=== PATIENT | female | born 1940 | race Caucasian/White ===

== ENCOUNTER → 2017-05-07 13:54 | Outpatient (CLI) | payer MEDICARE, SELFPAY ==
[2017-05-07 16:21] LABS: Absolute Lymphocyte Count 2.46 X10^3/ul (0.83-4.51); Basophil# 0.09 X10^3/uL; Basophil% 1.4 % (0-1); Eosinophil# 0.12 X10^3/uL; Eosinophils% 1.9 % (0-5); Hematocrit 40.6 % (37-47); Hemoglobin 13.2 g/dl (12.0-15.0); Lymphocyte # 2.46 X10^3/ul (4.0); Lymphocyte % 38.7 % (19-41); Mean Corp Hgb Conc 32.5 g/gl (32-36); Mean Corpuscular Hgb 33.8 pg (27.0-32.0); Mean Corpuscular Volume 103.8 fL (81-99); Mean Platelet Vol. 11.5 fl (6.2-12.0); Monocyte# 0.67 X10^3/uL; Monocyte% 10.5 % (0-10); Neutrophil # 3.01 X10^3/uL (2.7-7.7); Neutrophil % 47.3 % (47-70); Platelet Count 199 K/mm3 (150-450); RBC Distribution Width CV 12.2 % (11.6-14.6); RBC Distribution Width SD 45.8 fl (35.1-43.9); Red Blood Count 3.91 M/mm3 (4.2-5.4); White Blood Count 6.4 K/mm3 (4.4-11.0)
[2017-05-07 16:31] LABS: POSITIVE COUNT NO; POSITIVE DIFFERENTIAL NO; POSITIVE MORPHOLOGY NO
[2017-05-07 16:33] LABS: AST(SGOT) 26 U/L (15-37); Alanine Aminotransfer ALT/SGPT 19 U/L (13-56); Albumin, Serum 3.4 g/dL (3.2-5.0); Alkaline Phosphatase 72 U/L (45-117); Anion Gap 8 (5-15); BUN 11 mg/dL (7-18); Calcium,Total 8.7 mg/dL (8.5-10.1); Chloride 106 mmol/L (98-107); Creatinine, Serum 0.84 mg/dL (0.55-1.02); EST Glomerular Filtration Rate 69 mL/min (>60); Est Glom Filt Rate - Afr Amer 84 mL/min (>60); Globulin 3.3 g/dL (2.2-4.2); Glucose 96 mg/dL (74-106); Potassium 3.9 mmol/L (3.5-5.1); Protein, Total 6.7 g/dL (6.4-8.2); Sodium Level 138 mmol/L (136-145)
[2017-05-08 09:01] LABS: Vitamin D,25 Hydroxy 46.6 ng/mL (29.95-100.01)
== END ==
PROVIDERS: Family Provider Family Medicine Geriatric Medicine; PCP Family Medicine Geriatric Medicine; Visit Provider Family Medicine Geriatric Medicine
DX: E55.9 Vitamin D deficiency, unspecified (principal); R53.83 Other fatigue
CPT/HCPCS: 36415; 80053; 82306; 84443; 85025

== ENCOUNTER 2017-09-30 12:06 | Emergency (ER) | payer MEDICARE, SELFPAY ==
[2017-09-30 12:07] VITALS: BP 101/71; PULSE 76; RESP 16; TEMP 36.4; O2SAT 95; BMI 20.3
[2017-09-30] MEDS: HYDROcodone Bitartrate/Apap 5/325 Tablet PO (12:33)
--- NOTE | 2017-09-30 12:36 | ED.DCSUM_ITS ---
- ER Visit Summary Date of Service: 09/30/17 Chief Complaint: Fall History of Present Illness: The patient is a [address] Oneil. 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 States she was leaning forward when she went to lean back she been back to quickly and fell. She has pain in her right wrist that is 8 out of 10 severity. She reports she landed on her buttocks. She denies any pain there at this time. She is able to ambulate without difficulty. She denies any blow to the head or loss of consciousness. No neck or back pain. Patient is right-hand dominant and her tetanus is not up-to-date. Physical Examination: Vitals: Stable. Afebrile. Neck: No vertebral tenderness. Full ROM without difficulty. Cleared by NEXUS criteria. Back: No vertebral tenderness. General: A&O x 3. NAD. Cardiovascular exam: Regular rate and rhythm, no murmur, rub or gallop. Respiratory exam: Chest nontender. No crepitus. Clear to auscultation bilaterally. No wheezes or stridor. Abdominal exam: Soft, nontender, nondistended, normal bowel sounds. No pain in RUQ or LUQ specifically. No peritoneal signs. Extremity: 1.5 cm flap skin tear to the anterior radial side of her wrist. No active bleeding. She has moderate tenderness palpation over the distal radius. She is neurovascular intact distal is normal cessation light touch was in 2 second capillary refill. Test Results: Right wrist x-ray shows a nondisplaced cyst distal radius fracture. Emergency Department Course and Treatment: Patient was treated with [place] p.o. She had her wound cleansed and a dressing was placed. Xeroform gauze was placed over the skin tear prior to placing a volar splint. Treatment Plan: Patient be discharged with [place] and Colace. Instructed to follow-up Dr. Ramon in 1 week if for further treatment. Return to the emergency department for any worsening symptoms. Disposition: To home in improved and stable condition. Impression: 1. Fall. 2. Skin tear right wrist. 3. Nondisplaced distal radius fracture on right. 4. Volar splint, fabricated. This note was generated with Arvin[employer] software. It may contain incorrect words, spelling, and punctuation that were not noted in review of the chart prior to signing ED Disposition - Plan for ED Patient: Chief Complaint: Fall Instructions: ED Fx Colles Wrist No Redu Requ Prescriptions: Docusate Sodium [Colace] 100 mg PO DAILY #20 capsule Hydrocodone/Acetaminophen [[place] 5-325 Tablet] 1 - 2 each PO 4X/DAY PRN PRN 5 Days #20 tablet PRN Reason: Pain Referrals: Lloyd Ramon MD [STAFF PHYSICIAN] - 1 Week
[2017-09-30] MEDS: Diphth,Pertuss(Acell),Tet Vac 0.5 ML Vial IM (12:38)
[2017-09-30 13:42] VITALS: BP 115/72; PULSE 61; RESP 16; O2SAT 97
== END 2017-09-30 13:48 | disposition home or self-care (01) ==
LOC: ED 12:57
PROVIDERS: Emergency Provider Emergency Medicine; Family Provider Family Medicine Geriatric Medicine; PCP Family Medicine Geriatric Medicine
DX: S52.501A Unspecified fracture of the lower end of right radius, initial encounter for closed fracture (principal); S61.511A Laceration without foreign body of right wrist, initial encounter; F41.9 Anxiety disorder, unspecified; Z72.0 Tobacco use; Z79.01 Long term (current) use of anticoagulants; Z79.899 Other long term (current) drug therapy; W18.30XA Fall on same level, unspecified, initial encounter; Y93.H2 Activity, gardening and landscaping; Y92.007 Garden or yard of unspecified non-institutional (private) residence as the place of occurrence of the external cause; Y99.8 Other external cause status
CPT/HCPCS: 29125; 73110; 90471; 90715; 99283; A4216

== ENCOUNTER → 2017-11-05 13:43 | Outpatient (CLI) | payer MEDICARE, SELFPAY ==
[2017-11-05 16:28] LABS: Absolute Neutrophil Count 2.9 X10^3/uL (2.0-7.7); Basophil# 0.08 X10^3/uL; Basophil% 1.4 % (0-1); Eosinophil# 0.12 X10^3/uL; Hematocrit 39.8 % (37-47); Lymphocyte % 37.2 % (19-41); Mean Corp Hgb Conc 32.7 g/gl (32-36); Mean Corpuscular Hgb 32.9 pg (27.0-32.0); Mean Corpuscular Volume 100.8 fL (81-99); Mean Platelet Vol. 11.8 fl (6.2-12.0); Monocyte# 0.64 X10^3/uL; Monocyte% 10.8 % (0-10); Neutrophil # 2.87 X10^3/uL (2.7-7.7); Neutrophil % 48.4 % (47-70); Platelet Count 189 K/mm3 (150-450); RBC Distribution Width SD 47.3 fl (35.1-43.9); Red Blood Count 3.95 M/mm3 (4.2-5.4); White Blood Count 5.9 K/mm3 (4.4-11.0)
[2017-11-05 16:34] LABS: AST(SGOT) 23 U/L (15-37); Alanine Aminotransfer ALT/SGPT 23 U/L (13-56); Albumin, Serum 3.4 g/dL (3.2-5.0); Alkaline Phosphatase 82 U/L (45-117); Anion Gap 7 (5-15); BUN 10 mg/dL (7-18); BUN/Creat Ratio 11.5 RATIO (10-20); Calcium,Total 8.7 mg/dL (8.5-10.1); Chloride 104 mmol/L (98-107); Creatinine, Serum 0.87 mg/dL (0.55-1.02); EST Glomerular Filtration Rate 67 mL/min (>60); Est Glom Filt Rate - Afr Amer 81 mL/min (>60); Globulin 3.5 g/dL (2.2-4.2); Glucose 92 mg/dL (74-106); Potassium 4.1 mmol/L (3.5-5.1); Protein, Total 6.9 g/dL (6.4-8.2); Sodium Level 139 mmol/L (136-145); Thyroid Stim Hormone (TSH) 1.36 uIU/mL (0.358-3.74); Vitamin D,25 Hydroxy 33.7 ng/mL (29.95-100.01)
[2017-11-05 16:37] LABS: POSITIVE COUNT NO; POSITIVE DIFFERENTIAL NO; POSITIVE MORPHOLOGY NO
== END ==
PROVIDERS: Family Provider Family Medicine Geriatric Medicine; PCP Family Medicine Geriatric Medicine; Visit Provider Family Medicine Geriatric Medicine
DX: E55.9 Vitamin D deficiency, unspecified (principal); R53.83 Other fatigue
CPT/HCPCS: 36415; 80053; 82306; 84443; 85025

== ENCOUNTER 2017-11-24 19:57 | Inpatient (IN) | payer MEDICARE, SELFPAY ==
[2017-11-24 19:58] VITALS: BP 95/65; PULSE 84; RESP 16; TEMP 36.1; O2SAT 98; BMI 19.8
--- NOTE | 2017-11-24 21:24 | CT_ITS ---
STUDY: CT ABDOMEN AND PELVIS WITHOUT CONTRAST REASON FOR EXAM: Female, 77 years old. Diarrhea and weakness x2 weeks RADIATION DOSAGE (If Supplied By Facility): CTDIvol = ( 6.39 ) mGy, DLP = ( 274.51 ) mGycm TECHNIQUE: Transaxial images were obtained from the dome of the diaphragm to the symphysis pubis without oral contrast, and without intravenous contrast. Sagittal and coronal images were reconstructed. Individualized dose optimization techniques were used for this CT. COMPARISON: 2009 FINDINGS: There are chronic interstitial fibrotic changes of the lung bases. The visualized portions of the heart are within normal limits. Normal liver. There are surgical clips in the gallbladder fossa consistent with a prior cholecystectomy. Normal spleen. Normal pancreas. Normal bilateral adrenal glands. Normal right kidney. Normal left kidney. There is a large hiatal hernia composed mostly of the fundus of the stomach. Multiple nondistended fluid-filled small bowel loops are noted consistent with ileus. There are also multiple fluid-filled loops of colon consistent with a diarrheal illness. There is non-visualization of the appendix. Peripheral calcifications noted in the abdominal aorta without aneurysmal dilatation to 3.63 cm. Normal inferior vena cava. Normal retroperitoneum. Normal urinary bladder. Left of the pelvis is obscured with artifact from bilateral hip replacements the uterus is not identified. Normal abdominal wall. There are diffuse degenerative changes of the visualized lumbar spine, and pelvis. CT/Abdomen/Pelvis without Cont IMPRESSION: Small bowel ileus Fluid filled colon suggests underlying diarrheal illness No suspicious solid organ abnormality, previous cholecystectomy Prominent retrocardiac hiatal hernia Electronically Signed: Huan Blanco MD at 22:41 EDT , Service support ,
[2017-11-24] MEDS: 0.9% Normal Saline 1,000 ML 1000 ML IV (21:39)
[2017-11-24 21:56] LABS: Absolute Lymphocyte Count 1.78 X10^3/ul (0.83-4.51); Absolute Neutrophil Count 4.7 X10^3/uL (2.0-7.7); Basophil# 0.03 X10^3/uL; Basophil% 0.4 % (0-1); Eosinophil# 0.06 X10^3/uL; Eosinophils% 0.8 % (0-5); Hemoglobin 15.2 g/dl (12.0-15.0); Lymphocyte # 1.78 X10^3/ul (4.0); Lymphocyte % 23.8 % (19-41); Mean Corp Hgb Conc 34.5 g/gl (32-36); Mean Corpuscular Hgb 32.8 pg (27.0-32.0); Mean Corpuscular Volume 94.8 fL (81-99); Mean Platelet Vol. 11.6 fl (6.2-12.0); Monocyte# 0.85 X10^3/uL; Monocyte% 11.4 % (0-10); Neutrophil # 4.74 X10^3/uL (2.7-7.7); Neutrophil % 63.5 % (47-70); Platelet Count 326 K/mm3 (150-450); RBC Distribution Width CV 13.3 % (11.6-14.6); RBC Distribution Width SD 45.5 fl (35.1-43.9); Red Blood Count 4.64 M/mm3 (4.2-5.4); White Blood Count 7.5 K/mm3 (4.4-11.0)
[2017-11-24 21:58] LABS: POSITIVE COUNT NO; POSITIVE DIFFERENTIAL NO; POSITIVE MORPHOLOGY NO
[2017-11-24 22:04] LABS: AST(SGOT) 24 U/L (15-37); Alanine Aminotransfer ALT/SGPT 22 U/L (13-56); Albumin, Serum 3.8 g/dL (3.2-5.0); Alkaline Phosphatase 96 U/L (45-117); Anion Gap 13 (5-15); BUN 37 mg/dL (7-18); BUN/Creat Ratio 21.6 RATIO (10-20); Calcium,Total 9.2 mg/dL (8.5-10.1); Chloride 105 mmol/L (98-107); Creatinine, Serum 1.71 mg/dL (0.55-1.02); EST Glomerular Filtration Rate 31 mL/min (>60); Est Glom Filt Rate - Afr Amer 37 mL/min (>60); Estimated Creatinine Clearance 21.06 ml/min; Glucose 69 mg/dL (74-106); Lipase 479 U/L (73-393); Potassium 3.8 mmol/L (3.5-5.1); Protein, Total 7.8 g/dL (6.4-8.2); Sodium Level 137 mmol/L (136-145)
[2017-11-24 23:15] LABS: Bacteria 0 SEEN /hpf (None Seen); Mucous, Urine 0 SEEN /hpf (<or=2+)
[2017-11-24 23:19] LABS: Color, Urine Yellow (Yellow); Glucose, Dipstick Normal (Normal); Ketone-Dipstick 50 mg/dl (Negative); Leukocyte Esterase-Dipstick 25 /ul (Negative); Nitrite-Dipstick Negative (Negative); Occult Blood-Urine 25 /ul (Negative); Protein-Dipstick 30 mg/dl (Negative); Urine Clarity Clear (Clear); Urine Urobilinogen Normal (Normal)
[2017-11-24 23:22] LABS: Urine Bilirubin Dipstick 1 mg/dL (Negative)
[2017-11-24 23:25] LABS: Red Blood Cells-Urine 0-5 SEEN /hpf (0-5); White Blood Cells 0-5 SEEN /hpf (0-5)
[2017-11-24 23:26] LABS: Squamous Epithelial Cells - UA 0-5 SEEN /hpf (5-10)
--- NOTE | 2017-11-25 00:08 | ED.VISSUMM ---
- ER Visit Summary Date of Service: 11/25/17 Chief Complaint: Diarrhea History of Present Illness: The patient is a 77 F who presents with diarrhea for the past 2 weeks. Patient states the diarrhea is really watery. Patient denies any melena or hematochezia. Patient denies any sick contacts. Patient denies any recent antibiotic use. Patient states she did have an episode of abdominal pain yesterday over the epigastric and upper abdomen. Patient states this has resolved. Patient denies any fevers or chills. She denies any nausea or vomiting. Patient denies any dysuria or hematuria. Physical Examination: Vital signs are stable. Patient is afebrile. Patient is in no acute distress. Oral mucosa is pink and dry neck is supple. Trachea is midline. There is no JVD or lymphadenopathy noted. Heart was regular rate and rhythm. Lungs are clear and equal bilateral. There is good respiratory effort noted. Abdomen is soft. Bowel sounds are normal. There is no tenderness. There is no rebound or guarding noted. Cranial nerves II through XII are intact. There are no focal motor or sensory deficits noted. The remaining physical exam is within normal limits. Test Results: CBC is within normal limits. Basic metabolic profile showed an elevated creatinine of 1.71. Urinalysis does not show any evidence of urinary tract infection. CT scan of the abdomen and pelvis does not show any acute intra-abdominal abnormality. There is fluid stool in the colon. Emergency Department Course and Treatment: Patient was given IV fluids here. Patient was feeling better on reevaluation. Case was discussed with Dr. Gómez the hospitalist. She will admit the patient for observation for rehydration. Patient and family understood and were agreeable with the plan. All questions were answered. Disposition: Admit to hospital Impression: Dehydration This note was generated with en[employer]X dictation software. It may contain incorrect words, spelling, and punctuation that were not noted in review of the chart prior to signing ED Disposition - Plan for ED Patient: Disposition: Acute Care Hospital [facility] Chief Complaint: Diarrhea Diagnosis: Dehydration, Diarrhea Referrals: David Oneil Chi, MD [Primary Care Provider] -
--- NOTE | 2017-11-25 00:10 | PCM.HP.STD ---
Problem List (1) Diarrhea Status: Acute History of Present Illness Date of Admission: 11/25/17 Chief Complaint: diarrhea The patient is a 77 year old F with past medical history of DVT, on Coumadin was admitted by the ED on 11/25/2017 with a complaint of diarrhea for the past 6 days. She has at least 6-8 episodes of watery, nonmucoid nonbloody diarrhea daily. She has associated lethargy and weakness and loss of appetite with nausea but no vomiting. According to patient, she has lost about 7 pounds over the last 2 weeks when she was last at her doctor's office. She denied any fever or chills, any history of C. difficile remembers eating a chicken meal on the day the diarrhea started. She prepared this meal herself and nobody else ate some. In the ED, she was noted to have a creatinine of 1.71 with bicarb of 19, lipase of 479 and CBC was unremarkable. Glucose was slightly low at 69. CT abdomen and pelvis showed fluid-filled colon suggesting underlying diarrheal illness, prominent retrocardiac hiatal hernia and multiple nondistended fluid-filled small bowel loops noted and consistent with IBS. She has been admitted to be managed for intractable diarrhea and AK I due to dehydration. [] Past Medical History Past Medical History (Chronic Problems): Chronic Problems Anxiety (Chronic) History of DVT (deep vein thrombosis) (Chronic) Hyperlipidemia (Chronic) Allergies ibuprofen [From Motrin] Allergy (Verified 11/24/17 19:59) Angioedema Home Medications: Ambulatory Orders Medication Instructions Recorded Calcium Carbonate [Calcium] 500 mg PO DAILY 12/10/14 Citalopram [Celexa] 20 mg PO DAILY 12/10/14 Cyanocobalamin (Vitamin B-12) 500 mcg SL DAILY 12/10/14 [Vitamin B-12] Multivitamins,Therapeutic 1 tablet PO DAILY 12/10/14 [Multivitamin] Omeprazole [Prilosec] 10 mg PO DAILY 12/10/14 Simvastatin [Zocor] 20 mg PO QHS 12/10/14 Warfarin [Coumadin (PBKC)] 3 mg PO SUTUTHSA 02/22/16 Warfarin [Coumadin] 2 mg PO MOWEFR 02/22/16 Acetaminophen [Tylenol Extra 1,000 mg PO QHS PRN 09/30/17 Strength] Alendronate Sodium 70 mg PO QWEEK 11/25/17 Bupropion HCl [Bupropion HCl Sr] 150 mg PO BID 11/25/17 Celecoxib 200 mg PO DAILY 11/25/17 Surgical History: total hip arthroplasty - 2015 Psychiatric History: Depression [employer] History: No pertinent [employer] history Lives: Alone Smoking Status: Current some day smoker Tobacco Use: Cigarettes Alcohol: None Drugs: None - *Family History Maternal History Items: No pertinent history Paternal History Items: No pertinent history Review of Systems Constitutional: Reports: Anorexia, Malaise, Weakness, Weight Change - lost ~ 7 pounds in 2 weeks, Fatigue. Denies: Chills, Fever, Night Sweats Eyes: Reports: Cataracts. Denies: Blurred vision HEENT: Denies: Head Aches, Sinus Congestion, Sinus Drainage Cardiovascular: Denies: Chest Pain, Palpitations Respiratory: Denies: Cough, Shortness of Breath, Shortness of breath at rest, Sputum production Gastrointestinal: Reports: Diarrhea. Denies: Abdominal Pain, Constipation, Dyspepsia, Hematemesis, Hematochezia, Nausea, Melena, Vomiting Genitourinary: Denies: Dysuria Musculoskeletal: Denies: Joint Pain, Joint Tenderness Skin: Denies: Rash, Wounds Neurological: Denies: Numbness, Tingling, Focal weakness Psychiatric: Reports: Depression Hematologic/ Lymphatic: Denies: Easy Bruising, Easy Bleeding VTE Information - Inpt Only VTE Present on Admission: No VTE Pharm Prophylaxis ordered?: No Reason prophylaxis not ordered:: Treatment Not Indicated - already on coumadin Patient Problems: Active and Suspected Problems Dehydration (Acute) Diarrhea (Acute) Diarrhea (Acute) - Physical Exam General: Alert, Oriented x3, Cooperative, No apparent distress HEENT: Atraumatic, PERRLA, EOMI, Normocephalic Oral: Dry Mucosa Neck: Supple, No JVD, Negative Carotid Bruits Lungs: Clear to auscultation, Normal air movement, No rhonchi, No wheeze, No rales Cardiovascular: Regular rate, Regular Rhythm, Normal S1, Normal S2, No murmurs Abdomen: Bowel Sounds Present, Soft, Non Tender, Non-Distended, No Hepato-splenomegaly, Hyperactive Bowel Sounds Extremities: No clubbing, No cyanosis, No edema, Capillary Refill Less than 3 Seconds Skin: No rashes, No breakdown Musculoskeletal: No Tenderness to Palpation of Joints or Extremities Lymphatic: No Cervical, Supraclavicular, or Inguinal Adenopathy Neurological: Cranial nerves II-XII grossly intact, Neuro grossly intact, Motor Exam 5/5 strength throughout Psych/Mental Status: Normal Affect, Appropriate, Alert and oriented to time, place, person, mood and affect Vital Signs Temp Pulse Resp BP Pulse Ox 97 F L 84 16 95/65 98 11/24/17 19:58 11/24/17 19:58 11/24/17 19:58 11/24/17 19:58 11/24/17 19:58 Oxygen Delivery Method Room Air Weight: 108 lb 7.479 oz Body Mass Index (BMI) 19.8 Laboratory Tests Past 24 Hrs 11/24/17 11/24/17 11/24/17 21:40 21:40 23:11 WBC 7.5 RBC 4.64 Hgb 15.2 H Hct 44.0 MCV 94.8 MCH 32.8 H MCHC 34.5 RDW 13.3 RDW Differential 45.5 H Plt Count 326 MPV 11.6 Immature Gran % (Auto) 0.100 Neut % (Auto) 63.5 Lymph % (Auto) 23.8 [place] % (Auto) 11.4 H Eos % (Auto) 0.8 Baso % (Auto) 0.4 Absolute Neuts (auto) 4.7 Absolute Lymphs (auto) 1.78 Total Counted Not Reportable Sodium 137 Potassium 3.8 Chloride 105 Carbon Dioxide 19.0 L Anion Gap 13 BUN 37 H Creatinine 1.71 H Estim Creat Clear Calc 21.06 Est GFR (MDRD) Af Amer 37 L Est GFR (MDRD) Non-Af 31 L BUN/Creatinine Ratio 21.6 H Glucose 69 L Calcium 9.2 Total Bilirubin 0.30 AST 24 ALT 22 Alkaline Phosphatase 96 Total Protein 7.8 Albumin 3.8 Globulin 4.0 Albumin/Globulin Ratio 1.0 Lipase 479 H Urine Color Yellow Urine Clarity Clear Urine pH 6.0 Ur Specific [place] 1.020 Urine Protein 30 H Urine Glucose (UA) Normal Urine Ketones 50 H Urine Occult Blood 25 H Urine Nitrite Negative Urine Bilirubin 1 H Urine Urobilinogen Normal Ur Leukocyte Esterase 25 H Urine RBC 0-5 SEEN Urine WBC 0-5 SEEN Ur Squamous Epith Cells 0-5 SEEN Urine Bacteria 0 SEEN Urine Mucus 0 SEEN Assessment/Plan All Active Problems Dehydration (Acute) Diarrhea (Acute) Diarrhea (Acute) S/P revision of total hip (Acute) Postoperative anemia (Acute) 77-year-old female presenting with diarrhea and assisted weight loss and dehydration 6 weeks. 1. Intractable diarrhea ongoing for ~ 6 days; had 6-8 episodes daily. no history of C Diff; admit to [facility] Abdominal CT showed multiple colonic loops consistent with diarrhea illness, large hiatal hernia mainly of fundus of stomach, adn multiple small bowel loops consistent with ileus check for C Diff, stool enteric pathogen labs hold omeprazole as it has been associated with microscopic colitis hydrate with IVF. If diarrhea persists, may benefit from colonoscopy so biopsies may be taken 2. Raza due to dehydration and diarrhea Cr is 1.71; baseline is <1 hydrate with IVF and trend Cr for improvement 3. Non anion gap acidosis likely due to diarrhea bicarb is 19, and anion gap is only 13, which still falls within normal limits likely due to GI loss from diarrhea check urine anion gap; monitor bicarb for improvement with treatment of diarrhea 4. Nicotine dependence: nicotine patch 14gram daily. Counselled to quit 5. History of DVT: on coumadin 3mg saturday, Saturday, and Saturday, and 2mg on Saturday, Saturday and Saturday monitor INR; target INR is 2-3 6. Depression: on bupropion and celexa 7. Hyperlipidemia: on simvastatin 20mg qhs 8. Osteoporosis: on alndronate 70mg PO weekly Code status: Full Code Patient counseled extensively about differences between full code, DNR CCA and DNR CCA. Patient states she has a living will but is able with assist. Bruce any differences between DNR CCA, DNR CC and full code, and elects to be full code. Total face to face time 18 mins Code Visit OBSV E&M: 83777 Initial observation care L3 Procedures: 26842 Advncd Care Plan 30 Min
--- NOTE | 2017-11-25 00:12 | ED.DCSUM_ITS ---
- ER Visit Summary Date of Service: 11/25/17 Chief Complaint: Diarrhea History of Present Illness: The patient is a 77 F who presents with diarrhea for the past 2 weeks. Patient states the diarrhea is really watery. Patient denies any melena or hematochezia. Patient denies any sick contacts. Patient denies any recent antibiotic use. Patient states she did have an episode of abdominal pain yesterday over the epigastric and upper abdomen. Patient states this has resolved. Patient denies any fevers or chills. She denies any nausea or vomiting. Patient denies any dysuria or hematuria. Physical Examination: Vital signs are stable. Patient is afebrile. Patient is in no acute distress. Oral mucosa is pink and dry neck is supple. Trachea is midline. There is no JVD or lymphadenopathy noted. Heart was regular rate and rhythm. Lungs are clear and equal bilateral. There is good respiratory effort noted. Abdomen is soft. Bowel sounds are normal. There is no tenderness. There is no rebound or guarding noted. Cranial nerves II through XII are intact. There are no focal motor or sensory deficits noted. The remaining physical exam is within normal limits. Test Results: CBC is within normal limits. Basic metabolic profile showed an elevated creatinine of 1.71. Urinalysis does not show any evidence of urinary tract infection. CT scan of the abdomen and pelvis does not show any acute intra-abdominal abnormality. There is fluid stool in the colon. Emergency Department Course and Treatment: Patient was given IV fluids here. Patient was feeling better on reevaluation. Case was discussed with Dr. Gómez the hospitalist. She will admit the patient for observation for rehydration. Patient and family understood and were agreeable with the plan. All questions were answered. Disposition: Admit to hospital Impression: Dehydration This note was generated with [employer] dictation software. It may contain incorrect words, spelling, and punctuation that were not noted in review of the chart prior to signing ED Disposition - Plan for ED Patient: Disposition: Acute Care Hospital [facility] Chief Complaint: Diarrhea Diagnosis: Dehydration, Diarrhea Referrals: David Oneil Chi, MD [Primary Care Provider] -
[2017-11-25 01:01] VITALS: BP 104/65; PULSE 74; RESP 16; TEMP 36.6; O2SAT 95
[2017-11-25] MEDS: 0.9% Normal Saline 1,000 ML 125 ML IV ×2 (01:37→08:19)
[2017-11-25 03:45] LABS: Prothrombin Time (Protime)PT. 42.6 SECONDS (11.7-14.9)
[2017-11-25 03:46] LABS: International Normalized Ratio 4.4
[2017-11-25 06:18] VITALS: BP 95/60; PULSE 71; RESP 16; TEMP 37; O2SAT 97
[2017-11-25] MEDS: Calcium (Elemental) 500 MG Tablet PO (08:18)
[2017-11-25] MEDS: Celecoxib 200 MG Capsule PO (08:18)
[2017-11-25] MEDS: Cyanocobalamin 500 MCG Tablet PO (08:18)
[2017-11-25] MEDS: Citalopram 20 MG Tablet PO (08:18)
[2017-11-25] MEDS: buPROPion (SR) 150 MG Tablet.SA PO ×2 (08:18→21:02)
[2017-11-25] MEDS: Multivitamins,Therapeutic Tablet 1 TABLET PO (08:18)
[2017-11-25 08:25] VITALS: BP 96/60; PULSE 71; RESP 16; TEMP 36.5; O2SAT 97
--- NOTE | 2017-11-25 10:08 | PN_ITS ---
Patient Problems: Active and Suspected Problems Dehydration (Acute) Diarrhea (Acute) Diarrhea (Acute) Subjective: Patient was seen and examined. Denies any new complaints. Feels improved. Has had 3 bowel movements. Denies any abdominal cramps, fever or chills Stool for enteric panel has been negative. C. difficile negative Vitals/I&O's: Vital Signs Temp Pulse Resp BP Pulse Ox 97.7 F L 71 16 96/60 97 11/25/17 08:25 11/25/17 08:25 11/25/17 08:25 11/25/17 08:25 11/25/17 08:25 Oxygen Delivery Method Room Air Weight: 49.6 kg Body Mass Index (BMI) 20.0 Intake and Output for Last 24 Hours 11/23/17 11/24/17 11/25/17 23:59 23:59 23:59 Intake Total 761 / 761 Output Total 200 / 200 Balance 561 / 561 General: Alert, Oriented x3, Cooperative, No apparent distress HEENT: Atraumatic, PERRLA, EOMI, Normocephalic Oral: Moist Mucosa Neck: Supple Lungs: Clear to auscultation, Normal air movement Cardiovascular: Regular rate, Regular Rhythm, Normal S1, Normal S2, No murmurs Abdomen: Bowel Sounds Present, Soft, Non Tender, Non-Distended, No Hepato- splenomegaly Extremities: No edema Skin: No rashes, No breakdown Musculoskeletal: No Tenderness to Palpation of Joints or Extremities Lymphatic: No Cervical, Supraclavicular, or Inguinal Adenopathy Neurological: Cranial nerves II-XII grossly intact, Neuro grossly intact Psych/Mental Status: Normal Affect, Appropriate Microbiology Past 72 Hours 11/25/17 06:40 Stool C. difficile DNA Amplification - Final Laboratory Results 11/24/17 21:40: WBC 7.5, RBC 4.64, Hgb 15.2 H, Hct 44.0, MCV 94.8, MCH 32.8 H, MCHC 34.5, RDW 13.3, RDW Differential 45.5 H, Plt Count 326, MPV 11.6, Immature Gran % (Auto) 0.100, Neut % (Auto) 63.5, Lymph % (Auto) 23.8, [place] % (Auto) 11.4 H, Eos % (Auto) 0.8, Baso % (Auto) 0.4, Absolute Neuts (auto) 4.7, Absolute Lymphs (auto) 1.78, Total Counted Not Reportable 11/24/17 21:40: Sodium 137, Potassium 3.8, Chloride 105, Carbon Dioxide 19.0 L, Anion Gap 13, BUN 37 H, Creatinine 1.71 H, Estim Creat Clear Calc 21.06, Est GFR (MDRD) Af Amer 37 L, Est GFR (MDRD) Non-Af 31 L, BUN/Creatinine Ratio 21.6 H, Glucose 69 L, Calcium 9.2, Total Bilirubin 0.30, AST 24, ALT 22, Alkaline Phosphatase 96, Total Protein 7.8, Albumin 3.8, Globulin 4.0, Albumin/Globulin Ratio 1.0, Lipase 479 H 11/24/17 23:11: Urine Color Yellow, Urine Clarity Clear, Urine pH 6.0, Ur Specific [place] 1.020, Urine Protein 30 H, Urine Glucose (UA) Normal, Urine Ketones 50 H, Urine Occult Blood 25 H, Urine Nitrite Negative, Urine Bilirubin 1 H, Urine Urobilinogen Normal, Ur Leukocyte Esterase 25 H, Urine RBC 0-5 SEEN, Urine WBC 0-5 SEEN, Ur Squamous Epith Cells 0-5 SEEN, Urine Bacteria 0 SEEN, Urine Mucus 0 SEEN 11/25/17 03:20: PT 42.6 H, INR 4.4 H* Current Medications Acetaminophen (Tylenol) 1,000 mg PO QHS PRN PRN Reason: PAIN Alendronate Sodium (Fosamax) 70 mg PO QWEEK [facility] Atorvastatin Calcium (Lipitor) 10 mg PO QHS [facility] Bupropion HCl (Wellbutrin Sr (150mg Tablets)) 150 mg PO BID [facility] Last Admin: 11/25/17 08:18 Dose: 150 mg Calcium Carbonate (Os-[place] 500) 500 mg PO DAILY [facility] Last Admin: 11/25/17 08:18 Dose: 500 mg Celecoxib (Celebrex) 200 mg PO DAILY [facility] Last Admin: 11/25/17 08:18 Dose: 200 mg Citalopram Hydrobromide (Celexa) 20 mg PO DAILY [facility] Last Admin: 11/25/17 08:18 Dose: 20 mg Cyanocobalamin (Vitamin B12) 500 mcg PO DAILY [facility] Last Admin: 11/25/17 08:18 Dose: 500 mcg Sodium Chloride () 1,000 mls @ 125 mls/hr IV .Q8H [facility] Stop: 11/25/17 16:59 Last Admin: 11/25/17 08:19 Dose: 125 mls/hr Multivitamins (Multivitamin) 1 tablet PO DAILYCM [facility] Last Admin: 11/25/17 08:18 Dose: 1 tablet Nutritional Formula (Lactose Free) (Ensure Enlive) 120 ml PO 4X/DAY [facility] Last Admin: 11/25/17 08:18 Dose: 120 ml Sodium Chloride () 5 - 30 ml IV UD PRN PRN Reason: SALINE FLUSH Warfarin Sodium (Coumadin (Pbkc)) 2 mg PO [id number]@1700 [facility] Medical Necessity - Tobacco Use Smoking Status: Current some day smoker Tobacco Use: Cigarettes Assessment/Plan All Active Problems Dehydration (Acute) Diarrhea (Acute) Diarrhea (Acute) S/P revision of total hip (Acute) Postoperative anemia (Acute) 77-year-old with past medical history of DVT, on Coumadin, hyperlipidemia, comes in with complaints of diarrhea ongoing for 1 week. 1. Acute gastroenteritis, stool for C. difficile negative, CT of the abdomen negative for stent with acute diarrheal illness Continue on IV fluids, monitor symptomatically 2. BERONICA secondary to dehydration from diarrhea, on IV fluids, labs in a.m. 3. Supratherapeutic INR, INR is 4.4, on coumadin, would hold it in tonight 4. Non-gap metabolic acidosis secondary to diarrhea, continue with IV fluids, labs in a.m. 5. Hyperlipidemia, on statin 6. Nicotine dependence, on nicotine patch 7. Depression, on bupropion and Celexa 8. DVT PPx- INR is supratherapeutic Code Visit Inpatient E&M: 28107 Subs Hosp L2
--- NOTE | 2017-11-25 11:45 | CASEMGMT ---
RN CM Face to Face with patient for initial transition planning/care coordination assessment. RN CM introduced self and role at [facility]. Patient lying in bed, alert and oriented. Patient willing to participate in assessment and is able to answer all questions appropriately. Care providers, pharmacy, and demographics verified. Patient wishes to discharge home, denies need for home health at this time. Patient states she has no further needs or concerns at this time. CM to follow for discharge planning needs that may arise. PCP: Thad Specialists: None Preferred [facility]acy: [facility] Insurance: [facility] Prescription Benefit: [employer] Living Will/HPOA: Yes, granddaughter Teresita Musa LNOK: Granddaughter Living Arrangements: Patient lives in first floor apartment with no steps to enter the home. Transportation: Self or family/friends DME/HHC: Shower chair, BSC, cane, crutches, walker, medical alert. Has had [facility] HHC in the past. Disposition Plan: Patient to discharge home with family support and follow-up plans in place. Kassidy MIRELES, RN, CM
[2017-11-25 14:06] VITALS: BP 92/52; PULSE 75; RESP 18; TEMP 36.9; O2SAT 95
[2017-11-25] MEDS: Loperamide 2 MG Capsule PO (21:00)
[2017-11-25] MEDS: Atorvastatin Calcium 10 MG Tablet PO (21:02)
[2017-11-25 21:08] VITALS: BP 103/65; PULSE 71; RESP 18; TEMP 36.9; O2SAT 94
[2017-11-26 02:24] VITALS: BP 104/63; PULSE 65; RESP 18; TEMP 36.8; O2SAT 96
[2017-11-26 07:44] LABS: Absolute Lymphocyte Count 1.44 X10^3/ul (0.83-4.51); Basophil# 0.05 X10^3/uL; Basophil% 0.7 % (0-1); Eosinophil# 0.11 X10^3/uL; Eosinophils% 1.5 % (0-5); Hematocrit 34.7 % (37-47); Hemoglobin 12.2 g/dl (12.0-15.0); Lymphocyte # 1.44 X10^3/ul (4.0); Lymphocyte % 19.5 % (19-41); Mean Corp Hgb Conc 35.2 g/gl (32-36); Mean Corpuscular Volume 93.8 fL (81-99); Mean Platelet Vol. 11.1 fl (6.2-12.0); Monocyte% 10.9 % (0-10); Neutrophil # 4.96 X10^3/uL (2.7-7.7); Neutrophil % 67.3 % (47-70); Platelet Count 227 K/mm3 (150-450); RBC Distribution Width CV 12.9 % (11.6-14.6); RBC Distribution Width SD 42.6 fl (35.1-43.9); White Blood Count 7.4 K/mm3 (4.4-11.0)
[2017-11-26 07:46] LABS: POSITIVE COUNT NO; POSITIVE DIFFERENTIAL NO; POSITIVE MORPHOLOGY NO
[2017-11-26 07:52] LABS: Prothrombin Time (Protime)PT. 30.9 SECONDS (11.7-14.9)
[2017-11-26 07:57] LABS: Anion Gap 11 (5-15); BUN 23 mg/dL (7-18); BUN/Creat Ratio 29.7 RATIO (10-20); Calcium,Total 7.8 mg/dL (8.5-10.1); Chloride 115 mmol/L (98-107); Creatinine, Serum 0.78 mg/dL (0.55-1.02); EST Glomerular Filtration Rate 76 mL/min (>60); Est Glom Filt Rate - Afr Amer 92 mL/min (>60); Glucose 83 mg/dL (74-106); Potassium 2.7 mmol/L (3.5-5.1); Sodium Level 145 mmol/L (136-145)
--- NOTE | 2017-11-26 08:02 | PCM.PN.HOSP ---
Patient Problems: Active and Suspected Problems Dehydration (Acute) Diarrhea (Acute) Diarrhea (Acute) Subjective: Patient seen and examined. Reports having more than 12 bowel movements. Denies nausea or vomiting. No fever or chills. Objective: Physical exam: General: Alert, Oriented x3, Cooperative, No apparent distress HEENT: Atraumatic, PERRLA, EOMI, Normocephalic Oral: Moist Mucosa Neck: Supple Lungs: Clear to auscultation, Normal air movement Cardiovascular: Regular rate, Regular Rhythm, Normal S1, Normal S2, No murmurs Abdomen: Bowel Sounds Present, Soft, Non Tender, Non-Distended, No Hepato-splenomegaly Extremities: No edema Skin: No rashes, No breakdown Musculoskeletal: No Tenderness to Palpation of Joints or Extremities Lymphatic: No Cervical, Supraclavicular, or Inguinal Adenopathy Neurological: Cranial nerves II-XII grossly intact, Neuro grossly intact Psych/Mental Status: Normal Affect, Appropriate Vitals/I&O's: Vital Signs Temp Pulse Resp BP Pulse Ox 98.3 F 65 18 104/63 96 11/26/17 02:24 11/26/17 02:24 11/26/17 02:24 11/26/17 02:24 11/26/17 02:24 Oxygen Delivery Method Room Air Weight: 49.6 kg Body Mass Index (BMI) 20.0 Intake and Output for Last 24 Hours 11/24/17 11/25/17 11/26/17 23:59 23:59 23:59 Intake Total 2616 / 2616 350 / 350 Output Total 600 / 600 Balance 2015 350 / 350 Microbiology Past 72 Hours 11/25/17 06:40 Stool Enteric Bacteriology - Final 11/25/17 06:40 Stool C. difficile DNA Amplification - Final Laboratory Results 11/26/17 07:13: WBC 7.4, RBC 3.70 L, Hgb 12.2, Hct 34.7 L, MCV 93.8, MCH 33.0 H, MCHC 35.2, RDW 12.9, RDW Differential 42.6, Plt Count 227, MPV 11.1, Immature Gran % (Auto) 0.100, Neut % (Auto) 67.3, Lymph % (Auto) 19.5, [place] % (Auto) 10.9 H, Eos % (Auto) 1.5, Baso % (Auto) 0.7, Absolute Neuts (auto) 5.0, Absolute Lymphs (auto) 1.44, Total Counted Not Reportable 11/26/17 07:13: PT 30.9 H, INR 3.0 11/26/17 07:13: Sodium 145, Potassium 2.7 L*, Chloride 115 H, Carbon Dioxide 19.0 L, Anion Gap 11, BUN 23 H, Creatinine 0.78, Estim Creat Clear Calc 36.30, Est GFR (MDRD) Af Amer 92, Est GFR (MDRD) Non-Af 76, BUN/Creatinine Ratio 29.7 H, Glucose 83, Calcium 7.8 L Current Medications Acetaminophen (Tylenol) 1,000 mg PO QHS PRN PRN Reason: PAIN Alendronate Sodium (Fosamax) 70 mg PO QWEEK [facility] Atorvastatin Calcium (Lipitor) 10 mg PO QHS [facility] Last Admin: 11/25/17 21:02 Dose: 10 mg Bupropion HCl (Wellbutrin Sr (150mg Tablets)) 150 mg PO BID [facility] Last Admin: 11/25/17 21:02 Dose: 150 mg Calcium Carbonate (Os-[place] 500) 500 mg PO DAILY [facility] Last Admin: 11/25/17 08:18 Dose: 500 mg Citalopram Hydrobromide (Celexa) 20 mg PO DAILY [facility] Last Admin: 11/25/17 08:18 Dose: 20 mg Cyanocobalamin (Vitamin B12) 500 mcg PO DAILY [facility] Last Admin: 11/25/17 08:18 Dose: 500 mcg Potassium Chloride (Kcl 10meq/100ml) 10 meq in 100 mls @ 100 mls/hr IV BOLUS Q1H [facility] Stop: 11/26/17 11:59 Loperamide HCl (Imodium) 2 mg PO PRN PRN PRN Reason: Diarrhea Last Admin: 11/25/17 21:00 Dose: 2 mg Multivitamins (Multivitamin) [facility] Last Admin: 11/25/17 08:18 Dose: 1 tablet Nutritional Formula (Lactose Free) (Ensure Enlive) 120 ml PO 4X/DAY [facility] Last Admin: 11/25/17 21:02 Dose: Not Given Potassium Chloride (K-Dur) 40 meq PO X1 ONE Stop: 11/26/17 08:01 Sodium Chloride () 5 - 30 ml IV UD PRN PRN Reason: SALINE FLUSH Warfarin Sodium (Coumadin (Pbkc)) 2 mg PO [id number] [facility] Medical Necessity - Tobacco Use Smoking Status: Current some day smoker Tobacco Use: Cigarettes Assessment/Plan All Active Problems Dehydration (Acute) Diarrhea (Acute) Diarrhea (Acute) S/P revision of total hip (Acute) Postoperative anemia (Acute) 77-year-old with past medical history of DVT, on Coumadin, hyperlipidemia, comes in with complaints of diarrhea ongoing for 1 week. 1. Hypokalemia, K 2.7, will replace IV and po, repeat BMP at 1pm, and in the morning. 2. Acute gastroenteritis, infectious etiologies was ruled out, CT of the abdomen showed multiple non-distended fluid-filled small bowel loops suggestive of acute diarrheal illness. Will continue to treat symptomatically, continue on IV fluids. 3. BERONICA secondary to dehydration from diarrhea, resolved, continue on IV fluids, labs in a.m. 4. Supratherapeutic INR, resolved, INR is 3.0, will continue coumadin, INR in am 5. Non-gap metabolic acidosis secondary to diarrhea, continue with IV fluids, labs in a.m. 6. Hyperlipidemia, on statin 7. Nicotine dependence, on nicotine patch 8. Depression, on bupropion and Celexa 9. DVT PPx- INR is therapeutic Code Visit Inpatient E&M: 38398 Subs Hosp L2
[2017-11-26 08:35] LABS: Magnesium 1.8 mg/dL (1.6-2.6)
[2017-11-26 08:53] VITALS: BP 99/64; PULSE 71; RESP 16; TEMP 36.6; O2SAT 95
[2017-11-26] MEDS: Multivitamins,Therapeutic Tablet 1 TABLET PO (09:10)
[2017-11-26] MEDS: 0.9% NaCl Peripheral Flush Adult/Peds IV ×2 (09:10→16:30)
[2017-11-26] MEDS: Citalopram 20 MG Tablet PO (09:11)
[2017-11-26] MEDS: Cyanocobalamin 500 MCG Tablet PO (09:11)
[2017-11-26] MEDS: Calcium (Elemental) 500 MG Tablet PO (09:11)
[2017-11-26] MEDS: buPROPion (SR) 150 MG Tablet.SA PO ×2 (09:11→20:36)
[2017-11-26] MEDS: Loperamide 2 MG Capsule PO ×3 (11:51→20:37)
[2017-11-26 14:22] LABS: Anion Gap 9 (5-15); BUN 20 mg/dL (7-18); BUN/Creat Ratio 28.4 RATIO (10-20); Calcium,Total 7.7 mg/dL (8.5-10.1); Chloride 116 mmol/L (98-107); EST Glomerular Filtration Rate 85 mL/min (>60); Est Glom Filt Rate - Afr Amer 103 mL/min (>60); Glucose 78 mg/dL (74-106); Potassium 3.7 mmol/L (3.5-5.1); Sodium Level 143 mmol/L (136-145)
[2017-11-26 14:53] VITALS: BP 112/63; PULSE 61; RESP 18; TEMP 36.8; O2SAT 94
[2017-11-26 20:28] VITALS: BP 102/57; PULSE 64; RESP 18; TEMP 37; O2SAT 97
[2017-11-26] MEDS: Atorvastatin Calcium 10 MG Tablet PO (20:36)
[2017-11-26 20:53] VITALS: PULSE 78; RESP 18; O2SAT 96
[2017-11-27 03:00] VITALS: BP 91/58; PULSE 60; RESP 18; TEMP 37; O2SAT 100
[2017-11-27 07:44] LABS: Absolute Lymphocyte Count 1.54 X10^3/ul (0.83-4.51); Absolute Neutrophil Count 3.5 X10^3/uL (2.0-7.7); Basophil# 0.06 X10^3/uL; Eosinophil# 0.18 X10^3/uL; Hematocrit 35.4 % (37-47); Hemoglobin 12.1 g/dl (12.0-15.0); Lymphocyte # 1.54 X10^3/ul (4.0); Lymphocyte % 25.5 % (19-41); Mean Corp Hgb Conc 34.2 g/gl (32-36); Mean Corpuscular Hgb 32.4 pg (27.0-32.0); Mean Corpuscular Volume 94.9 fL (81-99); Mean Platelet Vol. 10.5 fl (6.2-12.0); Monocyte# 0.75 X10^3/uL; Monocyte% 12.4 % (0-10); Neutrophil # 3.49 X10^3/uL (2.7-7.7); Neutrophil % 57.9 % (47-70); Platelet Count 227 K/mm3 (150-450); RBC Distribution Width CV 13.3 % (11.6-14.6); RBC Distribution Width SD 46.2 fl (35.1-43.9); Red Blood Count 3.73 M/mm3 (4.2-5.4)
[2017-11-27 07:45] LABS: Prothrombin Time (Protime)PT. 22.6 SECONDS (11.7-14.9)
[2017-11-27 07:47] LABS: POSITIVE COUNT NO; POSITIVE DIFFERENTIAL NO; POSITIVE MORPHOLOGY NO
[2017-11-27 08:01] LABS: Anion Gap 8 (5-15); BUN 14 mg/dL (7-18); BUN/Creat Ratio 21.8 RATIO (10-20); Calcium,Total 7.9 mg/dL (8.5-10.1); Chloride 116 mmol/L (98-107); Creatinine, Serum 0.64 mg/dL (0.55-1.02); EST Glomerular Filtration Rate 95 mL/min (>60); Est Glom Filt Rate - Afr Amer 115 mL/min (>60); Glucose 72 mg/dL (74-106); Potassium 3.5 mmol/L (3.5-5.1); Sodium Level 143 mmol/L (136-145)
--- NOTE | 2017-11-27 08:07 | NURSING ---
Pt reports that she had last colonoscopy about 6 yrs ago and will never have another one. When asked about reasoning- pt states that she had 25 feet of her bowel removed and a polyp after they discovered colon cancer. She states that she experiences diarrhea frequently at home and does have incontinence- and wears a brief daily at home.
[2017-11-27 09:00] VITALS: BP 95/61; PULSE 62; RESP 16; TEMP 36.5; O2SAT 95
[2017-11-27] MEDS: Citalopram 20 MG Tablet PO (09:55)
[2017-11-27] MEDS: Multivitamins,Therapeutic Tablet 1 TABLET PO (09:55)
[2017-11-27] MEDS: Calcium (Elemental) 500 MG Tablet PO (09:55)
[2017-11-27] MEDS: buPROPion (SR) 150 MG Tablet.SA PO (09:55)
[2017-11-27] MEDS: Cyanocobalamin 500 MCG Tablet PO (09:55)
--- NOTE | 2017-11-27 12:03 | DCINST_ITS ---
- Discharge Diagnoses Current Active Problems: Current Active and Chronic Problems Dehydration (Acute) Diarrhea (Acute) Diarrhea (Acute) Reason(s) for Visit for Discharge Instructions: Diarrhea You will use the following diet at home:: Regular Your food should be the consistency of: Regular Your liquids should be the consistency of: Regular/Thin Discharge Activity: Return to Normal Activity Additional Instructions: Please keep a stool diary and log of your bowel movements and stool consistency. Follow-up in [address] Oneil. You will need to repeat blood work in 1 week. You should continue to drink lots of fluids to keep yourself hydrated. Allergies/Adverse Reactions: Allergies ibuprofen [From Motrin] Allergy (Verified 11/24/17 19:59) Angioedema Medications to take at Discharge Calcium Carbonate [Calcium] 500 mg PO DAILY 12/10/14 Citalopram [Celexa] 20 mg PO DAILY 12/10/14 Cyanocobalamin (Vitamin B-12) [Vitamin B-12] 500 mcg SL DAILY 12/10/14 Multivitamins,Therapeutic [Multivitamin] 1 tablet PO DAILY 12/10/14 Omeprazole [Prilosec] 10 mg PO DAILY 12/10/14 Simvastatin [Zocor] 20 mg PO QHS 12/10/14 Warfarin [Coumadin] 2 mg PO MOWEFR 02/22/16 Warfarin [Coumadin] 3 mg PO SUTUTHSA 02/22/16 Acetaminophen [Tylenol] 1,000 mg PO QHS PRN 09/30/17 Alendronate Sodium 70 mg PO QWEEK 11/25/17 Bupropion HCl [Bupropion HCl Sr] 150 mg PO BID 11/25/17 Loperamide [Imodium] 2 mg PO Q6H PRN PRN #10 capsule 11/27/17 The following prescriptions were given: Loperamide [Imodium] 2 mg PO Q6H PRN PRN #10 capsule PRN Reason: Diarrhea Orders to be completed after discharge: Basic Metabolic Profile (BMP) Location: Laboratory Primary Care Physician: David Oneil Chi, MD [Primary Care Provider] - Please follow up with your Primary Care Physician in: in 1 week Test Results: Test results from this visit will be discussed in further detail at your follow- up appointment, if applicable. Proposed Discharge Date: 11/27/17
--- NOTE | 2017-11-27 12:03 | PCM.DC.SUM ---
Discharge Date and Diagnosis Date of Admission: 11/25/17 Date of Discharge: 11/27/17 - Primary Discharge Diagnosis Active and Suspected Problems Dehydration (Acute) Intractable diarrhea Hypokalemia Hypomagnesemia Acute kidney injury Non-gap metabolic acidosis secondary to diarrhea Nicotine dependence - Secondary Discharge Diagnosis Chronic Problems Anxiety (Chronic) History of DVT (deep vein thrombosis) (Chronic) Hyperlipidemia (Chronic) Depression Osteoporosis History of DVT Hospital Course and Treatment Imaging Results: Clinical Impression(s) from Imaging Studies Abdomen/Pelvis CT 11/24/17 21:24 IMPRESSION: Small bowel ileus Fluid filled colon suggests underlying diarrheal illness No suspicious solid organ abnormality, previous cholecystectomy Prominent retrocardiac hiatal hernia Electronically Signed: Huan Blanco MD at 22:41 EDT , Service support , None Operations: None Procedures: None Summary of Care Provided: The patient is a 77 year old F with past medical history of DVT, on Coumadin, hyperlipidemia, nicotine dependence, colon cancer status post colectomy, who comes in with complaints of diarrhea, ongoing for 1 week. Patient denied any use of antibiotics, remembers eating a chicken meal on a day that the diarrhea started and that was prepared by herself. She was admitted with acute kidney injury secondary to dehydration from the diarrhea. Stool studies were negative for infectious etiology for this diarrhea. Patient had a CT scan of the abdomen and pelvis on admission which showed fluid-filled small bowels suggestive of diarrhea process. With an infectious etiology ruled out, patient was started on Imodium with slowing down of her diarrhea. She has severe hypokalemia and hypomagnesemia that was replaced. Her admitting INR was supratherapeutic. Coumadin was held, improved to 3.0 the next day, resumed on her home Coumadin. The day of discharge, she had had 2 loose stools, she was discharged on Imodium. She will follow-up with a primary doctor for repeat BMP. She will follow-up with her primary doctor for INR check. Subjective: Patient was seen and examined. Has had 2 loose stools. Feels that her diarrhea is getting better overall. Denies any fever or chills or hematochezia or melena Objective: Physical exam: General: Alert, Oriented x3, Cooperative, No apparent distress HEENT: Atraumatic, PERRLA, EOMI, Normocephalic Oral: Moist Mucosa Neck: Supple Lungs: Clear to auscultation, Normal air movement Cardiovascular: Regular rate, Regular Rhythm, Normal S1, Normal S2, No murmurs Abdomen: Bowel Sounds Present, Soft, Non Tender, Non-Distended, No Hepato-splenomegaly Extremities: No edema Skin: No rashes, No breakdown Musculoskeletal: No Tenderness to Palpation of Joints or Extremities Lymphatic: No Cervical, Supraclavicular, or Inguinal Adenopathy Neurological: Cranial nerves II-XII grossly intact, Neuro grossly intact Psych/Mental Status: Normal Affect, Appropriate - Physical Exam Vital Signs Temp Pulse Resp BP Pulse Ox 97.7 F L 62 16 95/61 95 11/27/17 09:00 11/27/17 09:00 11/27/17 09:00 11/27/17 09:00 11/27/17 09:00 Oxygen Delivery Method Room Air Weight: 49.6 kg Body Mass Index (BMI) 20.0 Intake and Output for Last 24 Hours 11/25/17 11/26/17 11/27/17 23:59 23:59 23:59 Intake Total 2616 / 2616 1747 / 1747 300 / 300 Output Total 600 / 600 200 / 200 200 / 200 Balance 2015 1547 / 1547 100 / 100 Microbiology Past 72 Hours 11/25/17 06:40 Enteric Bacteriology - Final Stool C. difficile DNA Amplification - Final Laboratory Tests Past 24 Hrs 11/26/17 11/27/17 11/27/17 13:00 07:20 07:20 WBC 6.0 RBC 3.73 L Hgb 12.1 Hct 35.4 L MCV 94.9 MCH 32.4 H MCHC 34.2 RDW 13.3 RDW Differential 46.2 H Plt Count 227 MPV 10.5 Immature Gran % (Auto) 0.200 Neut % (Auto) 57.9 Lymph % (Auto) 25.5 [place] % (Auto) 12.4 H Eos % (Auto) 3.0 Baso % (Auto) 1.0 Absolute Neuts (auto) 3.5 Absolute Lymphs (auto) 1.54 Total Counted Not Reportable PT 22.6 H INR 2.0 Sodium 143 Potassium 3.7 Chloride 116 H Carbon Dioxide 18.0 L Anion Gap 9 BUN 20 H Creatinine 0.70 Estim Creat Clear Calc 36.30 Est GFR (MDRD) Af Amer 103 Est GFR (MDRD) Non-Af 85 BUN/Creatinine Ratio 28.4 H Glucose 78 Calcium 7.7 L 11/27/17 07:20 WBC RBC Hgb Hct MCV MCH MCHC RDW RDW Differential Plt Count MPV Immature Gran % (Auto) Neut % (Auto) Lymph % (Auto) [place] % (Auto) Eos % (Auto) Baso % (Auto) Absolute Neuts (auto) Absolute Lymphs (auto) Total Counted PT INR Sodium 143 Potassium 3.5 Chloride 116 H Carbon Dioxide 19.0 L Anion Gap 8 BUN 14 Creatinine 0.64 Estim Creat Clear Calc 36.30 Est GFR (MDRD) Af Amer 115 Est GFR (MDRD) Non-Af 95 BUN/Creatinine Ratio 21.8 H Glucose 72 L Calcium 7.9 L Discharge Diet: - - Coumadin diet Discharge Activity: Return to Normal Activity Home Medications: Medications to take at Discharge Calcium Carbonate [Calcium] 500 mg PO DAILY 12/10/14 Citalopram [Celexa] 20 mg PO DAILY 12/10/14 Cyanocobalamin (Vitamin B-12) [Vitamin B-12] 500 mcg SL DAILY 12/10/14 Multivitamins,Therapeutic [Multivitamin] 1 tablet PO DAILY 12/10/14 Omeprazole [Prilosec] 10 mg PO DAILY 12/10/14 Simvastatin [Zocor] 20 mg PO QHS 12/10/14 Warfarin [Coumadin] 2 mg PO MOWEFR 02/22/16 Warfarin [Coumadin] 3 mg PO SUTUTHSA 02/22/16 Acetaminophen [Tylenol] 1,000 mg PO QHS PRN 09/30/17 Alendronate Sodium 70 mg PO QWEEK 11/25/17 Bupropion HCl [Bupropion HCl Sr] 150 mg PO BID 11/25/17 Loperamide [Imodium] 2 mg PO Q6H PRN PRN #10 capsule 11/27/17 Following Prescrptions Were Given to Patient: Loperamide [Imodium] 2 mg PO Q6H PRN PRN #10 capsule PRN Reason: Diarrhea Other Amb Orders: Basic Metabolic Profile (BMP) Location: Laboratory Primary Care Physician: David Oneil Chi, MD [Primary Care Provider] - Please follow up with your Primary Care Physician in: in 1 week Disposition: Home Minutes spent on discharge:: 40 Patient Condition:: Stable Medical Necessity - Tobacco Use Smoking Status: Current some day smoker Tobacco Use: Cigarettes Meaningful Use Info Meaningful Use Diagnoses (Choose all that apply): None applicable Code Visit Inpatient E&M: 99085 Disch Hosp
[2017-11-27 13:52] VITALS: BP 118/81; PULSE 67; RESP 16; TEMP 36.4; O2SAT 98
--- NOTE | 2017-11-28 16:07 | CASEMGMT ---
ELEN REILLY Discharge Follow-up Phone Call: THONY: Trino Strata: 3 Call Date: 11/28/17 Discharge Date: 11/27/17 Time of Call: 1605 Duration: 3 min Admitting Diagnosis: Dehydration ELEN REILLY completed follow-up phone call after recent hospitalization. Patient states that she is doing better. 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 Patient has follow up appt scheduled with PCP on 12/05 at 1120.
== END 2017-11-27 14:00 | disposition home or self-care (01) | DRG 682 ==
LOC: ED 11-25 00:12 → MS3 11-25 00:24
PROVIDERS: Admitting Provider Student in an Organized Health Care Education/Training Program; Emergency Provider Emergency Medicine; Family Provider Family Medicine Geriatric Medicine; PCP Family Medicine Geriatric Medicine; Visit Provider Internal Medicine
DX: N17.9 Acute kidney failure, unspecified (principal); E43 Unspecified severe protein-calorie malnutrition; E87.2 Acidosis; E86.0 Dehydration; F17.210 Nicotine dependence, cigarettes, uncomplicated; K52.9 Noninfective gastroenteritis and colitis, unspecified; M81.0 Age-related osteoporosis without current pathological fracture; E78.5 Hyperlipidemia, unspecified; F32.9 Major depressive disorder, single episode, unspecified; E87.6 Hypokalemia; E83.42 Hypomagnesemia; F41.9 Anxiety disorder, unspecified; Z68.20 Body mass index [BMI] 20.0-20.9, adult; Z90.49 Acquired absence of other specified parts of digestive tract; Z85.038 Personal history of other malignant neoplasm of large intestine; Z86.718 Personal history of other venous thrombosis and embolism; Z79.83 Long term (current) use of bisphosphonates; Z79.01 Long term (current) use of anticoagulants
CPT/HCPCS: 36415; 74176; 80048; 80053; 81001; 83690; 83735; 85025; 85610; 87493; 87506; 97161; 97165; 97530; 97535; 99282; 99406; J7030; J7040; A4216

== ENCOUNTER 2017-12-04 10:33 | Inpatient (IN) | payer MEDICARE, SELFPAY ==
[2017-12-04] VITALS (8 sets, daily range): BP systolic 91–99; BP diastolic 65–76; PULSE 69–89; RESP 17–22; TEMP 36.3–36.9; O2SAT 97–99; BMI 19.9; BMI 19.4
--- NOTE | 2017-12-04 11:13 | ED.VISSUMM ---
- ER Visit Summary Date of Service: 12/04/17 Chief Complaint: Diarrhea and fatigue History of Present Illness: The patient is a 77 F who presents with over 2 weeks of diarrhea and now fatigue. Patient has had multiple episodes of watery diarrhea daily without any associated abdominal pain, cramping, nausea, vomiting, diarrhea or other symptoms. Patient was hospitalized 1 week ago for dehydration and electrolyte derangements secondary to her diarrhea. At that time stool studies were negative. Patient has a history of partial colectomy secondary to colon cancer. Patient has been on bupropion for 3 weeks, which she started prior to onset of diarrhea. Physical Examination: Vital signs: afebrile, hemodynamically stable, no hypoxia on room air General: well nourished, well developed, in no distress Skin: warm, dry, no rash, no pallor HEENT: normocephalic and atraumatic; PERRL, EOMI, tacky mucous membranes Cardiovascular: regular rate and rhythm without murmurs, no peripheral edema, 2+ pulses all distal extremities Respiratory: No increased work of breathing, lungs are clear to auscultation bilaterally, no rales, rhonchi or wheezing Abdominal: Abdomen is soft, nontender with hyperactive bowel sounds, no guarding or rebound, no masses MSK: Moves all extremities, no deformities, normal strength Neuro: Awake and alert, oriented ?4. No facial droop, sensation and motor function intact and symmetric Test Results: Abnormal Lab Results 12/04/17 12/04/17 12/04/17 10:55 11:20 11:20 WBC 10.1 RBC 4.37 Hgb 14.3 Hct 39.6 MCV 90.6 MCH 32.7 H MCHC 36.1 H RDW 13.1 RDW Differential 42.8 Plt Count 347 MPV 10.8 Immature Gran % (Auto) 0.300 Neut % (Auto) 73.0 H Lymph % (Auto) 14.2 L [place] % (Auto) 12.2 H Eos % (Auto) 0.1 Baso % (Auto) 0.2 Absolute Neuts (auto) 7.3 Absolute Lymphs (auto) 1.43 Total Counted Not Reportable PT INR Sodium 136 Potassium 2.8 L Chloride 101 Carbon Dioxide 23.0 Anion Gap 12 BUN 39 H Creatinine 1.48 H Estim Creat Clear Calc 24.45 Est GFR (MDRD) Af Amer 44 L Est GFR (MDRD) Non-Af 36 L BUN/Creatinine Ratio 26.4 H Glucose 125 H Lactic Acid Calcium 8.4 L Magnesium 1.9 Total Bilirubin 0.50 AST 21 ALT 25 Alkaline Phosphatase 111 Total Protein 7.2 Albumin 3.2 Globulin 4.0 Albumin/Globulin Ratio 0.8 L Lipase 159 TSH 0.99 Urine Color Yellow Urine Clarity Sl. Cloudy Urine pH 6.0 Ur Specific [place] 1.020 Urine Protein 30 H Urine Glucose (UA) Normal Urine Ketones 15 H Urine Occult Blood 150 H Urine Nitrite Positive H Urine Bilirubin Negative Urine Urobilinogen Normal Ur Leukocyte Esterase 100 H Urine RBC 0-5 SEEN Urine WBC 0-5 SEEN Ur Squamous Epith Cells 0 SEEN Urine Bacteria 3+ Urine Mucus 0 SEEN 12/04/17 12/04/17 11:20 11:20 WBC RBC Hgb Hct MCV MCH MCHC RDW RDW Differential Plt Count MPV Immature Gran % (Auto) Neut % (Auto) Lymph % (Auto) [place] % (Auto) Eos % (Auto) Baso % (Auto) Absolute Neuts (auto) Absolute Lymphs (auto) Total Counted PT 38.8 H INR 3.9 H* Sodium Potassium Chloride Carbon Dioxide Anion Gap BUN Creatinine Estim Creat Clear Calc Est GFR (MDRD) Af Amer Est GFR (MDRD) Non-Af BUN/Creatinine Ratio Glucose Lactic Acid 1.4 Calcium Magnesium Total Bilirubin AST ALT Alkaline Phosphatase Total Protein Albumin Globulin Albumin/Globulin Ratio Lipase TSH Urine Color Urine Clarity Urine pH Ur Specific [place] Urine Protein Urine Glucose (UA) Urine Ketones Urine Occult Blood Urine Nitrite Urine Bilirubin Urine Urobilinogen Ur Leukocyte Esterase Urine RBC Urine WBC Ur Squamous Epith Cells Urine Bacteria Urine Mucus Clinical Impression(s) from Imaging Studies Abdomen/Pelvis CT 12/04/17 11:25 IMPRESSION: Findings are suspicious for developing small bowel obstruction or partial small bowel obstruction with worsening distention of the duodenum. This is complicated by a distended duodenal diverticulum. The zone of transition is in the right midline abdomen where there is an apparent twist in the mesentery and/or internal hernia. Large hiatal hernia and most of the stomach is in the chest. There is persistent fluid-filled patulous appearance of the remaining large bowel which may be reactive to developing obstruction and/or a gastroenteritis type pattern. Infrarenal abdominal aortic aneurysm measuring 3.5 x 3.0 cm greater than 50% stenosis. Status post hysterectomy. Status post cholecystectomy Status post hemicolectomy Distended common duct. Intra and extrahepatic ductal dilatation. Status post bilateral hip arthroplasties old left side pelvis fractures. N.B. : The above information has been verbally conveyed by Diane Hill MD to Florinda Fisher on 12/04/2017 14:08:11 (ET). Electronically Signed: Diane Hill MD at 13:54 EDT Tel , Service support , Emergency Department Course and Treatment: Patient presents with continued watery diarrhea since being discharged 1 week ago for the same. Patient was given IV fluids for hydration. Labs were remarkable for hypokalemia of 2.8, acute renal insufficiency with creatinine significantly increased to 1.48 today. Urine was negative for infection. Lactate normal. Thyroid function normal. No leukocytosis or significant anemia. Patient was started on IV potassium for repletion. CT of the abdomen and pelvis was performed with p.o. and oral contrast this time, and was concerning for a possible developing small bowel obstruction. Patient was discussed with the hospitalist for admission for further management of her continued diarrhea with acute dehydration, hypokalemia and concerning developing bowel obstruction. Treatment Plan: [] Disposition: [] Impression: Acute dehydration, hypokalemia, intractable diarrhea, early SBO This note was generated with [employer] dictation software. It may contain incorrect words, spelling, and punctuation that were not noted in review of the chart prior to signing ED Disposition - Plan for ED Patient: Chief Complaint: Diarrhea
[2017-12-04 11:22] LABS: Mucous, Urine 0 SEEN /hpf (<or=2+); Squamous Epithelial Cells - UA 0 SEEN /hpf (5-10)
[2017-12-04 11:25] LABS: Color, Urine Yellow (Yellow); Glucose, Dipstick Normal (Normal); Ketone-Dipstick 15 mg/dl (Negative); Leukocyte Esterase-Dipstick 100 /ul (Negative); Nitrite-Dipstick Positive (Negative); Occult Blood-Urine 150 /ul (Negative); Protein-Dipstick 30 mg/dl (Negative); Urine Bilirubin Dipstick Negative (Negative); Urine Clarity Sl. Cloudy (Clear); Urine Urobilinogen Normal (Normal)
--- NOTE | 2017-12-04 11:25 | CT_ITS ---
STUDY: CT ABDOMEN AND PELVIS WITH CONTRAST REASON FOR EXAM: Female, 77 years old. Abdominal pain diarrhea RADIATION DOSAGE (If Supplied By Facility): CTDIvol = ( 12.64 ) mGy, DLP = ( 549.03 ) mGycm TECHNIQUE: Transaxial images were obtained from the dome of the diaphragm to the symphysis pubis without oral contrast. 100 ml of Isovue 300 contrast was administered. Sagittal and coronal images were reconstructed. Individualized dose optimization techniques were used for this CT. COMPARISON: 03/[address] scan abdomen and pelvis FINDINGS: The visualized lung bases are unremarkable. The visualized portions of the heart are within normal limits. There is intra and extrahepatic ductal dilatation. The common duct at the level of the pancreas measures up to 1.3 x 1.3 cm. There are surgical clips in the gallbladder fossa consistent with a prior cholecystectomy. Normal spleen. Normal pancreas. Normal bilateral adrenal glands. Normal right kidney. There is an exophytic cyst left kidney measuring 7.4 mm. There is a sizable hiatal hernia with at least three fourths of the stomach within the chest. There is a gassy distended appearance of the distal stomach. There is a visualized bulbous appearance of the duodenum and/or diverticulum which also causes a distended appearance of the right upper quadrant the level of the sphincter of Emre. The suspected diverticulum measures 1.8 x 1.7 cm. There is a distended appearance of the third and fourth part of the duodenum, worse than prior study. There is a distended appearance of the small bowel to the level of the pelvis where there is a relative decompressed appearance of the bowel. The bowel is tortuous and the mesentery extends over to the right side of the abdomen. There is a distended patulous lower distended appearance of the large bowel. The before meals ascending colon or cecum is somewhat difficult to identify. There is postoperative change in the mid upper abdomen within the bowel suggesting an anastomotic site status post hemicolectomy. From images 34 through 40 there is a visualized twist in the right midline mesentery which is suspicious for a internal hernia and/or potentially a volvulus. Aorta is tortuous. At the level of the renal arteries, aortic distention with peripheral thrombus measuring 2.3 x 2.5 cm. The infrarenal aorta expands to 3.5 x 3.0 cm and is greater than 50% stenosed with thrombus on the right side of the vessel. This narrows again to the bifurcation. There is dense calcification of the bilateral internal and external iliac arteries. Normal inferior vena cava. Normal retroperitoneum. The bladder is distended. There is absence of the uterus consistent with a prior hysterectomy. Normal abdominal wall. There is an old fracture of the left side inferior superior pubic ramus. There are bilateral hip arthroplasties. 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 At the level of L4-5 there is a broad disc bulge minimal neural foramina narrowing there is multilevel facet arthropathy. CT/Abdomen/Pelvis WITH Contrast IMPRESSION: Findings are suspicious for developing small bowel obstruction or partial small bowel obstruction with worsening distention of the duodenum. This is complicated by a distended duodenal diverticulum. The zone of transition is in the right midline abdomen where there is an apparent twist in the mesentery and/or internal hernia. Large hiatal hernia and most of the stomach is in the chest. There is persistent fluid-filled patulous appearance of the remaining large bowel which may be reactive to developing obstruction and/or a gastroenteritis type pattern. Infrarenal abdominal aortic aneurysm measuring 3.5 x 3.0 cm greater than 50% stenosis. Status post hysterectomy. Status post cholecystectomy Status post hemicolectomy Distended common duct. Intra and extrahepatic ductal dilatation. Status post bilateral hip arthroplasties old left side pelvis fractures. N.B. : The above information has been verbally conveyed by Diane Hill MD to Florinda Fisher on 12/04/2017 14:08:11 (ET). Electronically Signed: Diane Hill MD at 13:54 EDT Tel , Service support ,
[2017-12-04 11:28] LABS: Absolute Lymphocyte Count 1.43 X10^3/ul (0.83-4.51); Absolute Neutrophil Count 7.3 X10^3/uL (2.0-7.7); Basophil# 0.02 X10^3/uL; Basophil% 0.2 % (0-1); Eosinophil# 0.01 X10^3/uL; Eosinophils% 0.1 % (0-5); Hematocrit 39.6 % (37-47); Hemoglobin 14.3 g/dl (12.0-15.0); Lymphocyte # 1.43 X10^3/ul (4.0); Lymphocyte % 14.2 % (19-41); Mean Corp Hgb Conc 36.1 g/gl (32-36); Mean Corpuscular Hgb 32.7 pg (27.0-32.0); Mean Corpuscular Volume 90.6 fL (81-99); Mean Platelet Vol. 10.8 fl (6.2-12.0); Monocyte# 1.23 X10^3/uL; Monocyte% 12.2 % (0-10); Neutrophil # 7.33 X10^3/uL (2.7-7.7); POSITIVE COUNT NO; POSITIVE DIFFERENTIAL NO; POSITIVE MORPHOLOGY NO; Platelet Count 347 K/mm3 (150-450); RBC Distribution Width CV 13.1 % (11.6-14.6); RBC Distribution Width SD 42.8 fl (35.1-43.9); Red Blood Count 4.37 M/mm3 (4.2-5.4); White Blood Count 10.1 K/mm3 (4.4-11.0)
[2017-12-04 11:30] LABS: Bacteria 3+ /hpf (None Seen); Red Blood Cells-Urine 0-5 SEEN /hpf (0-5); White Blood Cells 0-5 SEEN /hpf (0-5)
[2017-12-04] MEDS: 0.9% Normal Saline 1,000 ML 1000 ML IV (11:38)
[2017-12-04 11:52] LABS: ALB/GLOB Ratio 0.8 RATIO (0.9-2.4); AST(SGOT) 21 U/L (15-37); Alanine Aminotransfer ALT/SGPT 25 U/L (13-56); Albumin, Serum 3.2 g/dL (3.2-5.0); Alkaline Phosphatase 111 U/L (45-117); Anion Gap 12 (5-15); BUN 39 mg/dL (7-18); BUN/Creat Ratio 26.4 RATIO (10-20); Calcium,Total 8.4 mg/dL (8.5-10.1); Chloride 101 mmol/L (98-107); Creatinine, Serum 1.48 mg/dL (0.55-1.02); EST Glomerular Filtration Rate 36 mL/min (>60); Est Glom Filt Rate - Afr Amer 44 mL/min (>60); Estimated Creatinine Clearance 24.45 ml/min; Glucose 125 mg/dL (74-106); Lactic Acid 1.4 mmol/L (0.4-2.0); Lipase 159 U/L (73-393); Magnesium 1.9 mg/dL (1.6-2.6); Potassium 2.8 mmol/L (3.5-5.1); Protein, Total 7.2 g/dL (6.4-8.2); Sodium Level 136 mmol/L (136-145); Thyroid Stim Hormone (TSH) 0.99 uIU/mL (0.358-3.74)
--- NOTE | 2017-12-04 14:16 | HP.PCM_ITS ---
Problem List (1) Diarrhea Status: Acute History of Present Illness Date of Admission: 12/04/17 Chief Complaint: Diarrhea The patient is a 77 year old F past medical history of DVT, anxiety and hyperlipidemia. She was admitted through the ED with a complaint of diarrhea. Diarrhea has been going on for about 2 weeks and she was admitted last year for the same reason. There is subsequently improved and states that it lasted fully before she was discharged. Additionally she got home diarrhea started again and so she decided to come back to the ED. She she has about a 5 or 6 watery stools daily with no assisted blood or mucus. She is unable to take in anything orally because as soon as she takes in anything she does have a she denies any fever but admits to chills, she denies any chest pain, shortness of breath, abdominal pain or vomiting. 12 point review of systems otherwise negative. She was found to be hypokalemic on admission with potassium of 2.8 and creatinine was 1.48. TSH was normal and CBC was essentially unremarkable. She has been admitted to be managed for intractable diarrhea. [] Past Medical History Past Medical History (Chronic Problems): Chronic Problems Anxiety (Chronic) History of DVT (deep vein thrombosis) (Chronic) Hyperlipidemia (Chronic) Allergies ibuprofen [From Motrin] Allergy (Verified 12/04/17 10:34) Angioedema Home Medications: Ambulatory Orders Medication Instructions Recorded Citalopram [Celexa] 20 mg PO DAILY 12/10/14 Cyanocobalamin (Vitamin B-12) 500 mcg SL DAILY 12/10/14 [Vitamin B-12] Multivitamins,Therapeutic 1 tablet PO DAILY 12/10/14 [Multivitamin] Simvastatin [Zocor] 20 mg PO QHS 12/10/14 Warfarin [Coumadin] 2 mg PO MOWEFR 02/22/16 Warfarin [Coumadin] 3 mg PO SUTUTHSA 02/22/16 Acetaminophen [Tylenol] 1,000 mg PO QHS PRN 09/30/17 Alendronate Sodium 70 mg PO SA 11/25/17 Bupropion HCl [Bupropion HCl Sr] 150 mg PO BID 11/25/17 Loperamide [Imodium] 2 mg PO Q6H PRN PRN #10 capsule 11/27/17 Calcium Carbonate [Calcium] 600 mg PO DAILY 12/04/17 Celecoxib [Celebrex] 200 mg PO QHS 12/04/17 Omeprazole [Prilosec] 10 mg PO DAILY 12/04/17 Surgical History: total hip arthroplasty - 1990, 2015 Psychiatric History: Depression KAIAKO KOHAN[place] REO History: No pertinent KAIAKO [place] REO history Lives: Alone Smoking Status: Current every day smoker Tobacco Use: Cigarettes - one cigarette daily Alcohol: None Drugs: None - *Family History Maternal History Items: No pertinent history Paternal History Items: No pertinent history Review of Systems Constitutional: Reports: Anorexia, Chills, Malaise, Weakness, Fatigue. Denies: Fever, Night Sweats Eyes: Denies: Blurred vision HEENT: Denies: Head Aches, Sinus Congestion, Sinus Drainage Cardiovascular: Denies: Chest Pain, Palpitations Respiratory: Denies: Cough, Shortness of breath at rest, Sputum production Gastrointestinal: Reports: Diarrhea. Denies: Abdominal Pain, Dyspepsia, Hematemesis, Hematochezia, Nausea, Melena, Vomiting Genitourinary: Denies: Dysuria Musculoskeletal: Denies: Joint Pain, Joint Tenderness Skin: Denies: Rash, Wounds Neurological: Denies: Numbness, Tingling, Focal weakness Psychiatric: Denies: Anxiety, Depression, Homicidal Ideations, Suicidal Ideations Hematologic/ Lymphatic: Denies: Easy Bruising, Easy Bleeding VTE Information - Inpt Only VTE Present on Admission: No VTE Mechan Device Prophylaxis: SCD's Patient Problems: Active and Suspected Problems Diarrhea (Acute) - Physical Exam General: Alert, Oriented x3, Cooperative, No apparent distress HEENT: Atraumatic, PERRLA, EOMI, Normocephalic Oral: Dry Mucosa Neck: Supple, No JVD, Negative Carotid Bruits Lungs: Clear to auscultation, Normal air movement, No rhonchi, No wheeze, No rales Cardiovascular: Regular rate, Regular Rhythm, Normal S1, Normal S2, No murmurs Abdomen: Bowel Sounds Present, Soft, Non Tender, Non-Distended, No Hepato-sple nomegaly Extremities: No clubbing, No cyanosis, No edema, Capillary Refill Less than 3 Seconds Skin: No rashes, No breakdown Musculoskeletal: No Tenderness to Palpation of Joints or Extremities Lymphatic: No Cervical, Supraclavicular, or Inguinal Adenopathy Neurological: Cranial nerves II-XII grossly intact, Neuro grossly intact, Motor Exam 5/5 strength throughout Psych/Mental Status: Normal Affect, Appropriate, Alert and oriented to time, place, person, mood and affect Vital Signs Temp Pulse Resp BP Pulse Ox 97.3 F L 71 18 96/69 98 12/04/17 10:34 12/04/17 12:34 12/04/17 12:34 12/04/17 12:34 12/04/17 12:34 Oxygen Delivery Method Room Air Weight: 109 lb Body Mass Index (BMI) 19.9 Laboratory Tests Past 24 Hrs 12/04/17 12/04/17 12/04/17 10:55 11:20 11:20 WBC 10.1 RBC 4.37 Hgb 14.3 Hct 39.6 MCV 90.6 MCH 32.7 H MCHC 36.1 H RDW 13.1 RDW Differential 42.8 Plt Count 347 MPV 10.8 Immature Gran % (Auto) 0.300 Neut % (Auto) 73.0 H Lymph % (Auto) 14.2 L [place] % (Auto) 12.2 H Eos % (Auto) 0.1 Baso % (Auto) 0.2 Absolute Neuts (auto) 7.3 Absolute Lymphs (auto) 1.43 Total Counted Not Reportable Sodium 136 Potassium 2.8 L Chloride 101 Carbon Dioxide 23.0 Anion Gap 12 BUN 39 H Creatinine 1.48 H Estim Creat Clear Calc 24.45 Est GFR (MDRD) Af Amer 44 L Est GFR (MDRD) Non-Af 36 L BUN/Creatinine Ratio 26.4 H Glucose 125 H Lactic Acid Calcium 8.4 L Magnesium 1.9 Total Bilirubin 0.50 AST 21 ALT 25 Alkaline Phosphatase 111 Total Protein 7.2 Albumin 3.2 Globulin 4.0 Albumin/Globulin Ratio 0.8 L Lipase 159 TSH 0.99 Urine Color Yellow Urine Clarity Sl. Cloudy Urine pH 6.0 Ur Specific [place] 1.020 Urine Protein 30 H Urine Glucose (UA) Normal Urine Ketones 15 H Urine Occult Blood 150 H Urine Nitrite Positive H Urine Bilirubin Negative Urine Urobilinogen Normal Ur Leukocyte Esterase 100 H Urine RBC 0-5 SEEN Urine WBC 0-5 SEEN Ur Squamous Epith Cells 0 SEEN Urine Bacteria 3+ Urine Mucus 0 SEEN 12/04/17 11:20 WBC RBC Hgb Hct MCV MCH MCHC RDW RDW Differential Plt Count MPV Immature Gran % (Auto) Neut % (Auto) Lymph % (Auto) [place] % (Auto) Eos % (Auto) Baso % (Auto) Absolute Neuts (auto) Absolute Lymphs (auto) Total Counted Sodium Potassium Chloride Carbon Dioxide Anion Gap BUN Creatinine Estim Creat Clear Calc Est GFR (MDRD) Af Amer Est GFR (MDRD) Non-Af BUN/Creatinine Ratio Glucose Lactic Acid 1.4 Calcium Magnesium Total Bilirubin AST ALT Alkaline Phosphatase Total Protein Albumin Globulin Albumin/Globulin Ratio Lipase TSH Urine Color Urine Clarity Urine pH Ur Specific [place] Urine Protein Urine Glucose (UA) Urine Ketones Urine Occult Blood Urine Nitrite Urine Bilirubin Urine Urobilinogen Ur Leukocyte Esterase Urine RBC Urine WBC Ur Squamous Epith Cells Urine Bacteria Urine Mucus Diagnostic Data Abdomen/Pelvis CT 12/04/17 11:25 IMPRESSION: Findings are suspicious for developing small bowel obstruction or partial small bowel obstruction with worsening distention of the duodenum. This is complicated by a distended duodenal diverticulum. The zone of transition is in the right midline abdomen where there is an apparent twist in the mesentery and/or internal hernia. Large hiatal hernia and most of the stomach is in the chest. There is persistent fluid-filled patulous appearance of the remaining large bowel which may be reactive to developing obstruction and/or a gastroenteritis type pattern. Infrarenal abdominal aortic aneurysm measuring 3.5 x 3.0 cm greater than 50% stenosis. Status post hysterectomy. Status post cholecystectomy Status post hemicolectomy Distended common duct. Intra and extrahepatic ductal dilatation. Status post bilateral hip arthroplasties old left side pelvis fractures. N.B. : The above information has been verbally conveyed by Diane Hill MD to Florinda Fisher on 12/04/2017 14:08:11 (ET). Electronically Signed: Diane Hill MD at 13:54 EDT Tel , Service support , Assessment/Plan All Active Problems Dehydration (Acute) Diarrhea (Acute) Diarrhea (Acute) Diarrhea (Acute) S/P revision of total hip (Acute) Postoperative anemia (Acute) 77-year-old female presenting with a complaint of intractable diarrhea for 2 weeks. 1. Intractable diarrhea * admitted and discharged last week for same symptoms * stil having 5-6 watery stools daily * C Diff was negative during last admission * CT abdomen shows intra-and extrahepatic ductal dilatation and sizable hiatal hernia with at least three fourths of the stomach within the chest. Findings suspicious for developing small bowel obstruction or partial small bowel obstruction with worsening distention of the duodenum complicated by distended duodenal diverticulum. * admit to PCU * keep NPO; IVF hydration with 100cc/hr of NS * general surgery consult * patient and daughter counseled about possibility of microscopic colitis in light of her advanced age and intractable diarrhea. May need biopsies to confirm this. General surgery consult. * on loperamide * 2. Small bowel obstruction * is s/p hysterectomy, cholecystectomy hemicolectomy on account of colon cancer. * CT scan as documented above * consult general surgery * keep NPO * Keep hydrated with IV fluid. * NG tube insertion * 3. Hypokalemia: K is 2.8. Replaced with IV KCl. Will check magnesium and monitor. 4. Hyperlipidemia: on simvastatin 5. DEpression: * on celexa and wellbutrin. Says wellbutrin is not working for her; started it 2 weeks ago. Told to follow up with her PCP who started it for it to be adjusted. * 6.History of DVT: on coumadin. Check INR daily. DVT prophylaxis: on coumadin Code status: full code. * patient and granddaughter counseled about different types of CODE STATUS including full code, DNR CC and DNR CCA. Patient elects to be full code. Code Visit Inpatient E&M: 78615 Init Hosp L3 Procedures: 17449 Advncd Care Plan 30 Min
--- NOTE | 2017-12-04 16:40 | RAD_ITS ---
STUDY: X-RAY - ABDOMEN/PELVIS REASON FOR EXAM: Female, 77 years old. Small bowel obstruction. TECHNIQUE: Single AP view of the abdomen / pelvis. COMPARISON: Prior abdomen and pelvic CT exam of October 04, 2017 at 1:21 PM. FINDINGS: The stomach does not appear to be distended. A hiatal hernia is present. There continue to be dilated air-filled loops of small bowel as well as air-filled loops of distal colon. It looks like most of the oral contrast from the earlier exam has passed through the bowel or has been vomited up. Grossly negative for organomegaly. Nonobstructed kidneys. Contrast from earlier exam remains in the bladder. Normal soft tissue structures. Status post bilateral hip arthroplasty. Atherosclerotic calcifications. RAD/Abdomen Single View IMPRESSION: Continued dilatation of small bowel and at least the distal colon noting that the patient appears to have had a right hemicolectomy. Also, it appears that the oral contrast given only hours ago has passed through the bowel or has been vomited. Coarse, if this has passed through the colon, small bowel obstruction would be unlikely. If the patient has vomited the contrast, small bowel obstruction is still a possibility. Electronically Signed: Chinyere Zamora MD at 17:24 EDT , Service support ,
[2017-12-04] MEDS: 0.9% Normal Saline 1,000 ML 100 ML IV (17:06)
[2017-12-04 17:58] LABS: Prothrombin Time (Protime)PT. 38.8 SECONDS (11.7-14.9)
[2017-12-04 18:00] LABS: International Normalized Ratio 3.9
--- NOTE | 2017-12-04 18:00 | PCM.CONS.GEN ---
Problem List (1) Diarrhea Status: Acute Qualifiers: Diarrhea type: unspecified type Qualified Code(s): R19.7 - Diarrhea, unspecified Reason for Consult Date of Consultation: 12/04/17 History of Present Illness: The patient is a 77 year old F who was readmitted to the hospital with persistent diarrhea. I been asked to provide surgical consultation regarding her diarrhea by and a written copy of my consult will be present in the chart. The patient was just recently admitted to the [facility] November 25 - November 27, 2017 with dehydration intractable diarrhea hypokalemia hypo-magnesemia, acute kidney injury. It appears that she is now readmitted today with the exact same complaint.. She had a abdominal pelvic CT scan done on November 24, 2017 suggesting small bowel ileus fluid-filled colon prominent retrocardiac hiatal hernia. Stool studies were negative for infectious etiology. The patient was supratherapeutic on INR. She is on chronic Coumadin because of history of DVT and pulmonary embolus. It appears that the etiology to her diarrhea was not determined. The patient was discharged on Imodium. She states that she was slightly better for a day or 2 but now has had intractable persistent diarrhea. She denies nausea or vomiting or abdominal pain or bright red blood per rectum or melena. Repeat CT scan was obtained today. Sizable hiatal hernia noted with three fourths of the stomach in the chest. The distal stomach appears distended and the duodenum appears bulbous. Suspected diverticulum of the duodenum. Distended appearance of small bowel to the level of the pelvis. Small bowel was tortuous. distended large bowel. Postoperative changes consistent with right colectomy. At the level of the renal arteries aorta extension with peripheral thrombus 2.3 x 2.5 cm. The infrarenal abdominal aorta maximum 3.5 cm. Findings were suggestive of a possible evolving small bowel obstruction. It is of note however that simply 3 or 4 hours later the patient had abdominal x-ray showing with absolutely no contrast at all remaining in any of the bowel. This obviously therefore precludes a diagnosis of suspected small bowel obstruction. It is of note that the patient's symptoms do not correlate with small bowel obstruction. She has had absolutely no abdominal pain no nausea no vomiting. On her presentation her white blood cell count is normal at 10.1 with hemoglobin 14.3 hematocrit 39.6 and a platelet count of 347,073% neutrophils. Her INR is notably elevated at 3.9. Potassium is low at 2.8. BUN elevated 39. Creatinine 1.48.Lactic acid level is normal at 1.4. Liver function tests are normal. The patient has had a previous history of right colon cancer and history of DVT and pulmonary embolus. She has had a vena cava filter was placed and removed. October 06, 2009 I performed a laparoscopic extended right hemicolectomy. Small bowel was anastomosed to the distal transverse colon. Her most recent colonoscopy that I have documented is August 27, 2014. I performed that procedure. The procedure was performed without difficulty. Internal hemorrhoids noted. A functional end to end ileocolonic anastomosis was identified at the hepatic flexure. It was patent. Diverticulosis was noted. Consideration for follow-up colonoscopy at 3 years. Because of a hip replacement December 16, 2014 I placed a vena cava filter for her. That was subsequently removed. 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 Angiolymphatic invasion was not identified. Margins were free. There were 3 additional tubular adenomas and 3 additional hyperplastic polyps. 46 out of 46 lymph nodes were negative. That tumor was located at the hepatic flexure. Past Medical History Past Medical History (Chronic Problems): Chronic Problems Anxiety (Chronic) History of DVT (deep vein thrombosis) (Chronic) Hyperlipidemia (Chronic) Allergies ibuprofen [From Motrin] Allergy (Verified 12/04/17 10:34) Angioedema Home Medications: Ambulatory Orders Medication Instructions Recorded Citalopram [Celexa] 20 mg PO DAILY 12/10/14 Cyanocobalamin (Vitamin B-12) 500 mcg SL DAILY 12/10/14 [Vitamin B-12] Multivitamins,Therapeutic 1 tablet PO DAILY 12/10/14 [Multivitamin] Simvastatin [Zocor] 20 mg PO QHS 12/10/14 Warfarin [Coumadin] 2 mg PO MOWEFR 02/22/16 Warfarin [Coumadin] 3 mg PO SUTUTHSA 02/22/16 Acetaminophen [Tylenol] 1,000 mg PO QHS PRN 09/30/17 Alendronate Sodium 70 mg PO SA 11/25/17 Bupropion HCl [Bupropion HCl Sr] 150 mg PO BID 11/25/17 Loperamide [Imodium] 2 mg PO Q6H PRN PRN #10 capsule 11/27/17 Calcium Carbonate [Calcium] 600 mg PO DAILY 12/04/17 Celecoxib [Celebrex] 200 mg PO QHS 12/04/17 Omeprazole [Prilosec] 10 mg PO DAILY 12/04/17 Surgical History: total hip arthroplasty - 2015 Psychiatric History: Depression 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 Denies: Abdominal Pain, Hematochezia, Nausea, Melena, Vomiting Skin: Denies: Jaundice Patient Problems: Active and Suspected Problems Diarrhea (Acute) - Physical Exam General: Alert, Oriented x3, Cooperative, No apparent distress HEENT: Atraumatic Oral: Moist Mucosa Neck: Supple, Negative Carotid Bruits Lungs: Clear to auscultation Cardiovascular: Regular rate, Regular Rhythm Abdomen: Bowel Sounds Present, Soft, Non Tender, Non-Distended Extremities: No Calf Tenderness Vital Signs Temp Pulse Resp BP Pulse Ox 98.4 F 69 22 H 91/66 99 12/04/17 15:08 12/04/17 15:13 12/04/17 15:08 12/04/17 15:08 12/04/17 15:08 Oxygen Delivery Method Room Air Weight: 106 lb 4.205 oz Body Mass Index (BMI) 19.4 Intake and Output for Last 24 Hours 12/02/17 12/03/17 12/04/17 23:59 23:59 23:59 Intake Total 255 / 255 Output Total 100 / 100 Balance 155 / 155 Laboratory Tests Past 24 Hrs 12/04/17 12/04/17 12/04/17 10:55 11:20 11:20 WBC 10.1 RBC 4.37 Hgb 14.3 Hct 39.6 MCV 90.6 MCH 32.7 H MCHC 36.1 H RDW 13.1 RDW Differential 42.8 Plt Count 347 MPV 10.8 Immature Gran % (Auto) 0.300 Neut % (Auto) 73.0 H Lymph % (Auto) 14.2 L [place] % (Auto) 12.2 H Eos % (Auto) 0.1 Baso % (Auto) 0.2 Absolute Neuts (auto) 7.3 Absolute Lymphs (auto) 1.43 Total Counted Not Reportable PT INR Sodium 136 Potassium 2.8 L Chloride 101 Carbon Dioxide 23.0 Anion Gap 12 BUN 39 H Creatinine 1.48 H Estim Creat Clear Calc 24.45 Est GFR (MDRD) Af Amer 44 L Est GFR (MDRD) Non-Af 36 L BUN/Creatinine Ratio 26.4 H Glucose 125 H Lactic Acid Calcium 8.4 L Magnesium 1.9 Total Bilirubin 0.50 AST 21 ALT 25 Alkaline Phosphatase 111 Total Protein 7.2 Albumin 3.2 Globulin 4.0 Albumin/Globulin Ratio 0.8 L Lipase 159 TSH 0.99 Urine Color Yellow Urine Clarity Sl. Cloudy Urine pH 6.0 Ur Specific [place] 1.020 Urine Protein 30 H Urine Glucose (UA) Normal Urine Ketones 15 H Urine Occult Blood 150 H Urine Nitrite Positive H Urine Bilirubin Negative Urine Urobilinogen Normal Ur Leukocyte Esterase 100 H Urine RBC 0-5 SEEN Urine WBC 0-5 SEEN Ur Squamous Epith Cells 0 SEEN Urine Bacteria 3+ Urine Mucus 0 SEEN 12/04/17 12/04/17 11:20 11:20 WBC RBC Hgb Hct MCV MCH MCHC RDW RDW Differential Plt Count MPV Immature Gran % (Auto) Neut % (Auto) Lymph % (Auto) [place] % (Auto) Eos % (Auto) Baso % (Auto) Absolute Neuts (auto) Absolute Lymphs (auto) Total Counted PT Pending INR Pending Sodium Potassium Chloride Carbon Dioxide Anion Gap BUN Creatinine Estim Creat Clear Calc Est GFR (MDRD) Af Amer Est GFR (MDRD) Non-Af BUN/Creatinine Ratio Glucose Lactic Acid 1.4 Calcium Magnesium Total Bilirubin AST ALT Alkaline Phosphatase Total Protein Albumin Globulin Albumin/Globulin Ratio Lipase TSH Urine Color Urine Clarity Urine pH Ur Specific [place] Urine Protein Urine Glucose (UA) Urine Ketones Urine Occult Blood Urine Nitrite Urine Bilirubin Urine Urobilinogen Ur Leukocyte Esterase Urine RBC Urine WBC Ur Squamous Epith Cells Urine Bacteria Urine Mucus Assessment/Plan All Active Problems Dehydration (Acute) Diarrhea (Acute) Diarrhea (Acute) Diarrhea (Acute) S/P revision of total hip (Acute) Postoperative anemia (Acute) 77-year-old female whose primary complaint is recurrent diarrhea. Her symptoms do not include nausea vomiting or abdominal pain. The contrast given for her CT scan has gone all through her bowel within 3-4 hours. There are no signs of bowel obstruction. She does have a previous history of colon cancer The etiology to her diarrhea apparently is undetermined. She has a large hiatal hernia with significant stomach within her chest and some? Regarding her duodenum. I believe that I can assist primary care and evaluation by performing upper endoscopy possibly with biopsy and a colonoscopy with random biopsies looking for microcytic colitis. I discussed with the patient the technique, benefits, risks and alternatives. She does not require an NG tube at this time. She is at high risk for DVT and PE although she is super therapeutic on her INR currently. She is still hypokalemic and is receiving replacement. I anticipate pursuing the upper and lower scopes tomorrow midday. She has had an opportunity to ask and have questions answered. She concurs. The patient currently does not have an acute surgical abdomen and I am not anticipating at this time that she will require surgical intervention. The scopes are being recommended and performed in an attempt to further assist with a diagnosis of diarrhea. Zenon Short M.D., F.A.C.S.
[2017-12-04] MEDS: Electrolyte Solution/Peg's 4000 ML 2000 ML PO (20:12)
[2017-12-04] MEDS: buPROPion (SR) 150 MG Tablet.SA PO (22:13)
[2017-12-04] MEDS: Atorvastatin Calcium 10 MG Tablet PO (22:13)
[2017-12-04 22:21] LABS: Potassium 2.9 mmol/L (3.5-5.1)
[2017-12-05] VITALS (16 sets, daily range): BP systolic 78–104; BP diastolic 38–70; PULSE 63–78; RESP 16–18; TEMP 36.2–36.9; O2SAT 94–100
--- NOTE | 2017-12-05 | COLBX_PTH ---
PATIENT: NALINI NEVAREZ LOC: [facility] U#:[id number] AGE/SX: 77/F ROOM: [facility] RE12/04/[address]: Dr. Chester Good MD : 1940 BED: 1 DIS: 12/07/2017 SPEC #: [id number] RECD: 12/05/17 14:37 STATUS: MIGEL KARIMIKajal #: [id number] CESILIA: 12/05/17 00:[address]: Zenon Short DEPT: SURGICAL PATHOLOGY RECD BY: Frank Noland ENTERED: 12/05/17 14:38 SP TYPE: COLON BX OTHR DR: MD Dr. Chester Celaya MD Dr. Robert D Cebul, MD Dr. Tai Chi Kwok, MD Tissues: A - Duodenum, NOS B - Gastric mucous membrane C - Esophageal mucous membrane D - COLON BIOPSY E - Descending colon Procedures: Trichrome (control) Special Stain Group II Surgery Specimen Level IV Comments: @ Ordering doctor for SUIV edited from to @ by STEWART at 12/06/17 0859 @ Submitting doctor edited from to @ tu RGOOD at 12/06/17 0859 HEADER OPERATION: [place] [place] DIAGNOSIS: Diarrhea TISSUE SUBMITTED: A - Fourth part of duodenum biopsy, B - Antral biopsy for H. pylori & pathology, C - Distal esophageal biopsy, D - Random colon biopsies, E - Descending colon polyp biopsies MICROSCOPIC DIAGNOSIS A. Fourth part of duodenum, biopsy: A fragment of duodenal mucosa with inflammation and mild increased number of intraepithelial lymphocytes. See comment. B. Antral biopsy: Mild gastritis. C. Distal esophageal biopsy: A fragment of squamous epithelium with minimal chronic inflammation. D. Colon, random biopsy: Fragments of colonic mucosa with increased number of intraepithelial lymphocytes, consistent with lymphocytic (microscopic) colitis. See comment. E. Descending colon polyp biopsy: Fragments of colonic mucosa with increased number of intraepithelial lymphocytes, consistent with lymphocytic (microscopic) colitis. See comment. SJ:rg 12/06/17 COMMENT A. Correlation with clinical, endoscopic findings, laboratory studies and appropriate follow up are necessary. B. The results of immunohistochemistry for Helicobacter pylori will be reported separately ([id number]). D & E. Trichrome stain with matched control was used in the evaluation of the specimens.. MICROSCOPIC DESCRIPTION Slides are reviewed. B. The specimen shows fragments of gastric mucosa with chronic inflammatory cell infiltrates in the lamina propria consisting of lymphocytes and plasma cells, consistent with mild chronic gastritis. GROSS DESCRIPTION A - Received in fixative is one container labeled with the patient's name and designated fourth part duodenum. The specimen consists of one irregular fragment of light tidwell soft tissue that measures 0.3 x 0.3 x 0.1 cm. The specimen is totally submitted in one cassette. B - Received in fixative is one container labeled with the patient's name and designated antral biopsy. The specimen consists of one irregular fragment of light tidwell soft tissue that measures 0.3 x 0.3 x 0.1 cm. The specimen is totally submitted in one cassette. C - Received in fixative is one container labeled with the patient's name and designated distal esophageal biopsy. The specimen consists of one irregular fragment of light tidwell soft tissue that measures 0.2 x 0.2 x 0.1 cm. The specimen is totally submitted in one cassette. D - Received in fixative is one container labeled with the patient's name and designated random colon biopsy. The specimen consists of multiple irregular fragments of light tidwell soft tissue that in aggregate measure 1.5 x 0.6 x 0.1 cm. The specimen is totally submitted in one cassette. E - Received in fixative is one container labeled with the patient's name and designated descending colon polyp biopsy. The specimen consists of multiple irregular fragments of light tidwell soft tissue that in aggregate measure 1.3 x 0.3 x 0.1 cm. The specimen is totally submitted in one cassette. / SJ:rg 12/05/17 TC:3 CPT: 31811 x5, 02039 x2
--- NOTE | 2017-12-05 | IMM_PTH ---
PATIENT: NALINI NEVAREZ LOC: [facility] U#:[id number] AGE/SX: 77/F ROOM: [facility] RE12/04/[address]: Dr. Chester Good MD : 1940 BED: 1 DIS: 12/07/2017 SPEC #: [id number] RECD: 12/06/17 10:41 STATUS: MIGEL REQ #: [id number] CESILIA: 12/05/17 00:[address]: Zenon Short DEPT: IMMUNOHISTOCHEMISTRY RECD BY: Kelly Quinteros ENTERED: 12/06/17 10:42 SP TYPE: IMMUNO OTHR DR: MD Dr. Chester Celaya MD Dr. Robert D Cebul, MD Dr. Tai Chi Kwok, MD Tissues: B - Stomach, NOS Procedures: H Pylori (initial) Comments: @ Ordering doctor for H.PYLORI edited from to @ tu WILLIAM at 12/06/17 1059 @ Submitting doctor edited from to @ by STEWART at 12/06/17 1059 PHYSICIAN & INSTITUTION [place] [address] SPECIMEN INFORMATION: Tissue Source: B - Antral biopsy Clinical Info: Diarrhea Specimen Number: [id number] CPT code: 74463 METHODOLOGY: Deparaffinized sections of prefer/formalin-fixed tissue or PAP/DQ stained slides are incubated with monoclonal/polyclonal antibodies/oligonucleotide probes. Localization is made via biotin free immunoperoxidase method. Appropriate controls are performed and reacted as expected. Results on target cell population are indicated in the following table: RESULTS: ANTIBODY / CLONE RESULT H Pylori (polyclonal) negative These tests were developed and their performance characteristics determined by [facility]. They may not have been cleared or approved by the U.S. Food and Drug Administration. The FDA has determined that such clearance or approval is not necessary. INTERPRETATION: B. Antral biopsy: Negative for Helicobacter pylori organisms. CASANDRA:venu 12/09/17
[2017-12-05] MEDS: Ceftriaxone 1 GM/50 ML BAG IV ×2 (00:44→21:17)
--- NOTE | 2017-12-05 05:55 | EKG12_ITS ---
Test Reason : AM Blood Pressure : / mmHG Vent. Rate : 067 BPM Atrial Rate : 067 BPM P-R Int : 188 ms QRS Dur : 070 ms QT Int : 462 ms P-R-T Axes : 077 -36 032 degrees QTc Int : 488 ms Normal sinus rhythm Left axis deviation Low voltage QRS Abnormal ECG When compared with ECG of 28-FEB-2015 15:41, No significant change was found Confirmed by CHANDRIKA ALVAREZ ([id number]), greeting card editor BASILIA PRINCE ([id number]) on 12/10/2017 11:23:00 AM Referred By: AKIN Confirmed By:CHANDRIKA ALVAREZ
[2017-12-05 06:46] LABS: Absolute Lymphocyte Count 1.84 X10^3/ul (0.83-4.51); Absolute Neutrophil Count 4.4 X10^3/uL (2.0-7.7); Basophil# 0.06 X10^3/uL; Basophil% 0.8 % (0-1); Eosinophil# 0.08 X10^3/uL; Eosinophils% 1.1 % (0-5); Hematocrit 31.1 % (37-47); Hemoglobin 10.9 g/dl (12.0-15.0); Lymphocyte # 1.84 X10^3/ul (4.0); Mean Corpuscular Hgb 32.8 pg (27.0-32.0); Mean Corpuscular Volume 93.7 fL (81-99); Mean Platelet Vol. 11.2 fl (6.2-12.0); Monocyte# 0.96 X10^3/uL; Monocyte% 13.1 % (0-10); Neutrophil % 59.9 % (47-70); Platelet Count 250 K/mm3 (150-450); RBC Distribution Width CV 13.6 % (11.6-14.6); RBC Distribution Width SD 45.1 fl (35.1-43.9); Red Blood Count 3.32 M/mm3 (4.2-5.4); White Blood Count 7.4 K/mm3 (4.4-11.0)
[2017-12-05 06:49] LABS: Prothrombin Time (Protime)PT. 37.3 SECONDS (11.7-14.9)
--- NOTE | 2017-12-05 06:50 | PCM.PN.BLA ---
Progress Note Patient to go for an upper and lower scope today with Dr. Short. Patient will need correction of blood pressure and possibly potassium prior to the procedure. Will discuss with hospitalist.
[2017-12-05 06:59] LABS: International Normalized Ratio 3.7
[2017-12-05 07:00] LABS: POSITIVE COUNT NO; POSITIVE DIFFERENTIAL NO; POSITIVE MORPHOLOGY NO
[2017-12-05 07:28] LABS: Anion Gap 10 (5-15); BUN 26 mg/dL (7-18); BUN/Creat Ratio 29.9 RATIO (10-20); Calcium,Total 7.4 mg/dL (8.5-10.1); Chloride 116 mmol/L (98-107); Creatinine, Serum 0.87 mg/dL (0.55-1.02); EST Glomerular Filtration Rate 67 mL/min (>60); Est Glom Filt Rate - Afr Amer 81 mL/min (>60); Estimated Creatinine Clearance 40.55 ml/min; Glucose 58 mg/dL (74-106); Potassium 3.5 mmol/L (3.5-5.1); Sodium Level 144 mmol/L (136-145)
--- NOTE | 2017-12-05 11:00 | CASEMGMT ---
Readmission chart review: Pt was admitted 11/25/17-11/27/17 for dehydration, see CM assessment completed by Ike MYRICK CM on 11/25/17. Pt admitted for diarrhea, hypokalemia. Pt was seen by general surgery and is planned for upper and lower scope 12/05/17. CM to follow for PT/OT evals and for any further discharge planning/needs. Chuy MYRICK CM
--- NOTE | 2017-12-05 11:49 | OP.ENDO_ITS ---
Patient Name: Alyse Wetzel Procedure Date: 12/05/2017 11:16 AM Date of : 1940 Age: 77 Procedure: Upper GI endoscopy Indications: Abnormal CT of the GI tract Providers: Zenon Short MD Medicines: See the Anesthesia note for documentation of the administered medications Complications: No immediate complications. Procedure: Pre-Anesthesia Assessment: - Prior to the procedure, a History and Physical was performed, and patient medications and allergies were reviewed. The patient's tolerance of previous anesthesia was also reviewed. The risks and benefits of the procedure and the sedation options and risks were discussed with the patient. All questions were answered, and informed consent was obtained. Prior Anticoagulants: The patient has taken Coumadin (warfarin), last dose was 1 day prior to procedure. ASA Grade Assessment: III - A patient with severe systemic disease. After reviewing the risks and benefits, the patient was deemed in satisfactory condition to undergo the procedure. After obtaining informed consent, the endoscope was passed under direct vision. Throughout the procedure, the patient's blood pressure, pulse, and oxygen saturations were monitored continuously. The gastroscope was introduced through the mouth, and advanced to the fourth part of duodenum. The upper GI endoscopy was accomplished without difficulty. The patient tolerated the procedure well. Scope In: 11:22:34 AM Scope Out: 11:28:05 AM Total Procedure Duration Time 0 hours 5 minutes 31 seconds Findings: A large hiatal hernia was present. Biopsies were taken with a cold forceps for histology. Diffuse mildly erythematous mucosa without bleeding was found in the gastric antrum. Biopsies were taken with a cold forceps for histology. The fourth portion of the duodenum was normal. Biopsies were taken with a cold forceps for histology. Impression: - Large hiatal hernia. Biopsied distal esophagus - Erythematous mucosa in the antrum. Biopsied. - Normal fourth portion of the duodenum. Biopsied. Recommendation: - Resume previous diet. - Continue present medications. - Telephone my office for pathology results in 1 week. Procedure Code(s): --- Professional --- 24218, Esophagogastroduodenoscopy, flexible, transoral; with biopsy, single or multiple Diagnosis Code(s): --- Professional --- K44.9, Diaphragmatic hernia without obstruction or gangrene K31.89, Other diseases of stomach and duodenum R93.3, Abnormal findings on diagnostic imaging of other parts of digestive tract CPT copyright 2017 [employer]. All rights reserved. The codes documented in this report are preliminary and upon city detective review may be revised to meet current compliance requirements. Zenon Short MD 12/05/2017 11:49:01 AM This report has been signed electronically. Number of Addenda: 0 Note Initiated On: 12/05/2017 11:16 AM
--- NOTE | 2017-12-05 11:55 | OP.ENDO_ITS ---
Patient Name: Alyse Wetzel Procedure Date: 12/05/2017 11:28 AM Date of : 1940 Age: 77 Procedure: Colonoscopy Indications: Clinically significant diarrhea of unexplained origin Providers: Zenon Short MD Medicines: See the Anesthesia note for documentation of the administered medications Patient Profile: Last Colonoscopy: 3 years ago. Complications: No immediate complications. Procedure: Pre-Anesthesia Assessment: - Prior to the procedure, a History and Physical was performed, and patient medications and allergies were reviewed. The patient's tolerance of previous anesthesia was also reviewed. The risks and benefits of the procedure and the sedation options and risks were discussed with the patient. All questions were answered, and informed consent was obtained. Prior Anticoagulants: The patient has taken Coumadin (warfarin), last dose was 1 day prior to procedure. ASA Grade Assessment: III - A patient with severe systemic disease. After reviewing the risks and benefits, the patient was deemed in satisfactory condition to undergo the procedure. After I obtained informed consent, the scope was passed under direct vision. Throughout the procedure, the patient's blood pressure, pulse, and oxygen saturations were monitored continuously. The Colonoscope was introduced through the anus and advanced to the ileocolonic anastomosis. The colonoscopy was performed without difficulty. The patient tolerated the procedure well. The quality of the bowel preparation was good. Scope In: 11:30:55 AM Scope Withdrawal Time 0 hours 7 minutes 9 seconds Scope Out: 11:42:33 AM Total Procedure Duration Time 0 hours 11 minutes 38 seconds Findings: The digital rectal exam findings include decreased sphincter tone and internal hemorrhoids that prolapse with straining, but spontaneously regress to the resting position (Grade II). Two sessile polyps were found in the descending colon. The polyps were small in size. These polyps were removed with a cold biopsy forceps. Resection and retrieval were complete. There was evidence of a prior functional end-to-end ileo-colonic anastomosis in the transverse colon. This was patent and was characterized by healthy appearing mucosa. Normal mucosa was found in the right colon. Biopsies for histology were taken with a cold forceps from the entire colon for evaluation of microscopic colitis. Impression: - Decreased sphincter tone and internal hemorrhoids that prolapse with straining, but spontaneously regress to the resting position (Grade II) found on digital rectal exam. - Two small polyps in the descending colon, removed with a cold biopsy forceps. Resected and retrieved. - Patent functional end-to-end ileo-colonic anastomosis, characterized by healthy appearing mucosa. - Normal mucosa in the colon. Biopsied. No visual identification to correlate with diarrhea Recommendation: - Resume previous diet. - Continue present medications. - Repeat colonoscopy in 5 years for surveillance. - Telephone my office for pathology results in 1 week. Procedure Code(s): --- Professional --- 31322, Colonoscopy, flexible; with biopsy, single or multiple Diagnosis Code(s): --- Professional --- K62.89, Other specified diseases of anus and rectum D12.4, Benign neoplasm of descending colon Z98.0, Intestinal bypass and anastomosis status K64.1, Second degree hemorrhoids R19.7, Diarrhea, unspecified CPT copyright 2017 [employer]. All rights reserved. The codes documented in this report are preliminary and upon manager risk review may be revised to meet current compliance requirements. Zenon Short MD 12/05/2017 11:54:54 AM This report has been signed electronically. Number of Addenda: 0 Note Initiated On: 12/05/2017 11:28 AM
--- NOTE | 2017-12-05 12:50 | PCM.PN.BLA ---
Progress Note EGD and Colonoscopy do not visually define a source for diarrhea. Colon bxs pending for microcytic colitis. No surgical intervention is anticipated at this time.
--- NOTE | 2017-12-05 13:29 | CHAPLAIN ---
Type of Pastoral Visit _x__ Initial Visit ___ Follow-up Visit ___ On-call Visit ___ General Patient Visit ___ Spiritual Assessment ___ Family Conference ___ Bereavement ___ Rapid Response ___ Code Blue ___ Other (describe below) Pastoral Care Referral From _x__ Patient ___ Family ___ Nurse ___ Physician ___ Dry Charge Process Attendant ___ Legal Paraprofessional ___ Other (describe below) Sacrament/Intervention _x__ Active listening ___ Anointing ___ Gnosticist ___ Bereavement ___ Communion ___ Justine exploration ___ _x__ Life review ___ Prayer ___ Reconciliation ___ Sacrament of Sick _x__ Supportive presence ___ Wedding ___ Other (describe below) Pastoral Comments patient is welcoming and talkative; pt expresses relief and gladness for good reports from tests done this morning; pt has family members with her; pt expresses thanks for God and His care over her life; pt does not seek further support at this time
--- NOTE | 2017-12-05 14:24 | PCM.PROGNOTE ---
<Peggy Warren - Last Filed: 12/05/17 14:46> Patient Problems: Active and Suspected Problems Diarrhea (Acute) Subjective: Patient seen and examined. Resting comfortably in bed. Status post EGD/colonoscopy. Denies diarrhea, abdominal pain, fever, chills. Complains of sore throat following EGD. No other complaints. - Physical Exam General: Alert, Oriented x3, Cooperative, No apparent distress HEENT: Atraumatic, PERRLA, EOMI, Normocephalic Neck: Supple, No JVD, Negative Carotid Bruits Lungs: Clear to auscultation, Normal air movement Cardiovascular: Regular rate, Regular Rhythm, Normal S1, Normal S2, No murmurs Abdomen: Bowel Sounds Present, Soft, Non Tender, Non-Distended Extremities: No clubbing, No cyanosis, No edema, Capillary Refill Less than 3 Seconds Skin: No rashes, No breakdown Musculoskeletal: No Tenderness to Palpation of Joints or Extremities Neurological: Cranial nerves II-XII grossly intact, Neuro grossly intact Psych/Mental Status: Normal Affect, Appropriate Vital Signs Temp Pulse Resp BP Pulse Ox 97.8 F 69 18 91/57 L 95 12/05/17 12:24 12/05/17 12:24 12/05/17 12:24 12/05/17 12:24 12/05/17 12:24 Oxygen Delivery Method Room Air Weight: 106 lb 4.205 oz Body Mass Index (BMI) 19.4 Intake and Output for Last 24 Hours 12/03/17 12/04/17 12/05/17 23:59 23:59 23:59 Intake Total 955 / 955 2287 / 2287 Output Total 100 / 100 Balance 855 / 855 2287 / 2287 Laboratory Tests Past 24 Hrs 12/04/17 12/04/17 12/05/17 11:20 22:05 05:10 WBC 7.4 RBC 3.32 L Hgb 10.9 L Hct 31.1 L MCV 93.7 MCH 32.8 H MCHC 35.0 RDW 13.6 RDW Differential 45.1 H Plt Count 250 MPV 11.2 Immature Gran % (Auto) 0.100 Neut % (Auto) 59.9 Lymph % (Auto) 25.0 [place] % (Auto) 13.1 H Eos % (Auto) 1.1 Baso % (Auto) 0.8 Absolute Neuts (auto) 4.4 Absolute Lymphs (auto) 1.84 Total Counted Not Reportable PT 38.8 H INR 3.9 H* Sodium Potassium 2.9 L Chloride Carbon Dioxide Anion Gap BUN Creatinine Estim Creat Clear Calc Est GFR (MDRD) Af Amer Est GFR (MDRD) Non-Af BUN/Creatinine Ratio Glucose Calcium 12/05/17 12/05/17 05:10 05:10 WBC RBC Hgb Hct MCV MCH MCHC RDW RDW Differential Plt Count MPV Immature Gran % (Auto) Neut % (Auto) Lymph % (Auto) [place] % (Auto) Eos % (Auto) Baso % (Auto) Absolute Neuts (auto) Absolute Lymphs (auto) Total Counted PT 37.3 H INR 3.7 H* Sodium 144 Potassium 3.5 Chloride 116 H Carbon Dioxide 18.0 L Anion Gap 10 BUN 26 H Creatinine 0.87 Estim Creat Clear Calc 40.55 Est GFR (MDRD) Af Amer 81 Est GFR (MDRD) Non-Af 67 BUN/Creatinine Ratio 29.9 H Glucose 58 L Calcium 7.4 L Medical Necessity - Tobacco Use Smoking Status: Current every day smoker Tobacco Use: Cigarettes - one cigarette daily Assessment/Plan All Active Problems Dehydration (Acute) Diarrhea (Acute) Diarrhea (Acute) Diarrhea (Acute) S/P revision of total hip (Acute) Postoperative anemia (Acute) 1. Intractable diarrhea, recurrent-unclear etiology. General surgery consulted. Patient underwent EGD/colonoscopy which did not show any source of diarrhea. Biopsies pending for microcytic colitis. C. difficile negative during recent admission. Further treatment pending biopsy. Continue Imodium as needed for diarrhea. IV fluids. 2. Small bowel obstruction, ruled out-CT of abdomen suspicious for developing small bowel obstruction or partial small bowel obstruction with worsening distention of the duodenum. Large hiatal hernia. Surgery does not feel patient has SBO. Abdominal x-ray 3-[address] of abdomen showed no contrast remaining in any of the bowel. 3. Acute urinary tract infection-urinalysis positive. Urine culture pending. Continue IV Rocephin. 4. Supratherapeutic INR-hold Coumadin. Trend INR. Patient reports she has on Coumadin due to history of DVT approximately 20 years ago? Need to confirm with primary care physician that this is the only reason she is on Coumadin. If this is the case, discontinue Coumadin going forward. 5. Acute kidney injury-secondary to #1. Resolved with IV fluids. 6. Abdominal aortic aneurysm-CT of abdomen showed infrarenal abdominal aortic aneurysm measuring 3.5 x 3.0 cm greater than 50% stenosis. Continue outpatient follow-up. 7. Hypokalemia-resolved, trend BMP. 8. Hyperlipidemia-continue statin. 9. Depression-continue home bupropion, Celexa regimen. 10. GERD-continue PPI. History of DVT-coumadin This patient was seen by TRISTEN Jang under the supervision of Dr. Good. <Chester Good F - Last Filed: 12/05/17 14:56> - Physical Exam Vital Signs Temp Pulse Resp BP Pulse Ox 97.8 F 69 18 91/57 L 95 12/05/17 12:24 12/05/17 12:24 12/05/17 12:24 12/05/17 12:24 12/05/17 12:24 Oxygen Delivery Method Room Air Weight: 106 lb 4.205 oz Body Mass Index (BMI) 19.4 Intake and Output for Last 24 Hours 12/03/17 12/04/17 12/05/17 23:59 23:59 23:59 Intake Total 955 / 955 2287 / 2287 Output Total 100 / 100 Balance 855 / 855 2287 / 2287 Laboratory Tests Past 24 Hrs 12/04/17 12/04/17 12/05/17 11:20 22:05 05:10 WBC 7.4 RBC 3.32 L Hgb 10.9 L Hct 31.1 L MCV 93.7 MCH 32.8 H MCHC 35.0 RDW 13.6 RDW Differential 45.1 H Plt Count 250 MPV 11.2 Immature Gran % (Auto) 0.100 Neut % (Auto) 59.9 Lymph % (Auto) 25.0 [place] % (Auto) 13.1 H Eos % (Auto) 1.1 Baso % (Auto) 0.8 Absolute Neuts (auto) 4.4 Absolute Lymphs (auto) 1.84 Total Counted Not Reportable PT 38.8 H INR 3.9 H* Sodium Potassium 2.9 L Chloride Carbon Dioxide Anion Gap BUN Creatinine Estim Creat Clear Calc Est GFR (MDRD) Af Amer Est GFR (MDRD) Non-Af BUN/Creatinine Ratio Glucose Calcium 12/05/17 12/05/17 05:10 05:10 WBC RBC Hgb Hct MCV MCH MCHC RDW RDW Differential Plt Count MPV Immature Gran % (Auto) Neut % (Auto) Lymph % (Auto) [place] % (Auto) Eos % (Auto) Baso % (Auto) Absolute Neuts (auto) Absolute Lymphs (auto) Total Counted PT 37.3 H INR 3.7 H* Sodium 144 Potassium 3.5 Chloride 116 H Carbon Dioxide 18.0 L Anion Gap 10 BUN 26 H Creatinine 0.87 Estim Creat Clear Calc 40.55 Est GFR (MDRD) Af Amer 81 Est GFR (MDRD) Non-Af 67 BUN/Creatinine Ratio 29.9 H Glucose 58 L Calcium 7.4 L Code Visit Addendum: Dr. Good I personally examined the patient and reviewed the chart. I agree with the above. 77-year-old female with past medical history of DVT after surgery, anxiety and hyperlipidemia presenting with diarrhea and hypokalemia. She had a CT scan that possibly demonstrated an early small bowel obstruction however 3-[address] scan did not demonstrate any contrast in the intestines, therefore small bowel obstruction was ruled out by general surgery. She is status post EGD and colonoscopy which not demonstrate a source of her diarrhea. She is are pending. As for her anticoagulation I am unsure as to why she is continued on this. She does not have a history of A. fib and she had a one-time essentially provoked DVT because she was undergoing surgery. Cannot find another better reason for her anticoagulation I will discontinue her Coumadin on discharge. Her hypokalemia and AK I have both resolved with replacement and IV fluids. Inpatient E&M: 92405 Subs Hosp L2
[2017-12-05] MEDS: Citalopram 20 MG Tablet PO (16:12)
[2017-12-05] MEDS: Atorvastatin Calcium 10 MG Tablet PO (21:17)
[2017-12-06] VITALS (13 sets, daily range): BP systolic 89–137; BP diastolic 50–69; PULSE 56–74; RESP 18; TEMP 36.5–36.8; O2SAT 95–99
[2017-12-06 06:49] LABS: Hematocrit 29.2 % (37-47); Hemoglobin 10.1 g/dl (12.0-15.0); Mean Corp Hgb Conc 34.6 g/gl (32-36); Mean Corpuscular Hgb 32.8 pg (27.0-32.0); Mean Corpuscular Volume 94.8 fL (81-99); Mean Platelet Vol. 10.9 fl (6.2-12.0); Platelet Count 241 K/mm3 (150-450); RBC Distribution Width CV 13.9 % (11.6-14.6); RBC Distribution Width SD 45.8 fl (35.1-43.9); Red Blood Count 3.08 M/mm3 (4.2-5.4); White Blood Count 6.8 K/mm3 (4.4-11.0)
[2017-12-06 06:51] LABS: International Normalized Ratio 2.6
[2017-12-06 06:53] LABS: Scan Indicated on CBC? Y/N NO
[2017-12-06 07:03] LABS: Anion Gap 8 (5-15); BUN 11 mg/dL (7-18); BUN/Creat Ratio 19.1 RATIO (10-20); Calcium,Total 7.2 mg/dL (8.5-10.1); Chloride 118 mmol/L (98-107); Creatinine, Serum 0.58 mg/dL (0.55-1.02); EST Glomerular Filtration Rate 108 mL/min (>60); Est Glom Filt Rate - Afr Amer 130 mL/min (>60); Estimated Creatinine Clearance 35.28 ml/min; Glucose 66 mg/dL (74-106); Potassium 3.4 mmol/L (3.5-5.1); Sodium Level 146 mmol/L (136-145)
[2017-12-06] MEDS: Citalopram 20 MG Tablet PO (09:10)
[2017-12-06] MEDS: Cyanocobalamin 500 MCG Tablet PO (09:10)
[2017-12-06] MEDS: Calcium Carbonate 500 MG Tablet PO (09:10)
[2017-12-06] MEDS: Multivitamins,Therapeutic Tablet 1 TABLET PO (09:10)
--- NOTE | 2017-12-06 11:33 | CASEMGMT ---
PT/OT feels patient would benefit from going to a [facility] facility for rehab. DORA spoke with patient, introduced self and role at [facility]. DORA told patient that therapy feels she would benefit from going to a [facility] facility short term for some rehab. She said she would rather go home as she has has a granddaughter who can help and several friends. She said she also does not have the money. DORA explained to her that Medicare would pay for days 1-20 at 100%. DORA also told her any of the [facility] nursing homes and [facility]CU would be options. She was really pleased to hear this as she feels it would be a great idea, especially the hospital's unit. DORA told her SW will check to see if TCU has any beds and let her know. DORA spoke with [facility] in TCU and they have beds available. SW let patient know this information. She was pleased and said she would talk with her granddaughter when she comes in later today. She said she will probably go to TCU, but wants to talk with her granddaughter first. DORA gave her SW's card so she can call DORA and let her know what she and her granddaughter decided. Plan: Likely [facility] Saturday. Vivi RAMIREZ MSW
--- NOTE | 2017-12-06 13:20 | PN_ITS ---
<Peggy Warren - Last Filed: 12/06/17 13:22> Patient Problems: Active and Suspected Problems Diarrhea (Acute) Subjective: Patient seen and examined. States she had 4 episodes of diarrhea overnight. Denies abdominal pain. Denies blood in stool. No other complaints. Agreeable to TCU at [facility]. - Physical Exam General: Alert, Oriented x3, Cooperative, No apparent distress HEENT: Atraumatic, PERRLA, EOMI, Normocephalic Neck: Supple, No JVD, Negative Carotid Bruits Lungs: Clear to auscultation, Normal air movement Cardiovascular: Regular rate, Regular Rhythm, Normal S1, Normal S2, No murmurs Abdomen: Bowel Sounds Present, Soft, Non Tender, Non-Distended Extremities: No clubbing, No cyanosis, No edema, Capillary Refill Less than 3 Seconds Skin: No rashes, No breakdown Musculoskeletal: No Tenderness to Palpation of Joints or Extremities Neurological: Cranial nerves II-XII grossly intact, Neuro grossly intact Psych/Mental Status: Normal Affect, Appropriate Vital Signs Temp Pulse Resp BP Pulse Ox 97.9 F 61 18 98/54 L 99 12/06/17 11:09 12/06/17 11:09 12/06/17 11:09 12/06/17 11:09 12/06/17 11:09 Oxygen Delivery Method Room Air Weight: 106 lb 4.205 oz Body Mass Index (BMI) 19.4 Intake and Output for Last 24 Hours 12/04/17 12/05/17 12/06/17 23:59 23:59 23:59 Intake Total 955 / 955 4230 / 4230 1502 / 1502 Output Total 100 / 100 250 / 250 Balance 855 / 855 3980 / 3980 1502 / 1502 Microbiology Past 72 Hours 12/04/17 10:55 Urine Culture - Preliminary Urine, Clean Catch Presumptive E. coli Laboratory Tests Past 24 Hrs 12/06/17 12/06/17 12/06/17 05:54 05:54 05:54 WBC 6.8 RBC 3.08 L Hgb 10.1 L Hct 29.2 L MCV 94.8 MCH 32.8 H MCHC 34.6 RDW 13.9 RDW Differential 45.8 H Plt Count 241 MPV 10.9 PT 28.0 H INR 2.6 Sodium 146 H Potassium 3.4 L Chloride 118 H Carbon Dioxide 20.0 L Anion Gap 8 BUN 11 Creatinine 0.58 Estim Creat Clear Calc 35.28 Est GFR (MDRD) Af Amer 130 Est GFR (MDRD) Non-Af 108 BUN/Creatinine Ratio 19.1 Glucose 66 L Calcium 7.2 L Medical Necessity - Tobacco Use Smoking Status: Current every day smoker Tobacco Use: Cigarettes - one cigarette daily Assessment/Plan All Active Problems Dehydration (Acute) Diarrhea (Acute) Diarrhea (Acute) Diarrhea (Acute) S/P revision of total hip (Acute) Postoperative anemia (Acute) 1. Intractable diarrhea, recurrent-unclear etiology. General surgery consulted. Patient underwent EGD/colonoscopy which did not show any source of diarrhea. Biopsies pending for microcytic colitis. C. difficile negative during recent admission. Further treatment pending biopsy. Continue Imodium as needed for diarrhea. IV fluids. 2. Small bowel obstruction, ruled out-CT of abdomen suspicious for developing small bowel obstruction or partial small bowel obstruction with worsening distention of the duodenum. Large hiatal hernia. Surgery does not feel patient has SBO. Abdominal x-ray 3-[address] of abdomen showed no contrast remaining in any of the bowel. 3. Acute E. coli cystitis-urinalysis positive. Urine culture positive E. coli, sensitivities pending. Continue IV Rocephin. 4. Supratherapeutic INR-resolved. INR 2.6. Resume Coumadin regimen tomorrow. Trend INR. 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 5. Acute kidney injury-secondary to #1. Resolved with IV fluids. 6. Abdominal aortic aneurysm-CT of abdomen showed infrarenal abdominal aortic aneurysm measuring 3.5 x 3.0 cm greater than 50% stenosis. Continue outpatient follow-up. 7. Hypokalemia-resolved, trend BMP. 8. Hyperlipidemia-continue statin. 9. Depression-continue home bupropion, Celexa regimen. 10. GERD-continue PPI. History of DVT-coumadin Discharge planning: Plan is for TCU tomorrow. This patient was seen by TRISTEN Jang under the supervision of Dr. Good. <Chester Good - Last Filed: 12/06/17 17:31> - Physical Exam Vital Signs Temp Pulse Resp BP Pulse Ox 97.9 F 56 L 18 98/54 L 99 12/06/17 11:09 12/06/17 15:11 12/06/17 14:52 12/06/17 11:09 12/06/17 11:09 Oxygen Delivery Method Room Air Weight: 106 lb 4.205 oz Body Mass Index (BMI) 19.4 Intake and Output for Last 24 Hours 12/04/17 12/05/17 12/06/17 23:59 23:59 23:59 Intake Total 955 / 955 4230 / 4230 1502 / 1502 Output Total 100 / 100 250 / 250 Balance 855 / 855 3980 / 3980 1502 / 1502 Microbiology Past 72 Hours 12/04/17 10:55 Urine Culture - Preliminary Urine, Clean Catch Presumptive E. coli Laboratory Tests Past 24 Hrs 12/06/17 12/06/17 12/06/17 05:54 05:54 05:54 WBC 6.8 RBC 3.08 L Hgb 10.1 L Hct 29.2 L MCV 94.8 MCH 32.8 H MCHC 34.6 RDW 13.9 RDW Differential 45.8 H Plt Count 241 MPV 10.9 PT 28.0 H INR 2.6 Sodium 146 H Potassium 3.4 L Chloride 118 H Carbon Dioxide 20.0 L Anion Gap 8 BUN 11 Creatinine 0.58 Estim Creat Clear Calc 35.28 Est GFR (MDRD) Af Amer 130 Est GFR (MDRD) Non-Af 108 BUN/Creatinine Ratio 19.1 Glucose 66 L Calcium 7.2 L Code Visit Addendum: Dr. Good I personally examined the patient and reviewed the chart. I agree with the above. 77-year-old female with past medical history of DVT after surgery, anxiety and hyperlipidemia presenting with diarrhea and hypokalemia. Initially thought to possibly be a small bowel obstruction how an abdominal x-ray series after a CT scan with oral contrast demonstrated that there is no more contrast in the intestines. Therefore it was felt that a small bowel obstruction was unlikely by general surgery. She had an EGD and a colonoscopy with biopsies which returned with microscopic colitis. Per recommendation by surgery she will be started on mesalamine and discharged to the transitional care unit tomorrow for rehab. She is also currently being treated for an E. coli UTI sensitivities are pending. Inpatient E&M: [id number] [facility] L2
--- NOTE | 2017-12-06 17:13 | PCM.PN.BLA ---
Progress Note Biopsies c/w microcytic colitis and pt started on mesalamine 400mg tid This would correlate with pt's presentation and symptoms I will sign off at this time, thank you. Maria G
[2017-12-06] MEDS: Ceftriaxone 1 GM/50 ML BAG IV (21:33)
[2017-12-06] MEDS: Atorvastatin Calcium 10 MG Tablet PO (21:33)
[2017-12-06] MEDS: MESALAMINE 400 MG CAPSULE.DR PO (21:36)
--- NOTE | 2017-12-06 21:44 | EKG12_ITS ---
Test Reason : CHEST PAIN Blood Pressure : / mmHG Vent. Rate : 063 BPM Atrial Rate : 063 BPM P-R Int : 184 ms QRS Dur : 076 ms QT Int : 436 ms P-R-T Axes : 118 215 130 degrees QTc Int : 446 ms Suspect arm lead reversal, interpretation assumes no reversal Normal sinus rhythm Right ventricular hypertrophy Possible Anterolateral infarct , age undetermined Abnormal ECG When compared with ECG of 05-DEC-2017 05:22, MANUAL COMPARISON REQUIRED, DATA IS UNCONFIRMED Confirmed by YORDY CHAN, VITALIY ([id number]), editor trade journal [employer]IA PRINCE ([id number]) on 12/16/2017 4:02:50 PM Referred By: SHI Confirmed By:VITALIY SCALES MD
[2017-12-06] MEDS: Mag Hydrox/Al Hydrox/Simeth 30 ML UDC PO (22:39)
[2017-12-07 02:53] VITALS: PULSE 70
[2017-12-07 03:31] VITALS: BP 94/42; PULSE 66; RESP 16; TEMP 36.9; O2SAT 95
[2017-12-07] MEDS: MESALAMINE 400 MG CAPSULE.DR PO (05:24)
[2017-12-07] MEDS: Alendronate Sodium 70 MG Tablet PO (05:24)
[2017-12-07 06:50] LABS: Hematocrit 30.3 % (37-47); Hemoglobin 10.2 g/dl (12.0-15.0); Mean Corp Hgb Conc 33.7 g/gl (32-36); Mean Corpuscular Hgb 32.1 pg (27.0-32.0); Mean Corpuscular Volume 95.3 fL (81-99); Mean Platelet Vol. 11.2 fl (6.2-12.0); Platelet Count 240 K/mm3 (150-450); RBC Distribution Width CV 14.2 % (11.6-14.6); RBC Distribution Width SD 46.9 fl (35.1-43.9); Red Blood Count 3.18 M/mm3 (4.2-5.4); White Blood Count 7.9 K/mm3 (4.4-11.0)
[2017-12-07 06:51] LABS: Scan Indicated on CBC? Y/N NO
[2017-12-07 07:17] LABS: Anion Gap 7 (5-15); BUN 6 mg/dL (7-18); BUN/Creat Ratio 11.7 RATIO (10-20); Calcium,Total 7.4 mg/dL (8.5-10.1); Chloride 119 mmol/L (98-107); Creatinine, Serum 0.51 mg/dL (0.55-1.02); EST Glomerular Filtration Rate 123 mL/min (>60); Est Glom Filt Rate - Afr Amer 149 mL/min (>60); Estimated Creatinine Clearance 35.28 ml/min; Glucose 82 mg/dL (74-106); Potassium 4.1 mmol/L (3.5-5.1); Sodium Level 145 mmol/L (136-145)
[2017-12-07 07:22] VITALS: PULSE 62
[2017-12-07 08:08] VITALS: BP 102/59; PULSE 62; RESP 16; TEMP 36.6; O2SAT 96; O2SAT 97
[2017-12-07] MEDS: Calcium Carbonate 500 MG Tablet PO (08:23)
[2017-12-07] MEDS: Multivitamins,Therapeutic Tablet 1 TABLET PO (08:23)
[2017-12-07] MEDS: Citalopram 20 MG Tablet PO (09:52)
[2017-12-07] MEDS: Cyanocobalamin 500 MCG Tablet PO (09:52)
--- NOTE | 2017-12-07 11:10 | PCM.EXTCARCO ---
- Diet 12/05/17 12:25 Diet: Regular Diet Is pt able to select menu?: Yes - Routine Orders/Code Status Enema Type: Fleetz Enema Frequency: Daily PRN Suppository Type: Dulcolax 10mg Suppository Frequency: Daily PRN Routine Lab Work: CBC, BMP, INR, - - Check CBC, BMP, INR 12/08/17 and then Q Week. Code Status: Full Code - Suggestions for Active Care Change Position every (hours): 2 Times a day to sit in chair: 3 - Therapies Physical Therapy: Eval and Treat Occupational Therapy: Eval and Treat - Problem/Diagnosis (1) Microscopic colitis Status: Acute Current Visit: Yes (2) Acute cystitis Status: Acute Current Visit: Yes (3) BERONICA (acute kidney injury) Status: Acute Current Visit: Yes - Allergies/Procedures Done in Hospital Allergies/Adverse Reactions: Allergies ibuprofen [From Motrin] Allergy (Verified 12/04/17 10:34) Angioedema Procedures: Colonoscopy, EGD - Type of Care/Length of Stay Estimated LOS: Convalescent Care Less Than 30 days Type of Care Needed: Skilled Rehab Potential: Fair Prognosis: Fair - Additional Orders/Day of Discharge H&P will serve as current which was dated: 12/04/17 Day of Discharge: 12/07/17 - Dietary and Speech Recommendations Dietitian Recommendations/Changes: Rec regular, low residue diet. Will adjust theraputic diet recommendations pending results of further testing. Pt strongly refusing ONS at this time. Will send milk w/ meals for additional calories/protein - Follow Up Care Primary Care Physician: David Oneil Chi, MD [Primary Care Provider] - Please follow up with your Primary Care Physician in: 1 Week Please Follow Up With: Pharmacy Analyst Yung Campbell or pt preference When: 1 Week
[2017-12-07 11:14] VITALS: BP 102/59; PULSE 62; RESP 16; TEMP 36.6; O2SAT 97
--- NOTE | 2017-12-07 11:17 | PCM.DC.SUM ---
<Peggy Warren - Last Filed: 12/07/17 11:24> Discharge Date and Diagnosis Date of Admission: 12/04/17 Date of Discharge: 12/07/17 - Primary Discharge Diagnosis Active and Suspected Problems 1. Persistent diarrhea secondary to microscopic colitis 2. Small bowel obstruction ruled out 3. Acute E. coli cystitis 4. Acute kidney injury secondary to #1 5. Supratherapeutic INR 6. Hypokalemia secondary to #1, resolved 7. Abdominal aortic aneurysm, stable 8. Hyperlipidemia 9. Depression 10. GERD - Secondary Discharge Diagnosis Chronic Problems Anxiety (Chronic) History of DVT (deep vein thrombosis) (Chronic) Hyperlipidemia (Chronic) Hospital Course and Treatment Imaging Results: Diagnostic Data Abdomen/Pelvis CT 12/04/17 11:25 IMPRESSION: Findings are suspicious for developing small bowel obstruction or partial small bowel obstruction with worsening distention of the duodenum. This is complicated by a distended duodenal diverticulum. The zone of transition is in the right midline abdomen where there is an apparent twist in the mesentery and/or internal hernia. Large hiatal hernia and most of the stomach is in the chest. There is persistent fluid-filled patulous appearance of the remaining large bowel which may be reactive to developing obstruction and/or a gastroenteritis type pattern. Infrarenal abdominal aortic aneurysm measuring 3.5 x 3.0 cm greater than 50% stenosis. Status post hysterectomy. Status post cholecystectomy Status post hemicolectomy Distended common duct. Intra and extrahepatic ductal dilatation. Status post bilateral hip arthroplasties old left side pelvis fractures. N.B. : The above information has been verbally conveyed by Diane Hill MD to Florinda Fisher on 12/04/2017 14:08:11 (ET). Electronically Signed: Diane Hill MD at 13:54 EDT Tel , Service support , KUB X-Ray 12/04/17 16:40 IMPRESSION: Continued dilatation of small bowel and at least the distal colon noting that the patient appears to have had a right hemicolectomy. Also, it appears that the oral contrast given only hours ago has passed through the bowel or has been vomited. Coarse, if this has passed through the colon, small bowel obstruction would be unlikely. If the patient has vomited the contrast, small bowel obstruction is still a possibility. Electronically Signed: Chinyere Zamora MD at 17:24 EDT , Service support , Dr. Short- General surgery Operations: None Procedures: Colonoscopy, EGD Summary of Care Provided: The patient is a 77 year old F admitted 12/04/2017 due to persistent diarrhea. 1. Intractable diarrhea, secondary to microscopic colitis- general surgery consulted. Patient underwent EGD/colonoscopy which did not show any source of diarrhea. Biopsies showed microscopic colitis. C. difficile negative during recent admission. Continue Imodium as needed for diarrhea. Started on mesalamine 400 mg 3 times daily. Recommend outpatient follow-up with GI in 1 week. Follow-up with primary care physician in 1 week as well. 2. Small bowel obstruction, ruled out-CT of abdomen suspicious for developing small bowel obstruction or partial small bowel obstruction with worsening distention of the duodenum. Large hiatal hernia. Surgery does not feel patient has SBO. Abdominal x-ray 3-[address] of abdomen showed no contrast remaining in any of the bowel. 3. Acute E. coli cystitis-urinalysis positive. Urine culture positive E. coli, sensitivities pending. Received IV Rocephin times 3 days. Continue Keflex at discharge 500 mA 3 times daily for 3 days. 4. Supratherapeutic INR-resolved. 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 Resume Coumadin. Trend INR. 5. Acute kidney injury-secondary to #1. Resolved with IV fluids. 6. Abdominal aortic aneurysm-CT of abdomen showed infrarenal abdominal aortic aneurysm measuring 3.5 x 3.0 cm greater than 50% stenosis. Continue outpatient follow-up. 7. Hypokalemia-resolved, trend BMP. 8. Hyperlipidemia-continue statin. 9. Depression-continue home bupropion, Celexa regimen. 10. GERD-continue PPI. General: Alert, Oriented x3, Cooperative, No apparent distress HEENT: Atraumatic, PERRLA, EOMI, Normocephalic Neck: Supple, No JVD, Negative Carotid Bruits Lungs: Clear to auscultation, Normal air movement Cardiovascular: Regular rate, Regular Rhythm, Normal S1, Normal S2, No murmurs Abdomen: Bowel Sounds Present, Soft, Non Tender, Non-Distended Extremities: No clubbing, No cyanosis, No edema, Capillary Refill Less than 3 Seconds Skin: No rashes, No breakdown Musculoskeletal: No Tenderness to Palpation of Joints or Extremities Neurological: Cranial nerves II-XII grossly intact, Neuro grossly intact Psych/Mental Status: Normal Affect, Appropriate Patient seen exam prior to discharge. Physical assessment as noted above. Patient stable for discharge to TCU. This patient was seen by TRISTEN Jang under the supervision of Dr. Good. - Physical Exam Vital Signs Temp Pulse Resp BP Pulse Ox 97.9 F 62 16 102/59 L 96 12/07/17 08:08 12/07/17 08:08 12/07/17 08:08 12/07/17 08:08 12/07/17 08:08 Oxygen Delivery Method Room Air Weight: 106 lb 4.205 oz Body Mass Index (BMI) 19.4 Intake and Output for Last 24 Hours 12/05/17 12/06/17 12/07/17 23:59 23:59 23:59 Intake Total 4230 / 4230 2619 / 2619 1770.7 / 1770.7 Output Total 250 / 250 Balance 3980 / 3980 2619 / 2619 1770.7 / 1770.7 Microbiology Past 72 Hours 12/04/17 10:55 Urine Culture - Final Urine, Clean Catch Presumptive E. coli Laboratory Tests Past 24 Hrs 12/07/17 12/07/17 05:15 05:15 WBC 7.9 RBC 3.18 L Hgb 10.2 L Hct 30.3 L MCV 95.3 MCH 32.1 H MCHC 33.7 RDW 14.2 RDW Differential 46.9 H Plt Count 240 MPV 11.2 Sodium 145 Potassium 4.1 Chloride 119 H Carbon Dioxide 19.0 L Anion Gap 7 BUN 6 L Creatinine 0.51 L Estim Creat Clear Calc 35.28 Est GFR (MDRD) Af Amer 149 Est GFR (MDRD) Non-Af 123 BUN/Creatinine Ratio 11.7 Glucose 82 Calcium 7.4 L Home Medications: Medications to take at Discharge Citalopram [Celexa] 20 mg PO DAILY 12/10/14 Cyanocobalamin (Vitamin B-12) [Vitamin B-12] 500 mcg SL DAILY 12/10/14 Multivitamins,Therapeutic [Multivitamin] 1 tablet PO DAILY 12/10/14 Simvastatin [Zocor] 20 mg PO QHS 12/10/14 Warfarin [Coumadin] 2 mg PO MOWEFR 02/22/16 Warfarin [Coumadin] 3 mg PO SUTUTHSA 02/22/16 Acetaminophen [Tylenol] 1,000 mg PO QHS PRN 09/30/17 Alendronate Sodium 70 mg PO SA 11/25/17 Bupropion HCl [Bupropion HCl Sr] 150 mg PO BID 11/25/17 Loperamide [Imodium] 2 mg PO Q6H PRN PRN #10 capsule 11/27/17 Calcium Carbonate [Calcium] 600 mg PO DAILY 12/04/17 Celecoxib [Celebrex] 200 mg PO QHS 12/04/17 Omeprazole [Prilosec] 10 mg PO DAILY 12/04/17 Cephalexin [Keflex] 500 mg PO Q8 3 Days #9 capsule 12/07/17 Mesalamine [Delzicol] 400 mg PO TID capsule. 12/07/17 Following Prescrptions Were Given to Patient: Cephalexin [Keflex] 500 mg PO Q8 3 Days #9 capsule Primary Care Physician: David Oneil Chi, MD [Primary Care Provider] - Please follow up with your Primary Care Physician in: 1 Week Please Follow Up With: Administrative Law Judge Yung Campbell or pt preference When: 1 Week Disposition: Custodial facility Minutes spent on discharge:: 35 Patient Condition:: Stable Medical Necessity - Tobacco Use Smoking Status: Current every day smoker Tobacco Use: Cigarettes - one cigarette daily Meaningful Use Info Meaningful Use Diagnoses (Choose all that apply): None applicable <Chester Good F - Last Filed: 12/07/17 11:32> Discharge Date and Diagnosis - Secondary Discharge Diagnosis Chronic Problems Anxiety (Chronic) History of DVT (deep vein thrombosis) (Chronic) Hyperlipidemia (Chronic) Hospital Course and Treatment Summary of Care Provided: The patient is a 77 year old F [] - Physical Exam Vital Signs Temp Pulse Resp BP Pulse Ox 97.9 F 62 16 102/59 L 96 12/07/17 08:08 12/07/17 08:08 12/07/17 08:08 12/07/17 08:08 12/07/17 08:08 Oxygen Delivery Method Room Air Weight: 106 lb 4.205 oz Body Mass Index (BMI) 19.4 Intake and Output for Last 24 Hours 12/05/17 12/06/17 12/07/17 23:59 23:59 23:59 Intake Total 4230 / 4230 2619 / 2619 1770.7 / 1770.7 Output Total 250 / 250 Balance 3980 / 3980 2619 / 2619 1770.7 / 1770.7 Microbiology Past 72 Hours 12/04/17 10:55 Urine Culture - Final Urine, Clean Catch Presumptive E. coli Laboratory Tests Past 24 Hrs 12/07/17 12/07/17 05:15 05:15 WBC 7.9 RBC 3.18 L Hgb 10.2 L Hct 30.3 L MCV 95.3 MCH 32.1 H MCHC 33.7 RDW 14.2 RDW Differential 46.9 H Plt Count 240 MPV 11.2 Sodium 145 Potassium 4.1 Chloride 119 H Carbon Dioxide 19.0 L Anion Gap 7 BUN 6 L Creatinine 0.51 L Estim Creat Clear Calc 35.28 Est GFR (MDRD) Af Amer 149 Est GFR (MDRD) Non-Af 123 BUN/Creatinine Ratio 11.7 Glucose 82 Calcium 7.4 L Code Visit Addendum: Dr. Good I personally examined the patient and reviewed the chart. I agree with the above. 77-year-old female with past medical history of DVT after surgery, anxiety and hyperlipidemia presenting with diarrhea and hypokalemia. Initially thought to possibly be a small bowel obstruction however she did have an abdominal x-ray after a CT scan of her abdomen and pelvis with p.o. contrast, and the abdominal x-ray demonstrated contrast had exited her system. She did have an EGD and a colonoscopy by Dr. Clayton and the pathology report showed a microscopic colitis. She was started on mesalamine 3 times daily per her general surgery. She will be transferred to rehab a day with outpatient gastroenterology follow-up to help manage her microscopic colitis. She currently also has a UTI that is sensitive to Keflex which she will continue for the next 3 days. Inpatient E&M: [id number] [facility]
--- NOTE | 2017-12-07 13:00 | NURSING ---
Report called to ELEN Kaur on TCU.
== END 2017-12-07 13:15 | disposition skilled nursing facility (03) | DRG 392 ==
LOC: ED 11:11 → PCU 14:45
PROVIDERS: Anesthesiology; Nurse Practitioner Family; Surgery; Admitting Provider Student in an Organized Health Care Education/Training Program; Emergency Provider Emergency Medicine; Family Provider Family Medicine Geriatric Medicine; PCP Family Medicine Geriatric Medicine; Visit Provider Family Medicine
PROC: 0DJD8ZZ Inspection of Lower Intestinal Tract, Via Natural or Artificial Opening Endoscopic (ICD-10-PCS; CPT 45378; principal; 2017-12-05 10:00)
DX: K52.839 Microscopic colitis, unspecified (principal); N30.00 Acute cystitis without hematuria; N17.9 Acute kidney failure, unspecified; B96.20 Unspecified Escherichia coli [E. coli] as the cause of diseases classified elsewhere; E87.6 Hypokalemia; E86.0 Dehydration; I71.4 Abdominal aortic aneurysm, without rupture; E78.5 Hyperlipidemia, unspecified; F32.9 Major depressive disorder, single episode, unspecified; K21.9 Gastro-esophageal reflux disease without esophagitis; F41.9 Anxiety disorder, unspecified; R79.1 Abnormal coagulation profile; Z79.01 Long term (current) use of anticoagulants; Z86.718 Personal history of other venous thrombosis and embolism; K64.1 Second degree hemorrhoids; D12.4 Benign neoplasm of descending colon; K44.9 Diaphragmatic hernia without obstruction or gangrene; Z90.49 Acquired absence of other specified parts of digestive tract; Z90.710 Acquired absence of both cervix and uterus; Z85.038 Personal history of other malignant neoplasm of large intestine; Z72.0 Tobacco use
CPT/HCPCS: 36415; 74018; 74177; 80048; 80053; 81001; 83605; 83690; 83735; 84132; 84443; 85025; 85027; 85610; 87086; 87088; 87186; 88305; 88313; 88342; 93005; 97162; 97165; 97535; 97803; 99283; J7030; J7040; Q9967; A4216

== ENCOUNTER 2017-12-07 13:25 | Inpatient (IN) | payer MEDICARE, SELFPAY ==
--- NOTE | 2017-12-07 13:25 | NURSING ---
Pt arrived from PCU via bed.
[2017-12-07 13:49] VITALS: BP 124/61; PULSE 82; RESP 18; TEMP 36.4; O2SAT 98
[2017-12-07 14:09] VITALS: BMI 21.7
[2017-12-07 14:28] VITALS: BMI 21.8
[2017-12-07] MEDS: Cephalexin 500 MG Capsule PO ×2 (15:23→21:17)
[2017-12-07] MEDS: MESALAMINE 400 MG CAPSULE.DR PO ×2 (15:23→21:17)
[2017-12-07 15:48] VITALS: BP 138/87; PULSE 60; RESP 14; TEMP 36.2; O2SAT 97
--- NOTE | 2017-12-07 16:17 | PCM.HP.STD ---
Problem List (1) Fatigue Status: Acute (2) Abdominal aortic aneurysm Status: Chronic (3) E. coli UTI Status: Acute (4) Hypokalemia Status: Acute (5) Small bowel obstruction Status: Suspected (6) Deep vein thrombosis Status: Chronic (7) Depression Status: Chronic (8) Osteoporosis Status: Chronic (9) Tobacco abuse Status: Chronic (10) Osteoarthritis Status: Chronic (11) GERD (gastroesophageal reflux disease) Status: Chronic (12) Mild chronic gastritis Status: Acute (13) Diarrhea Status: Acute Qualifiers: (14) Microscopic colitis Status: Acute History of Present Illness Date of Admission: 12/07/17 Chief Complaint: Here for rehabilitation, strengthening, prior to discharge home alone. The patient is a 77 year old Female with below past medical history presented to [facility] Emergency Department 12/04/2017 with diarrhea, fatigue. 12/04/2017 CT scan abdomen/pelvis showed small bowel obstruction, large hiatal hernia, abdominal aortic aneurysm 3.5CM. Diarrhea x 2 weeks. Stool studies 1 week prior negative, C. Diff negative. Bupropion started in last 3 weeks for smoking cessation. IV fluids given, K 2.8, Cr 1.48, UA negative. Lactic acid normal. IV potassium given. 12/04/2017 Admit to Hospital. C. Diff negative 1 week prior. NPO, IV fluids. Consult General Surgery. Replete potassium, magnesium. 12/04/2017 KUB showed small bowel, distal colon dilatation. 12/05/2017 Dr. Short performed EGD found large hiatal hernia, gastritis. Dr. Short performed colonoscopy found 2 small polyps. Biopsy showd mild gastritis, microscopic colitis. Mesalamine 400MG TID for microscopic colitis. Small bowel obstruction ruled out. E. Coli urinary tract infection treated with Rocephin IV x 3 days, then transitioned to Keflex 500MG TID. 12/07/2017 Admit to TCU with debility, here for rehabilitation, strengthening, prior to discharge home alone. Past Medical History Past Medical History (Chronic Problems): Chronic Problems Abdominal aortic aneurysm (Chronic) Deep vein thrombosis (Chronic) Depression (Chronic) Osteoporosis (Chronic) Tobacco abuse (Chronic) Osteoarthritis (Chronic) GERD (gastroesophageal reflux disease) (Chronic) Anxiety (Chronic) History of DVT (deep vein thrombosis) (Chronic) Hyperlipidemia (Chronic) Allergies ibuprofen [From Motrin] Allergy (Verified 12/04/17 10:34) Angioedema Home Medications: Ambulatory Orders Medication Instructions Recorded Citalopram [Celexa] 20 mg PO DAILY 12/10/14 Cyanocobalamin (Vitamin B-12) 500 mcg SL DAILY 12/10/14 [Vitamin B-12] Multivitamins,Therapeutic 1 tablet PO DAILY 12/10/14 [Multivitamin] Simvastatin [Zocor] 20 mg PO QHS 12/10/14 Warfarin [Coumadin] 2 mg PO MOWEFR 02/22/16 Warfarin [Coumadin] 3 mg PO SUTUTHSA 02/22/16 Acetaminophen [Tylenol] 1,000 mg PO QHS PRN 09/30/17 Alendronate Sodium 70 mg PO SA 11/25/17 Bupropion HCl [Bupropion HCl Sr] 150 mg PO BID 11/25/17 Loperamide [Imodium] 2 mg PO Q6H PRN PRN #10 capsule 11/27/17 Calcium Carbonate [Calcium] 600 mg PO DAILY 12/04/17 Celecoxib [Celebrex] 200 mg PO QHS 12/04/17 Omeprazole [Prilosec] 10 mg PO DAILY 12/04/17 Cephalexin [Keflex] 500 mg PO Q8 12/07/17 Mesalamine [Delzicol] 400 mg PO TID 12/07/17 Surgical History: cholecystectomy, colectomy - Partial., hysterectomy, total hip arthroplasty - 2015 Psychiatric History: Depression 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 Alcohol: None Drugs: None - *Family History Maternal History Items: No pertinent history Paternal History Items: No pertinent history Review of Systems Constitutional: Denies: Chills, Fever, Weight Change HEENT: Denies: Head Aches, Sinus Congestion, Sinus Drainage Cardiovascular: Denies: Chest Pain, Palpitations Respiratory: Denies: Cough, Shortness of breath at rest, Sputum production Gastrointestinal: Denies: Abdominal Pain, Nausea, Vomiting Genitourinary: Denies: Dysuria Musculoskeletal: Denies: Joint Pain, Joint Tenderness Skin: Denies: Rash, Wounds Neurological: Denies: Numbness, Tingling, Focal weakness Psychiatric: Denies: Anxiety, Depression, Homicidal Ideations, Suicidal Ideations Hematologic/ Lymphatic: Denies: Easy Bruising, Easy Bleeding VTE Information - Inpt Only VTE Present on Admission: No VTE Mechan Device Prophylaxis: Knee High CHEVY Hose VTE Pharm Prophylaxis ordered?: No Reason prophylaxis not ordered:: Treatment Not Indicated Patient Problems: Active and Suspected Problems Fatigue (Acute) E. coli UTI (Acute) Hypokalemia (Acute) Small bowel obstruction (Suspected) Mild chronic gastritis (Acute) - Physical Exam General: Alert, Oriented x3, Cooperative HEENT: Atraumatic, PERRLA, EOMI, Normocephalic Neck: Supple, No JVD, Negative Carotid Bruits Lungs: Clear to auscultation, Normal air movement Cardiovascular: Regular rate, No murmurs Abdomen: Bowel Sounds Present, Soft, Non Tender Extremities: No edema, Capillary Refill Less than 3 Seconds Skin: No rashes, No breakdown Musculoskeletal: No Tenderness to Palpation of Joints or Extremities Neurological: Cranial nerves II-XII grossly intact Psych/Mental Status: Normal Affect, Appropriate Vital Signs Temp Pulse Resp BP Pulse Ox 97.2 F L 60 14 138/87 H 97 12/07/17 15:48 12/07/17 15:48 12/07/17 15:48 12/07/17 15:48 12/07/17 15:48 Oxygen Delivery Method Room Air Weight: 54 kg Body Mass Index (BMI) 21.7 Assessment/Plan All Active Problems Fatigue (Acute) E. coli UTI (Acute) Hypokalemia (Acute) Mild chronic gastritis (Acute) Dehydration (Acute) Diarrhea (Acute) Diarrhea (Acute) Diarrhea (Acute) Microscopic colitis (Acute) Acute cystitis (Acute) BERONICA (acute kidney injury) (Acute) S/P revision of total hip (Acute) Postoperative anemia (Acute) 77 year old female with below past medical history hospitalized for diarrhea, dehydration secondary to microscopic colitis, complicated by electrolyte abnormalities, acute kidney injury, E. Coli urinary tract infection, admitted to TCU with debility, here for rehabilitation, strengthening, prior to discharge home alone. Debility - PT/OT. Pain - Tylenol 1000MG Q8H PRN mild pain. Bowel - Hold bowel regimen due to diarrhea. Pneumonia vaccination - Administer Prevnar 13 and/or Pneumovax 23 as necessary. DVT prophylaxis - Not necessary, already on warfarin. Osteoporosis - Alendronate 70MG per week. Hyperlipidemia - Atorvastatin 10MG QHS. Tobacco Abuse - Taper off Bupropion, not working. Calcium deficiency - TUMS daily. Osteoarthritis - Celebrex 200MG QHS. E. Coli UTI - Keflex 500MG Q8H thru 12/10/2017. 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 Vitamin B12 deficiency - B12 500MCG daily. Diarrhea - Loperamide 2MG Q6H PRN. Microscopic colitis - Mesalamine 400MG TID, if Mesalamine fails, Rx Entocort 9MG QAM. Nutrition - MVI daily. GERD - Pantoprazole 20MG daily. DVT - Warfarin 2/3MG alternating, follow INR.
--- NOTE | 2017-12-07 16:26 | HP.PCM_ITS ---
Problem List (1) Fatigue Status: Acute (2) Abdominal aortic aneurysm Status: Chronic (3) E. coli UTI Status: Acute (4) Hypokalemia Status: Acute (5) Small bowel obstruction Status: Suspected (6) Deep vein thrombosis Status: Chronic (7) Depression Status: Chronic (8) Osteoporosis Status: Chronic (9) Tobacco abuse Status: Chronic (10) Osteoarthritis Status: Chronic (11) GERD (gastroesophageal reflux disease) Status: Chronic (12) Mild chronic gastritis Status: Acute (13) Diarrhea Status: Acute Qualifiers: (14) Microscopic colitis Status: Acute History of Present Illness Date of Admission: 12/07/17 Chief Complaint: Here for rehabilitation, strengthening, prior to discharge home alone. The patient is a 77 year old Female with below past medical history presented to [facility] Emergency Department 12/04/2017 with diarrhea, fatigue. 12/04/2017 CT scan abdomen/pelvis showed small bowel obstruction, large hiatal hernia, abdominal aortic aneurysm 3.5CM. Diarrhea x 2 weeks. Stool studies 1 week prior negative, C. Diff negative. Bupropion started in last 3 weeks for smoking cessation. IV fluids given, K 2.8, Cr 1.48, UA negative. Lactic acid normal. IV potassium given. 12/04/2017 Admit to Hospital. C. Diff negative 1 week prior. NPO, IV fluids. Consult General Surgery. Replete potassium, magnesium. 12/04/2017 KUB showed small bowel, distal colon dilatation. 12/05/2017 Dr. Short performed EGD found large hiatal hernia, gastritis. Dr. Short performed colonoscopy found 2 small polyps. Biopsy showd mild gastritis, microscopic colitis. Mesalamine 400MG TID for microscopic colitis. Small bowel obstruction ruled out. E. Coli urinary tract infection treated with Rocephin IV x 3 days, then transitioned to Keflex 500MG TID. 12/07/2017 Admit to TCU with debility, here for rehabilitation, strengthening, prior to discharge home alone. Past Medical History Past Medical History (Chronic Problems): Chronic Problems Abdominal aortic aneurysm (Chronic) Deep vein thrombosis (Chronic) Depression (Chronic) Osteoporosis (Chronic) Tobacco abuse (Chronic) Osteoarthritis (Chronic) GERD (gastroesophageal reflux disease) (Chronic) Anxiety (Chronic) History of DVT (deep vein thrombosis) (Chronic) Hyperlipidemia (Chronic) Allergies ibuprofen [From Motrin] Allergy (Verified 12/04/17 10:34) Angioedema Home Medications: Ambulatory Orders Medication Instructions Recorded Citalopram [Celexa] 20 mg PO DAILY 12/10/14 Cyanocobalamin (Vitamin B-12) 500 mcg SL DAILY 12/10/14 [Vitamin B-12] Multivitamins,Therapeutic 1 tablet PO DAILY 12/10/14 [Multivitamin] Simvastatin [Zocor] 20 mg PO QHS 12/10/14 Warfarin [Coumadin] 2 mg PO MOWEFR 02/22/16 Warfarin [Coumadin] 3 mg PO SUTUTHSA 02/22/16 Acetaminophen [Tylenol] 1,000 mg PO QHS PRN 09/30/17 Alendronate Sodium 70 mg PO SA 11/25/17 Bupropion HCl [Bupropion HCl Sr] 150 mg PO BID 11/25/17 Loperamide [Imodium] 2 mg PO Q6H PRN PRN #10 capsule 11/27/17 Calcium Carbonate [Calcium] 600 mg PO DAILY 12/04/17 Celecoxib [Celebrex] 200 mg PO QHS 12/04/17 Omeprazole [Prilosec] 10 mg PO DAILY 12/04/17 Cephalexin [Keflex] 500 mg PO Q8 12/07/17 Mesalamine [Delzicol] 400 mg PO TID 12/07/17 Surgical History: cholecystectomy, colectomy - Partial., hysterectomy, total hip arthroplasty - 2015 Psychiatric History: Depression 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 Alcohol: None Drugs: None - *Family History Maternal History Items: No pertinent history Paternal History Items: No pertinent history Review of Systems Constitutional: Denies: Chills, Fever, Weight Change HEENT: Denies: Head Aches, Sinus Congestion, Sinus Drainage Cardiovascular: Denies: Chest Pain, Palpitations Respiratory: Denies: Cough, Shortness of breath at rest, Sputum production Gastrointestinal: Denies: Abdominal Pain, Nausea, Vomiting Genitourinary: Denies: Dysuria Musculoskeletal: Denies: Joint Pain, Joint Tenderness Skin: Denies: Rash, Wounds Neurological: Denies: Numbness, Tingling, Focal weakness Psychiatric: Denies: Anxiety, Depression, Homicidal Ideations, Suicidal Ideations Hematologic/ Lymphatic: Denies: Easy Bruising, Easy Bleeding VTE Information - Inpt Only VTE Present on Admission: No VTE Mechan Device Prophylaxis: Knee High CHEVY Hose VTE Pharm Prophylaxis ordered?: No Reason prophylaxis not ordered:: Treatment Not Indicated Patient Problems: Active and Suspected Problems Fatigue (Acute) E. coli UTI (Acute) Hypokalemia (Acute) Small bowel obstruction (Suspected) Mild chronic gastritis (Acute) - Physical Exam General: Alert, Oriented x3, Cooperative HEENT: Atraumatic, PERRLA, EOMI, Normocephalic Neck: Supple, No JVD, Negative Carotid Bruits Lungs: Clear to auscultation, Normal air movement Cardiovascular: Regular rate, No murmurs Abdomen: Bowel Sounds Present, Soft, Non Tender Extremities: No edema, Capillary Refill Less than 3 Seconds Skin: No rashes, No breakdown Musculoskeletal: No Tenderness to Palpation of Joints or Extremities Neurological: Cranial nerves II-XII grossly intact Psych/Mental Status: Normal Affect, Appropriate Vital Signs Temp Pulse Resp BP Pulse Ox 97.2 F L 60 14 138/87 H 97 12/07/17 15:48 12/07/17 15:48 12/07/17 15:48 12/07/17 15:48 12/07/17 15:48 Oxygen Delivery Method Room Air Weight: 54 kg Body Mass Index (BMI) 21.7 Assessment/Plan All Active Problems Fatigue (Acute) E. coli UTI (Acute) Hypokalemia (Acute) Mild chronic gastritis (Acute) Dehydration (Acute) Diarrhea (Acute) Diarrhea (Acute) Diarrhea (Acute) Microscopic colitis (Acute) Acute cystitis (Acute) BERONICA (acute kidney injury) (Acute) S/P revision of total hip (Acute) Postoperative anemia (Acute) 77 year old female with below past medical history hospitalized for diarrhea, dehydration secondary to microscopic colitis, complicated by electrolyte abnormalities, acute kidney injury, E. Coli urinary tract infection, admitted to TCU with debility, here for rehabilitation, strengthening, prior to discharge home alone. * Debility - PT/OT. * Pain - Tylenol 1000MG Q8H PRN mild pain. * Bowel - Hold bowel regimen due to diarrhea. * Pneumonia vaccination - Administer Prevnar 13 and/or Pneumovax 23 as necessary. * DVT prophylaxis - Not necessary, already on warfarin. * Osteoporosis - Alendronate 70MG per week. * Hyperlipidemia - Atorvastatin 10MG QHS. * Tobacco Abuse - Taper off Bupropion, not working. * Calcium deficiency - TUMS daily. * Osteoarthritis - Celebrex 200MG QHS. * E. Coli UTI - Keflex 500MG Q8H thru 12/10/2017. * Depression - Doing well on Citalopram 20MG daily, chronic group home use, GDR clinically contraindicated. * Vitamin B12 deficiency - B12 500MCG daily. * Diarrhea - Loperamide 2MG Q6H PRN. * Microscopic colitis - Mesalamine 400MG TID, if Mesalamine fails, Rx Entocort 9MG QAM. * Nutrition - MVI daily. * GERD - Pantoprazole 20MG daily. * DVT - Warfarin 2/3MG alternating, follow INR.
[2017-12-07] MEDS: Atorvastatin Calcium 10 MG Tablet PO (21:17)
[2017-12-07] MEDS: Celecoxib 200 MG Capsule PO (21:18)
[2017-12-08] MEDS: MESALAMINE 400 MG CAPSULE.DR PO ×3 (05:57→21:12)
[2017-12-08] MEDS: Cephalexin 500 MG Capsule PO ×3 (05:57→21:12)
[2017-12-08] MEDS: Pantoprazole Sodium 20 MG Tablet PO (05:57)
[2017-12-08] MEDS: Citalopram 20 MG Tablet PO (05:58)
[2017-12-08] MEDS: Cyanocobalamin 500 MCG Tablet PO (05:58)
[2017-12-08 06:55] LABS: Absolute Lymphocyte Count 1.75 X10^3/ul (0.83-4.51); Absolute Neutrophil Count 4.1 X10^3/uL (2.0-7.7); Basophil# 0.03 X10^3/uL; Basophil% 0.4 % (0-1); Eosinophil# 0.22 X10^3/uL; Eosinophils% 3.2 % (0-5); Hematocrit 34.7 % (37-47); Hemoglobin 11.4 g/dl (12.0-15.0); Lymphocyte # 1.75 X10^3/ul (4.0); Lymphocyte % 25.4 % (19-41); Mean Corp Hgb Conc 32.9 g/gl (32-36); Mean Corpuscular Hgb 31.8 pg (27.0-32.0); Mean Corpuscular Volume 96.7 fL (81-99); Mean Platelet Vol. 10.6 fl (6.2-12.0); Monocyte# 0.78 X10^3/uL; Monocyte% 11.3 % (0-10); Neutrophil % 59.4 % (47-70); Platelet Count 269 K/mm3 (150-450); RBC Distribution Width CV 14.2 % (11.6-14.6); RBC Distribution Width SD 50.1 fl (35.1-43.9); Red Blood Count 3.59 M/mm3 (4.2-5.4); White Blood Count 6.9 K/mm3 (4.4-11.0)
[2017-12-08 07:03] LABS: Anion Gap 8 (5-15); BUN 5 mg/dL (7-18); BUN/Creat Ratio 9.5 RATIO (10-20); Calcium,Total 7.6 mg/dL (8.5-10.1); Chloride 114 mmol/L (98-107); Creatinine, Serum 0.52 mg/dL (0.55-1.02); EST Glomerular Filtration Rate 120 mL/min (>60); Est Glom Filt Rate - Afr Amer 145 mL/min (>60); Estimated Creatinine Clearance 36.67 ml/min; Glucose 82 mg/dL (74-106); Potassium 3.9 mmol/L (3.5-5.1); Sodium Level 141 mmol/L (136-145)
[2017-12-08 07:12] LABS: International Normalized Ratio 1.6; Prothrombin Time (Protime)PT. 18.8 SECONDS (11.7-14.9)
[2017-12-08 07:14] LABS: POSITIVE COUNT NO; POSITIVE DIFFERENTIAL NO; POSITIVE MORPHOLOGY NO
[2017-12-08] MEDS: Calcium Carbonate 500 MG Tablet PO (08:10)
[2017-12-08] MEDS: Multivitamins,Therapeutic Tablet 1 TABLET PO (10:20)
[2017-12-08] MEDS: Tuberculin,Purif.prot.deriv. 50 TU/ML Vial 5 ML ID (10:20)
[2017-12-08 15:35] VITALS: BP 93/55; PULSE 50; RESP 18; TEMP 36.2; O2SAT 96
[2017-12-08] MEDS: Celecoxib 200 MG Capsule PO (21:12)
[2017-12-08] MEDS: Atorvastatin Calcium 10 MG Tablet PO (21:12)
[2017-12-09] MEDS: Cyanocobalamin 500 MCG Tablet PO (05:55)
[2017-12-09] MEDS: Loperamide 2 MG Capsule PO (05:55)
[2017-12-09] MEDS: MESALAMINE 400 MG CAPSULE.DR PO ×3 (05:55→21:11)
[2017-12-09] MEDS: Pantoprazole Sodium 20 MG Tablet PO (05:55)
[2017-12-09] MEDS: Cephalexin 500 MG Capsule PO ×3 (05:55→21:11)
[2017-12-09] MEDS: Citalopram 20 MG Tablet PO (05:55)
[2017-12-09 06:25] LABS: International Normalized Ratio 1.9
[2017-12-09] MEDS: Calcium (Elemental) 500 MG Tablet PO (08:39)
[2017-12-09] MEDS: Multivitamins,Therapeutic Tablet 1 TABLET PO (11:06)
[2017-12-09 15:40] VITALS: BP 99/54; PULSE 64; RESP 16; TEMP 36.3; O2SAT 100
[2017-12-09] MEDS: Atorvastatin Calcium 10 MG Tablet PO (21:11)
[2017-12-09] MEDS: Celecoxib 200 MG Capsule PO (21:11)
[2017-12-10] MEDS: Citalopram 20 MG Tablet PO (06:21)
[2017-12-10] MEDS: Cyanocobalamin 500 MCG Tablet PO (06:21)
[2017-12-10] MEDS: MESALAMINE 400 MG CAPSULE.DR PO ×3 (06:21→20:13)
[2017-12-10] MEDS: Loperamide 2 MG Capsule PO (06:21)
[2017-12-10] MEDS: Cephalexin 500 MG Capsule PO ×2 (06:21→14:27)
[2017-12-10] MEDS: Pantoprazole Sodium 20 MG Tablet PO (06:21)
[2017-12-10] MEDS: Calcium (Elemental) 500 MG Tablet PO (07:59)
[2017-12-10 10:48] VITALS: PULSE 62; RESP 18; O2SAT 95
[2017-12-10] MEDS: Multivitamins,Therapeutic Tablet 1 TABLET PO (11:45)
--- NOTE | 2017-12-10 14:55 | CASEMGMT ---
Social Work Spoke with resident in room. Resident requesting for discharge date to be set for 12/11/17. Spoke with staff/therapy, 12/11/17 is an agreeable date at this time. Resident plans to discharge to home alone with granddaughter for support as needed. Resident declining to have any continued therapy services at this time. Therapy to provide resident with a home exercise program. Resident reporting to be able to notify resident granddaughter about discharge date/plan. Resident to still have plan of care meeting tomorrow. Resident reporting to have all needed durable medical equipment already set up within the home. Support given. Proposed discharge date: 12/11/17 PLAN: Discharge to home alone. DANIELLE Freire, DISPENSARY ATTENDANT
--- NOTE | 2017-12-10 15:10 | CASEMGMT ---
Brief interview for mental status (BIMS) and resident mood interview (PHQ-9) completed on this day. BIMS score 15/15. PHQ-9 score
--- NOTE | 2017-12-10 15:25 | CHAPLAIN ---
Type of Pastoral Visit _x__ Initial Visit ___ Follow-up Visit ___ On-call Visit ___ General Patient Visit ___ Spiritual Assessment ___ Family Conference ___ Bereavement ___ Rapid Response ___ Code Blue ___ Other (describe below) Pastoral Care Referral From _x__ Patient ___ Family ___ Nurse ___ Physician ___ Engineer Of System Development ___ Automatic Casting Machine Operator ___ Other (describe below) Sacrament/Intervention _x__ Active listening ___ Anointing ___ Gnosticist ___ Bereavement ___ Communion ___ Justine exploration ___ ___ Life review _x__ Prayer ___ Reconciliation ___ Sacrament of Sick ___ Supportive presence ___ Wedding ___ Other (describe below) Pastoral Comments patient displays happiness to talk with rn building and reports she is going home tomorrow; pt is thankful for how situation has turned out; pt welcomes a prayer
[2017-12-10 15:33] VITALS: BP 97/64; PULSE 64; RESP 18; TEMP 36.1; O2SAT 95
[2017-12-10 16:48] VITALS: BP 99/63; PULSE 60
--- NOTE | 2017-12-10 17:21 | CASEMGMT ---
Reviewed and approved social work student attached documentation. ROBI FreireW, ESTIMATING MANAGER
--- NOTE | 2017-12-10 17:55 | PCM.PN.RX ---
<Chester Scales C - Last Filed: 12/10/17 17:55> Progress Note - Pharmacy Subjective: [] TCU Admission Objective: Allergies ibuprofen [From Motrin] Allergy (Verified 12/04/17 10:34) Angioedema Current Medications Generic Name Dose Route Start Last Admin Trade Name Freq PRN Reason Stop Dose Admin Acetaminophen 1,000 mg 12/07/17 16:38 Tylenol PO Q8H PRN MILD PAIN (1-310) Alendronate Sodium 70 mg 12/14/17 06:00 Fosamax PO Sa@0600 [facility] Atorvastatin Calcium 10 mg 12/07/17 22:00 12/09/17 21:11 Lipitor PO 10 mg QHS [facility] Administration Bupropion HCl 75 mg 12/12/17 06:00 Wellbutrin Tablets PO 12/15/17 06:01 DAILY [facility] Calcium Carbonate 500 mg 12/09/17 08:00 12/10/17 07:59 Os-Jay Jay 500 PO 500 mg DAILY@0800 [facility] Administration Celecoxib 200 mg 12/07/17 22:00 12/09/17 21:11 Celebrex PO 200 mg QHS [facility] Administration Citalopram Hydrobromide 20 mg 12/08/17 06:00 12/10/17 06:21 Celexa PO 20 mg DAILY [facility] Administration Cyanocobalamin 500 mcg 12/08/17 06:00 12/10/17 06:21 Vitamin B12 PO 500 mcg DAILY [facility] Administration Loperamide HCl 2 mg 12/07/17 13:54 12/10/17 06:21 Imodium PO 2 mg Q6H PRN PRN Administration Diarrhea Mesalamine 400 mg 12/07/17 14:00 12/10/17 14:27 Delzicol PO 400 mg TID HUBER Administration Multivitamins 1 tablet 12/08/17 12:00 12/10/17 11:45 Multivitamin PO 1 tablet DAILY@1200 [facility] Administration Pantoprazole Sodium 20 mg 12/08/17 06:00 12/10/17 06:21 Protonix PO 20 mg DAILY HUBER Administration Tuberculin PPD 5 tu 12/15/17 10:00 Tubersol, Aplisol, Ppd ID 12/15/17 10:01 X1 ONE Warfarin Sodium 3 mg 12/07/17 17:00 12/10/17 16:07 Coumadin (Pbkc) PO 3 mg SuTuThSa@1700 HUBER Administration Warfarin Sodium 2 mg 12/09/17 17:00 12/09/17 16:54 Coumadin (Pbkc) PO 2 mg MoWeFr@1700 HUBER Administration Problem List Fatigue (Acute) Abdominal aortic aneurysm (Chronic) E. coli UTI (Acute) Hypokalemia (Acute) Small bowel obstruction (Suspected) Deep vein thrombosis (Chronic) Depression (Chronic) Osteoporosis (Chronic) Tobacco abuse (Chronic) Osteoarthritis (Chronic) GERD (gastroesophageal reflux disease) (Chronic) Mild chronic gastritis (Acute) Vital Signs Temp Pulse Resp BP Pulse Ox 97.0 F L 60 18 99/63 95 12/10/17 15:33 12/10/17 16:48 12/10/17 15:33 12/10/17 16:48 12/10/17 15:33 Oxygen Delivery Method Room Air Weight: 52.758 kg Body Mass Index (BMI) 21.7 Sodium 141 mmol/L (136-145) 12/08/17 06:25 Potassium 3.9 mmol/L (3.5-5.1) 12/08/17 06:25 Chloride 114 mmol/L (98-107) H 12/08/17 06:25 Carbon Dioxide 19.0 mmol/L (21.0-32.0) L 12/08/17 06:25 Anion Gap 8 (5-15) 12/08/17 06:25 BUN 5 mg/dL (7-18) L 12/08/17 06:25 Creatinine 0.52 mg/dL (0.55-1.02) L 12/08/17 06:25 Est GFR (MDRD) Af Amer 145 mL/min (>60) 12/08/17 06:25 Est GFR (MDRD) Non-Af 120 mL/min (>60) 12/08/17 06:25 BUN/Creatinine Ratio 9.5 RATIO (10-20) L 12/08/17 06:25 Glucose 82 mg/dL (74-106) 12/08/17 06:25 Assessment/Plan: 1)Pain: Acetaminophen 1000mg po q8h prn for mild pain. Please continue to monitor prn usage and for signs/symptoms of increased/decreased pain *2) Hyperlipidemia: Atorvastatin 10mg po qhs. Please consider a yearly cholesterol level due to statin use. Thanks 3) GERD: Pantoprazole 20mg po daily. Please continue to monitor for signs/symptoms of GERD *4) Osteoporosis, Calcium deficiency: Alendronate 70mg po Saturdays at 6am, Calcium Carbonate po daily at 8am. Fosamax (Alendronate) should be used with caution in patients with esophageal and gi disease including hiatal hernia. Please re evaluate continued use due to pt's past history of hiatal hernia. Thanks *5) Osteoarthritis: Celebrex 200mg po qhs. Celebrex should be used with caution in pt's with gi disease. Please consider changing to scheduled tylenol use due to pt's history of hiatal hernia, and microscopic colitis. Thanks 6) Diarrhea: Loperamide 2mg po q6h prn for diarrhea. Please continue to monitor prn usage and for signs/symptoms of diarrhea/constipation. 7) Microscopic Colitis: Mesalamine 400mg po tid. Please continue to monitor for signs/symptoms of worsening colitis 8) DVT: Warfarin 2 and 3 mg alternating dose. Pt's INR on 12/09/17 was 1.9. Please continue to monitor. Please continue to monitor for signs/symptoms of bleeding. Psychotropic Medications: Citalopram 20mg po daily for depression--note list that pt not acceptable for gdr Buproprion 75mg po daily for smoking cessation. pt is being tapered off Unnecessary Medications: Bowel Regimen: none Date of Note:: 12/10/17 - Provider Comments Provider responsibility: Provider responsible to enter orders to implement recommendations <David Oneil Chi - Last Filed: 12/10/17 19:25> Progress Note - Pharmacy Subjective: [] Objective: Allergies ibuprofen [From Motrin] Allergy (Verified 12/04/17 10:34) Angioedema Current Medications Generic Name Dose Route Start Last Admin Trade Name Freq PRN Reason Stop Dose Admin Acetaminophen 1,000 mg 12/07/17 16:38 Tylenol PO Q8H PRN MILD PAIN (1-3/10) Alendronate Sodium 70 mg 12/14/17 06:00 Fosamax PO Sa@0600 [facility] Atorvastatin Calcium 10 mg 12/07/17 22:00 12/09/17 21:11 Lipitor PO 10 mg QHS HUBER Administration Bupropion HCl 75 mg 12/12/17 06:00 Wellbutrin Tablets PO 12/15/17 06:01 DAILY HUBER Calcium Carbonate 500 mg 12/09/17 08:00 12/10/17 07:59 Os-Jay Jay 500 PO 500 mg DAILY@0800 [facility] Administration Celecoxib 200 mg 12/07/17 22:00 12/09/17 21:11 Celebrex PO 200 mg QHS HUBER Administration Citalopram Hydrobromide 20 mg 12/08/17 06:00 12/10/17 06:21 Celexa PO 20 mg DAILY HUBER Administration Cyanocobalamin 500 mcg 12/08/17 06:00 12/10/17 06:21 Vitamin B12 PO 500 mcg DAILY [facility] Administration Loperamide HCl 2 mg 12/07/17 13:54 12/10/17 06:21 Imodium PO 2 mg Q6H PRN PRN Administration Diarrhea Mesalamine 400 mg 12/07/17 14:00 12/10/17 14:27 Delzicol PO 400 mg TID [facility] Administration Multivitamins 1 tablet 12/08/17 12:00 12/10/17 11:45 Multivitamin PO 1 tablet DAILY@1200 [facility] Administration Pantoprazole Sodium 20 mg 12/08/17 06:00 12/10/17 06:21 Protonix PO 20 mg DAILY [facility] Administration Tuberculin PPD 5 tu 12/15/17 10:00 Tubersol, Aplisol, Ppd ID 12/15/17 10:01 X1 ONE Warfarin Sodium 3 mg 12/07/17 17:00 12/10/17 16:07 Coumadin (Pbkc) PO 3 mg SuTuThSa@1700 HUBER Administration Warfarin Sodium 2 mg 12/09/17 17:00 12/09/17 16:54 Coumadin (Pbkc) PO 2 mg MoWeFr@1700 [facility] Administration Problem List Fatigue (Acute) Abdominal aortic aneurysm (Chronic) E. coli UTI (Acute) Hypokalemia (Acute) Small bowel obstruction (Suspected) Deep vein thrombosis (Chronic) Depression (Chronic) Osteoporosis (Chronic) Tobacco abuse (Chronic) Osteoarthritis (Chronic) GERD (gastroesophageal reflux disease) (Chronic) Mild chronic gastritis (Acute) Vital Signs Temp Pulse Resp BP Pulse Ox 97.0 F L 60 18 99/63 95 12/10/17 15:33 12/10/17 16:48 12/10/17 15:33 12/10/17 16:48 12/10/17 15:33 Oxygen Delivery Method Room Air Weight: 52.758 kg Body Mass Index (BMI) 21.7 Sodium 141 mmol/L (136-145) 12/08/17 06:25 Potassium 3.9 mmol/L (3.5-5.1) 12/08/17 06:25 Chloride 114 mmol/L (98-107) H 12/08/17 06:25 Carbon Dioxide 19.0 mmol/L (21.0-32.0) L 12/08/17 06:25 Anion Gap 8 (5-15) 12/08/17 06:25 BUN 5 mg/dL (7-18) L 12/08/17 06:25 Creatinine 0.52 mg/dL (0.55-1.02) L 12/08/17 06:25 Est GFR (MDRD) Af Amer 145 mL/min (>60) 12/08/17 06:25 Est GFR (MDRD) Non-Af 120 mL/min (>60) 12/08/17 06:25 BUN/Creatinine Ratio 9.5 RATIO (10-20) L 12/08/17 06:25 Glucose 82 mg/dL (74-106) 12/08/17 06:25 Assessment/Plan: Psychotropic Medications: Unnecessary Medications: Bowel Regimen: - Provider Comments Provider responsibility: Provider responsible to enter orders to implement recommendations Provider Comments to Recommendations by Pharmacy: Agree
--- NOTE | 2017-12-10 18:29 | PHA.CONS_ITS ---
<Chester Scales C - Last Filed: 12/10/17 17:55> Progress Note - Pharmacy Subjective: [] TCU Admission Objective: Allergies ibuprofen [From Motrin] Allergy (Verified 12/04/17 10:34) Angioedema Current Medications Generic Name Dose Route Start Last Admin Trade Name Freq PRN Reason Stop Dose Admin Acetaminophen 1,000 mg 12/07/17 16:38 Tylenol PO Q8H PRN MILD PAIN (1-310) Alendronate Sodium 70 mg 12/14/17 06:00 Fosamax PO Sa@0600 [facility] Atorvastatin Calcium 10 mg 12/07/17 22:00 12/09/17 21:11 Lipitor PO 10 mg QHS [facility] Administration Bupropion HCl 75 mg 12/12/17 06:00 Wellbutrin Tablets PO 12/15/17 06:01 DAILY [facility] Calcium Carbonate 500 mg 12/09/17 08:00 12/10/17 07:59 Os-Jay Jay 500 PO 500 mg DAILY@0800 [facility] Administration Celecoxib 200 mg 12/07/17 22:00 12/09/17 21:11 Celebrex PO 200 mg QHS [facility] Administration Citalopram Hydrobromide 20 mg 12/08/17 06:00 12/10/17 06:21 Celexa PO 20 mg DAILY [facility] Administration Cyanocobalamin 500 mcg 12/08/17 06:00 12/10/17 06:21 Vitamin B12 PO 500 mcg DAILY [facility] Administration Loperamide HCl 2 mg 12/07/17 13:54 12/10/17 06:21 Imodium PO 2 mg Q6H PRN PRN Administration Diarrhea Mesalamine 400 mg 12/07/17 14:00 12/10/17 14:27 Delzicol PO 400 mg TID [facility] Administration Multivitamins 1 tablet 12/08/17 12:00 12/10/17 11:45 Multivitamin PO 1 tablet DAILY@1200 [facility] Administration Pantoprazole Sodium 20 mg 12/08/17 06:00 12/10/17 06:21 Protonix PO 20 mg DAILY [facility] Administration Tuberculin PPD 5 tu 12/15/17 10:00 Tubersol, Aplisol, Ppd ID 12/15/17 10:01 X1 ONE Warfarin Sodium 3 mg 12/07/17 17:00 12/10/17 16:07 Coumadin (Pbkc) PO 3 mg SuTuThSa@1700 [facility] Administration Warfarin Sodium 2 mg 12/09/17 17:00 12/09/17 16:54 Coumadin (Pbkc) PO 2 mg MoWeFr@1700 [facility] Administration Problem List Fatigue (Acute) Abdominal aortic aneurysm (Chronic) E. coli UTI (Acute) Hypokalemia (Acute) Small bowel obstruction (Suspected) Deep vein thrombosis (Chronic) Depression (Chronic) Osteoporosis (Chronic) Tobacco abuse (Chronic) Osteoarthritis (Chronic) GERD (gastroesophageal reflux disease) (Chronic) Mild chronic gastritis (Acute) Vital Signs Temp Pulse Resp BP Pulse Ox 97.0 F L 60 18 99/63 95 12/10/17 15:33 12/10/17 16:48 12/10/17 15:33 12/10/17 16:48 12/10/17 15:33 Oxygen Delivery Method Room Air Weight: 52.758 kg Body Mass Index (BMI) 21.7 Sodium 141 mmol/L (136-145) 12/08/17 06:25 Potassium 3.9 mmol/L (3.5-5.1) 12/08/17 06:25 Chloride 114 mmol/L (98-107) H 12/08/17 06:25 Carbon Dioxide 19.0 mmol/L (21.0-32.0) L 12/08/17 06:25 Anion Gap 8 (5-15) 12/08/17 06:25 BUN 5 mg/dL (7-18) L 12/08/17 06:25 Creatinine 0.52 mg/dL (0.55-1.02) L 12/08/17 06:25 Est GFR (MDRD) Af Amer 145 mL/min (>60) 12/08/17 06:25 Est GFR (MDRD) Non-Af 120 mL/min (>60) 12/08/17 06:25 BUN/Creatinine Ratio 9.5 RATIO (10-20) L 12/08/17 06:25 Glucose 82 mg/dL (74-106) 12/08/17 06:25 Assessment/Plan: 1)Pain: Acetaminophen 1000mg po q8h prn for mild pain. Please continue to monitor prn usage and for signs/symptoms of increased/decreased pain *2) Hyperlipidemia: Atorvastatin 10mg po qhs. Please consider a yearly cholesterol level due to statin use. Thanks 3) GERD: Pantoprazole 20mg po daily. Please continue to monitor for signs/symptoms of GERD *4) Osteoporosis, Calcium deficiency: Alendronate 70mg po Saturdays at 6am, Calcium Carbonate po daily at 8am. Fosamax (Alendronate) should be used with caution in patients with esophageal and gi disease including hiatal hernia. Please re evaluate continued use due to pt's past history of hiatal hernia. Thanks *5) Osteoarthritis: Celebrex 200mg po qhs. Celebrex should be used with caution in pt's with gi disease. Please consider changing to scheduled tylenol use due to pt's history of hiatal hernia, and microscopic colitis. Thanks 6) Diarrhea: Loperamide 2mg po q6h prn for diarrhea. Please continue to monitor prn usage and for signs/symptoms of diarrhea/constipation. 7) Microscopic Colitis: Mesalamine 400mg po tid. Please continue to monitor for signs/symptoms of worsening colitis 8) DVT: Warfarin 2 and 3 mg alternating dose. Pt's INR on 12/09/17 was 1.9. Please continue to monitor. Please continue to monitor for signs/symptoms of bleeding. Psychotropic Medications: Citalopram 20mg po daily for depression--note list that pt not acceptable for gdr Buproprion 75mg po daily for smoking cessation. pt is being tapered off Unnecessary Medications: Bowel Regimen: none Date of Note:: 12/10/17 - Provider Comments Provider responsibility: Provider responsible to enter orders to implement recommendations <David Oneil Chi - Last Filed: 12/10/17 19:25> Progress Note - Pharmacy Subjective: [] Objective: Allergies ibuprofen [From Motrin] Allergy (Verified 12/04/17 10:34) Angioedema Current Medications Generic Name Dose Route Start Last Admin Trade Name Freq PRN Reason Stop Dose Admin Acetaminophen 1,000 mg 12/07/17 16:38 Tylenol PO Q8H PRN MILD PAIN (1-3/10) Alendronate Sodium 70 mg 12/14/17 06:00 Fosamax PO Sa@0600 [facility] Atorvastatin Calcium 10 mg 12/07/17 22:00 12/09/17 21:11 Lipitor PO 10 mg QHS [facility] Administration Bupropion HCl 75 mg 12/12/17 06:00 Wellbutrin Tablets PO 12/15/17 06:01 DAILY [facility] Calcium Carbonate 500 mg 12/09/17 08:00 12/10/17 07:59 Os-Jay Jay 500 PO 500 mg DAILY@0800 [facility] Administration Celecoxib 200 mg 12/07/17 22:00 12/09/17 21:11 Celebrex PO 200 mg QHS [facility] Administration Citalopram Hydrobromide 20 mg 12/08/17 06:00 12/10/17 06:21 Celexa PO 20 mg DAILY [facility] Administration Cyanocobalamin 500 mcg 12/08/17 06:00 12/10/17 06:21 Vitamin B12 PO 500 mcg DAILY [facility] Administration Loperamide HCl 2 mg 12/07/17 13:54 12/10/17 06:21 Imodium PO 2 mg Q6H PRN PRN Administration Diarrhea Mesalamine 400 mg 12/07/17 14:00 12/10/17 14:27 Delzicol PO 400 mg TID [facility] Administration Multivitamins 1 tablet 12/08/17 12:00 12/10/17 11:45 Multivitamin PO 1 tablet DAILY@1200 [facility] Administration Pantoprazole Sodium 20 mg 12/08/17 06:00 12/10/17 06:21 Protonix PO 20 mg DAILY [facility] Administration Tuberculin PPD 5 tu 12/15/17 10:00 Tubersol, Aplisol, Ppd ID 12/15/17 10:01 X1 ONE Warfarin Sodium 3 mg 12/07/17 17:00 12/10/17 16:07 Coumadin (Pbkc) PO 3 mg SuTuThSa@1700 [facility] Administration Warfarin Sodium 2 mg 12/09/17 17:00 12/09/17 16:54 Coumadin (Pbkc) PO 2 mg MoWeFr@1700 [facility] Administration Problem List Fatigue (Acute) Abdominal aortic aneurysm (Chronic) E. coli UTI (Acute) Hypokalemia (Acute) Small bowel obstruction (Suspected) Deep vein thrombosis (Chronic) Depression (Chronic) Osteoporosis (Chronic) Tobacco abuse (Chronic) Osteoarthritis (Chronic) GERD (gastroesophageal reflux disease) (Chronic) Mild chronic gastritis (Acute) Vital Signs Temp Pulse Resp BP Pulse Ox 97.0 F L 60 18 99/63 95 12/10/17 15:33 12/10/17 16:48 12/10/17 15:33 12/10/17 16:48 12/10/17 15:33 Oxygen Delivery Method Room Air Weight: 52.758 kg Body Mass Index (BMI) 21.7 Sodium 141 mmol/L (136-145) 12/08/17 06:25 Potassium 3.9 mmol/L (3.5-5.1) 12/08/17 06:25 Chloride 114 mmol/L (98-107) H 12/08/17 06:25 Carbon Dioxide 19.0 mmol/L (21.0-32.0) L 12/08/17 06:25 Anion Gap 8 (5-15) 12/08/17 06:25 BUN 5 mg/dL (7-18) L 12/08/17 06:25 Creatinine 0.52 mg/dL (0.55-1.02) L 12/08/17 06:25 Est GFR (MDRD) Af Amer 145 mL/min (>60) 12/08/17 06:25 Est GFR (MDRD) Non-Af 120 mL/min (>60) 12/08/17 06:25 BUN/Creatinine Ratio 9.5 RATIO (10-20) L 12/08/17 06:25 Glucose 82 mg/dL (74-106) 12/08/17 06:25 Assessment/Plan: Psychotropic Medications: Unnecessary Medications: Bowel Regimen: - Provider Comments Provider responsibility: Provider responsible to enter orders to implement recommendations Provider Comments to Recommendations by Pharmacy: Agree
[2017-12-10] MEDS: Atorvastatin Calcium 10 MG Tablet PO (20:14)
--- NOTE | 2017-12-10 20:38 | DCINST_ITS ---
- Discharge Diagnoses Current Active Problems: Current Active and Chronic Problems Fatigue (Acute) Abdominal aortic aneurysm (Chronic) E. coli UTI (Acute) Hypokalemia (Acute) Deep vein thrombosis (Chronic) Depression (Chronic) Osteoporosis (Chronic) Tobacco abuse (Chronic) Osteoarthritis (Chronic) GERD (gastroesophageal reflux disease) (Chronic) Mild chronic gastritis (Acute) You will use the following diet at home:: No restrictions, Regular Your food should be the consistency of: Regular Your liquids should be the consistency of: Regular/Thin Discharge Activity: Return to Normal Activity, May Shower, Use Walker Weight Bearing Status: Weight bearing as tolerated Call your doctor if you observe: Fever of 101 or Higher, Inability to urinate, Inability to have a bowel movement, Shortness of breath, Chest pain, Uncontrolled pain Allergies/Adverse Reactions: Allergies ibuprofen [From Motrin] Allergy (Verified 12/04/17 10:34) Angioedema Medications to take at Discharge Citalopram [Celexa] 20 mg PO DAILY 12/10/14 Cyanocobalamin (Vitamin B-12) [Vitamin B-12] 500 mcg SL DAILY 12/10/14 Multivitamins,Therapeutic [Multivitamin] 1 tablet PO DAILY 12/10/14 Simvastatin [Zocor] 20 mg PO QHS 12/10/14 Warfarin [Coumadin] 2 mg PO MOWEFR 02/22/16 Warfarin [Coumadin] 3 mg PO SUTUTHSA 02/22/16 Calcium Carbonate [Calcium] 600 mg PO DAILY 12/04/17 Omeprazole [Prilosec] 10 mg PO DAILY 12/04/17 Calcium (Elemental) [Os-Jay Jay 500] 500 mg PO DAILY@0800 tablet 12/10/17 Loperamide [Imodium] 2 mg PO Q6H PRN PRN #60 capsule 12/10/17 Mesalamine [Delzicol] 400 mg PO TID #90 capsule.dr 12/10/17 The following prescriptions were given: Loperamide [Imodium] 2 mg PO Q6H PRN PRN #60 capsule PRN Reason: Diarrhea Mesalamine [Delzicol] 400 mg PO TID #90 capsule. Orders to be completed after discharge: Prothrombin Time w/INR Time Frame: 1 Day, Location: Laboratory Primary Care Physician: David Oneil Chi, MD [Primary Care Provider] - Please follow up with your Primary Care Physician in: 1 week. Test Results: Test results from this visit will be discussed in further detail at your follow- up appointment, if applicable. Proposed Discharge Date: 12/11/17
--- NOTE | 2017-12-10 20:38 | PCM.DC.SUM ---
Discharge Date and Diagnosis - Problem List Patient Problems: Active and Suspected Problems Fatigue (Acute) E. coli UTI (Acute) Hypokalemia (Acute) Small bowel obstruction (Suspected) Mild chronic gastritis (Acute) Date of Admission: 12/07/17 Date of Discharge: 12/11/17 - Primary Discharge Diagnosis Active and Suspected Problems Fatigue (Acute) E. coli UTI (Acute) Hypokalemia (Acute) Small bowel obstruction (Suspected) Mild chronic gastritis (Acute) - Secondary Discharge Diagnosis Chronic Problems Abdominal aortic aneurysm (Chronic) Deep vein thrombosis (Chronic) Depression (Chronic) Osteoporosis (Chronic) Tobacco abuse (Chronic) Osteoarthritis (Chronic) GERD (gastroesophageal reflux disease) (Chronic) Anxiety (Chronic) History of DVT (deep vein thrombosis) (Chronic) Hyperlipidemia (Chronic) Hospital Course and Treatment Imaging Results: 12/07/17 13:56 Diet: Regular Diet Labs (Last 48 Hours) 12/09/17 05:50 PT 22.0 H INR 1.9 Operations: None Procedures: None Summary of Care Provided: The patient is a 77 year old Female with below past medical history hospitalized for diarrhea, dehydration secondary to microscopic colitis, complicated by electrolyte abnormalities, acute kidney injury, E. Coli urinary tract infection, admitted to TCU with debility, here for rehabilitation, strengthening, prior to discharge home alone. Discharge home alone. Patient Problems: Active and Suspected Problems Fatigue (Acute) E. coli UTI (Acute) Hypokalemia (Acute) Small bowel obstruction (Suspected) Mild chronic gastritis (Acute) - Physical Exam Vital Signs Temp Pulse Resp BP Pulse Ox 97.0 F L 60 18 99/63 95 12/10/17 15:33 12/10/17 16:48 12/10/17 15:33 12/10/17 16:48 12/10/17 15:33 Oxygen Delivery Method Room Air Weight: 52.758 kg Body Mass Index (BMI) 21.7 Intake and Output for Last 24 Hours 12/08/17 12/09/17 12/10/17 23:59 23:59 23:59 Intake Total 480 / 480 820 / 820 660 / 660 Balance 480 / 480 820 / 820 660 / 660 Discharge Diet: No Restrictions Discharge Activity: Return to Normal Activity, May Shower, Use Walker Weight Bearing Status: Weight bearing as tolerated Call your doctor if you observe: Fever of 101 or Higher, Inability to urinate, Inability to have a bowel movement, Shortness of breath, Chest pain, Uncontrolled pain Home Medications: Medications to take at Discharge Citalopram [Celexa] 20 mg PO DAILY 12/10/14 Cyanocobalamin (Vitamin B-12) [Vitamin B-12] 500 mcg SL DAILY 12/10/14 Multivitamins,Therapeutic [Multivitamin] 1 tablet PO DAILY 12/10/14 Simvastatin [Zocor] 20 mg PO QHS 12/10/14 Warfarin [Coumadin] 2 mg PO MOWEFR 02/22/16 Warfarin [Coumadin] 3 mg PO SUTUTHSA 02/22/16 Calcium Carbonate [Calcium] 600 mg PO DAILY 12/04/17 Omeprazole [Prilosec] 10 mg PO DAILY 12/04/17 Calcium (Elemental) [Os-Jay Jay 500] 500 mg PO DAILY@0800 tablet 12/10/17 Loperamide [Imodium] 2 mg PO Q6H PRN PRN #60 capsule 12/10/17 Mesalamine [Delzicol] 400 mg PO TID #90 capsule. 12/10/17 Following Prescrptions Were Given to Patient: Loperamide [Imodium] 2 mg PO Q6H PRN PRN #60 capsule PRN Reason: Diarrhea Mesalamine [Delzicol] 400 mg PO TID #90 capsule.dr [facility] Orders: Prothrombin Time w/INR Time Frame: 1 Day, Location: Laboratory Primary Care Physician: David Oneil Chi, MD [Primary Care Provider] - Please follow up with your Primary Care Physician in: 1 week. Disposition: Home Minutes spent on discharge:: 30 Patient Condition:: Good Medical Necessity - Tobacco Use Smoking Status: Current every day smoker Tobacco Use: Cigarettes - 1 cigarette per day. Meaningful Use Info Meaningful Use Diagnoses (Choose all that apply): None applicable
[2017-12-11] MEDS: MESALAMINE 400 MG CAPSULE.DR PO (06:00)
[2017-12-11] MEDS: Cyanocobalamin 500 MCG Tablet PO (06:00)
[2017-12-11] MEDS: Citalopram 20 MG Tablet PO (06:00)
[2017-12-11] MEDS: Pantoprazole Sodium 20 MG Tablet PO (06:00)
[2017-12-11 06:30] VITALS: PULSE 66; RESP 16; O2SAT 96
[2017-12-11] MEDS: Calcium (Elemental) 500 MG Tablet PO (08:42)
--- NOTE | 2017-12-11 09:41 | CASEMGMT ---
Plan of care meeting held. Resident present as well as resident granddaughter. Resident to discharge on 12/11/17 to home alone. No continued therapy at this time. Resident granddaughter to provide transportation home for resident at time of discharge. Resident reporting to have all needed durable medical equipment needs already set up within the home. Support given. Proposed discharge date: 12/11/17 PLAN: Discharge to home alone. DANIELLE Freire, FILM CRITIC
[2017-12-11 09:42] VITALS: BP 98/61; PULSE 66; RESP 16; TEMP 36.8; O2SAT 93
--- NOTE | 2017-12-19 15:24 | MDS.RN ---
Information for the mds was obtained from review of the clinical record, interview of resident, staff, and direct observation of resident's care.
== END 2017-12-11 10:15 | disposition home or self-care (01) | DRG 948 ==
PROVIDERS: Admitting Provider Family Medicine Geriatric Medicine; Family Provider Family Medicine Geriatric Medicine; PCP Family Medicine Geriatric Medicine; Visit Provider Family Medicine Geriatric Medicine
DX: R53.81 Other malaise (principal); N39.0 Urinary tract infection, site not specified; M81.0 Age-related osteoporosis without current pathological fracture; E78.5 Hyperlipidemia, unspecified; B96.20 Unspecified Escherichia coli [E. coli] as the cause of diseases classified elsewhere; M19.90 Unspecified osteoarthritis, unspecified site; K21.9 Gastro-esophageal reflux disease without esophagitis; F32.9 Major depressive disorder, single episode, unspecified; Z86.718 Personal history of other venous thrombosis and embolism; F41.9 Anxiety disorder, unspecified; F17.210 Nicotine dependence, cigarettes, uncomplicated; K52.89 Other specified noninfective gastroenteritis and colitis; E53.8 Deficiency of other specified B group vitamins
CPT/HCPCS: 36415; 80048; 85025; 85610; 97110; 97116; 97162; 97166; 97530; 97535; 97802; 99406

== ENCOUNTER → 2017-12-19 17:15 | Outpatient (CLI) | payer MEDICARE, SELFPAY ==
[2017-12-19 17:54] LABS: Prothrombin Time (Protime)PT. 50.3 SECONDS (11.7-14.9)
[2017-12-19 18:13] LABS: International Normalized Ratio 5.5
== END ==
PROVIDERS: Family Provider Family Medicine Geriatric Medicine; PCP Family Medicine Geriatric Medicine; Referring Provider Family Medicine Geriatric Medicine; Visit Provider Family Medicine Geriatric Medicine
DX: I82.409 Acute embolism and thrombosis of unspecified deep veins of unspecified lower extremity (principal)
CPT/HCPCS: 36415; 85610

== ENCOUNTER → 2017-12-26 11:41 | Outpatient (CLI) | payer MEDICARE, SELFPAY ==
--- NOTE | 2017-12-26 11:44 | RAD_ITS ---
STUDY: X-RAY - ABDOMEN/PELVIS REASON FOR EXAM: Female, 77 years old. Obstipation times 3 day TECHNIQUE: Two AP supine views of the abdomen and pelvis. COMPARISON: 12/04/2017 FINDINGS: Normal visualized lung bases. There is no significant amount of retained fecal material. There is small bowel and colonic air to the level of the rectum. There is no demonstrated free abdominal air. Presumed prior cholecystectomy. There is arteriosclerosis. There are diffuse degenerative changes of the visualized lumbar spine, levoscoliosis, osteopenia, bilateral hip arthroplasty, remote fracture deformity of the left superior and inferior ramus pubis. RAD/Abdomen Single View IMPRESSION: No evidence of retained fecal material. Resolution of previous small bowel air distention. Other nonacute findings as outlined above. Electronically Signed: Uzma Collins MD at 23:46 EST , Service support ,
== END ==
PROVIDERS: Family Provider Family Medicine Geriatric Medicine; PCP Family Medicine Geriatric Medicine; Referring Provider Family Medicine Geriatric Medicine; Visit Provider Family Medicine Geriatric Medicine
DX: K59.00 Constipation, unspecified (principal)
CPT/HCPCS: 74018

== ENCOUNTER → 2017-12-31 12:28 | Outpatient (CLI) | payer MEDICARE, SELFPAY ==
--- NOTE | 2017-12-31 12:30 | RAD_ITS ---
STUDY: X-RAY - ABDOMEN/PELVIS REASON FOR EXAM: Female, 77 years old. Constipation. History of colitis. TECHNIQUE: AP supine and upright views of the abdomen and pelvis. COMPARISON: Comparison is made with prior examination dated December 26, 2017. FINDINGS: Normal visualized lung bases. There is a moderate amount of colonic fecal material. There is no demonstrated free abdominal air. The patient is status post cholecystectomy. Atherosclerotic calcification of the abdominal aorta. Mild degree of the levoscoliosis. The patient is status post bilateral total hip replacement. Healed fracture of the left superior pubic ramus. RAD/Abd Inc Decub and/or Erect IMPRESSION: Moderate amount of fecal material is seen in the colon. Electronically Signed: Chucky Goodson MD at 13:23 EST Tel [phone], Service support ,
== END ==
PROVIDERS: Family Provider Family Medicine Geriatric Medicine; PCP Family Medicine Geriatric Medicine; Visit Provider Family Medicine Geriatric Medicine
DX: K59.00 Constipation, unspecified (principal)
CPT/HCPCS: 74019

== ENCOUNTER → 2018-05-08 13:02 | Outpatient (CLI) | payer MEDICARE, SELFPAY ==
--- NOTE | 2018-05-08 14:11 | RAD_ITS ---
STUDY: X-RAY - LUMBAR SPINE REASON FOR EXAM: Female, 78 years old. Low back pain. TECHNIQUE: 3 view(s) of the lumbar spine were obtained. COMPARISON: None FINDINGS: Normal lumbar lordosis. There is no substantial scoliosis. There is a normal alignment of the vertebrae. There is diffuse demineralization with multi-level endplate spondylosis. Normal disc space heights. Multilevel facet arthropathy is present. There is atherosclerotic calcification of the abdominal aorta without a demonstrated aneurysm. RAD/Lumbar Spine 2 or 3 Views IMPRESSION: Diffuse demineralization and multilevel facet arthropathy with relatively preserved disc space throughout without evidence of malalignment. Electronically Signed: Ramirez Macias DO at 9:51 EDT , Service support ,
[2018-05-08 17:06] LABS: Absolute Neutrophil Count 3.8 X10^3/uL (2.0-7.7); Basophil# 0.09 X10^3/uL; Basophil% 1.3 % (0-1); Eosinophil# 0.13 X10^3/uL; Eosinophils% 1.9 % (0-5); Hematocrit 41.6 % (37-47); Hemoglobin 13.3 g/dl (12.0-15.0); Lymphocyte % 31.2 % (19-41); Mean Corpuscular Hgb 32.4 pg (27.0-32.0); Mean Corpuscular Volume 101.5 fL (81-99); Mean Platelet Vol. 11.4 fl (6.2-12.0); Monocyte# 0.58 X10^3/uL; Monocyte% 8.6 % (0-10); Neutrophil # 3.82 X10^3/uL (2.7-7.7); Neutrophil % 56.9 % (47-70); Platelet Count 237 K/mm3 (150-450); White Blood Count 6.7 K/mm3 (4.4-11.0)
[2018-05-08 17:22] LABS: POSITIVE COUNT NO; POSITIVE DIFFERENTIAL NO; POSITIVE MORPHOLOGY NO
[2018-05-08 17:25] LABS: Vitamin D,25 Hydroxy 43.5 ng/mL (29.95-100.01)
[2018-05-08 17:39] LABS: AST(SGOT) 26 U/L (15-37); Alanine Aminotransfer ALT/SGPT 24 U/L (13-56); Albumin, Serum 3.7 g/dL (3.2-5.0); Alkaline Phosphatase 88 U/L (45-117); Anion Gap 8 (5-15); BUN 10 mg/dL (7-18); BUN/Creat Ratio 11.1 RATIO (10-20); Calcium,Total 9.2 mg/dL (8.5-10.1); Chloride 104 mmol/L (98-107); EST Glomerular Filtration Rate 64 mL/min (>60); Est Glom Filt Rate - Afr Amer 78 mL/min (>60); Globulin 3.6 g/dL (2.2-4.2); Glucose 97 mg/dL (74-106); Potassium 4.3 mmol/L (3.5-5.1); Protein, Total 7.3 g/dL (6.4-8.2); Sodium Level 139 mmol/L (136-145); Thyroid Stim Hormone (TSH) 1.46 uIU/mL (0.358-3.74)
== END ==
LOC: POLAB3 13:03 → RAD 14:10
PROVIDERS: Family Provider Family Medicine Geriatric Medicine; PCP Family Medicine Geriatric Medicine; Referring Provider Family Medicine Geriatric Medicine; Visit Provider Family Medicine Geriatric Medicine
DX: E55.9 Vitamin D deficiency, unspecified (principal); R53.83 Other fatigue; M54.5 Low back pain
CPT/HCPCS: 36415; 72100; 80053; 82306; 84443; 85025

== ENCOUNTER → 2018-10-28 | Outpatient (CLI) | payer MEDICARE, SELFPAY ==
[2018-10-28 16:06] LABS: Absolute Lymphocyte Count 2.56 X10^3/uL (0.83-4.51); Absolute Neutrophil Count 4.8 X10^3/uL (2.0-7.7); Basophil# 0.12 X10^3/uL; Basophil% 1.4 % (0-1); Eosinophils% 2.4 % (0-5); Hematocrit 40.9 % (37-47); Lymphocyte # 2.56 X10^3/ul (4.0); Lymphocyte % 30.7 % (19-41); Mean Corp Hgb Conc 31.8 g/dL (32-36); Mean Corpuscular Hgb 31.6 pg (27.0-32.0); Mean Corpuscular Volume 99.3 fL (81-99); Mean Platelet Vol. 11.5 fl (6.2-12.0); Monocyte# 0.63 X10^3/uL; Monocyte% 7.5 % (0-10); NRBC Flagged by Analyzer 0 % (0-5); Neutrophil # 4.82 X10^3/uL (2.7-7.7); Neutrophil % 57.8 % (47-70); Platelet Count 229 K/mm3 (150-450); RBC Distribution Width CV 13.7 % (11.6-14.6); RBC Distribution Width SD 50.4 fl (35.1-43.9); Red Blood Count 4.12 M/mm3 (4.2-5.4); White Blood Count 8.4 K/mm3 (4.4-11.0)
[2018-10-28 16:09] LABS: Vitamin D,25 Hydroxy 45.8 ng/mL (29.95-100.01)
[2018-10-28 16:11] LABS: ALB/GLOB Ratio 1.1 RATIO (0.9-2.4); AST(SGOT) 27 U/L (15-37); Alanine Aminotransfer ALT/SGPT 24 U/L (13-56); Albumin, Serum 3.5 g/dL (3.2-5.0); Alkaline Phosphatase 84 U/L (45-117); Anion Gap 9 (5-15); BUN 10 mg/dL (7-18); Calcium,Total 8.7 mg/dL (8.5-10.1); Chloride 107 mmol/L (98-107); Creatinine, Serum 0.83 mg/dL (0.55-1.02); EST Glomerular Filtration Rate 70 mL/min (>60); Est Glom Filt Rate - Afr Amer 85 mL/min (>60); Globulin 3.3 g/dL (2.2-4.2); Glucose 87 mg/dL (74-106); Potassium 4.1 mmol/L (3.5-5.1); Protein, Total 6.8 g/dL (6.4-8.2); Sodium Level 142 mmol/L (136-145)
[2018-10-28 16:12] LABS: Thyroid Stim Hormone (TSH) 1.53 uIU/mL (0.358-3.74)
== END | disposition home or self-care (01) ==
LOC: POLAB3 09:30
PROVIDERS: Family Provider Family Medicine Geriatric Medicine; PCP Family Medicine Geriatric Medicine; Visit Provider Family Medicine Geriatric Medicine
DX: E55.9 Vitamin D deficiency, unspecified (principal); R53.83 Other fatigue
CPT/HCPCS: 36415; 80053; 82306; 84443; 85025

== ENCOUNTER → 2019-01-07 14:28 | Outpatient (CLI) | payer MEDICARE, SELFPAY ==
--- NOTE | 2019-01-07 14:35 | RAD_ITS ---
STUDY: X-RAY - LEFT HAND REASON FOR EXAM: Female, 78 years old. Pain TECHNIQUE: 2 view(s) of the hand. COMPARISON: None. FINDINGS: There is no evidence of fracture or dislocation. There are mild degenerative changes at the base of the thumb. There are no radiodense foreign bodies. RAD/Hand 2 Views IMPRESSION: No fracture or dislocation in the left hand. Mild degenerative changes of the base of the thumb. Electronically Signed: Lloyd Francis, at 17:08 EST Tel , Service support ,
--- NOTE | 2019-01-07 14:35 | RAD_ITS ---
STUDY: X-RAY - SOFT TISSUE NECK REASON FOR EXAM: Female, 78 years old. Neck pain TECHNIQUE: 2 view(s) of the neck were obtained. COMPARISON: None. FINDINGS: Normal visualized nasopharynx, oropharynx, hypopharynx. Normal epiglottis. Normal visualized subglottic tracheal air column. Normal prevertebral soft tissue structures. There are degenerative changes of the cervical spine with cervical spondylosis and disc space narrowing most pronounced at C5-C6 and C6-C7. The soft tissue structures are unremarkable. Patient is a dentulous. RAD/Neck for Soft Tissue IMPRESSION: Normal x-ray soft tissue neck. Degenerative changes of the cervical spine. Electronically Signed: Daniel Jensen MD (Brooks) at 18:49 EST , Service support ,
--- NOTE | 2019-01-07 14:35 | RAD_ITS ---
STUDY: X-RAY - LUMBOSACRAL SPINE REASON FOR EXAM: Female, 78 years old. Back pain TECHNIQUE: 6 view(s) of the lumbosacral spine were obtained. COMPARISON: None FINDINGS: Normal lumbar lordosis. There is a levoscoliosis of the lumbar spine. There is normal alignment of the vertebrae on flexion, extension and neutral views. There is diffuse demineralization with multi-level endplate spondylosis. There is loss of disc height mostly at L5-S1. Moderate facet arthropathy. No spondylolysis. No compression fracture. Normal bilateral sacral ala, sacroiliac joints, and visualized sacrum. Bilateral hip replacements noted. Atherosclerosis of the abdominal aorta noted. Cholecystectomy clips are present. There are surgical sutures of the left lower abdomen. RAD/L/S Spine Comp/w Bending Views IMPRESSION: 1. Facet dominant degenerative changes. Degenerative disc disease L5-S1. Electronically Signed: Daniel Jensen MD (Brooks) at 18:47 EST , Service support ,
--- NOTE | 2019-01-07 14:35 | RAD_ITS ---
STUDY: X-RAY - RIGHT HAND REASON FOR EXAM: Female, 78 years old. Bilateral hand pain for one year TECHNIQUE: 2 view(s) of the hand. COMPARISON: None. FINDINGS: Normal radiocarpal articulation. There is chondrocalcinosis of the TFCC. Normal visualized carpal bones. There is degenerative joint disease of the scaphotrapezium / trapezoid articulation. The remainder of the carpal articulations are normal. There is degenerative arthrosis of the carpometacarpal articulation of the thumb with lateral subluxation of the first metacarpus. Normal second through fifth carpometacarpal joints. Normal metacarpi. Normal metacarpophalangeal joint of the thumb. Normal interphalangeal joint of the thumb. Normal proximal and distal phalanges of the thumb. Normal metacarpophalangeal joints of the second through fifth fingers. There is diffuse articular joint space narrowing of the proximal and distal interphalangeal joints of the second through fifth fingers, but without erosive changes or periarticular soft tissue swelling. Normal phalanges of the second through fifth fingers. The soft tissue structures are unremarkable. RAD/Hand 2 Views IMPRESSION: Osteoarthrosis. No erosive changes. Electronically Signed: Daniel Jensen MD (Brooks) at 18:45 EST , Service support ,
== END ==
PROVIDERS: Family Provider Family Medicine Geriatric Medicine; PCP Family Medicine Geriatric Medicine; Referring Provider Family Medicine Geriatric Medicine; Visit Provider Family Medicine Geriatric Medicine
DX: M54.5 Low back pain (principal); M54.2 Cervicalgia; M79.642 Pain in left hand; M79.641 Pain in right hand
CPT/HCPCS: 70360; 72114; 73120

== ENCOUNTER 2019-01-17 11:01 | Emergency (ER) | payer MEDICARE, SELFPAY ==
[2019-01-17 11:03] VITALS: BP 133/76; PULSE 57; RESP 16; TEMP 36.6; O2SAT 96; BMI 20.5
--- NOTE | 2019-01-17 11:12 | EKG12_ITS ---
Test Reason : CP Blood Pressure : / mmHG Vent. Rate : 054 BPM Atrial Rate : 054 BPM P-R Int : 176 ms QRS Dur : 074 ms QT Int : 464 ms P-R-T Axes : 063 -44 054 degrees QTc Int : 440 ms Sinus bradycardia Left axis deviation Abnormal ECG Confirmed by KELLY CHAN, IRWIN ([id number]), book editor BASILIA PRINCE ([id number] on 01/18/2019 12:02:36 PM Referred By: JAYDA Confirmed By:JAKE MENDOZA MD
--- NOTE | 2019-01-17 11:12 | CT_ITS ---
STUDY: CT BRAIN WITHOUT CONTRAST REASON FOR EXAM: Female, 78 years old. Trauma RADIATION DOSAGE (If Supplied By Facility): CTDIvol = ( 44.99 ) mGy, DLP = ( 779.24 ) mGycm TECHNIQUE: Transaxial CT imaging of the brain was performed without administration of intravenous contrast material. Individualized dose optimization techniques were used for this CT. COMPARISON: None FINDINGS: There is no acute bleed or infarct. There are chronic ischemic and atrophic changes. The ventricles are normal in configuration. There is no hydrocephalus. The visualized paranasal sinuses are clear. The mastoid air cells are well aerated. There is no skull fracture. CT/Brain/Head without Contrast IMPRESSION: No acute intracranial abnormality. Chronic ischemic and atrophic changes. Electronically Signed: Lloyd Francis, at 12:15 EST Tel , Service support ,
--- NOTE | 2019-01-17 11:13 | CT_ITS ---
STUDY: CT ABDOMEN AND PELVIS WITH CONTRAST REASON FOR EXAM: Female, 78 years old. Trauma RADIATION DOSAGE (If Supplied By Facility): CTDIvol = ( 10.03 ) mGy, DLP = ( 760.10 ) mGycm TECHNIQUE: Transaxial images were obtained from the dome of the diaphragm to the symphysis pubis without oral contrast. 100mL Isovue-370 contrast was administered. Sagittal and coronal images were reconstructed. Individualized dose optimization techniques were used for this CT. COMPARISON: None. FINDINGS: The study is limited by streak artifact due to the patient''s arms being at her sides. The patient is status post cholecystectomy. The liver is within normal limits. There are no suspicious hepatic lesions. The spleen is normal in size. The pancreas is within normal limits. The adrenal glands are within normal limits. There are no renal or ureteral stones. There is no hydronephrosis. There are no focal renal lesions. There is a large hiatal hernia. The patient is status post right hemicolectomy. There is no bowel obstruction or inflammation. There is a large amount of stool in the colon, consistent with constipation. The appendix is not visualized, but there are no findings to suggest acute appendicitis. There is a 3.5 x 3.2 cm infrarenal abdominal aortic aneurysm. There is no abdominal or pelvic free air, free fluid, fluid collection or lymphadenopathy. The patient is status post bilateral hip arthroplasty. There are old, healed fractures of the left superior and inferior pubic rami. The visualized abdominal and pelvic osseous structures are intact. CT/Abdomen/Pelvis W IV Cont ONLY IMPRESSION: No acute traumatic findings in the abdomen or pelvis. Constipation. Large hiatal hernia. 3.5 x 3.2 cm infrarenal abdominal aortic aneurysm. Electronically Signed: Lloyd Francis, at 12:26 EST Tel , Service support ,
--- NOTE | 2019-01-17 11:13 | CT_ITS ---
STUDY: CT CHEST WITH CONTRAST REASON FOR EXAM: Female, 78 years old. Trauma RADIATION DOSAGE (If Supplied By Facility): CTDIvol = ( 10.03 ) mGy, DLP = ( 760.10 ) mGycm TECHNIQUE: Transaxial imaging was performed following intravenous administration of 100 ml of Isovue-370 contrast material. Coronal and sagittal reformatted images were created. Individualized dose optimization techniques were used for this CT. COMPARISON: None FINDINGS: This study is limited by streak artifact due to the patient''s arms being at her sides. There are no pulmonary infiltrates or pleural effusions. There are moderate emphysematous changes noted in the lungs. There is no pneumothorax. The heart and pericardium are within normal limits. There is no thoracic lymphadenopathy. There is no evidence of thoracic aortic aneurysm. There is a large hiatal hernia. There is a minimally displaced fracture of the body of the sternum (best seen on image 163 series 602). There is no retrosternal hematoma. The remainder of the visualized osseous structures are intact. CT/Chest WITH Contrast IMPRESSION: Minimally displaced fracture of the body of the sternum. No retrosternal hematoma. No additional acute traumatic findings in the thorax. Moderate emphysema. Large hiatal hernia. Electronically Signed: Lloyd Francis, at 12:22 EST Tel , Service support ,
--- NOTE | 2019-01-17 11:13 | CT_ITS ---
STUDY: CT CERVICAL SPINE WITHOUT CONTRAST REASON FOR EXAM: Female, 78 years old. Trauma. History of prior cervical spine fracture. RADIATION DOSAGE (If Supplied By Facility): CTDIvol = ( 13.20 ) mGy, DLP = ( 216.68 ) mGycm TECHNIQUE: High resolution transaxial imaging was performed without contrast material. Sagittal and coronal images were reconstructed. Individualized dose optimization techniques were used for this CT. COMPARISON: None available. FINDINGS: There is an old, nonunited odontoid fracture. There is no acute fracture or dislocation in the cervical spine. Alignment is normal. The vertebral body heights are well-maintained. There are moderate degenerative changes. The visualized paraspinal soft tissues are within normal limits. CT/Spine Cervical without Contras IMPRESSION: Old, nonunited odontoid fracture. No acute fracture or dislocation in the cervical spine. Moderate degenerative change. Electronically Signed: Lloyd Francis, at 12:59 EST Tel , Service support ,
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
[2019-01-17 11:32] LABS: Absolute Lymphocyte Count 2.66 X10^3/uL (0.83-4.51); Absolute Neutrophil Count 7.2 X10^3/uL (2.0-7.7); Basophil# 0.06 X10^3/uL; Basophil% 0.5 % (0-1); Eosinophil# 0.13 X10^3/uL; Eosinophils% 1.2 % (0-5); Hematocrit 41.4 % (37-47); Hemoglobin 13.7 g/dL (12.0-15.0); Lymphocyte # 2.66 X10^3/ul (4.0); Lymphocyte % 23.8 % (19-41); Mean Corp Hgb Conc 33.1 g/dL (32-36); Mean Corpuscular Hgb 33.1 pg (27.0-32.0); Mean Platelet Vol. 9.6 fl (6.2-12.0); Monocyte# 1.02 X10^3/uL; Monocyte% 9.1 % (0-10); NRBC Flagged by Analyzer 0 % (0-5); Neutrophil # 7.18 X10^3/uL (2.7-7.7); Neutrophil % 64.2 % (47-70); Platelet Count 272 K/mm3 (150-450); RBC Distribution Width CV 13.6 % (11.6-14.6); RBC Distribution Width SD 50.2 fl (35.1-43.9); Red Blood Count 4.14 M/mm3 (4.2-5.4); White Blood Count 11.2 K/mm3 (4.4-11.0)
[2019-01-17 11:40] LABS: International Normalized Ratio 2.5; Prothrombin Time (Protime)PT. 26.8 SECONDS (11.7-14.9)
[2019-01-17 11:52] LABS: ALB/GLOB Ratio 1.2 RATIO (0.9-2.4); AST(SGOT) 21 U/L (15-37); Alanine Aminotransfer ALT/SGPT 32 U/L (13-56); Alkaline Phosphatase 85 U/L (45-117); Anion Gap 4 (5-15); BUN 18 mg/dL (7-18); BUN/Creat Ratio 20.7 RATIO (10-20); Calcium,Total 8.9 mg/dL (8.5-10.1); Chloride 107 mmol/L (98-107); Creatinine, Serum 0.87 mg/dL (0.55-1.02); EST Glomerular Filtration Rate 67 mL/min (>60); Est Glom Filt Rate - Afr Amer 81 mL/min (>60); Estimated Creatinine Clearance 41.47 ml/min; Globulin 3.4 g/dL (2.2-4.2); Glucose 102 mg/dL (74-106); Potassium 4.1 mmol/L (3.5-5.1); Protein, Total 7.4 g/dL (6.4-8.2); Sodium Level 137 mmol/L (136-145)
[2019-01-17] MEDS: fentaNYL 100 MCG/2 ML Ampul 50 MCG IV (12:06)
[2019-01-17 12:08] LABS: Alcohol, Blood (Medical)-Serum < 3.0 mg/dL
[2019-01-17 13:01] VITALS: BP 119/96; PULSE 60; RESP 18; O2SAT 96
--- NOTE | 2019-01-17 13:16 | NURSING ---
called [facility] care for transport. coming from [facility]
[2019-01-17] MEDS: fentaNYL 100 MCG/2 ML Ampul 25 MCG IV (13:18)
[2019-01-17 13:35] VITALS: BP 156/72; PULSE 60; RESP 20
== END 2019-01-17 13:43 | disposition short-term general hospital (02) ==
PROVIDERS: Emergency Provider Emergency Medicine; Family Provider Family Medicine Geriatric Medicine; PCP Family Medicine Geriatric Medicine
DX: S22.20XA Unspecified fracture of sternum, initial encounter for closed fracture (principal); E78.00 Pure hypercholesterolemia, unspecified; Z79.899 Other long term (current) drug therapy; Z86.718 Personal history of other venous thrombosis and embolism; Z79.01 Long term (current) use of anticoagulants; Z72.0 Tobacco use; V47.0XXA Car driver injured in collision with fixed or stationary object in nontraffic accident, initial encounter; Y93.I9 Activity, other involving external motion; Y92.410 Unspecified street and highway as the place of occurrence of the external cause; Y99.8 Other external cause status
CPT/HCPCS: 70450; 71260; 72125; 74177; 80053; 80320; 84484; 85025; 85610; 93005; 96374; 96376; 99284; J7030; Q9967; A4216; G0480

== ENCOUNTER 2019-02-16 18:09 | Emergency (ER) | payer MEDICARE, SELFPAY ==
[2019-02-16 18:10] VITALS: BP 141/82; PULSE 69; RESP 14; TEMP 37; O2SAT 96; BMI 19.1
--- NOTE | 2019-02-16 19:00 | RAD_ITS ---
STUDY: X-RAY - PELVIS REASON FOR EXAM: Female, 78 years old. LET LEG PAIN AFTER FALL TECHNIQUE: One view of the pelvis was obtained. COMPARISON: None. FINDINGS: Bilateral hip arthroplasty. Cortical regularity of the left superior and inferior pubic ramus however, likely chronic. Age-related degenerative change of the lumbar spine. No acute findings. hardware appears intact RAD/Pelvis 1 or 2 Views IMPRESSION: As above Electronically Signed: Tarun Rangel DO at 20:26 EST Tel , Service support ,
--- NOTE | 2019-02-16 19:08 | ED.DCSUM_ITS ---
History of Present Illness Chief Complaint: Fall Informant: Patient Occurred: Today Mechanism/Context: Same level fall, Trip. Negative for: Cannot recall fall, Dizziness, Lightheadedness, Near-syncope Usually ambulates: Without assistance Narrative: Patient is a 78-year-old presenting via EMS for pain after mechanical fall. Patient states she was taking her trash out her long driveway when she must of tripped/slipped and fell. She states she does not know exactly why she fell but did not feel lightheaded or like her legs gave out on her. She thinks she must of tripped on something. She not hit her head. She landed on her left hip. She was not able to get herself back up and had to crawl about 100 feet inside to call EMS. Patient is complaining of left upper knee pain as well as left groin pain. She is not been able to walk since the fall. She denies any her head or any other injuries. She is on Coumadin and her last INR check was 1 month ago. She states it was normal at that time. Patient is a history of postoperative DVT which is why she is on Coumadin. Patient does have a history of bilateral hip replacements. Past Medical History - Allergies and Home Meds Allergies/Adverse Reactions: Allergies ibuprofen [From Motrin] Allergy (Verified 02/16/19 18:15) Angioedema Primary Care Physician: David Oneil Chi, MD [Primary Care Provider] - Past Medical History: - - Osteoporosis, AAA, small bowel obstruction, GERD, anxiety, DVT, Surgical History: cholecystectomy, colectomy - Partial., hysterectomy, total hip arthroplasty - 2015 Smoking Status: Current every day smoker - Family History Maternal Family History: Reports: No pertinent history Paternal Family History: Reports: No pertinent history Review of Systems General: Denies: Chills, Fever, Sweats Eyes: Denies: Visual changes - bilaterally, Diplopia ENT: Denies: Rhinorrhea, Sore throat Cardiovascular: Denies: Chest pain, Palpitations Respiratory: Denies: Dyspnea, Cough, Dyspnea on exertion Gastrointestinal: Denies: Abdominal pain, Nausea, Vomiting, Diarrhea, Melena, Hematochezia Genitourinary: Denies: Dysuria, Hematuria, Frequency Musculoskeletal: Reports: Extremity Pain - Left hip/knee. Denies: Back pain Skin: Denies: Rash, Wounds Neurological: Denies: Headache, Weakness, Numbness Physical Exam Vital Signs/Narrative: Vital Signs Temp Pulse Resp BP Pulse Ox 02/16/19 18:10 98.6 F 69 14 141/82 H 96 Inital Vital Signs reviewed: Yes General: Well nourished, Well developed Head: Normocephalic, Atraumatic Eyes: Perrl, EOMI ENT: No trauma. Negative for: Nasal trauma Neck: Nontender, Full ROM Cardiovascular: Regular rate, Regular rhythm, No murmurs Respiratory: No distress, CTA bilaterally, Chest nontender Abdomen: Soft, Nontender, Nondistended, Normal bowel sounds Back: Nontender Extremeties: Mild tenderness to palpation of left distal femur. No deformity of the left knee. Mild groin pain with range of motion of the left hip. No tenderness palpation of the pelvis or the greater trochanter. Pelvis is stable. Patient is able to fully flex her hip. No other bony tenderness or abnormality. Skin: Normal color, No rash Neurological: Alert, Oriented x3, Cranial nerves II-XII grossly intact, Normal Strength, Normal Sensation Psychological: Normal affect Diagnostic/Tx/Re-eval Clinical Impression(s) from Imaging Studies Pelvis X-Ray 02/16/19 19:00 IMPRESSION: As above Electronically Signed: Tarun Rangel DO at 20:26 EST Tel , Service support , Femur X-Ray 02/16/19 19:15 IMPRESSION: No acute findings Electronically Signed: Tarun Rangel DO at 20:25 EST Tel , Service support , Laboratory Data 02/16/19 02/16/19 19:01 19:01 WBC 9.3 RBC 3.92 L Hgb 12.6 Hct 39.9 MCV 101.8 H MCH 32.1 H MCHC 31.6 L RDW Std Deviation 48.9 H RDW Coeff of Tracy 13.1 Plt Count 238 MPV 10.0 Immature Gran % (Auto) 0.300 Neut % (Auto) 67.5 Lymph % (Auto) 21.6 [place] % (Auto) 8.1 Eos % (Auto) 1.7 Baso % (Auto) 0.8 Absolute Neuts (auto) 6.3 Absolute Lymphs (auto) 2.01 Nucleated RBC % 0 PT 24.2 H INR 2.2 - Medical Decision Making Patient is a 78-year-old female evaluated after mechanical fall. She is complaining of some left knee and leg pain. She does also have some groin pain. She is brought in by EMS. Patient declined pain medication while in the emergency room. X-ray of the pelvis and femur do not show any acute fracture. She does have some cortical irregularity of the left rami which is read as likely a chronic fracture. Patient is ambulated and is able to ambulate with a walker in the emergency room. She has a walker to use at home. In the setting of a small acute pelvic rami fracture it would still be nonoperative management. Patient is discharged home. She feels comfortable going home. She will take Tylenol for pain as needed. She does not want anything stronger that could be constipating. She cannot take ibuprofen because she is on Coumadin. Her INR is therapeutic. Patient not have any head trauma from the fall. She does not have any obvious signs of trauma on exam. She has a normal neurologic exam. Patient is counseled on signs and symptoms requiring return to the emergency room. Patient verbalizes agreement and understand this plan. Patient discharged home in stable and improved condition. ED Disposition - Plan for ED Patient: Disposition: Home or Assisted Living Diagnosis: Fall, Contusion of left hip and thigh Instructions: CONTUSION, Lower Extremity, FALL, Mechanical Referrals: David Oneil Chi, MD [Primary Care Provider] -
--- NOTE | 2019-02-16 19:15 | RAD_ITS ---
STUDY: X-RAY - LEFT FEMUR REASON FOR STUDY: Female, 78 years old. LEFT LEG PAIN AFTER FALL TECHNIQUE: 4 view(s) of the femur. COMPARISON: None. FINDINGS: No acute fracture or listhesis. Right hip arthroplasty. No evidence of hardware failure or loosening. Normal soft tissues RAD/Femur Min 2 Views IMPRESSION: No acute findings Electronically Signed: Tarun Rangel DO at 20:25 EST Tel , Service support ,
[2019-02-16 19:22] LABS: Absolute Lymphocyte Count 2.01 X10^3/uL (0.83-4.51); Absolute Neutrophil Count 6.3 X10^3/uL (2.0-7.7); Basophil# 0.07 X10^3/uL; Basophil% 0.8 % (0-1); Eosinophil# 0.16 X10^3/uL; Eosinophils% 1.7 % (0-5); Hematocrit 39.9 % (37-47); Hemoglobin 12.6 g/dL (12.0-15.0); Lymphocyte # 2.01 X10^3/ul (4.0); Lymphocyte % 21.6 % (19-41); Mean Corp Hgb Conc 31.6 g/dL (32-36); Mean Corpuscular Hgb 32.1 pg (27.0-32.0); Mean Corpuscular Volume 101.8 fL (81-99); Monocyte# 0.75 X10^3/uL; Monocyte% 8.1 % (0-10); NRBC Flagged by Analyzer 0 % (0-5); Neutrophil # 6.28 X10^3/uL (2.7-7.7); Neutrophil % 67.5 % (47-70); Platelet Count 238 K/mm3 (150-450); RBC Distribution Width CV 13.1 % (11.6-14.6); RBC Distribution Width SD 48.9 fl (35.1-43.9); Red Blood Count 3.92 M/mm3 (4.2-5.4); White Blood Count 9.3 K/mm3 (4.4-11.0)
[2019-02-16 19:46] LABS: International Normalized Ratio 2.2; Prothrombin Time (Protime)PT. 24.2 SECONDS (11.7-14.9)
[2019-02-16 22:30] VITALS: BP 137/83; PULSE 60; RESP 17; O2SAT 95
[2019-02-16 22:42] VITALS: BP 137/83; PULSE 60; RESP 17; O2SAT 95
== END 2019-02-16 22:42 | disposition home or self-care (01) ==
PROVIDERS: Emergency Provider Emergency Medicine; Family Provider Family Medicine Geriatric Medicine; PCP Family Medicine Geriatric Medicine
DX: S70.02XA Contusion of left hip, initial encounter (principal); S70.12XA Contusion of left thigh, initial encounter; M25.562 Pain in left knee; W01.0XXA Fall on same level from slipping, tripping and stumbling without subsequent striking against object, initial encounter; Y93.9 Activity, unspecified; Y92.9 Unspecified place or not applicable; M81.0 Age-related osteoporosis without current pathological fracture; I71.4 Abdominal aortic aneurysm, without rupture; K21.9 Gastro-esophageal reflux disease without esophagitis; F41.9 Anxiety disorder, unspecified; Z87.19 Personal history of other diseases of the digestive system; Z86.718 Personal history of other venous thrombosis and embolism; Z96.643 Presence of artificial hip joint, bilateral; Z79.01 Long term (current) use of anticoagulants; Z79.899 Other long term (current) drug therapy; F17.200 Nicotine dependence, unspecified, uncomplicated
CPT/HCPCS: 72170; 73552; 85025; 85610; 99285; A4216

== ENCOUNTER → 2019-03-23 16:03 | Outpatient (CLI) | payer MEDICARE, SELFPAY ==
--- NOTE | 2019-03-23 16:25 | RAD_ITS ---
STUDY: X-RAY - RIGHT SHOULDER REASON FOR EXAM: Arm pain and pain raising the arm above head. TECHNIQUE: 4 view(s) of the shoulder. COMPARISON: None. FINDINGS: Normal glenohumeral articulation. There is joint space loss of the acromioclavicular joint. Normal acromion. Normal humeral head and visualized proximal humerus. The soft tissue structures are unremarkable. Normal visualized pulmonary apex. RAD/Shoulder min 2 Views IMPRESSION: Acromioclavicular arthrosis. Electronically Signed: Mariusz Mckinney MD at 14:57 EST Tel , Service support ,
[2019-03-23 17:19] LABS: Absolute Neutrophil Count 8.8 X10^3/uL (2.0-7.7); Basophil# 0.12 X10^3/uL; Eosinophil# 0.11 X10^3/uL; Eosinophils% 0.9 % (0-5); Hematocrit 40.9 % (37-47); Hemoglobin 13.3 g/dL (12.0-15.0); Lymphocyte % 20.9 % (19-41); Mean Corp Hgb Conc 32.5 g/dL (32-36); Mean Corpuscular Hgb 32.9 pg (27.0-32.0); Mean Corpuscular Volume 101.2 fL (81-99); Mean Platelet Vol. 10.4 fl (6.2-12.0); Monocyte# 0.78 X10^3/uL; Monocyte% 6.3 % (0-10); NRBC Flagged by Analyzer 0 % (0-5); Neutrophil # 8.75 X10^3/uL (2.7-7.7); Neutrophil % 70.4 % (47-70); Platelet Count 360 K/mm3 (150-450); RBC Distribution Width CV 14.6 % (11.6-14.6); RBC Distribution Width SD 54.2 fl (35.1-43.9); Red Blood Count 4.04 M/mm3 (4.2-5.4); White Blood Count 12.4 K/mm3 (4.4-11.0)
[2019-03-23 17:40] LABS: ALB/GLOB Ratio 0.8 RATIO (0.9-2.4); AST(SGOT) 28 U/L (15-37); Alanine Aminotransfer ALT/SGPT 28 U/L (13-56); Albumin, Serum 3.1 g/dL (3.2-5.0); Alkaline Phosphatase 131 U/L (45-117); Anion Gap 7 (5-15); BUN 18 mg/dL (7-18); BUN/Creat Ratio 21.9 RATIO (10-20); Calcium,Total 9.2 mg/dL (8.5-10.1); Chloride 103 mmol/L (98-107); Creatinine, Serum 0.82 mg/dL (0.55-1.02); EST Glomerular Filtration Rate 71 mL/min (>60); Est Glom Filt Rate - Afr Amer 86 mL/min (>60); Globulin 4.1 g/dL (2.2-4.2); Glucose 92 mg/dL (74-106); Potassium 3.9 mmol/L (3.5-5.1); Protein, Total 7.2 g/dL (6.4-8.2); Sodium Level 135 mmol/L (136-145); Thyroid Stim Hormone (TSH) 1.01 uIU/mL (0.358-3.74)
[2019-03-23 17:46] LABS: Acetaminophen (Tylenol) Level 44.1 ug/mL (10.0-30.0)
== END ==
PROVIDERS: PCP Family Medicine Geriatric Medicine; Referring Provider Family Medicine Geriatric Medicine; Visit Provider Family Medicine Geriatric Medicine
DX: M25.511 Pain in right shoulder (principal); R53.83 Other fatigue; T39.1X1A Poisoning by 4-Aminophenol derivatives, accidental (unintentional), initial encounter
CPT/HCPCS: 36415; 73030; 80053; 80329; 84443; 85025; 87086; 87088; G0480

== ENCOUNTER → 2019-03-25 16:15 | Outpatient (CLI) | payer MEDICARE, SELFPAY ==
[2019-03-25 18:15] LABS: Acetaminophen (Tylenol) Level < 2.0 ug/mL (10.0-30.0)
== END ==
PROVIDERS: PCP Family Medicine Geriatric Medicine; Visit Provider Family Medicine Geriatric Medicine
DX: I82.409 Acute embolism and thrombosis of unspecified deep veins of unspecified lower extremity (principal); T39.1X1A Poisoning by 4-Aminophenol derivatives, accidental (unintentional), initial encounter
CPT/HCPCS: 36415; 80329; G0480

== ENCOUNTER → 2019-05-11 13:36 | Outpatient (CLI) | payer MEDICARE, SELFPAY ==
[2019-05-11 15:52] LABS: Absolute Lymphocyte Count 2.44 X10^3/uL (0.83-4.51); Absolute Neutrophil Count 10.6 X10^3/uL (2.0-7.7); Basophil# 0.11 X10^3/uL; Basophil% 0.8 % (0-1); Eosinophil# 0.14 X10^3/uL; Hemoglobin 11.9 g/dL (12.0-15.0); Lymphocyte # 2.44 X10^3/ul (4.0); Mean Corp Hgb Conc 31.3 g/dL (32-36); Mean Corpuscular Hgb 33.3 pg (27.0-32.0); Mean Corpuscular Volume 106.4 fL (81-99); Mean Platelet Vol. 10.3 fl (6.2-12.0); Monocyte# 0.97 X10^3/uL; Monocyte% 6.8 % (0-10); NRBC Flagged by Analyzer 0 % (0-5); Neutrophil # 10.63 X10^3/uL (2.7-7.7); Platelet Count 366 K/mm3 (150-450); RBC Distribution Width CV 14.4 % (11.6-14.6); RBC Distribution Width SD 56.3 fl (35.1-43.9); Red Blood Count 3.57 M/mm3 (4.2-5.4); White Blood Count 14.4 K/mm3 (4.4-11.0)
[2019-05-11 16:05] LABS: Vitamin D,25 Hydroxy 60.8 ng/mL
[2019-05-11 16:21] LABS: ALB/GLOB Ratio 0.7 RATIO (0.9-2.4); AST(SGOT) 25 U/L (15-37); Alanine Aminotransfer ALT/SGPT 23 U/L (13-56); Albumin, Serum 2.9 g/dL (3.2-5.0); Alkaline Phosphatase 113 U/L (45-117); Anion Gap 7 (5-15); BUN 14 mg/dL (7-18); BUN/Creat Ratio 17.1 RATIO (10-20); Calcium,Total 8.9 mg/dL (8.5-10.1); Chloride 102 mmol/L (98-107); Creatinine, Serum 0.82 mg/dL (0.55-1.02); EST Glomerular Filtration Rate 71 mL/min (>60); Est Glom Filt Rate - Afr Amer 86 mL/min (>60); Globulin 3.9 g/dL (2.2-4.2); Glucose 119 mg/dL (74-106); Potassium 3.8 mmol/L (3.5-5.1); Protein, Total 6.8 g/dL (6.4-8.2); Sodium Level 136 mmol/L (136-145); Thyroid Stim Hormone (TSH) 1.37 uIU/mL (0.358-3.74)
== END ==
PROVIDERS: PCP Family Medicine Geriatric Medicine; Visit Provider Family Medicine Geriatric Medicine
DX: E55.9 Vitamin D deficiency, unspecified (principal); R53.83 Other fatigue
CPT/HCPCS: 36415; 80053; 82306; 84443; 85025

== ENCOUNTER → 2019-05-27 13:57 | Outpatient (CLI) | payer MEDICARE, SELFPAY ==
--- NOTE | 2019-05-27 14:04 | CT_ITS ---
STUDY: LOW DOSE CT LUNG CANCER SCREENING REASON FOR EXAM: Female, 79 years old. TOBACCO USE, 1/2 PPD X 64 YRS. RADIATION DOSAGE (If Supplied By Facility): CTDIvol = ( 2.01 ) mGy, DLP = ( 62.68 ) mGycm TECHNIQUE: No contrast was administered. Low dose technique was utilized (average mAS-38 and kVp 120). 1.25 mm axial source images with a slice interval of 1.25-mm were reconstructed in lung windows. 2.5 mm axial source images with a slice interval of 2.5-mm were reconstructed in lung windows. 5.0 mm axial source images with a slice interval of 5.0-mm were reconstructed in soft tissue windows. Nodule measured using lung windows on PACS and/or independent workstation with automated measurement of minimum and maximum diameter. Nodule measurement reported as average diameter rounded to the nearest whole number. Growth is defined as an increase ins size of greater than 1.5 mm. COMPARISON: None. NODULES: Nodule #: Vision 1.5 cm x 1.3 cm x 1.8 cm nodule in the posterior lateral aspect of the lingular segment of the left upper lobe abutting the left major fissure. Emphysema: Diffuse emphysematous changes. 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 A similar appearing appearance is seen in the lingular segment of the left upper lobe. Emphysematous blebs are seen in the upper lobes with evidence of bronchiectasis. Mild scarring at the lung bases. Aorta: Atherosclerotic calcification of the aortic arch. Coronary arteries: Coronary artery calcification. Mediastinal nodes: Small benign-appearing mediastinal lymph nodes. Other chest and abdominal findings: The chest changes of the thoracic vertebrae. CT/Low Dose CT Lung Screening IMPRESSION: Emphysema. 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 1.3 cm x 1.5 cm x 1.8 cm nodule in the lingular segment of the left upper lobe inferiorly as described. Correlation with a PET scan is recommended. IMPORTANT NOTES FOR USE: ACR Lung-RADS Version 1.0 Assessment Categories Release Date: June 08, 2013 Category: Coded 0-4 bases on nodule(s) with highest degree of suspicion. Negative screen is defined as categories 1 and 2; a positive screen is defined as categories 3 and 4. Category 3 and 4A nodules that are unchanged on interval CT should be coded as category 2, and individuals returned to screening in 12 months. Category 4X: Category 3 or 4 nodules with additional imaging findings that increase the suspicion of lung cancer, such as spiculation, GGN that doubles in size in 1 year, enlarged lymph notes, etc. Category Modifiers: S (significant finding unrelated to lung cancer) and C (prior history of treated lung cancer) may be added to the 0-4 Lung-RADS Electronically Signed: Chucky Goodson, at 15:37 EDT , Service support ,
== END ==
PROVIDERS: PCP Family Medicine Geriatric Medicine; Referring Provider Family Medicine Geriatric Medicine; Visit Provider Family Medicine Geriatric Medicine
DX: F17.210 Nicotine dependence, cigarettes, uncomplicated (principal)
CPT/HCPCS: G0297

== ENCOUNTER → 2019-06-08 07:53 | Outpatient (CLI) | payer MEDICARE, SELFPAY ==
--- NOTE | 2019-06-08 06:39 | PET_ITS ---
EXAMINATION: FDG PET-CT INDICATIONS: An 79-year-old female with reported history of pulmonary nodularity. COMPARISON EXAMINATION: CT of the chest report dated 05/27/2019 INDEX LESION SIZE SUV INTERPRETATION Bilateral hemithorax pulmonary parenchyma 14.6-mm (largest) (frame 171) 1.2 (max) Quantitative criteria for viable neoplasm are not fulfilled, sequential radiologic investigation recommended TECHNIQUE: Following the intravenous administration of 14.8 mCi of F-18 deoxyglucose via the left antecubital fossa, multiplanar image acquisitions of the neck, chest, abdomen and pelvis to level of mid thigh, obtained at one hour post radiopharmaceutical administration contemporaneously interpreted with the current CT of the neck, chest, abdomen and pelvis, to level of mid thigh, dated 06/08/[address] of the chest report dated 05/27/2019 reveals: BLOOD GLUCOSE LEVEL:?? 97 mg/dl?HEIGHT:?62 inches?WEIGHT: 107 lbs. FINDINGS: 1. Subtle increased glucose metabolism is identified in the right lower anterior lung middle lobe-lingula, left lower anteromedial lung generating a calculated maximal standard uptake value of 1.2. The largest corresponding parenchymal density demonstrates a maximal axial diameter of approximately 14.6-mm. 2. Normal physiologic distribution of the radiopharmaceutical is apparent in the hepatic (3.0) and splenic parenchyma, both renal units, bladder and visualized intestinal tract. The visualized portion of the cerebral cortex, as well as cerebellar hemispheres demonstrate symmetric and preserved glucose metabolism. Diffuse radiopharmaceutical concentration is noted in all four quadrants of the abdomen and pelvis. Prominent radiopharmaceutical concentration is observed in the periprosthetic soft tissues at the level of the left hip arthroplasty most consistent with a component of metallic reconstruction artifact. There is significant tortuosity of the descending thoracic aorta. Pertinent CT findings are as follows: CHEST: There is atherosclerotic calcification defined in the thoracic aorta without evidence of dilatation-aneurysm formation. Coronary arterial calcification is observed. Bilateral subcentimeter axillary and scattered mediastinal soft tissue densities are non-glucose avid. Additional parenchymal densities noted in the right and left hemithorax demonstrate no evidence of quantitatively significant increased FDG uptake. ABDOMEN AND PELVIS: The gallbladder is surgically absent. Atherosclerotic calcification is defined in the abdominal aorta with a maximal axial diameter of 35.5-mm. Abdominal-pelvic arterial calcification is observed. Beam hardening artifact attributed to right and left hip arthroplasties is noted in the lower pelvic CT acquisition. Apparent postsurgical change is defined in the left upper anterior pelvic mesentery with the prominent uptake noted in proximity to postsurgical changes. SKELETAL: Right and left hip arthroplasties are defined as described. Degenerative changes are noted in the cervical, thoracic and lumbar spine. A thoracolumbar scoliosis is demonstrated. PET/PET/CT Tumor Base -Thigh Init IMPRESSION: 1. NEGATIVE EXAMINATION. There is no definitive quantitative scintigraphic evidence of viable neoplasm. 2. Increased radiopharmaceutical concentration observed in the right lower anteromedial lung-right middle lobe, left lower anteromedial lung zone-lingula do not fulfill quantitative criteria for viable neoplasm. (Maria Guadalupe et al, Annals of Internal Medicine, 138:724, 2003). 3. Metabolic and/or anatomic stability may be ensured in the above defined bilateral hemithorax pulmonary parenchymal abnormalities with repeat FDG PET study and/or CT of the thorax in 3-6 months. (Xiu, Journal of Nuclear Medicine 45:88, P2004 [place], Seminars in Thoracic and Cardiovascular Surgery 14:292, 2002). Electronic Signature Gavino Carranza D.O. Electronically Signed: Gavino Carranza DO at 20:09 EDT Tel , Service support ,
== END ==
PROVIDERS: PCP Family Medicine Geriatric Medicine; Referring Provider Family Medicine Geriatric Medicine; Visit Provider Family Medicine Geriatric Medicine
DX: R91.1 Solitary pulmonary nodule (principal)
CPT/HCPCS: 78815; A9552

== ENCOUNTER → 2019-09-28 12:53 | Outpatient (CLI) | payer MEDICARE, SELFPAY ==
--- NOTE | 2019-09-28 12:56 | ART_ITS ---
Reason For Study: Decreased Pedal Pulses Procedure A bilateral lower extremity continuous wave Doppler with analog waveform analysis,segmental pressures,and ankle brachial indexes with exercise. Left Segmental Pressures Left brachial= 125mmHg. Left posterior tibial artery = 119mmHg. Left dorsalis pedis artery = 123mmHg. The left dorsalis pedis waveforms are triphasic. The left posterior tibial artery waveforms are triphasic. Right Segmental Pressures Right brachial= 124mmHg. Right posterior tibial artery = 116mmHg. Right dorsalis pedis artery = 128mmHg. The right posterior tibial artery waveforms are biphasic. The right dorsalis pedis waveforms are triphasic. Indices The right ankle brachial index by the posterior tibial artery is 0.93. The right ankle brachial index by the dorsalis pedis is 1.02. The right post exercise ankle brachial index is 1.01. The left ankle brachial index by the posterior tibial artery is 0.95. The left ankle brachial index by the dorsalis pedis is 0.98. The left post exercise ankle brachial index is 0.96. Interpretation Summary Triphasic and biphasic Doppler waveforms are noted at ankle level on the right. Triphasic Doppler waveforms are noted at ankle level on the left. Resting ankle-brachial indices are normal bilaterally. The patient ambulated for 5 minutes, following which ankle pressures augmented bilaterally, which is a normal physiological response. There is no evidence of significant arterial occlusive disease in the lower extremities bilaterally. Ordering Physician: Carroll Lange Referring Physician: Carroll Lange Performed By: Silvnaa Rodgers RDCS/TREVORT
--- NOTE | 2019-09-28 13:37 | US_ITS ---
STUDY: THYROID ULTRASOUND REASON FOR EXAM: Female, 79 years old. thyromegaly felt by doctor TECHNIQUE: Ultrasound evaluation of the thyroid was performed with real-time and static salter-scale imaging. COMPARISON: None. FINDINGS: RIGHT LOBE: The right lobe of the thyroid gland measures 4.7 x 1.5 x 1.2 cm. There is a homogeneous echotexture. There are 3 separate solid nodules, largest measures 0.6 x 0.6 x 0.7 cm. LEFT LOBE: The left lobe of the thyroid gland measures 4.6 x 1.4 x 1.1 cm. There is a homogeneous echotexture. There is a simple 0.2 cm nodule in the left lobe ISTHMUS: The isthmus measures 3 mm. The regional lymph nodes are normal. US/Thyroid IMPRESSION: Borderline enlarged homogeneous thyroid gland. 3 separate hypoechoic nodules in the right lobe measuring 0.7 x 0.6 x 0.6 cm, single hypoechoic 2 mm nodule in the left thyroid lobe. Because there are no previous studies available for comparison, thyroid uptake study could be performed to assess uptake characteristics, or a 6 month follow-up could be performed to assess stability. Electronically Signed: Huan Blanco MD at 10:51 EDT , Service support ,
== END ==
PROVIDERS: PCP Family Medicine; Referring Provider Family Medicine; Visit Provider Family Medicine
DX: R09.89 Other specified symptoms and signs involving the circulatory and respiratory systems (principal)
CPT/HCPCS: 76536; 93924

== ENCOUNTER → 2019-10-01 09:49 | Outpatient (CLI) | payer MEDICARE, SELFPAY ==
[2019-10-01 12:43] LABS: Absolute Lymphocyte Count 2.12 X10^3/uL (0.83-4.51); Absolute Neutrophil Count 4.3 X10^3/uL (2.0-7.7); Basophil# 0.09 X10^3/uL; Basophil% 1.2 % (0-1); Eosinophil# 0.21 X10^3/uL; Eosinophils% 2.8 % (0-5); Hematocrit 40.5 % (37-47); Hemoglobin 12.9 g/dL (12.0-15.0); Lymphocyte # 2.12 X10^3/ul (4.0); Lymphocyte % 28.3 % (19-41); Mean Corp Hgb Conc 31.9 g/dL (32-36); Mean Corpuscular Hgb 33.7 pg (27.0-32.0); Mean Corpuscular Volume 105.7 fL (81-99); Mean Platelet Vol. 11.3 fl (6.2-12.0); Monocyte# 0.75 X10^3/uL; NRBC Flagged by Analyzer 0 % (0-5); Neutrophil % 57.4 % (47-70); Platelet Count 364 K/mm3 (150-450); RBC Distribution Width CV 11.9 % (11.6-14.6); RBC Distribution Width SD 46.4 fl (35.1-43.9); Red Blood Count 3.83 M/mm3 (4.2-5.4); White Blood Count 7.5 K/mm3 (4.4-11.0)
[2019-10-01 13:12] LABS: ALB/GLOB Ratio 0.9 RATIO (0.9-2.4); AST(SGOT) 19 U/L (15-37); Alanine Aminotransfer ALT/SGPT 17 U/L (13-56); Albumin, Serum 3.2 g/dL (3.2-5.0); Alkaline Phosphatase 119 U/L (45-117); Anion Gap 2 (5-15); BUN 9 mg/dL (7-18); BUN/Creat Ratio 11.5 RATIO (10-20); Calcium,Total 9.3 mg/dL (8.5-10.1); Chloride 107 mmol/L (98-107); Cholesterol 150 mg/dL (200); Creatinine, Serum 0.78 mg/dL (0.55-1.02); EST Glomerular Filtration Rate 75 mL/min (>60); Est Glom Filt Rate - Afr Amer 91 mL/min (>60); Globulin 3.7 g/dL (2.2-4.2); Glucose 98 mg/dL (74-106); High Density Lipoprotein 39 mg/dL; Potassium 4.7 mmol/L (3.5-5.1); Protein, Total 6.9 g/dL (6.4-8.2); Sodium Level 140 mmol/L (136-145); T4 Free Direct 0.93 ng/dL (0.76-1.46); Thyroid Stim Hormone (TSH) 1.81 uIU/mL (0.358-3.74); Triglycerides 198 mg/dL; Very Low Density Lipoprotein 40 mg/dL (5-40)
[2019-10-02 16:44] LABS: Anti-Thyroglobulin AB < 1.0 IU/mL (0.0-0.9); Thyroid Peroxidase AB 10 IU/mL (0-34)
== END ==
PROVIDERS: PCP Family Medicine; Referring Provider Family Medicine; Visit Provider Family Medicine
DX: E01.0 Iodine-deficiency related diffuse (endemic) goiter (principal); R09.89 Other specified symptoms and signs involving the circulatory and respiratory systems; I82.409 Acute embolism and thrombosis of unspecified deep veins of unspecified lower extremity; E78.5 Hyperlipidemia, unspecified; Z72.0 Tobacco use
CPT/HCPCS: 36415; 80053; 80061; 84432; 84439; 84443; 85025; 86376; 86800

== ENCOUNTER → 2019-10-12 13:35 | Outpatient (CLI) | payer MEDICARE, SELFPAY ==
--- NOTE | 2019-10-12 13:39 | RAD_ITS ---
STUDY: X-RAY - RIGHT SHOULDER REASON FOR EXAM: Right shoulder pain. TECHNIQUE: 4 view(s) of the shoulder. COMPARISON: Radiographs 03/23/2019. FINDINGS: Normal glenohumeral articulation. There is acromioclavicular arthrosis as on the prior study. Normal acromion. Normal humeral head and visualized proximal humerus. The soft tissue structures are unremarkable. Normal visualized pulmonary apex. RAD/Shoulder min 2 Views IMPRESSION: Acromioclavicular arthrosis. Electronically Signed: Mariusz Mckinney MD at 15:30 EDT Tel , Service support ,
== END ==
PROVIDERS: PCP Family Medicine; Referring Provider Family Medicine; Visit Provider Family Medicine
DX: M75.40 Impingement syndrome of unspecified shoulder (principal)
CPT/HCPCS: 73030

== ENCOUNTER → 2019-10-21 10:05 | Outpatient (CLI) | payer MEDICARE, SELFPAY ==
--- NOTE | 2019-10-21 10:07 | NM_ITS ---
CLINICAL: 79-year-old female with reported history of early satiety. SEMI-SOLID PHASE 99m Tc SULFUR COLLOID GASTRIC EMPTYING STUDY COMPARISON: None available FINDINGS: The patient was administered 1.1 mCi of 99m Tc sulfur colloid mixed with oatmeal and consumed per os. Image acquisitions in the anterior-posterior projections were obtained for 60 minutes. There is prompt visualization of the stomach. There is no gastroesophageal reflux identified. The T ? linear fit was calculated to be 24.12 minutes, (Normal: 12-56 minutes). NM/Gastric Emptying Study IMPRESSION: 1. NORMAL 99m Tc sulfur colloid semi-solid phase (oatmeal) gastric emptying imaging examination. A. There is normal and preserved semi-solid phase gastric emptying compared to normal controls with maintained first order kinetics throughout all components of the examination. (Lupe et al, J Nucl Med Tech 38: 186, 2010). Electronically Signed: Gavino Carranza DO at 23:05 EDT Tel , Service support ,
== END ==
PROVIDERS: PCP Family Medicine; Referring Provider Family Medicine; Visit Provider Family Medicine
DX: R68.81 Early satiety (principal)
CPT/HCPCS: 78264; A9541

== ENCOUNTER → 2019-11-04 10:13 | Outpatient (CLI) | payer MEDICARE, SELFPAY ==
--- NOTE | 2019-11-04 10:25 | BD_ITS ---
STUDY: DUAL ENERGY X-RAY ABSORPTIOMETRY / DXA REASON FOR EXAM: Female, 79 years old. 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 COMPARISON: Comparison is made with prior study dated 05/05/2015. FINDINGS: Lumbar Spine (L1-L4): g/cm2 (0.659) / T-score (-4.2) / Z-score (-2.4) Findings are suggestive of osteoporosis with a high fracture risk. Left Forearm: g/cm2 (0.395) / T-score (-5.5) / Z-score (-2.7) The T-Scores on the most recent prior examination were: Lumbar Spine (L1-L4): There has been worsening of bone density since the previous examination. BD/Dexa Bone Density Study IMPRESSION: The patient is considered osteoporotic as outlined below according to World Polo Organization (WHO) criteria with a high fracture risk. There has been worsening of bone density since the previous examination. Reference Information: The T-score is the number of standard deviations above or below the standard which is normal for young adults at their peak bone mineral density. The World Health Organization (WHO) interprets the T-scores as follows: Above -1 Normal bone density Between -1 and -2.5 Osteopenia Equal to / or below -2.5 Osteoporosis As a practical clinical guideline, osteopenia may be graded as follows: Mild -1 through -1.5 Moderate -1.6 through -2.0 Severe -2.1 through -2.4 The Z-score is the number of standard deviations above or below age-matched controls. A Z-score of less than -1.5 would be considered abnormal. References: 1. NIH Osteoporosis and Related Bone Diseases http://www.osteo.org 2. International Society for Clinical Densitometry http://www.iscd.org 3. National Osteoporosis Foundation http://www.nof.org Electronically Signed: Chucky Goodson, at 15:27 EDT , Service support ,
== END ==
PROVIDERS: PCP Family Medicine; Referring Provider Family Medicine; Visit Provider Family Medicine
DX: M81.0 Age-related osteoporosis without current pathological fracture (principal)
CPT/HCPCS: 77080

== ENCOUNTER → 2019-11-20 14:58 | Outpatient (CLI) | payer MEDICARE, SELFPAY ==
[2019-11-20 18:19] LABS: ALB/GLOB Ratio 0.9 RATIO (0.9-2.4); AST(SGOT) 22 U/L (15-37); Alanine Aminotransfer ALT/SGPT 23 U/L (13-56); Albumin, Serum 3.2 g/dL (3.2-5.0); Alkaline Phosphatase 151 U/L (45-117); Anion Gap 6 (5-15); BUN 17 mg/dL (7-18); BUN/Creat Ratio 22.5 RATIO (10-20); Calcium,Total 9.5 mg/dL (8.5-10.1); Chloride 104 mmol/L (98-107); Creatinine, Serum 0.76 mg/dL (0.55-1.02); EST Glomerular Filtration Rate 78 mL/min (>60); Est Glom Filt Rate - Afr Amer 95 mL/min (>60); Globulin 3.6 g/dL (2.2-4.2); Glucose 83 mg/dL (74-106); Phosphorus 4.1 mg/dL (2.5-4.9); Potassium 4.1 mmol/L (3.5-5.1); Protein, Total 6.8 g/dL (6.4-8.2); Sodium Level 137 mmol/L (136-145)
[2019-11-20 18:48] LABS: Vitamin D,25 Hydroxy 71.4 ng/mL
== END ==
PROVIDERS: PCP Family Medicine; Referring Provider Family Medicine; Visit Provider Family Medicine
DX: M81.0 Age-related osteoporosis without current pathological fracture (principal)
CPT/HCPCS: 36415; 80053; 82306; 84100

== ENCOUNTER → 2019-11-23 13:51 | Outpatient (CLI) | payer MEDICARE, SELFPAY ==
[2019-11-23 15:37] LABS: Absolute Lymphocyte Count 2.57 X10^3/uL (0.83-4.51); Basophil# 0.09 X10^3/uL; Basophil% 0.8 % (0-1); Eosinophil# 0.17 X10^3/uL; Eosinophils% 1.5 % (0-5); Hematocrit 41.2 % (37-47); Hemoglobin 13.2 g/dL (12.0-15.0); Lymphocyte # 2.57 X10^3/ul (4.0); Lymphocyte % 22.2 % (19-41); Mean Corpuscular Hgb 31.7 pg (27.0-32.0); Mean Platelet Vol. 11.2 fl (6.2-12.0); Monocyte# 0.75 X10^3/uL; Monocyte% 6.5 % (0-10); NRBC Flagged by Analyzer 0 % (0-5); Neutrophil # 7.97 X10^3/uL (2.7-7.7); Neutrophil % 68.6 % (47-70); Platelet Count 377 K/mm3 (150-450); RBC Distribution Width CV 12.9 % (11.6-14.6); RBC Distribution Width SD 47.1 fl (35.1-43.9); Red Blood Count 4.16 M/mm3 (4.2-5.4); White Blood Count 11.6 K/mm3 (4.4-11.0)
[2019-11-23 16:09] LABS: ALB/GLOB Ratio 0.8 RATIO (0.9-2.4); AST(SGOT) 26 U/L (15-37); Alanine Aminotransfer ALT/SGPT 23 U/L (13-56); Albumin, Serum 3.1 g/dL (3.2-5.0); Alkaline Phosphatase 154 U/L (45-117); Anion Gap 10 (5-15); BUN 19 mg/dL (7-18); BUN/Creat Ratio 25.7 RATIO (10-20); Calcium,Total 9.5 mg/dL (8.5-10.1); Chloride 106 mmol/L (98-107); Creatinine, Serum 0.74 mg/dL (0.55-1.02); EST Glomerular Filtration Rate 80 mL/min (>60); Est Glom Filt Rate - Afr Amer 97 mL/min (>60); Globulin 3.9 g/dL (2.2-4.2); Glucose 121 mg/dL (74-106); Potassium 3.7 mmol/L (3.5-5.1); Sodium Level 137 mmol/L (136-145)
== END ==
PROVIDERS: PCP Family Medicine; Visit Provider Family Medicine
DX: R19.7 Diarrhea, unspecified (principal)
CPT/HCPCS: 36415; 80053; 85025

== ENCOUNTER → 2019-11-25 14:14 | Outpatient (CLI) | payer MEDICARE, SELFPAY | LOC: MFPLAB 14:15 → LABSPEC 14:16 | PROVIDERS: PCP Family Medicine; Referring Provider Family Medicine; Visit Provider Family Medicine | DX: R19.7 Diarrhea, unspecified (principal) | CPT/HCPCS: 87493; 87506 ==

== ENCOUNTER → 2019-12-18 15:55 | Outpatient (CLI) | payer MEDICARE, SELFPAY ==
--- NOTE | 2019-12-18 15:59 | RAD_ITS ---
STUDY: X-RAY CHEST REASON FOR EXAM: Female, 79 years old. Abnormal weight loss. TECHNIQUE: PA and lateral views of the chest. COMPARISON: 11/02/2015. CT of the chest, 05/27/2019. FINDINGS: There is hyperinflation of the lungs consistent with chronic obstructive lung disease (COPD). There is no new infiltrate or mass. There is no demonstrated pleural abnormality. Normal size heart. Normal mediastinum and maddie. Normal visualized pulmonary arteries. There is atherosclerotic calcification of the aortic arch with tortuosity. There are degenerative changes and dextroscoliosis of the thoracic spine There is degenerative osteoarthritis of the bilateral shoulders. There is no demonstrated abnormality of the visualized soft tissue structures of the upper abdomen. RAD/Chest PA and Lateral IMPRESSION: Probable COPD without acute cardiopulmonary disease. Electronically Signed: Gorge Bustos DO at 23:21 EST Tel [phone], Service support ,
[2019-12-18 18:07] LABS: ALB/GLOB Ratio 0.9 RATIO (0.9-2.4); AST(SGOT) 24 U/L (15-37); Alanine Aminotransfer ALT/SGPT 21 U/L (13-56); Albumin, Serum 2.9 g/dL (3.2-5.0); Alkaline Phosphatase 187 U/L (45-117); Anion Gap 8 (5-15); BUN 10 mg/dL (7-18); BUN/Creat Ratio 13.2 RATIO (10-20); Calcium,Total 8.9 mg/dL (8.5-10.1); Chloride 102 mmol/L (98-107); Creatinine, Serum 0.76 mg/dL (0.55-1.02); EST Glomerular Filtration Rate 78 mL/min (>60); Est Glom Filt Rate - Afr Amer 95 mL/min (>60); Globulin 3.4 g/dL (2.2-4.2); Glucose 79 mg/dL (74-106); Potassium 3.7 mmol/L (3.5-5.1); Prealbumin 16.1 mg/dL (20.0-40.0); Protein, Total 6.3 g/dL (6.4-8.2); Sodium Level 139 mmol/L (136-145)
== END ==
PROVIDERS: PCP Family Medicine; Referring Provider Family Medicine; Visit Provider Family Medicine
DX: R63.4 Abnormal weight loss (principal)
CPT/HCPCS: 36415; 71046; 80053; 84134

== ENCOUNTER → 2019-12-23 14:52 | Outpatient (CLI) | payer MEDICARE, SELFPAY ==
--- NOTE | 2019-12-23 14:58 | CT_ITS ---
STUDY: CT ABDOMEN AND PELVIS WITH CONTRAST REASON FOR EXAM: Female, 79 years old. POSSIBLE ABD MASS, HX COLON CA, PARTIAL COLECTOMY, BILAT HIP REPLACEMENT, VARSHA/BSO, BLADDER MESH, CHOLECYSTECTOMY RADIATION DOSAGE (If Supplied By Facility): CTDIvol = ( 12.13 ) mGy, DLP = ( 330.78 ) mGycm TECHNIQUE: Transaxial images were obtained from the dome of the diaphragm to the symphysis pubis without oral contrast. Oral and amp;amp; IV Readi-CAT and amp;amp; 75mL Isovue-300 was administered. Sagittal and coronal images were reconstructed. Individualized dose optimization techniques were used for this CT. COMPARISON: None. FINDINGS: The visualized lung bases are unremarkable. The visualized portions of the heart are within normal limits. 8 mm cyst in the caudate lobe of the liver. Mild intrahepatic biliary dilatation. Status post cholecystectomy. There is dilatation of the common bile duct. Normal spleen. Normal pancreas. Normal bilateral adrenal glands. Normal right kidney. Normal left kidney. Normal visualized stomach. Possible wall thickening of a proximal jejunal loop. Fecal retention in the colon. Prior colonic surgery. Calcified abdominal aorta with aneurysms. Upper abdominal aortic saccular aneurysm measures 3.2 cm . Infrarenal fusiform aneurysm measures 3.6 cm in diameter. Diffuse intraluminal thrombus is noted of the aorta and within the aneurysms. Normal inferior vena cava. Normal retroperitoneum. Limited visualization of the urinary bladder. Hip prosthesis bilaterally causing artifact limiting in the lower pelvic images. Normal abdominal wall. Mild scoliosis. Possible TARLOV cyst at the sacrum. CT/Abdomen/Pelvis WITH Contrast IMPRESSION: Abdominal aortic aneurysms. Possible wall thickening of a proximal jejunal loop. Colonic fecal retention. Mild scoliosis. Status post cholecystectomy with biliary dilatation. Small hepatic cyst. Electronically Signed: Rod Mckenzie DO at 20:36 EST Tel [phone], Service support ,
--- NOTE | 2019-12-23 15:15 | RAD_ITS ---
STUDY: X-RAY CHEST REASON FOR EXAM: Female, 79 years old. LOST A LARGE AMOUNT OF WEIGHT TECHNIQUE: Frontal and lateral views COMPARISON: 12/18/2019 FINDINGS: The lungs are hyperaerated. There is no demonstrated pleural abnormality. Normal size heart. Normal mediastinum and maddie. Normal visualized pulmonary arteries. Normal visualized aortic arch and descending thoracic aorta. Scoliosis and degenerative changes of the thoracic spine. Normal visualized ribs, clavicles, and shoulders. There is no demonstrated abnormality of the visualized soft tissue structures of the upper abdomen. RAD/Chest PA and Lateral IMPRESSION: Hyperaeration. Electronically Signed: Rod Mckenzie DO at 19:57 EST Tel [phone], Service support ,
== END ==
PROVIDERS: PCP Family Medicine; Referring Provider Family Medicine; Visit Provider Family Medicine
DX: R19.00 Intra-abdominal and pelvic swelling, mass and lump, unspecified site (principal); R63.4 Abnormal weight loss
CPT/HCPCS: 71046; 74177; Q9967; A4216

== ENCOUNTER 2019-12-24 08:22 | Emergency (ER) | payer MEDICARE, SELFPAY ==
[2019-12-24 08:23] VITALS: BP 95/47; PULSE 78; RESP 16; TEMP 35.9; O2SAT 97; BMI 15.6
--- NOTE | 2019-12-24 09:17 | ED.VIS.GEN ---
History of Present Illness Chief Complaint: General Illness Informant: Patient Narrative: Patient is an 79-year-old female who presents to the emergency department after her PCP had an outpatient CT scan of her abdomen and pelvis done. This showed an aortic thrombosis with aneurysms. He was told to come to the emergency department immediately. Patient states that she got the CT scan performed as she has not been able to eat very much over the past 1 to 2 months. She has been having a lot of investigation into this by her family doctor who ordered the CT scan. She denies any history of this before in the past. She does have a very distant history of DVTs which she was previously on warfarin for but she has been off for a few years now. Patient denies any abdominal pain. No chest pain or shortness of breath. She denies any leg swelling or calf pain. No loss of sensation or discoloration of extremities. No headache or neck pain. Denies any fevers or chills. Past Medical History - Allergies and Home Meds Allergies/Adverse Reactions: Allergies ibuprofen [From Motrin] Allergy (Verified 12/24/19 08:23) Angioedema Primary Care Physician: Carroll Lange MD [Primary Care Provider] - 3-5 Days Zenon Short MD [STAFF PHYSICIAN] - 5-7 Days Prior records reviewed: Yes Surgical History: cholecystectomy, colectomy - Partial., hysterectomy, total hip arthroplasty - 1990, 2015 Smoking Status: Current every day smoker - Family History Maternal Family History: Reports: No pertinent history Paternal Family History: Reports: No pertinent history Review of Systems All systems negative except as indicated General: Denies: Chills, Fever Eyes: Denies: Visual changes - bilaterally, Diplopia ENT: Denies: Rhinorrhea, Sore throat Cardiovascular: Denies: Chest pain Respiratory: Denies: Dyspnea Gastrointestinal: Denies: Abdominal pain, Nausea, Vomiting Genitourinary: Denies: Dysuria, Hematuria, Frequency Musculoskeletal: Denies: Back pain, Extremity Pain Skin: Denies: Rash, Wounds Neurological: Denies: Headache, Weakness, Numbness Physical Exam Vital Signs/Narrative: Vital Signs Temp Pulse Resp BP Pulse Ox 12/24/19 08:23 96.7 F L 78 16 95/47 L 97 Inital Vital Signs reviewed: Yes General: Well nourished, Well developed, No Acute Distress Head: Normocephalic, Atraumatic Eyes: Perrl, EOMI ENT: Moist mucous membranes, No rhinorrhea Neck: Supple, Nontender Cardiovascular: Regular rate, Regular rhythm, No murmurs Respiratory: No distress, CTA bilaterally, Chest nontender Abdomen: Soft, Nontender, Nondistended, Normal bowel sounds Back: Nontender, Normal Inspection Extremities: Nontender, No edema, - - 2+ radial pulse bilaterally. Good capillary refill of lower extremities. Skin: Normal color, No rash Neurological: Alert, Oriented x3, Cranial nerves II-XII grossly intact, Normal Strength, Normal Sensation Psychological: Normal affect, Normal Mood Diagnostic/Tx/Re-eval - Medical Decision Making Patient presents to the emergency department after she was found to have an aortic thrombus on outpatient CT scan. Upon arrival to the emergency department she has mildly low blood pressure but otherwise normal vitals. She is asymptomatic at this time. I spoke with the on-call vascular surgeon, Dr. Short, and discussed the CT scan findings. The aneurysms are very small and she has no signs of vascular occlusion with the aortic thrombus. He did not recommend any intervention or medications at this time. No anticoagulation indicated. I called and talked with the patient's PCP and let them know what the vascular surgeon I discussed. I had a long discussion with the patient and told her warning signs and symptoms for which to return to the emergency department including any discoloration of her legs, significant pain as if the blood clot propagated or embolized. She otherwise is to follow-up with her PCP and vascular surgeon. Patient's blood pressure did come up without any treatment. Did order some IV fluids but prior to obtaining her blood pressure responded well. Low blood pressures is better as there will be significant amount of pressure on the aortic wall. She does not have any symptoms of low blood pressure. Patient is very relieved at being told she is able to go home. At this time she is discharged home in stable condition. All questions answered. ED Disposition - Plan for ED Patient: Disposition: Home or Assisted Living Diagnosis: Aortic thrombus, Abdominal aortic aneurysm Instructions: ED Aneurysm Abdominal Aortic Stable Referrals: Carroll Lange MD [Primary Care Provider] - 3-5 Days Zenon Short MD [STAFF PHYSICIAN] - 5-7 Days
[2019-12-24 10:01] LABS: Absolute Lymphocyte Count 3.56 X10^3/uL (0.83-4.51); Absolute Neutrophil Count 5.3 X10^3/uL (2.0-7.7); Basophil# 0.14 X10^3/uL; Basophil% 1.4 % (0-1); Eosinophil# 0.34 X10^3/uL; Eosinophils% 3.3 % (0-5); Hematocrit 42.3 % (37-47); Hemoglobin 13.4 g/dL (12.0-15.0); Lymphocyte # 3.56 X10^3/ul (4.0); Lymphocyte % 35.1 % (19-41); Mean Corp Hgb Conc 31.7 g/dL (32-36); Mean Corpuscular Hgb 32.6 pg (27.0-32.0); Mean Corpuscular Volume 102.9 fL (81-99); Mean Platelet Vol. 11.1 fl (6.2-12.0); Monocyte# 0.77 X10^3/uL; Monocyte% 7.6 % (0-10); NRBC Flagged by Analyzer 0 % (0-5); Neutrophil # 5.31 X10^3/uL (2.7-7.7); Neutrophil % 52.3 % (47-70); Platelet Count 330 K/mm3 (150-450); RBC Distribution Width CV 14.7 % (11.6-14.6); RBC Distribution Width SD 55.8 fl (35.1-43.9); Red Blood Count 4.11 M/mm3 (4.2-5.4); White Blood Count 10.2 K/mm3 (4.4-11.0)
--- NOTE | 2019-12-24 10:08 | NURSING ---
DR GUERRERO PAGED
[2019-12-24 10:19] VITALS: BP 102/72; PULSE 56; RESP 14; O2SAT 97
[2019-12-24 10:23] LABS: Anion Gap 5 (5-15); BUN 7 mg/dL (7-18); BUN/Creat Ratio 8.6 RATIO (10-20); Calcium,Total 8.8 mg/dL (8.5-10.1); Chloride 105 mmol/L (98-107); Creatinine, Serum 0.82 mg/dL (0.55-1.02); EST Glomerular Filtration Rate 72 mL/min (>60); Est Glom Filt Rate - Afr Amer 87 mL/min (>60); Estimated Creatinine Clearance 35.66 ml/min; Glucose 74 mg/dL (74-106); Potassium 4.5 mmol/L (3.5-5.1); Sodium Level 140 mmol/L (136-145)
[2019-12-24 10:51] VITALS: BP 106/74; PULSE 81; RESP 16; O2SAT 100
--- NOTE | 2019-12-24 10:53 | ED.RN ---
THIS NURSE REVIEWED D/C INSTRUCTIONS WITH PT. PT VERBALIZED UNDERSTANDING OF INSTRUCTIONS. IV D/C. IV CATHETER INTACT. PT TOLERATED WELL. PT DENIES FURTHER NEEDS OR QUESTIONS AT THIS TIME.
== END 2019-12-24 10:55 | disposition home or self-care (01) ==
PROVIDERS: Emergency Provider Emergency Medicine; PCP Family Medicine
DX: I71.4 Abdominal aortic aneurysm, without rupture (principal); F17.200 Nicotine dependence, unspecified, uncomplicated; Z86.718 Personal history of other venous thrombosis and embolism; Z79.01 Long term (current) use of anticoagulants
CPT/HCPCS: 80048; 84484; 85025; 99284; A4216

== ENCOUNTER → 2020-05-27 11:26 | Outpatient (CLI) | payer MEDICARE, SELFPAY ==
[2020-01-11 14:38] VITALS: BMI 16.0
[2020-05-27 16:23] LABS: ALB/GLOB Ratio 0.8 RATIO (0.9-2.4); AST(SGOT) 22 U/L (15-37); Alanine Aminotransfer ALT/SGPT 18 U/L (13-56); Albumin, Serum 3.1 g/dL (3.2-5.0); Alkaline Phosphatase 113 U/L (45-117); Anion Gap 5 (5-15); BUN 12 mg/dL (7-18); BUN/Creat Ratio 14.8 RATIO (10-20); Calcium,Total 8.9 mg/dL (8.5-10.1); Chloride 107 mmol/L (98-107); Creatinine, Serum 0.81 mg/dL (0.55-1.02); EST Glomerular Filtration Rate 72 mL/min (>60); Est Glom Filt Rate - Afr Amer 87 mL/min (>60); Glucose 72 mg/dL (74-106); Magnesium 2.1 mg/dL (1.6-2.6); Potassium 3.2 mmol/L (3.5-5.1); Prealbumin 13.8 mg/dL (20.0-40.0); Protein, Total 7.1 g/dL (6.4-8.2); Sodium Level 141 mmol/L (136-145)
== END ==
PROVIDERS: PCP Family Medicine; Referring Provider Family Medicine; Visit Provider Family Medicine
DX: R19.7 Diarrhea, unspecified (principal); E46 Unspecified protein-calorie malnutrition
CPT/HCPCS: 36415; 80053; 83735; 84134

== ENCOUNTER → 2020-05-28 09:17 | Outpatient (CLI) | payer MEDICARE, SELFPAY ==
[2020-01-11 14:38] VITALS: BMI 16.0
[2020-06-01 20:45] LABS: Fats, Neutral Normal (.); Fats, Total Normal (.)
== END ==
PROVIDERS: PCP Family Medicine; Referring Provider Family Medicine; Visit Provider Family Medicine
DX: R19.7 Diarrhea, unspecified (principal); E46 Unspecified protein-calorie malnutrition
CPT/HCPCS: 82705; 83630; 87177; 87209; 87493; 87506

== ENCOUNTER 2020-11-14 16:46 | Emergency (ER) | payer MEDICARE, SELFPAY ==
[2020-11-14 16:47] VITALS: BP 83/62; PULSE 84; RESP 16; TEMP 36.8; O2SAT 97; BMI 16.2
--- NOTE | 2020-11-14 17:10 | EKG12_ITS ---
Test Reason : WEAKNESS Blood Pressure : / mmHG Vent. Rate : 079 BPM Atrial Rate : 079 BPM P-R Int : 170 ms QRS Dur : 078 ms QT Int : 220 ms P-R-T Axes : 074 -57 126 degrees QTc Int : 252 ms Normal sinus rhythm Left anterior fascicular block Poor R wave progression Abnormal ECG Confirmed by SANTIAGO CHAN, CHRISTINE ([id number]), editorial cartoonist TERELL GASTELUM ([id number]) on 11/15/2020 8:37:37 AM Referred By: COURTNEY Confirmed By:CHRISTINE HENDERSON MD
[2020-11-14 17:48] LABS: Absolute Lymphocyte Count 1.61 X10^3/uL (0.83-4.51); Absolute Neutrophil Count 9.1 X10^3/uL (2.0-7.7); Basophil# 0.06 X10^3/uL; Basophil% 0.5 % (0-1); Eosinophil# 0.05 X10^3/uL; Eosinophils% 0.4 % (0-5); Hematocrit 43.7 % (37-47); Hemoglobin 14.7 g/dL (12.0-15.0); Lymphocyte # 1.61 X10^3/ul (0.83-4.51); Lymphocyte % 13.6 % (19-41); Mean Corp Hgb Conc 33.6 g/dL (32-36); Mean Corpuscular Hgb 31.4 pg (27.0-32.0); Mean Corpuscular Volume 93.4 fL (81-99); Mean Platelet Vol. 10.3 fl (6.2-12.0); Monocyte# 0.95 X10^3/uL; Monocyte% 8.1 % (0-10); NRBC Flagged by Analyzer 0 % (0-5); Neutrophil # 9.09 X10^3/uL (2.7-7.7); Neutrophil % 77.1 % (47-70); Platelet Count 359 K/mm3 (150-450); RBC Distribution Width CV 12.7 % (11.6-14.6); RBC Distribution Width SD 43.8 fl (35.1-43.9); Red Blood Count 4.68 M/mm3 (4.2-5.4); White Blood Count 11.8 K/mm3 (4.4-11.0)
--- NOTE | 2020-11-14 18:00 | RAD_ITS ---
INDICATION: WEAKNESS EXAMINATION/TECHNIQUE: X-RAY - XR Chest 1 View COMPARISON: 12/23/2019. FINDINGS: Hyperinflated lungs. Chronic lung changes. No acute lung findings. Tortuous and calcified thoracic aorta. The heart is not enlarged. No pleural effusion or pneumothorax. Degenerative changes of the thoracic spine. Dextroscoliosis. RAD/Chest 1 View IMPRESSION: No acute radiographic abnormalities. COPD. Electronically Signed: Cezar Espinosa MD at 18:32 EDT Tel , Service support ,
[2020-11-14 18:31] LABS: ALB/GLOB Ratio 0.6 RATIO (0.9-2.4); AST(SGOT) 26 U/L (15-37); Alanine Aminotransfer ALT/SGPT 19 U/L (13-56); Albumin, Serum 2.9 g/dL (3.2-5.0); Alkaline Phosphatase 131 U/L (45-117); Anion Gap 9 (5-15); BUN 20 mg/dL (7-18); BUN/Creat Ratio 17.4 RATIO (10-20); Calcium,Total 10.3 mg/dL (8.5-10.1); Chloride 99 mmol/L (98-107); Creatinine, Serum 1.15 mg/dL (0.55-1.02); EST Glomerular Filtration Rate 48 mL/min (>60); Est Glom Filt Rate - Afr Amer 58 mL/min (>60); Globulin 4.8 g/dL (2.2-4.2); Glucose 138 mg/dL (74-106); Potassium 2.5 mmol/L (3.5-5.1); Protein, Total 7.7 g/dL (6.4-8.2); Sodium Level 138 mmol/L (136-145)
--- NOTE | 2020-11-14 19:28 | EX.ED.DYSGE1 ---
HPI History of Present Illness Chief Complaint: Weakness Informant: patient Narrative Narrative: Presents with progressive weakness over the past week. No falls or injuries. She states diarrhea for the past week. States when she eats it comes right through her. No recent antibiotics. No abdominal pain. No fevers. Chronic cough due to smoking history. Denies urinary symptoms. Patient states she is taking care of herself at home. Denies any bloody stools. No nausea or vomiting. Prior similar symptoms: Yes PFSH PFSH Medical History Abdominal aortic aneurysm Acute cystitis BERONICA (acute kidney injury) Anxiety Depression E. coli UTI Fatigue GERD (gastroesophageal reflux disease) History of DVT (deep vein thrombosis) Hyperlipidemia Hypokalemia Microscopic colitis Osteoarthritis Osteoporosis Postoperative anemia Small bowel obstruction Tobacco abuse Tremor Home Medications cyanocobalamin (vitamin B-12) 500 mcg SL DAILY 12/10/14 [History Last Taken 12/02/17] multivitamin 1 tab PO DAILY 12/10/14 [History Last Taken 12/03/17] calcium carbonate 600 mg PO DAILY 12/04/17 [History Last Taken 12/03/17] Escitalopram Oxalate 1 tab PO DAILY 02/16/19 [History Last Taken Unknown] acetaminophen 325 mg tablet 325 mg PO Q6H PRN tab 01/11/20 [History Last Taken Unknown] alendronate 70 mg tablet 70 mg PO QWEEK tab 01/11/20 [History Last Taken Unknown] lactobacillus combination no.8 3 billion cell capsule 3,000 mmu cells PO DAILY 01/11/20 [History Last Taken Unknown] mirtazapine 15 mg tablet 15 mg PO DAILY tab 01/11/20 [History Last Taken Unknown] budesonide 9 mg PO DAILY 11/14/20 [History Last Taken Unknown] melatonin 5 mg PO QHS 11/14/20 [History Last Taken Unknown] nitrofurantoin monohyd/m-cryst [Macrobid] 100 mg PO BID #10 cap 11/14/20 [Rx Last Taken Unknown] potassium bicarb-citric acid [Effer-K] 25 meq PO DAILY #7 ea 11/14/20 [Rx Last Taken Unknown] Allergy/AdvReac Type Severity Reaction Status Date / Time ibuprofen [From Motrin] Allergy Mild Angioedema, Verified 11/14/20 16:46 rash Family History Father No problems noted. Surgical History History of bilateral hip replacements History of bladder suspension procedure History of colectomy History of colonoscopy History of hysterectomy History of tubal ligation Social History Smoking Status: Current every day smoker tobacco type: cigarettes ROS ROS ED Constitutional Constitutional ED: Denies chills, fever(s) or sweats Eyes Eyes: Denies change in vision ENT ENT ED: Denies dysphagia or sore throat Cardiovascular Cardiovascular: Denies chest pain, leg edema, palpitations or racing heartbeat Respiratory/Chest Respiratory/Chest: Reports cough; Denies dyspnea or dyspnea on exertion Gastrointestinal Gastrointestinal: Reports diarrhea; Denies abdominal pain, nausea or vomiting Genitourinary Genitourinary ED: Denies dysuria, hematuria or urinary frequency Musculoskeletal Musculoskeletal: Denies back pain, extremity pain or neck pain Integumentary Denies rash or wounds Neurologic Neurologic: Reports weakness; Denies headache(s) or paresthesias EXAM Physical Exam Const Vital Signs: 11/14/20 16:47 11/14/20 18:32 11/14/20 20:05 Temperature 98.2 F Temperature Source Temporal Pulse Rate 84 65 Respiratory Rate 16 16 Respiratory Effort Normal Non-Labored Respiratory Pattern Normal Blood Pressure 83/62 L 125/76 H Blood Pressure Mean 69 92 Pulse Ox 97 Oxygen Delivery Method Room Air 11/14/20 21:27 Temperature Temperature Source Pulse Rate 72 Respiratory Rate 18 Respiratory Effort Respiratory Pattern Blood Pressure 122/74 H Blood Pressure Mean Pulse Ox 100 Oxygen Delivery Method Positive well nourished and well developed General Appearance ED: well developed and NAD HEENT Reports dry mucous membranes normocephalic and atraumatic Mouth ED: Yes dry mucous membranes Mouth: dry mucous membranes Eyes PERRL, EOMs intact bilaterally and conjunctivae normal General Eye ED: Yes normal appearance of both eyes Neck no lymphadenopathy and supple General: Negative for tenderness Chest Wall Chest: Negative for tenderness Resp normal respiratory effort and normal air movement Effort and Inspection: symmetric chest movement; Negative for respiratory distress Cardio regular rate, regular rhythm and no murmurs Peripheral Pulses: pulses 2+ throughout GI normal to inspection, nondistended, normoactive bowel sounds and non-tender Palpation: Negative for guarding or rebound tenderness present Back/Spine no CVA tenderness and no thoracic nor lumbar tenderness Extremity normal to inspection General Extremety ED: Negative for edema or tenderness General Extremity: Negative for edema Neuro oriented x3 and no sensory deficits noted Sensorium / Orientation: awake and alert Skin no rashes or lesions noted and no wounds MDM MDM MDM Narrative Medical decision making narrative: EKG obtained due to weakness was normal. Labs initially from triage white count 11 hemoglobin 14. Electrolytes with a potassium of 2.5. Creatinine 1.15. I did add a magnesium normal at 1.7. Consistent with low potassium with her diarrhea history. She has no C. difficile risk factors. She is tolerating oral intake. She is given 60 mEq of oral potassium. I did check a urine noted signs of infection culture sent. With her weakness will start antibiotics of Macrobid. She is ambulating to the restroom. She request to be discharged home. She did have transient hypotension on arrival likely from dehydration. Blood pressure improved on reevaluation. She will continue oral hydration at home. We will continue potassium for additional 7 days. She will follow-up as an outpatient. Return precautions discussed. Lab Data Attestation: I reviewed the patient's lab results. Labs: Laboratory Results - last 24 hr 11/14/20 11/14/20 11/14/20 17:35 17:35 17:35 WBC 11.8 H RBC 4.68 Hgb 14.7 Hct 43.7 MCV 93.4 MCH 31.4 MCHC 33.6 RDW Std Deviation 43.8 RDW Coeff of Tracy 12.7 Plt Count 359 MPV 10.3 Immature Gran % (Auto) 0.300 Neut % (Auto) 77.1 H Lymph % (Auto) 13.6 L Clayton % (Auto) 8.1 Eos % (Auto) 0.4 Baso % (Auto) 0.5 Absolute Neuts (auto) 9.1 H Absolute Lymphs (auto) 1.61 Nucleated RBC % 0 Sodium 138 Potassium 2.5 L* Chloride 99 Carbon Dioxide 30.0 Anion Gap 9 BUN 20 H Creatinine 1.15 H Estim Creat Clear Calc 26.10 Est GFR (MDRD) Af Amer 58 L Est GFR (MDRD) Non-Af 48 L BUN/Creatinine Ratio 17.4 Glucose 138 H Calcium 10.3 H Magnesium 1.7 Total Bilirubin 0.30 AST 26 ALT 19 Alkaline Phosphatase 131 H Total Protein 7.7 Albumin 2.9 L Globulin 4.8 H Albumin/Globulin Ratio 0.6 L Urine Color Urine Clarity Urine pH Ur Specific [place] Urine Protein Urine Glucose (UA) Urine Ketones Urine Occult Blood Urine Nitrite Urine Bilirubin Urine Urobilinogen Ur Leukocyte Esterase Urine RBC Urine WBC Ur Squamous Epith Cells Ur Transition Epith Cell Calcium Oxalate Crystal Urine Bacteria Hyaline Casts Urine Mucus 11/14/20 19:50 WBC RBC Hgb Hct MCV MCH MCHC RDW Std Deviation RDW Coeff of Tracy Plt Count MPV Immature Gran % (Auto) Neut % (Auto) Lymph % (Auto) Clayton % (Auto) Eos % (Auto) Baso % (Auto) Absolute Neuts (auto) Absolute Lymphs (auto) Nucleated RBC % Sodium Potassium Chloride Carbon Dioxide Anion Gap BUN Creatinine Estim Creat Clear Calc Est GFR (MDRD) Af Amer Est GFR (MDRD) Non-Af BUN/Creatinine Ratio Glucose Calcium Magnesium Total Bilirubin AST ALT Alkaline Phosphatase Total Protein Albumin Globulin Albumin/Globulin Ratio Urine Color Yellow Urine Clarity Cloudy Urine pH 6.0 Ur Specific [place] 1.020 Urine Protein 30 H Urine Glucose (UA) Normal Urine Ketones Negative Urine Occult Blood 50 H Urine Nitrite Negative Urine Bilirubin Negative Urine Urobilinogen Normal Ur Leukocyte Esterase 500 H Urine RBC 0 SEEN Urine WBC 25-50 SEEN Ur Squamous Epith Cells 0-5 SEEN Ur Transition Epith Cell 0-5 SEEN Calcium Oxalate Crystal 1+ Urine Bacteria 1+ Hyaline Casts 10-25 SEEN Urine Mucus 0 SEEN Radiography Chest X-Ray - ED: 1 View, Read by ED Physician and Read by Radiologist Diagnostic Testing: Radiology Impression Chest X-Ray 11/14/20 18:00 IMPRESSION: No acute radiographic abnormalities. COPD. Electronically Signed: Cezar Espinosa MD at 18:32 EDT Tel , Service support , EKG Initial EKG: Attestation: I personally reviewed and interpreted this EKG as follows: Comments: Sinus rate of 79, no ST or T wave changes. Discharge Plan Triage Chief Complaint: Weakness ED Provider: Federico Gordon Dx/Rx/DC Orders Clinical Impression: Acute UTI, Diarrhea, Weakness, Acute hypokalemia Instructions: Urinary Tract Infections in Women, ED Diet for Vomiting or ..., ED Hypokalemia Prescriptions: New potassium bicarb-citric acid [Effer-K] 25 mEq tablet, effervescent 25 meq PO DAILY Qty: 7 RF: 0 nitrofurantoin monohyd/m-cryst [Macrobid] 100 mg capsule 100 mg PO BID Qty: 10 RF: 0 No Action alendronate 70 mg tablet 70 mg PO QWEEK RF: 0 Adult Probiotic 3 billion cell capsule 3,000 mmu cells PO DAILY RF: 0 acetaminophen [Tylenol] 325 mg tablet 325 mg PO Q6H PRN (Reason: Pain) RF: 0 mirtazapine 15 mg tablet 15 mg PO DAILY RF: 0 multivitamin 1 TABLET tablet 1 tab PO DAILY RF: 0 cyanocobalamin (vitamin B-12) 500 MCG tablet, sublingual 500 mcg SL DAILY RF: 0 calcium carbonate 600 MG tablet 600 mg PO DAILY RF: 0 Escitalopram Oxalate 20 MG tablet 1 tab PO DAILY RF: 0 budesonide 3 mg capsule,delayed,extend.release 9 mg PO DAILY RF: 0 melatonin 5 mg Tablet 5 mg PO QHS RF: 0 Primary Care Provider: Carroll Lange Referrals: Carroll Lange MD [Primary Care Provider] - 3-5 Days Disposition Disposition: Home, Self Care Discharge Date/Time: 11/14/20 21:28
[2020-11-14] MEDS: 0.9% Normal Saline 1,000 ML 1000 ML IV (19:45)
[2020-11-14] MEDS: Potassium Chloride Oral Tablet 20 MEQ 60 MEQ PO (19:45)
[2020-11-14 19:53] LABS: Magnesium 1.7 mg/dL (1.6-2.6)
[2020-11-14 20:05] VITALS: BP 125/76; PULSE 65; RESP 16
[2020-11-14 20:18] LABS: Mucous, Urine 0 SEEN /hpf (<or=2+); Red Blood Cells-Urine 0 SEEN /hpf (0-5)
[2020-11-14 20:22] LABS: Color, Urine Yellow (Yellow); Glucose, Dipstick Normal (Normal); Ketone-Dipstick Negative (Negative); Leukocyte Esterase-Dipstick 500 /ul (Negative); Nitrite-Dipstick Negative (Negative); Occult Blood-Urine 50 /ul (Negative); Protein-Dipstick 30 mg/dl (Negative); Urine Bilirubin Dipstick Negative (Negative); Urine Clarity Cloudy (Clear); Urine Urobilinogen Normal (Normal)
[2020-11-14 20:42] LABS: Hyaline Cast 10-25 SEEN /lpf (0-5)
[2020-11-14 20:43] LABS: Squamous Epithelial Cells - UA 0-5 SEEN /hpf (5-10); Transitional Epithelial - Ur 0-5 SEEN /hpf (0-5); White Blood Cells 25-50 SEEN /hpf (0-5)
[2020-11-14 20:44] LABS: Bacteria 1+ /hpf (None Seen); Calcium Oxalate Crystals Ur 1+ /hpf (<or=2+)
[2020-11-14] MEDS: Nitrofurantoin Macrocrystals 100 MG Capsule PO (21:26)
[2020-11-14 21:27] VITALS: BP 122/74; PULSE 72; RESP 18; O2SAT 100
== END 2020-11-14 21:28 | disposition home or self-care (01) ==
PROVIDERS: Emergency Provider Emergency Medicine; PCP Family Medicine
DX: N39.0 Urinary tract infection, site not specified (principal); R19.7 Diarrhea, unspecified; R53.1 Weakness; E87.6 Hypokalemia; F17.210 Nicotine dependence, cigarettes, uncomplicated; F32.9 Major depressive disorder, single episode, unspecified; Z86.718 Personal history of other venous thrombosis and embolism; Z79.899 Other long term (current) drug therapy
CPT/HCPCS: 71045; 80053; 81001; 83735; 85025; 87077; 87086; 87088; 87186; 93005; 96360; 96361; 99285; J7030; A4216

== ENCOUNTER → 2020-11-30 14:36 | Outpatient (CLI) | payer MEDICARE, SELFPAY ==
--- NOTE | 2020-11-30 14:42 | RAD_ITS ---
STUDY: X-RAY - LEFT KNEE REASON FOR EXAM: Female, 80 years old. Knee pain. TECHNIQUE: 3 view(s) of the knee. COMPARISON: None. FINDINGS: Osteopenia. Small superior patellar spur. Mild arthrosis of the medial compartment. Normal lateral and patellofemoral compartments. The soft tissue structures are unremarkable. RAD/Knee 3 Views IMPRESSION: Osteopenia with small superior patellar spur. Mild medial compartmental arthrosis. No other abnormality. Electronically Signed: Marques Mcdonald MD at 10:48 EDT , Service support ,
--- NOTE | 2020-11-30 14:43 | RAD_ITS ---
STUDY: X-RAY - RIGHT KNEE REASON FOR EXAM: Female, 80 years old. Knee pain. TECHNIQUE: 3 view(s) of the knee. COMPARISON: None. FINDINGS: Osteopenia. Mild medial compartmental arthrosis. Mild arthrosis of the lateral compartment. Mild patellofemoral compartmental arthrosis. The soft tissue structures are unremarkable. RAD/Knee 3 Views IMPRESSION: Osteopenia with mild tricompartmental arthrosis. No acute abnormality. Electronically Signed: Marques Mcdonald MD at 10:48 EDT , Service support ,
[2020-11-30 17:56] LABS: Vitamin D,25 Hydroxy 64.4 ng/mL
[2020-11-30 18:08] LABS: ALB/GLOB Ratio 0.6 RATIO (0.9-2.4); AST(SGOT) 26 U/L (15-37); Alanine Aminotransfer ALT/SGPT 22 U/L (13-56); Albumin, Serum 2.5 g/dL (3.2-5.0); Alkaline Phosphatase 109 U/L (45-117); Anion Gap 7 (5-15); BUN 9 mg/dL (7-18); BUN/Creat Ratio 11.7 RATIO (10-20); Calcium,Total 9.5 mg/dL (8.5-10.1); Chloride 98 mmol/L (98-107); Creatinine, Serum 0.77 mg/dL (0.55-1.02); EST Glomerular Filtration Rate 77 mL/min (>60); Est Glom Filt Rate - Afr Amer 93 mL/min (>60); Globulin 4.1 g/dL (2.2-4.2); Glucose 77 mg/dL (74-106); Potassium 2.8 mmol/L (3.5-5.1); Prealbumin 15.7 mg/dL (20.0-40.0); Protein, Total 6.6 g/dL (6.4-8.2); Sodium Level 140 mmol/L (136-145)
== END ==
PROVIDERS: PCP Family Medicine; Referring Provider Family Medicine; Visit Provider Family Medicine
DX: M25.569 Pain in unspecified knee (principal); M81.0 Age-related osteoporosis without current pathological fracture; E46 Unspecified protein-calorie malnutrition
CPT/HCPCS: 36415; 73562; 80053; 82306; 84134

== ENCOUNTER → 2020-12-05 10:26 | Outpatient (CLI) | payer MEDICARE, SELFPAY ==
[2020-12-05 12:46] LABS: Potassium 3.7 mmol/L (3.5-5.1)
== END ==
PROVIDERS: PCP Family Medicine; Referring Provider Family Medicine; Visit Provider Family Medicine
DX: E87.6 Hypokalemia (principal)
CPT/HCPCS: 36415; 84132

== ENCOUNTER 2021-02-15 11:11 | Outpatient (CLI) | payer MEDICARE, SELFPAY ==
[2021-02-15 11:18] LABS: Bacteria 0 SEEN /hpf (None Seen); Squamous Epithelial Cells - UA 0 SEEN /hpf (5-10)
[2021-02-15 12:26] LABS: Absolute Lymphocyte Count 1.57 X10^3/uL (0.83-4.51); Absolute Neutrophil Count 10.8 X10^3/uL (2.0-7.7); Basophil% 0.7 % (0-1); Eosinophil# 0.07 X10^3/uL; Eosinophils% 0.5 % (0-5); Lymphocyte # 1.57 X10^3/ul (0.83-4.51); Lymphocyte % 11.8 % (19-41); Mean Corp Hgb Conc 31.7 g/dL (32-36); Mean Corpuscular Hgb 31.2 pg (27.0-32.0); Mean Corpuscular Volume 98.3 fL (81-99); Mean Platelet Vol. 10.6 fl (6.2-12.0); Monocyte# 0.74 X10^3/uL; Monocyte% 5.5 % (0-10); NRBC Flagged by Analyzer 0 % (0-5); Neutrophil # 10.81 X10^3/uL (2.7-7.7); Platelet Count 386 K/mm3 (150-450); RBC Distribution Width CV 13.5 % (11.6-14.6); RBC Distribution Width SD 49.1 fl (35.1-43.9); Red Blood Count 4.17 M/mm3 (4.2-5.4); White Blood Count 13.4 K/mm3 (4.4-11.0)
[2021-02-15 12:52] LABS: Vitamin B12 > 2000 pg/mL (211-911)
[2021-02-15 12:54] LABS: ALB/GLOB Ratio 0.6 RATIO (0.9-2.4); AST(SGOT) 31 U/L (15-37); Alanine Aminotransfer ALT/SGPT 30 U/L (13-56); Albumin, Serum 2.7 g/dL (3.2-5.0); Alkaline Phosphatase 127 U/L (45-117); Anion Gap 5 (5-15); BUN 15 mg/dL (7-18); Chloride 106 mmol/L (98-107); Creatinine, Serum 0.75 mg/dL (0.55-1.02); EST Glomerular Filtration Rate 79 mL/min (>60); Est Glom Filt Rate - Afr Amer 95 mL/min (>60); Globulin 4.3 g/dL (2.2-4.2); Glucose 100 mg/dL (74-106); Potassium 3.4 mmol/L (3.5-5.1); Prealbumin 19.1 mg/dL (20.0-40.0); Sodium Level 139 mmol/L (136-145); Thyroid Stim Hormone (TSH) 1.26 uIU/mL (0.358-3.74)
[2021-02-15 15:47] LABS: Color, Urine Yellow (Yellow); Glucose, Dipstick Normal (Normal); Ketone-Dipstick 5 mg/dl (Negative); Leukocyte Esterase-Dipstick 500 /ul (Negative); Nitrite-Dipstick Negative (Negative); Occult Blood-Urine 25 /ul (Negative); Protein-Dipstick 15 mg/dl (Negative); Urine Bilirubin Dipstick Negative (Negative); Urine Clarity Clear (Clear); Urine Urobilinogen Normal (Normal)
[2021-02-15 15:59] LABS: Calcium Oxalate Crystals Ur 1+ /hpf (<or=2+)
[2021-02-15 16:00] LABS: Mucous, Urine RARE /hpf (<or=2+); Red Blood Cells-Urine 0-5 SEEN /hpf (0-5); White Blood Cells 10-25 SEEN /hpf (0-5)
== END 2021-02-15 23:59 | disposition short-term general hospital (02) ==
PROVIDERS: PCP Family Medicine; Referring Provider Family Medicine; Visit Provider Family Medicine
DX: R41.3 Other amnesia (principal); E46 Unspecified protein-calorie malnutrition; Z72.0 Tobacco use
CPT/HCPCS: 36415; 80053; 81001; 82607; 84134; 84443; 85025; 87086; 87088

== ENCOUNTER 2021-03-15 14:00 | Outpatient (CLI) | payer MEDICARE, SELFPAY ==
[2021-03-15 16:07] LABS: ALB/GLOB Ratio 0.7 RATIO (0.9-2.4); AST(SGOT) 25 U/L (15-37); Alanine Aminotransfer ALT/SGPT 18 U/L (13-56); Albumin, Serum 2.7 g/dL (3.2-5.0); Alkaline Phosphatase 182 U/L (45-117); Anion Gap 10 (5-15); BUN 11 mg/dL (7-18); BUN/Creat Ratio 13.3 RATIO (10-20); Calcium,Total 9.1 mg/dL (8.5-10.1); Chloride 101 mmol/L (98-107); Creatinine, Serum 0.83 mg/dL (0.55-1.02); EST Glomerular Filtration Rate 70 mL/min (>60); Est Glom Filt Rate - Afr Amer 85 mL/min (>60); Glucose 88 mg/dL (74-106); Magnesium 2.1 mg/dL (1.6-2.6); Potassium 3.6 mmol/L (3.5-5.1); Protein, Total 6.7 g/dL (6.4-8.2); Sodium Level 137 mmol/L (136-145)
[2021-03-18 22:43] LABS: Fats, Neutral Normal (.); Fats, Total Normal (.)
== END 2021-03-15 23:59 | disposition short-term general hospital (02) ==
LOC: MFPLAB 14:05
PROVIDERS: PCP Family Medicine; Referring Provider Family Medicine; Visit Provider Family Medicine
DX: R19.7 Diarrhea, unspecified (principal)
CPT/HCPCS: 36415; 80053; 82705; 83630; 83735; 87177; 87209; 87493; 87506

== ENCOUNTER 2021-03-17 11:03 | Observation (INO) | payer MEDICARE, SELFPAY ==
[2021-03-17 11:05] VITALS: BP 93/67; PULSE 82; RESP 14; TEMP 35.8; O2SAT 100; BMI 16.5
[2021-03-17 11:14] VITALS: BMI 14.6
--- NOTE | 2021-03-17 11:32 | CT_ITS ---
STUDY: CT ABDOMEN AND PELVIS WITH CONTRAST REASON FOR EXAM: Female, 81 years old. Abdominal pain. Diarrhea. RADIATION DOSAGE (If Supplied By Facility): CTDIvol = ( 19.78 ) mGy, DLP = ( 288.47 ) mGycm TECHNIQUE: Transaxial images were obtained from the dome of the diaphragm to the symphysis pubis without oral contrast. IV 75mL Isovue-370 was administered. Sagittal and coronal images were reconstructed. Individualized dose optimization techniques were used for this CT. COMPARISON: Comparison is made with prior study dated 12/23/2019. FINDINGS: Nodular infiltrates are seen in the lingular segment of the left upper lobe as well as in the medial aspect of the right middle lobe. There is tortuosity and ectasia of the descending thoracic aorta. There is evidence of aneurysmal dilatation of the proximal abdominal and distal thoracic aorta with a transverse dimension of 4.1 cm. Mural thrombus is seen. This has increased in size as compared to prior study. Coronary artery calcification. Normal liver. There are surgical clips in the gallbladder fossa consistent with a prior cholecystectomy. Normal spleen. There is diffuse atrophy of the pancreas. Normal bilateral adrenal glands. Stable small right renal cysts. Stable small left renal cysts. There is a small hiatal hernia. There is an abnormal appearance of the dilated small bowel loop with the fluid and thickened avendano with inflammatory changes in the distal ileum. The patient is status post right hemicolectomy. There is evidence of colitis involving the descending colon at the level of the splenic flexure down to the rectum. There is non-visualization of the appendix. There is diffuse atherosclerotic calcification of the abdominal aorta,. Fusiform infrarenal abdominal aortic aneurysm with a transverse dimension of 3.7 cm. Mural thrombus is seen. Normal inferior vena cava. Normal retroperitoneum. Normal urinary bladder. There is absence of the uterus consistent with a prior hysterectomy. Normal abdominal wall. Disc space narrowing and disc degeneration at the L5-S1 level. Prior bilateral hip replacements. CT/Abdomen/Pelvis W IV Cont ONLY IMPRESSION: Status post right hemicolectomy. There is evidence of colitis involving the distal portion of the transverse colon down to the rectum. Abnormally dilated and thickened wall with inflammatory changes of a distal ileal loops. This is suggestive of Crohn''s disease. Clinical correlation is recommended. 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 Infrarenal abdominal aortic aneurysm with mural thrombus. Electronically Signed: Chucky Goodson MD at 13:24 EST ,
--- NOTE | 2021-03-17 11:37 | EDS_ITS ---
HPI HPI - GI History of Present Illness Chief Complaint: Diarrhea Narrative Narrative: 81-year-old female presenting with diarrhea. She states has had this for about 10 days to 2 weeks. She states that is a lot of brown stool. She denies black or bloody stool. Patient states that every time she eats she has diarrhea. She denies nausea or vomiting. She not had fever or chills. Patient states that she was seen by her PCP Dr. Lange a few days ago and had stool studies performed that she has not returned a result. Patient states he had a urinalysis done as well but denies any urinary symptoms. Patient does complain of some mild left-sided abdominal pain. [facility] Medical History Abdominal aortic aneurysm Acute cystitis BERONICA (acute kidney injury) Anxiety Depression E. coli UTI Fatigue GERD (gastroesophageal reflux disease) History of DVT (deep vein thrombosis) Hyperlipidemia Hypokalemia Microscopic colitis Osteoarthritis Osteoporosis Postoperative anemia Small bowel obstruction Tobacco abuse Tremor Home Medications cyanocobalamin (vitamin B-12) 500 mcg SL DAILY 12/10/14 [History Last Taken 03/16/21] multivitamin 1 tab PO DAILY 12/10/14 [History Last Taken 03/16/21] calcium carbonate 600 mg PO DAILY 12/04/17 [History Last Taken 03/16/21] alendronate 70 mg tablet 70 mg PO MCPHERSON tab 01/11/20 [History Last Taken 03/05/21] lactobacillus combination no.8 3 billion cell capsule 3,000 mmu cells PO DAILY 01/11/20 [History Last Taken 03/16/21] budesonide 9 mg PO DAILY 11/14/20 [History Last Taken 03/16/21] melatonin 5 mg PO QHS 11/14/20 [History Last Taken 03/16/21] mirtazapine 30 mg PO QHS 03/17/21 [History Last Taken 03/16/21] potassium chloride 40 meq PO DAILY 03/17/21 [History Last Taken 03/16/21] Allergy/AdvReac Type Severity Reaction Status Date / Time ibuprofen [From Motrin] Allergy Mild Angioedema, Verified 03/17/21 11:05 rash Family History Father No problems noted. Surgical History History of bilateral hip replacements History of bladder suspension procedure History of colectomy History of colonoscopy History of hysterectomy History of tubal ligation Social History Smoking Status: Current every day smoker tobacco type: cigarettes ROS ROS ED Constitutional Constitutional ED: Denies chills or fever(s) ENT ENT ED: Denies rhinorrhea or sore throat Cardiovascular Cardiovascular: Denies chest pain or palpitations Respiratory/Chest Respiratory/Chest: Denies cough or dyspnea Gastrointestinal Gastrointestinal: Reports abdominal pain and diarrhea Genitourinary Genitourinary ED: Denies dysuria or hematuria Musculoskeletal Musculoskeletal: Denies arthralgias or myalgias Integumentary Denies rash Neurologic Neurologic: Denies headache(s) or paresthesias Psychiatric Psychiatric: Denies anxiety or depression EXAM Physical Exam Const Vital Signs: 03/17/21 11:05 03/17/21 13:13 03/17/21 14:51 Temperature 96.5 F L 98.4 F Temperature Source Temporal Temporal Pulse Rate 82 70 70 Respiratory Rate 14 18 Blood Pressure 93/67 111/77 90/63 Blood Pressure Mean 75 88 72 Pulse Ox 100 100 Oxygen Delivery Method Room Air Room Air Positive well nourished General Appearance ED: NAD; Negative for pallor HEENT normocephalic and atraumatic Eyes PERRL and EOMs intact bilaterally General Eye ED: Negative for pale conjunctiva or scleral icterus Neck No no lymphadenopathy and No supple Resp normal respiratory effort and clear to auscultation bilaterally Cardio regular rate and regular rhythm GI non-distended Palpation: soft and tender LLQ and LUQ Back/Spine no CVA tenderness Extremity full ROM General Extremety ED: Negative for edema or tenderness General Extremity: Negative for edema Neuro Sensorium / Orientation: alert and oriented to person Psych mental status grossly normal and thought process normal Skin General Skin Exam: Negative for jaundice or pallor MDM MDM MDM Narrative Medical decision making narrative: Patient presenting with diarrhea from 10 days to 2 weeks in duration. She states he was seen by her primary care physician who did stool studies. I was able to look these up in her stool lactoferrin was high. C. difficile negative. Enteric panel is negative. I did obtain blood work and the patient has a white blood cell count of 30.6 which is new. Hemoglobin 13.2, platelets 312. CMP shows normal renal function. Potassium slightly low at 2.9. ESR slightly elevated at 32. CRP is 163. Procalcitonin 0.19. Lactic acid currently pending. I discussed the case with DrKristin Pascual due to her elevated white blood cell count and her colitis on CT. He recommended Cipro and Flagyl. He did agree with the inflammatory markers. We did review of stool studies. He did order a stool culture. He feels as if he may need a flexible sigmoidoscopy in the hospital to determine what the source of her colitis is. Patient had blood cultures drawn. Patient had a urine culture performed other day which was negative. Impression: 1. Leukocytosis 2. Colitis 3. Diarrhea Lab Data Attestation: I reviewed the patient's lab results. Labs: Laboratory Results - last 24 hr 03/17/21 03/17/21 03/17/21 11:40 11:40 11:40 WBC 30.6 H* RBC 4.18 L Hgb 13.2 Hct 39.8 MCV 95.2 MCH 31.6 MCHC 33.2 RDW Std Deviation 45.1 H RDW Coeff of Tracy 13.0 Plt Count 312 MPV 10.8 Immature Gran % (Auto) 0.800 Neut % (Auto) 88.3 H Lymph % (Auto) 4.5 L [place] % (Auto) 6.0 Eos % (Auto) 0.0 Baso % (Auto) 0.4 Absolute Neuts (auto) 27.0 H Absolute Lymphs (auto) 1.38 Nucleated RBC % 0 Diff Path Review June foll ESR 32 H Sodium 136 Potassium 2.9 L Chloride 102 Carbon Dioxide 26.0 Anion Gap 8 BUN 16 Creatinine 0.95 Estim Creat Clear Calc 27.76 Est GFR (MDRD) Af Amer 72 Est GFR (MDRD) Non-Af 60 BUN/Creatinine Ratio 16.8 Glucose 137 H Calcium 8.4 L Magnesium Cancelled Total Bilirubin 0.40 AST 25 ALT 17 Alkaline Phosphatase 189 H C-React Prot Ext Range Total Protein 6.6 Albumin 2.2 L Globulin 4.4 H Albumin/Globulin Ratio 0.5 L Lipase 29 L Procalcitonin Urine Color Urine Clarity Urine pH Ur Specific [place] Urine Protein Urine Glucose (UA) Urine Ketones Urine Occult Blood Urine Nitrite Urine Bilirubin Urine Urobilinogen Ur Leukocyte Esterase Urine RBC Urine WBC Ur Squamous Epith Cells Urine Bacteria Urine Mucus 03/17/21 03/17/21 03/17/21 11:40 13:10 14:30 WBC RBC Hgb Hct MCV MCH MCHC RDW Std Deviation RDW Coeff of [place] Plt Count MPV Immature Gran % (Auto) Neut % (Auto) Lymph % (Auto) [place] % (Auto) Eos % (Auto) Baso % (Auto) Absolute Neuts (auto) Absolute Lymphs (auto) Nucleated RBC % Diff Path Review ESR Sodium Potassium Chloride Carbon Dioxide Anion Gap BUN Creatinine Estim Creat Clear Calc Est GFR (MDRD) Af Amer Est GFR (MDRD) Non-Af BUN/Creatinine Ratio Glucose Calcium Magnesium Total Bilirubin AST ALT Alkaline Phosphatase C-React Prot Ext Range 163.00 H Total Protein Albumin Globulin Albumin/Globulin Ratio Lipase Procalcitonin 0.19 H Urine Color Yellow Urine Clarity Sl. Cloudy Urine pH 5.0 Ur Specific [place] 1.025 Urine Protein 30 H Urine Glucose (UA) Normal Urine Ketones 5 H Urine Occult Blood 50 H Urine Nitrite Negative Urine Bilirubin Negative Urine Urobilinogen Normal Ur Leukocyte Esterase 500 H Urine RBC 0 SEEN Urine WBC 25-50 SEEN Ur Squamous Epith Cells 0 SEEN Urine Bacteria 0 SEEN Urine Mucus 0 SEEN Radiography Diagnostic Testing: Clinical Impression(s) from Imaging Studies Abdomen/Pelvis CT 03/17/21 11:32 IMPRESSION: Status post right hemicolectomy. There is evidence of colitis involving the distal portion of the transverse colon down to the rectum. Abnormally dilated and thickened wall with inflammatory changes of a distal ileal loops. This is suggestive of Crohn''s disease. Clinical correlation is recommended. 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 Infrarenal abdominal aortic aneurysm with mural thrombus. Electronically Signed: Chucky Goodson MD at 13:24 EST , Discharge Plan Triage Chief Complaint: Diarrhea ED Provider: Herman Perez Dx/Rx/DC Orders Prescriptions: No Action alendronate 70 mg tablet 70 mg PO MCPHERSON RF: 0 Adult Probiotic 3 billion cell capsule 3,000 mmu cells PO DAILY RF: 0 multivitamin 1 TABLET tablet 1 tab PO DAILY RF: 0 cyanocobalamin (vitamin B-12) 500 MCG tablet, sublingual 500 mcg SL DAILY RF: 0 calcium carbonate 600 MG tablet 600 mg PO DAILY RF: 0 budesonide 3 mg capsule,delayed,extend.release 9 mg PO DAILY RF: 0 melatonin 5 mg Tablet 5 mg PO QHS RF: 0 potassium chloride 20 mEq tablet,ER particles/crystals 40 meq PO DAILY RF: 0 mirtazapine 30 mg tablet 30 mg PO QHS RF: 0 Primary Care Provider: Carroll Lange
[2021-03-17] MEDS: 0.9% Normal Saline 1,000 ML 1000 ML IV (11:50)
[2021-03-17 12:12] LABS: Absolute Lymphocyte Count 1.38 X10^3/uL (0.83-4.51); Basophil# 0.11 X10^3/uL; Basophil% 0.4 % (0-1); Hematocrit 39.8 % (37-47); Hemoglobin 13.2 g/dL (12.0-15.0); Lymphocyte # 1.38 X10^3/ul (0.83-4.51); Lymphocyte % 4.5 % (19-41); Mean Corp Hgb Conc 33.2 g/dL (32-36); Mean Corpuscular Hgb 31.6 pg (27.0-32.0); Mean Corpuscular Volume 95.2 fL (81-99); Mean Platelet Vol. 10.8 fl (6.2-12.0); Monocyte# 1.82 X10^3/uL; NRBC Flagged by Analyzer 0 % (0-5); Neutrophil # 27.01 X10^3/uL (2.7-7.7); Neutrophil % 88.3 % (47-70); POSITIVE COUNT YES; POSITIVE DIFFERENTIAL YES; Platelet Count 312 K/mm3 (150-450); RBC Distribution Width SD 45.1 fl (35.1-43.9); Red Blood Count 4.18 M/mm3 (4.2-5.4)
[2021-03-17 12:13] LABS: ALB/GLOB Ratio 0.5 RATIO (0.9-2.4); AST(SGOT) 25 U/L (15-37); Alanine Aminotransfer ALT/SGPT 17 U/L (13-56); Albumin, Serum 2.2 g/dL (3.2-5.0); Alkaline Phosphatase 189 U/L (45-117); Anion Gap 8 (5-15); BUN 16 mg/dL (7-18); BUN/Creat Ratio 16.8 RATIO (10-20); Calcium,Total 8.4 mg/dL (8.5-10.1); Chloride 102 mmol/L (98-107); Creatinine, Serum 0.95 mg/dL (0.55-1.02); EST Glomerular Filtration Rate 60 mL/min (>60); Est Glom Filt Rate - Afr Amer 72 mL/min (>60); Estimated Creatinine Clearance 27.76 ml/min; Globulin 4.4 g/dL (2.2-4.2); Glucose 137 mg/dL (74-106); Lipase 29 U/L (73-393); Potassium 2.9 mmol/L (3.5-5.1); Protein, Total 6.6 g/dL (6.4-8.2); Sodium Level 136 mmol/L (136-145)
[2021-03-17 12:16] LABS: Differential Indicated SCAN CRITERIA MET; White Blood Count 30.6 K/mm3 (4.4-11.0)
[2021-03-17 13:13] VITALS: BP 111/77; PULSE 70
[2021-03-17 13:15] LABS: Bacteria 0 SEEN /hpf (None Seen); Mucous, Urine 0 SEEN /hpf (<or=2+); Red Blood Cells-Urine 0 SEEN /hpf (0-5); Squamous Epithelial Cells - UA 0 SEEN /hpf (5-10)
[2021-03-17 13:17] LABS: Color, Urine Yellow (Yellow); Glucose, Dipstick Normal (Normal); Ketone-Dipstick 5 mg/dl (Negative); Leukocyte Esterase-Dipstick 500 /ul (Negative); Nitrite-Dipstick Negative (Negative); Occult Blood-Urine 50 /ul (Negative); Protein-Dipstick 30 mg/dl (Negative); Specific Gravity, Urine 1.025 (1.002-1.030); Urine Bilirubin Dipstick Negative (Negative); Urine Clarity Sl. Cloudy (Clear); Urine Urobilinogen Normal (Normal)
[2021-03-17 13:22] LABS: White Blood Cells 25-50 SEEN /hpf (0-5)
--- NOTE | 2021-03-17 14:39 | NURSING ---
MED SURG COLITIS TERELETSKY
[2021-03-17 14:44] LABS: Erythrocyte Sedimentation Rate 32 mm/hr (0-30)
[2021-03-17 14:51] VITALS: BP 90/63; PULSE 70; RESP 18; TEMP 36.9; O2SAT 100
[2021-03-17] MEDS: metroNIDAZOLE 500 MG/100 ML BAG 100 MG IV (14:51)
[2021-03-17 15:06] LABS: Procalcitonin 0.19 ng/mL (0.00-0.09)
[2021-03-17 15:18] LABS: Lactic Acid 1.2 mmol/L (0.4-1.9)
[2021-03-17 15:58] VITALS: BMI 14.5
[2021-03-17 16:00] VITALS: BP 95/62; PULSE 68; RESP 16; TEMP 36.9; O2SAT 98
--- NOTE | 2021-03-17 16:14 | EX.PCM.CON.G ---
HPI Consult Data Date of Consult: 03/17/21 HPI Narrative HPI Narrative: NALINI NEVAREZ, is a 81 F who presents to the ED with at least 4 weeks of diarrhea. 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 The lesion was classified as T3 N0 MX. She did not undergo chemotherapy or radiation. She after that developed worsening diarrhea back in 2018. This prompted a colonoscopy. She was given a diagnosis of microscopic colitis and was placed on budesonide therapy. She currently is not on budesonide at this time. She said at least a month ago she developed profuse watery diarrhea. She denies any recent antibiotics. She had stools for enteric pathogen checked which were negative. Her C. difficile was negative. These were both done 5 days ago. However her fecal lactoferrin was high. In the ED she got a CT scan abdomen pelvis we did show bowel wall thickening in the small bowel and colon. Also the scan displayed evidence of a previous cholecystectomy with dilatation of the common bile duct mildly. Her biochemical profile had shown a white blood cell count of 30,000. She was afebrile in the ED. BUN was 10 creatinine 0.76 albumin was 2.9 with a total protein of 6.3. [facility] Medical History Abdominal aortic aneurysm Acute cystitis BERONICA (acute kidney injury) Anxiety Depression E. coli UTI Fatigue GERD (gastroesophageal reflux disease) History of DVT (deep vein thrombosis) Hyperlipidemia Hypokalemia Microscopic colitis Osteoarthritis Osteoporosis Postoperative anemia Small bowel obstruction Tobacco abuse Tremor Home Medications cyanocobalamin (vitamin B-12) 500 mcg SL DAILY 12/10/14 [History Last Taken 03/16/21] multivitamin 1 tab PO DAILY 12/10/14 [History Last Taken 03/16/21] calcium carbonate 600 mg PO DAILY 12/04/17 [History Last Taken 03/16/21] alendronate 70 mg tablet 70 mg PO MCPHERSON tab 01/11/20 [History Last Taken 03/05/21] lactobacillus combination no.8 3 billion cell capsule 3,000 mmu cells PO DAILY 01/11/20 [History Last Taken 03/16/21] budesonide 9 mg PO DAILY 11/14/20 [History Last Taken 03/16/21] melatonin 5 mg PO QHS 11/14/20 [History Last Taken 03/16/21] mirtazapine 30 mg PO QHS 03/17/21 [History Last Taken 03/16/21] potassium chloride 40 meq PO DAILY 03/17/21 [History Last Taken 03/16/21] Allergy/AdvReac Type Severity Reaction Status Date / Time ibuprofen [From Motrin] Allergy Mild Angioedema, Verified 03/17/21 11:05 rash Family History Father No problems noted. Surgical History History of bilateral hip replacements History of bladder suspension procedure History of colectomy History of colonoscopy History of hysterectomy History of tubal ligation Social History Smoking Status: Current every day smoker tobacco type: cigarettes ROS Gastrointestinal Gastrointestinal: Reports diarrhea Physical Exam Const alert General Appearance: cooperative Orientation / Consciousness: oriented to person HEENT hearing grossly normal bilaterally Head and Scalp: normal to inspection Face and Sinus: face symmetric Nose: external nose normal Mouth: oral and palatal mucosa normal Eyes conjunctivae normal General Eye: normal appearance of both eyes Neck full ROM General: normal visual inspection Lymph Lymphatic: no lymphadenopathy noted Chest inspection of chest normal and palpation of chest normal Chest: symmetrical chest wall rise Resp normal respiratory effort Effort and Inspection: able to speak in complete sentences Cardio regular rate GI non-distended Percussion: normal to percussion Rectal Exam: deferred Neuro Speech: speech normal Gait (Neuro): normal gait Lab / Micro Data Result Diagrams: 03/17/21 11:40 03/17/21 11:40 Labs: Laboratory Results - last 24 hr 03/17/21 11:40: WBC 30.6 H*, RBC 4.18 L, Hgb 13.2, Hct 39.8, MCV 95.2, MCH 31.6, MCHC 33.2, RDW Std Deviation 45.1 H, RDW Coeff of Tracy 13.0, Plt Count 312, MPV 10.8, Immature Gran % (Auto) 0.800, Neut % (Auto) 88.3 H, Lymph % (Auto) 4.5 L, [place] % (Auto) 6.0, Eos % (Auto) 0.0, Baso % (Auto) 0.4, Absolute Neuts (auto) 27.0 H, Absolute Lymphs (auto) 1.38, Nucleated RBC % 0, Diff Path Review June03/17/21 11:40: Sodium 136, Potassium 2.9 L, Chloride 102, Carbon Dioxide 26.0, Anion Gap 8, BUN 16, Creatinine 0.95, Estim Creat Clear Calc 27.76, Est GFR (MDRD) Af Amer 72, Est GFR (MDRD) Non-Af 60, BUN/Creatinine Ratio 16.8, Glucose 137 H, Calcium 8.4 L, Magnesium Cancelled, Total Bilirubin 0.40, AST 25, ALT 17, Alkaline Phosphatase 189 H, Total Protein 6.6, Albumin 2.2 L, Globulin 4.4 H, Albumin/Globulin Ratio 0.5 L, Lipase 29 L 03/17/21 11:40: ESR 32 H 03/17/21 11:40: C-React Prot Ext Range 163.00 H 03/17/21 13:10: Urine Color Yellow, Urine Clarity Sl. Cloudy, Urine pH 5.0, Ur Specific [place] 1.025, Urine Protein 30 H, Urine Glucose (UA) Normal, Urine Ketones 5 H, Urine Occult Blood 50 H, Urine Nitrite Negative, Urine Bilirubin Negative, Urine Urobilinogen Normal, Ur Leukocyte Esterase 500 H, Urine RBC 0 SEEN, Urine WBC 25-50 SEEN, Ur Squamous Epith Cells 0 SEEN, Urine Bacteria 0 SEEN, Urine Mucus 0 SEEN 03/17/21 14:30: Lactic Acid 1.2 03/17/21 14:30: Procalcitonin 0.19 H Radiology Impression Abdomen/Pelvis CT 03/17/21 11:32 IMPRESSION: Status post right hemicolectomy. There is evidence of colitis involving the distal portion of the transverse colon down to the rectum. Abnormally dilated and thickened wall with inflammatory changes of a distal ileal loops. This is suggestive of Crohn''s disease. Clinical correlation is recommended. 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 Infrarenal abdominal aortic aneurysm with mural thrombus. Electronically Signed: Chucky Goodson MD at 13:24 EST , Assessment & Plan Assessment/Plan (1) Diarrhea: PLAN: Differential diagnosis from her worsening diarrhea could be infectious colitis, inflammatory bowel disease, ischemic colitis, protein-losing enteropathy. We recommend colonoscopy as her stool studies have not revealed any infectious source. She should also have a stool culture sent along with an ESR, CRP, LDH, lactate. I would empirically put her on Cipro and Flagyl and hold steroids at this time.
--- NOTE | 2021-03-17 16:40 | HP.PCM.HOS_ITS ---
Documented by User: Carroll MAK 03/17/21 16:58 HPI - General General Date of Admission: 03/17/21 Date of Service: 03/17/21 Chief Complaint: Diarrhea HPI Narrative NALINI NEVAREZ is an 81-year-old female who presents to the ED at [facility] on 03/17/2021 with a chief complaint of progressively worsening diarrhea. Patient reports that for the past 3 to 4 months she has been experiencing progr essively worsening diarrhea, that is nonbloody, watery and green/brown in color. Patient reports that she has seen her primary care provider who put her on a regimen of Imodium, to which has brought no relief. Patient denies any associated nausea or vomiting, but does report that she has not been having good oral intake as she reports that she just gets full quickly while eating. Past medical history is significant for microscopic colitis and small bowel obstruction. Vital signs in the ED are stable, temperature 98.4 ?F, HR of 70, BP of 90/63, RR of 18 and patient is satting 100% on room air. CBC shows a markedly elevated white count at 30.6, but is otherwise unremarkable. BMP shows low potassium at 2.9, but is otherwise unremarkable. CT of the abdomen/pelvis demonstrates colitis in the distal portion of the transverse colon down to the rectum and abnormally dilated and thickened wall with inflammatory changes, suggestive of Crohn's disease, there is also aneurysmal dilatation of the descending thoracic aorta at the diaphragmatic hiatus as well as infrarenal abdominal aortic aneurysm with mural thrombus. C. difficile and enteric stool panels are negative. Ova and parasites ordered/pending. Stool lactoferrin is positive. Patient was given fluids and antibiotics in the ED. Dr. Pascual was consulted while patient was in the ED and agreed to see patient. [facility] Medical History Abdominal aortic aneurysm Acute cystitis BERONICA (acute kidney injury) Anxiety Depression E. coli UTI Fatigue GERD (gastroesophageal reflux disease) History of DVT (deep vein thrombosis) Hyperlipidemia Hypokalemia Microscopic colitis Osteoarthritis Osteoporosis Postoperative anemia Small bowel obstruction Smoker Tobacco abuse Tremor Home Medications cyanocobalamin (vitamin B-12) 500 mcg SL DAILY 12/10/14 [History Last Taken 03/16/21] multivitamin 1 tab PO DAILY 12/10/14 [History Last Taken 03/16/21] calcium carbonate 600 mg PO DAILY 12/04/17 [History Last Taken 03/16/21] alendronate 70 mg tablet 70 mg PO MCPHERSNO tab 01/11/20 [History Last Taken 03/05/21] lactobacillus combination no.8 3 billion cell capsule 3,000 mmu cells PO DAILY 01/11/20 [History Last Taken 03/16/21] budesonide 9 mg PO DAILY 11/14/20 [History Last Taken 03/16/21] melatonin 5 mg PO QHS 11/14/20 [History Last Taken 03/16/21] mirtazapine 30 mg PO QHS 03/17/21 [History Last Taken 03/16/21] potassium chloride 40 meq PO DAILY 03/17/21 [History Last Taken 03/16/21] Allergy/AdvReac Type Severity Reaction Status Date / Time ibuprofen [From Motrin] Allergy Mild Angioedema, Verified 03/17/21 11:05 rash Family History Father No problems noted. Surgical History History of bilateral hip replacements History of bladder suspension procedure History of colectomy History of colonoscopy History of hysterectomy History of tubal ligation Social History (Updated 03/17/21 @ 16:47 by Carroll MAK) Smoking Status: Current every day smoker tobacco type: cigarettes Smoking packs per day: 0.25 Smoking cigarettes per day: 5.0 Years smoked: 60 Smoking pack- years: 15.00 ROS Constitutional Constitutional: Reports fatigue and weakness; Denies anorexia, change in weight, chills, fever(s), malaise, night sweats or other Eyes Eyes: Denies blurry vision, change in eye color, change in vision, discharge from eye(s), double vision, erythema, eye pain, loss of vision or other ENT HEENT: Denies abnormal hearing, dysphagia, ear pain, epistaxis, headache(s), hearing loss, nasal congestion, nasal discharge, post nasal drip, sinus pressure, sore throat or other Cardiovascular Cardiovascular: Denies chest pain, claudication, dyspnea on exertion, edema, lightheadedness, orthopnea, palpitations, paroxysmal nocturnal dyspnea, rapid heart rate, syncope or other Respiratory/Chest Respiratory/Chest: Denies cough, dyspnea, excessive phlegm production, hemoptysis, productive cough, shortness of breath at rest, shortness of breath with exertion, wheezing or other Gastrointestinal Gastrointestinal: Reports abdominal pain, diarrhea and loose stools; Denies coffee ground emesis, constipation, dyspepsia, hematemesis, hematochezia, me amita, nausea, vomiting or other Genitourinary Genitourinary: Denies burning urination, difficulty urinating, dysuria, hematuria, nocturia, urinary frequency, urinary hesitancy, urinary incontinence, urinary urgency or other Musculoskeletal Musculoskeletal: Denies arthralgias, back pain, joint pain, joint stiffness, joint swelling, myalgias, neck pain or other Neurologic Neurologic: Denies abnormal gait, abnormal speech, confusion, disequilibrium, dizziness, focal weakness, headache(s), numbness, paresthesias, seizure-like activity, seizures, syncope, tingling, tremor(s) or other Psychiatric Psychiatric: Denies anxiety, depression, homicidal ideation, suicidal ideation or other Endocrine Endocrinology: Denies change in body appearance, cold intolerance, excessive sweating, heat intolerance, polydipsia, polyuria or other Hematologic/Lymphatic Hematologic/Lymphatic: Denies anemia, easy bleeding, easy bruising, lymphadenopathy or other Allergic/Immunologic Allergic/Immunologic: Denies rhinitis, hives, eczemia, asthma or other Vital Signs Vital Signs Vital Signs: 03/17/21 11:05 03/17/21 13:13 03/17/21 14:51 Temperature 96.5 F L 98.4 F Temperature Source Temporal Temporal Pulse Rate 82 70 70 Respiratory Rate 14 18 Blood Pressure 93/67 111/77 90/63 Blood Pressure Mean 75 88 72 Pulse Ox 100 100 Oxygen Delivery Method Room Air Room Air Weight Weight: 84 lb 8 oz Body Mass Index (BMI) 14.5 Physical Exam Const alert and oriented x3 General Appearance: cooperative HEENT normocephalic, head/scalp atraumatic and hearing grossly normal bilaterally Eyes PERRL, EOMs intact bilaterally and conjunctivae normal Neck no lymphadenopathy, supple and no JVD Resp normal respiratory effort, no retractions, no use of accessory muscles and clear to auscultation bilaterally Cardio regular rate, regular rhythm, no gallops and no JVD GI normal to inspection, nondistended, normoactive bowel sounds and soft to palpation Palpation: tender suprapubic Extremity normal to inspection, full ROM and no clubbing, cyanosis or edema Skin no rashes or lesions noted, no wounds and skin turgor normal Neuro CN's II-XII intact bilaterally Psych affect normal Results Lab / Micro Data Result Diagrams: 03/17/21 11:40 03/17/21 11:40 Labs: Laboratory Results - last 24 hr 03/17/21 11:40: WBC 30.6 H*, RBC 4.18 L, Hgb 13.2, Hct 39.8, MCV 95.2, MCH 31.6, MCHC 33.2, RDW Std Deviation 45.1 H, RDW Coeff of [place] 13.0, Plt Count 312, MPV 10.8, Immature Gran % (Auto) 0.800, Neut % (Auto) 88.3 H, Lymph % (Auto) 4.5 L, [place] % (Auto) 6.0, Eos % (Auto) 0.0, Baso % (Auto) 0.4, Absolute Neuts (auto) 27.0 H, Absolute Lymphs (auto) 1.38, Nucleated RBC % 0, Diff Path Review June03/17/21 11:40: Sodium 136, Potassium 2.9 L, Chloride 102, Carbon Dioxide 26.0, Anion Gap 8, BUN 16, Creatinine 0.95, Estim Creat Clear Calc 27.76, Est GFR (MDRD) Af Amer 72, Est GFR (MDRD) Non-Af 60, BUN/Creatinine Ratio 16.8, Glucose 137 H, Calcium 8.4 L, Magnesium Cancelled, Total Bilirubin 0.40, AST 25, ALT 17, Alkaline Phosphatase 189 H, Total Protein 6.6, Albumin 2.2 L, Globulin 4.4 H, Albumin/Globulin Ratio 0.5 L, Lipase 29 L 03/17/21 11:40: ESR 32 H 03/17/21 11:40: C-React Prot Ext Range 163.00 H 03/17/21 13:10: Urine Color Yellow, Urine Clarity Sl. Cloudy, Urine pH 5.0, Ur Specific [place] 1.025, Urine Protein 30 H, Urine Glucose (UA) Normal, Urine Ketones 5 H, Urine Occult Blood 50 H, Urine Nitrite Negative, Urine Bilirubin Negative, Urine Urobilinogen Normal, Ur Leukocyte Esterase 500 H, Urine RBC 0 SEEN, Urine WBC 25-50 SEEN, Ur Squamous Epith Cells 0 SEEN, Urine Bacteria 0 SEEN, Urine Mucus 0 SEEN 03/17/21 14:30: Lactic Acid 1.2 03/17/21 14:30: Procalcitonin 0.19 H Radiology Impression Abdomen/Pelvis CT 03/17/21 11:32 IMPRESSION: Status post right hemicolectomy. There is evidence of colitis involving the distal portion of the transverse colon down to the rectum. Abnormally dilated and thickened wall with inflammatory changes of a distal ileal loops. This is suggestive of Crohn''s disease. Clinical correlation is recommended. 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 Infrarenal abdominal aortic aneurysm with mural thrombus. Electronically Signed: Chucky Goodson MD at 13:24 EST , Assessment & Plan Assessment/Plan (1) Diarrhea: (2) Leukocytosis: PLAN: Patient is an 81-year-old female presents to the ED at [facility] on 03/17/2021 with a chief complaint of progressively worsening diarrhea. Patient will be admitted for evaluation and management of diarrhea and leukocytosis. 1) intractable diarrhea Patient reports a 3 to 4-month history of diarrhea, that is nonbloody, watery and brown/green in color. Patient has been placed on Imodium by her primary c are provider, which has not brought no relief. CT of the abdomen/pelvis on admission demonstrated findings consistent with possible infectious colitis or possible IBD. Plan admit to MedSurg, GI consult ordered, initiate ciprofloxacin and Flagyl, hold steroids on GI recommendation, continue IV fluids, electrolyte solution ordered, as needed Zofran ordered, as needed morphine ordered. 2) leukocytosis WBC is currently 30.6. Likely related to #1. C. difficile and enteric stool panel are negative. Plan as above. 3) hypokalemia Potassium currently 2.9, IV repletion ordered, continue to monitor BMP. 4) tobacco abuse Cessation advised, nicotine patch ordered. DVT prophylaxis - SCDs, low risk Patient seen by Carroll Mejia PA-C, under the supervision of Dr. Ramirez. Time spent on patient care: 25 minutes. Documented by User: Dr. Donald Ramirez DO 03/17/21 17:15 HPI - General General Date of Admission: 03/17/21 [facility] Medical History Abdominal aortic aneurysm Acute cystitis BERONICA (acute kidney injury) Anxiety Depression E. coli UTI Fatigue GERD (gastroesophageal reflux disease) History of DVT (deep vein thrombosis) Hyperlipidemia Hypokalemia Microscopic colitis Osteoarthritis Osteoporosis Postoperative anemia Small bowel obstruction Smoker Tobacco abuse Tremor Home Medications cyanocobalamin (vitamin B-12) 500 mcg SL DAILY 12/10/14 [History Last Taken 03/16/21] multivitamin 1 tab PO DAILY 12/10/14 [History Last Taken 03/16/21] calcium carbonate 600 mg PO DAILY 12/04/17 [History Last Taken 03/16/21] alendronate 70 mg tablet 70 mg PO MCPHERSON tab 01/11/20 [History Last Taken 03/05/21] lactobacillus combination no.8 3 billion cell capsule 3,000 mmu cells PO DAILY 01/11/20 [History Last Taken 03/16/21] budesonide 9 mg PO DAILY 11/14/20 [History Last Taken 03/16/21] melatonin 5 mg PO QHS 11/14/20 [History Last Taken 03/16/21] mirtazapine 30 mg PO QHS 03/17/21 [History Last Taken 03/16/21] potassium chloride 40 meq PO DAILY 03/17/21 [History Last Taken 03/16/21] Allergy/AdvReac Type Severity Reaction Status Date / Time ibuprofen [From Motrin] Allergy Mild Angioedema, Verified 03/17/21 11:05 rash Family History Father No problems noted. Surgical History History of bilateral hip replacements History of bladder suspension procedure History of colectomy History of colonoscopy History of hysterectomy History of tubal ligation Social History (Updated 03/17/21 @ 16:47 by Carroll MAK) Smoking Status: Current every day smoker tobacco type: cigarettes Smoking packs per day: 0.25 Smoking cigarettes per day: 5.0 Years smoked: 60 Smoking pack- years: 15.00 Results Lab / Micro Data Result Diagrams: 03/17/21 11:40 03/17/21 11:40 Charges/Coding Addendum Addendum: Patient was seen and examined today independently of Carroll Mejia, she came to the emergency room at [facility] with complaints of persistent diarrhea over the last 2 weeks. Patient denies any bloody stools, s he denies any melanotic stools. Patient has a past history of microscopic colitis, she states she is no longer taking budesonide. On examination she appeared in good health and spirits, she does not appear to be in any distress. Vital signs as documented. Skin warm and dry and without overt rashes. Neck without JVD, thyroid appears normal, trachea is midline, neck is supple. Lungs clear, normal air movement was noted. Heart exam notable for regular rhythm, normal sounds and absence of murmurs, rubs or gallops. Abdomen unremarkable and without evidence of organomegaly, masses, or abdominal aortic enlargement, bowel sounds are present in all 4 quadrants, no abdominal tenderness was noted. Extremities nonedematous, no cyanosis was noted, no clubbing was noted. Neuro: Cranial nerves II through XII are grossly intact, no focal motor deficits were noted, sensation to light touch and pinprick is intact, motor exam 5/5 throughout. Psych: Patient is alert and oriented x3, she does not appear anxious or depressed, she does not appear agitated. Work-up in the emergency room included a CAT scan which showed evidence of colitis in the mid colon extending down the descending colon and into the rectal area. There were also abnormally dilated thickened distal ileal loops. In addition, there was an infrarenal abdominal aortic aneurysm with mural thrombus- according to the patient's medical record, she has had this diagnosis in the past. Patient's labs revealed an elevated white blood cell count at 30.6, potassium was 2.9, patient's urinalysis showed 25-50 WBCs but no bacteria no red cells. Patient had outpatient labs including an enteric pathogen panel on her stool that was negative, patient's stool lactoferrin test was positive. Impression: #1 acute colitis and enteritis-etiology unclear, suspect infectious source, GI was contacted by the emergency room physician and ordered additional testing, they will see the patient in consultation during her hospitalization. She will undergo a flexible sigmoidoscopy tomorrow #2 chronic depression-patient is on mirtazapine as outpatient, this will be held until she undergoes sigmoidoscopy tomorrow #3 osteoporosis-patient takes alendronate every week, this will be held for now I have reviewed Carroll Mejia's history and physical including his medical assessment and plan of care and endorse it. Total clinical time spent by myself addressing the patient's medical issues, reviewing her medical data, and collaboration with the patient's care team: 45 minutes Visit Charges Inpatient E&M: 68892 Init Hosp L3
[2021-03-17] MEDS: Potassium Chloride 10mEq/100mL 10 MEQ/100 ML IV.SOLN. 100 MEQ IV BOLUS ×4 (17:50→22:50)
[2021-03-17] MEDS: Bisacodyl 5 MG Tablet 20 MG PO (17:50)
[2021-03-17] MEDS: 0.9% Saline Lock 10 ML Syringe IV (17:51)
[2021-03-17] MEDS: Electrolyte Solution/Peg's 4000 ML 2000 ML PO (18:13)
[2021-03-17 20:27] VITALS: BP 93/60; PULSE 73; RESP 18; TEMP 36.9; O2SAT 95
[2021-03-17] MEDS: Ciprofloxacin 400 MG/200 ML BAG 200 MG IV (21:42)
[2021-03-18] VITALS (8 sets, daily range): BP systolic 83–106; BP diastolic 47–68; PULSE 61–70; RESP 16–18; TEMP 36.6–37.5; O2SAT 94–100
[2021-03-18] MEDS: KCL 20MEQ in 0.9% NS 20 MEQ/1,000 ML IV.SOLN. 125 MEQ IV (01:02)
[2021-03-18 04:55] LABS: Absolute Lymphocyte Count 2.26 X10^3/uL (0.83-4.51); Absolute Neutrophil Count 20.6 X10^3/uL (2.0-7.7); Basophil# 0.09 X10^3/uL; Basophil% 0.4 % (0-1); Eosinophil# 0.04 X10^3/uL; Eosinophils% 0.2 % (0-5); Hematocrit 33.5 % (37-47); Hemoglobin 11.6 g/dL (12.0-15.0); Lymphocyte # 2.26 X10^3/ul (0.83-4.51); Lymphocyte % 9.2 % (19-41); Mean Corp Hgb Conc 34.6 g/dL (32-36); Mean Corpuscular Hgb 32.8 pg (27.0-32.0); Mean Corpuscular Volume 94.6 fL (81-99); Monocyte# 1.46 X10^3/uL; Monocyte% 5.9 % (0-10); NRBC Flagged by Analyzer 0 % (0-5); Neutrophil # 20.59 X10^3/uL (2.7-7.7); Neutrophil % 83.5 % (47-70); POSITIVE DIFFERENTIAL YES; Platelet Count 290 K/mm3 (150-450); RBC Distribution Width CV 12.9 % (11.6-14.6); RBC Distribution Width SD 44.5 fl (35.1-43.9); Red Blood Count 3.54 M/mm3 (4.2-5.4); White Blood Count 24.6 K/mm3 (4.4-11.0)
--- NOTE | 2021-03-18 05:00 | EKG12_ITS ---
Test Reason : PRE-OP Blood Pressure : / mmHG Vent. Rate : 072 BPM Atrial Rate : 072 BPM P-R Int : 178 ms QRS Dur : 074 ms QT Int : 432 ms P-R-T Axes : 074 -50 063 degrees QTc Int : 473 ms Normal sinus rhythm Low voltage QRS Left anterior fascicular block Abnormal ECG Confirmed by YORDY CHAN, VITALIY ([id number]), video news editor TERELL GASTELUM ([id number]) on 03/21/2021 10:55:56 AM Referred By: DR JOSEPH Confirmed By:VITALIY SCALES MD
[2021-03-18 05:13] LABS: Differential Indicated SCAN CRITERIA MET
[2021-03-18 05:18] LABS: Anion Gap 5 (5-15); BUN 11 mg/dL (7-18); BUN/Creat Ratio 18.6 RATIO (10-20); Calcium,Total 7.6 mg/dL (8.5-10.1); Chloride 108 mmol/L (98-107); Creatinine, Serum 0.59 mg/dL (0.55-1.02); EST Glomerular Filtration Rate 104 mL/min (>60); Est Glom Filt Rate - Afr Amer 125 mL/min (>60); Estimated Creatinine Clearance 26.24 ml/min; Glucose 85 mg/dL (74-106); Potassium 3.2 mmol/L (3.5-5.1); Sodium Level 139 mmol/L (136-145)
[2021-03-18 05:26] LABS: International Normalized Ratio 1.2; Prothrombin Time (Protime)PT. 14.9 SECONDS (11.7-14.9)
[2021-03-18 05:27] LABS: Partial Thromboplast Time 41.6 Seconds (24.1-36.2)
[2021-03-18 06:24] LABS: Differential Comment SCANNED
[2021-03-18 07:15] LABS: MG Sendout 1.8 mg/dL (1.6-2.3)
--- NOTE | 2021-03-18 08:05 | COLBX_PTH ---
PATIENT: NALINI NEVAREZ LOC: MS3 U#:[id number] AGE/SX: 81/F [place] [facility] [place]: Dr. Donald Ramirez DO : 1940 BED: 1 DIS: 03/18/2021 SPEC #: [id number] RECD: 03/18/21 09:03 STATUS: MIGEL DARBY #: [id number] CESILIA: 03/18/21 08:[address]: Carlos Pascual DEPT: SURGICAL PATHOLOGY RECD BY: Nicole Aaron ENTERED: 03/20/21 07:08 SP TYPE: COLON BX OTHR DR: MD Dr. Donald Andre DO Tissues: A - Ileum, NOS B - COLON BIOPSY Procedures: Surgery Specimen Level IV Comments: @ Ordering doctor for SUIV edited from to @ by RGOOD at 03/20/21 1327 @ Submitting doctor edited from to @ by RGOOD at 03/20/21 1327 HEADER OPERATION: Colonoscopy (MAC) with biopsy PRE-OP DIAGNOSIS: Diarrhea, abnormal CT scan TISSUE SUBMITTED: A ? Ileum, B ? Random colon MICROSCOPIC DIAGNOSIS A. Ileum, biopsy: Mild nonspecific chronic inflammation. B. Colon, random biopsy: Consistent with lymphocytic colitis. AM:venu 03/21/2021 COMMENT Case has been reviewed in consultation with Dr. Armando who concurs with the above diagnosis. IDC:SJ MICROSCOPIC DESCRIPTION Slides are reviewed. GROSS DESCRIPTION A - Received in fixative is one container labeled with the patient's name and designated ileum. The specimen consists of multiple irregular fragments of light tidwell soft tissue that in aggregate measure 0.7 x 0.5 x 0.1 cm. The specimen is totally submitted in one cassette. B - Received in fixative is one container labeled with the patient's name and designated random colon. The specimen consists of multiple irregular fragments of light tidwell soft tissue that in aggregate measure 1.5 x 0.7 x 0.1 cm. The specimen is totally submitted in one cassette. / CASANDRA:venu 03/20/2021 TC:3 CPT: 84244 x2
--- NOTE | 2021-03-18 08:47 | OP.COLON_ITS ---
Patient Name: Alyse Wetzel Procedure Date: 03/18/2021 7:41 AM Date of : 1940 Age: 81 Procedure: Colonoscopy Indications: Chronic diarrhea, Clinically significant diarrhea of unexplained origin Providers: Carlos Pascual DO Medicines: See the Anesthesia note for documentation of the administered medications Patient Profile: This is an 81 year old female. Refer to note in patient chart for documentation of history and physical. Last Colonoscopy: 3 years ago. Complications: No immediate complications. Procedure: Pre-Anesthesia Assessment: - Prior to the procedure, a History and Physical was performed, and patient medications and allergies were reviewed. The patient is competent. The risks and benefits of the procedure and the sedation options and risks were discussed with the patient. All questions were answered and informed consent was obtained. Patient identification and proposed procedure were verified by the physician in the pre-procedure area. Mental Status Examination: alert and oriented. Airway Examination: normal oropharyngeal airway and neck mobility. Respiratory Examination: clear to auscultation. CV Examination: normal. Prophylactic Antibiotics: The patient does not require prophylactic antibiotics. Prior Anticoagulants: The patient has taken no previous anticoagulant or antiplatelet agents. ASA Grade Assessment: II - A patient with mild systemic disease. After reviewing the risks and benefits, the patient was deemed in satisfactory condition to undergo the procedure. The anesthesia plan was to use moderate sedation / analgesia (conscious sedation). Immediately prior to administration of medications, the patient was re-assessed for adequacy to receive sedatives. The heart rate, respiratory rate, oxygen saturations, blood pressure, adequacy of pulmonary ventilation, and response to care were monitored throughout the procedure. The physical status of the patient was re-assessed after the procedure. After I obtained informed consent, the scope was passed under direct vision. Throughout the procedure, the patient's blood pressure, pulse, and oxygen saturations were monitored continuously. The Colonoscope was introduced through the anus and advanced to 15 cm into the ileum. The terminal ileum, ileocecal valve, appendiceal orifice, and rectum were photographed. Moderate Sedation: Moderate (conscious) sedation was administered by the endoscopy nurse and supervised by the endoscopist. The patient's oxygen saturation, heart rate, blood pressure and response to care were monitored. Total physician intraservice time was 15 minutes. Scope In: 8:16:06 AM Scope Out: 8:35:46 AM Total Procedure Duration Time 0 hours 19 minutes 40 seconds Findings: The perianal and digital rectal examinations were normal. Multiple small-mouthed diverticula were found in the recto-sigmoid colon, sigmoid colon and descending colon. There was no evidence of diverticular bleeding. Discontinuous areas of nonbleeding ulcerated mucosa with no stigmata of recent bleeding were present in the sigmoid colon, in the descending colon, at the splenic flexure, in the transverse colon and at the hepatic flexure. Biopsies were taken with a cold forceps for histology. Verification of patient identification for the specimen was done. Estimated blood loss was minimal. There was evidence of a prior end-to-side ileo-colonic anastomosis at the hepatic flexure. This was patent and was characterized by congestion, edema, erythema and an intact appearance. The anastomosis was traversed. A scattered area of the distal ileum was congested. Biopsies were taken with a cold forceps for histology. Verification of patient identification for the specimen was done. Estimated blood loss was minimal. A scattered area of mucosa in the distal ileum was granular. Lavage of the area was performed using a moderate amount of sterile water, resulting in clearance with excellent visualization. Fluid aspiration was performed through the scope suction channel. The amount of fluid collected was 90 mL. The fluid was cloudy. Sample(s) were sent for bacterial cultures. Verification of patient identification for the specimen was done. Estimated blood loss was minimal. An area of significantly congested mucosa was found in the sigmoid colon, in the descending colon, at the splenic flexure and in the transverse colon. Fluid aspiration was performed through the scope suction channel. The amount of fluid collected was 100 mL. The fluid was slightly viscous. Sample(s) were sent for bacterial cultures. Impression: - Diverticulosis in the recto-sigmoid colon, in the sigmoid colon and in the descending colon. There was no evidence of diverticular bleeding. - Mucosal ulceration. Biopsied. - Patent end-to-side ileo-colonic anastomosis, characterized by congestion, edema, erythema and an intact appearance. - Congested mucosa in the distal ileum. Biopsied. - Granularity in the distal ileum. Fluid aspiration performed. - Congested mucosa in the sigmoid colon, in the descending colon, at the splenic flexure and in the transverse colon. Fluid aspiration performed. Recommendation: - [facility] to [facility] for [facility] care. - Advance diet as tolerated. - Continue present medications. - Await pathology results. - Return to my office. - Repeat colonoscopy is recommended to check healing. The colonoscopy date will be determined after pathology results from today's exam become available for review. Procedure Code(s): --- Professional --- 74958, Colonoscopy, flexible; with biopsy, single or multiple 12892, 59, Moderate sedation services provided by the same physician or other qualified health care transition coordinator performing the diagnostic or therapeutic service that the sedation supports, requiring the presence of an independent trained observer to assist in the monitoring of the patient's level of consciousness and physiological status; initial 15 minutes of intraservice time, patient age 5 years or older CPT copyright 2017 [employer]. All rights reserved. The codes documented in this report are preliminary and upon community midwife review may be revised to meet current compliance requirements. Carlos Pascual DO 03/18/2021 8:47:13 AM This report has been signed electronically. Number of Addenda: 1 Note Initiated On: 03/18/2021 7:41 AM Addendum Number: 1 Addendum Date: 10/30/2021 6:54:20 AM MAC was used for sedation during this procedure. Carlos Pascual DO 10/30/2021 6:54:26 AM This report has been signed electronically.
--- NOTE | 2021-03-18 08:48 | OP.CCLET_ITS ---
10/30/2021 Carroll Lange [address] [place] [address] Re : Colonoscopy procedure for Alyse Wetzel Dear Dr. Lange This procedure was performed on Thursday, March 18, 2021. My impressions and recommendations are as follows: Impressions : - Diverticulosis in the recto-sigmoid colon, in the sigmoid colon and in the descending colon. There was no evidence of diverticular bleeding. - Mucosal ulceration. Biopsied. - Patent end-to-side ileo-colonic anastomosis, characterized by congestion, edema, erythema and an intact appearance. - Congested mucosa in the distal ileum. Biopsied. - Granularity in the distal ileum. Fluid aspiration performed. - Congested mucosa in the sigmoid colon, in the descending colon, at the splenic flexure and in the transverse colon. Fluid aspiration performed. Recommendations : - [facility] patient to [facility] care. - Advance diet as tolerated. - Continue present medications. - Await pathology results. - Return to my office. - Repeat colonoscopy is recommended to check healing. The colonoscopy date will be determined after pathology results from today's exam become available for review. My findings are described in the full procedure note, which is enclosed. If I can be of further assistance, please feel free to contact me at . Sincerely, Carlos Pascual, 03/18/2021 8:47:13 AM This report has been signed electronically.
--- NOTE | 2021-03-18 09:18 | CASEMGMT ---
ELEN REILLY Assessment: Face to Face with pt for initial transition planning/care coordination assessment. RN MELBA introduced self and role at [facility], pt voices understanding and consents to assessment. Pt is A/O x4 and answers all questions appropriately at this time. Pt lying in bed all bundled up in blankets in no distress. Care providers, pharmacy, and demographics verified/updated. Admitting Dx: colitis PCP:Anisa Specialists:Pt denies Preferred Pharmacy: [facility] Insurance: [facility] Prescription Benefit: yes LW/HPOA: Pt has a LW/DPOA on file at [facility]. Pt states this DPOA document is not the most updated. She states her DPOA is her grandson Jose G Wetzel. She is aware this is not on file as the current document lists Teresita Bar (which is changed to Lencho). She asks this RN MELBA to leave her a note to remind her to bring in a copy. Placed a note in her hospital folder as requested. LNOK: Sandip Ledesma, cousin; Teresita Littlejohney, granddtr; Jose G Wetzel, grandson Living Arrangements: Pt lives alone in a house of 3 apartments. She lives on the main level of the house. Her cousin lives upstairs. Pt states there is one step to enter and she has a grab bar. Pt reports being I in ADL's and denies concerns at home. Transportation: Pt does not drive but family transports her to medical appts or she uses a taxi. DME/HHC/SNF: Pt has a cane, walker and BSC at home. She mostly uses the walker. Pt denies hx of HHC or SNF stays. Pt states no concerns with going home at time of dc. She states she feels weak only due to not eating food. Pt denies the need for any HHC therapy in the home or outpt therapy for strengthening. Pt states no further concerns/needs. CM to follow. Advised pt to ask CM if any further question/concerns/needs arise, voices understanding. Pt Goal: Home Plan: Home
[2021-03-18] MEDS: Ciprofloxacin 400 MG/200 ML BAG 200 MG IV (09:29)
--- NOTE | 2021-03-18 10:24 | PCM.DC ---
Discharge Instructions Diet Discharge Diet: No restrictions Activity Discharge Activity: Return to Normal Activity Weight Bearing Status: Weight bearing as tolerated Dressing / Incision Call your doctor if you observe: Fever of 101 or Higher, Numbness or Tingling, Shortness of breath, Dizziness, Chest pain, Increased palpitations (irregular heartbeat) and Calf discomfort Follow Up Care Please Follow Up With: Primary care provider When: Within the next two weeks. Test Results: Test results from this visit will be discussed in further detail at your follow-up appointment, if applicable. Discharge Plan Admission Admit Date/Time: 03/17/21 14:13 Primary Reason for Your Visit: GI bleed Attending Provider: Donald Ramirez Primary Care Provider: Carroll Lange Discharge Orders/Prescriptions Prescriptions: New ciprofloxacin HCl 500 mg tablet 500 mg PO BID Qty: 12 RF: 0 metronidazole 500 mg tablet 500 mg PO BID Qty: 12 RF: 0 Continued alendronate 70 mg tablet 70 mg PO MCPHERSON RF: 0 Adult Probiotic 3 billion cell capsule 3,000 mmu cells PO DAILY RF: 0 multivitamin 1 TABLET tablet 1 tab PO DAILY RF: 0 cyanocobalamin (vitamin B-12) 500 MCG tablet, sublingual 500 mcg SL DAILY RF: 0 calcium carbonate 600 MG tablet 600 mg PO DAILY RF: 0 budesonide 3 mg capsule,delayed,extend.release 9 mg PO DAILY RF: 0 melatonin 5 mg Tablet 5 mg PO QHS RF: 0 potassium chloride 20 mEq tablet,ER particles/crystals 40 meq PO DAILY RF: 0 mirtazapine 30 mg tablet 30 mg PO QHS RF: 0 Referrals / Follow Up: Carroll Lange MD [Primary Care Provider] - Within 2 Weeks Carlos Pascual DO [STAFF PHYSICIAN] - Within 2 Weeks Disposition Disposition (needs filled in before D/C Order can be placed): Home, Self Care
--- NOTE | 2021-03-18 12:36 | PCM.DC.SUM ---
Documented by User: Carroll MAK 03/18/21 12:46 Providers Date of Admission: 03/17/21 Primary Care Physician: Dr. Carroll Lange MD Consultations 03/17/21 16:24 Consult: Gastroenterology Routine Consulting Provider: [facility] Reason for Consult: colitits EMERGENT Consult: No MD Notified: Yes Date Notified: 03/17/21 Time Notified: 14:22 Method of Notification: Verbal Reason For Visit: COLITIS Diagnosis Discharge Diagnosis (1) Diarrhea: Status: Acute Code(s): R19.7 - Diarrhea, unspecified (2) Leukocytosis: Status: Acute Code(s): D72.829 - Elevated white blood cell count, unspecified Medications at Discharge Home Medications cyanocobalamin (vitamin B-12) 500 mcg SL DAILY 12/10/14 multivitamin 1 tab PO DAILY 12/10/14 calcium carbonate 600 mg PO DAILY 12/04/17 alendronate 70 mg tablet 70 mg PO MCPHERSON tab 01/11/20 lactobacillus combination no.8 3 billion cell capsule 3,000 mmu cells PO DAILY 01/11/20 budesonide 9 mg PO DAILY 11/14/20 melatonin 5 mg PO QHS 11/14/20 mirtazapine 30 mg PO QHS 03/17/21 potassium chloride 40 meq PO DAILY 03/17/21 ciprofloxacin HCl 500 mg PO BID #12 tab 03/18/21 metronidazole 500 mg PO BID #12 tab 03/18/21 Hospital Course Procedures Colonoscopy Summary of Care Provided Minutes Spent on Discharge: 20 Hospital Course: Patient is a 81-year-old female who was admitted to the hospital on 03/17/2021 for evaluation and management of diarrhea and abdominal pain. Patient was evaluated by Dr. Pascual and underwent colonoscopy on 03/18, findings as above, findings seen on colonoscopy were suggestive of ischemic colitis and recommendations were to advance diet as tolerated, continue antibiotics and follow-up with Dr. Pascual within the next 2 to 3 weeks. Patient was discharged on ciprofloxacin and Flagyl for 1 week and tolerated advancement of diet during admission. Patient was advised that her symptoms should improve in the next 2 to 3 days and to be alert for changes in her diarrhea given concern for possible C. difficile infection. Patient acknowledged and was agreeable to all. Patient seen by Carroll Mejia PA-C, under the supervision of Dr. Ramirez. Time spent on patient care: 20 minutes. Physical Exam Narrative Patient is an 81-year-old female comfortably resting in bed, alert and orient x3. Patient still reports mild abdominal pain, but reports that this is improved from yesterday. Denies development of any new symptoms overnight. Does not appear in acute distress. Const alert, oriented x3 and no apparent distress HEENT normocephalic, head/scalp atraumatic and hearing grossly normal bilaterally Eyes PERRL, EOMs intact bilaterally and conjunctivae normal Neck no lymphadenopathy, supple and no JVD Resp normal respiratory effort, no retractions, no use of accessory muscles and clear to auscultation bilaterally Cardio regular rate, regular rhythm, no murmurs and no JVD GI normal to inspection, nondistended, normoactive bowel sounds and soft to palpation Palpation: tender suprapubic Extremity normal to inspection, full ROM and no clubbing, cyanosis or edema Skin no rashes or lesions noted, no wounds and skin turgor normal Neuro CN's II-XII intact bilaterally Psych affect normal Medical Records Data Medical Nutrition Assessment Dietitian: Malnutrition Criteria Met Start: 03/17/21 16:45 Freq: Status: Active Protocol: Document 03/17/21 16:45 [facility] (Rec: 03/17/21 16:45 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 making it difficult for pt to consume adequate nutrition to meet pt est nutritional needs Signs/Symptoms as evidenced by 26.6% wt loss x 1 yr and obvious fat/muscle low of entire body (BMI 14.5) Status Active Problem Recommendation Dietitian Recommendations/Changes Will order 8 oz ensure clear tid w/ meals for increased nutrition if consumed As medically able, rec ALEXANDER to Transitional w/ goal of liberal regular diet with ONS at [facility] Weight / BMI Weight Weight: 84 lb 8 oz Body Mass Index (BMI) 14.5 ABG / Lab / Microbiology Data Result Diagrams: 03/18/21 04:26 03/18/21 04:26 Laboratory: Laboratory Results - last 24 hr 03/17/21 11:40: Diff Path Review June03/17/21 11:40: Magnesium 1.8 03/17/21 11:40: ESR 32 H 03/17/21 11:40: C-React Prot Ext Range 163.00 H 03/17/21 11:40: Magnesium Cancelled 03/17/21 13:10: Urine Color Yellow, Urine Clarity Sl. Cloudy, Urine pH 5.0, Ur Specific [place] 1.025, Urine Protein 30 H, Urine Glucose (UA) Normal, Urine Ketones 5 H, Urine Occult Blood 50 H, Urine Nitrite Negative, Urine Bilirubin Negative, Urine Urobilinogen Normal, Ur Leukocyte Esterase 500 H, Urine RBC 0 SEEN, Urine WBC 25-50 SEEN, Ur Squamous Epith Cells 0 SEEN, Urine Bacteria 0 SEEN, Urine Mucus 0 SEEN 03/17/21 14:30: Lactic Acid 1.2 03/17/21 14:30: Procalcitonin 0.19 H 03/18/21 04:26: WBC 24.6 H, RBC 3.54 L, Hgb 11.6 L, Hct 33.5 L, MCV 94.6, MCH 32.8 H, MCHC 34.6, RDW Std Deviation 44.5 H, RDW Coeff of Tracy 12.9, Plt Count 290, MPV 11.0, Immature Gran % (Auto) 0.800, Neut % (Auto) 83.5 H, Lymph % (Auto) 9.2 L, Rolette % (Auto) 5.9, Eos % (Auto) 0.2, Baso % (Auto) 0.4, Absolute Neuts (auto) 20.6 H, Absolute Lymphs (auto) 2.26, Nucleated RBC % 0, Differential Comment SCANNED 03/18/21 04:26: Sodium 139, Potassium 3.2 L, Chloride 108 H, Carbon Dioxide 26.0, Anion Gap 5, BUN 11, Creatinine 0.59, Estim Creat Clear Calc 26.24, Est GFR (MDRD) Af Amer 125, Est GFR (MDRD) Non-Af 104, BUN/Creatinine Ratio 18.6, Glucose 85, Calcium 7.6 L 03/18/21 04:26: PT 14.9, INR 1.2, APTT 41.6 H Microbiology: Microbiology 03/17/21 Unknown Stool Enteric Bacteriology - Final 03/17/21 17:40 Nasal Secretion SARS-CoV-2 Antigen (Rapid) - Final Radiography Diagnostic Testing: Radiology Impression Abdomen/Pelvis CT 03/17/21 11:32 IMPRESSION: Status post right hemicolectomy. There is evidence of colitis involving the distal portion of the transverse colon down to the rectum. Abnormally dilated and thickened wall with inflammatory changes of a distal ileal loops. This is suggestive of Crohn''s disease. Clinical correlation is recommended. 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 Infrarenal abdominal aortic aneurysm with mural thrombus. Electronically Signed: Chucky Goodson MD at 13:24 EST , D/C Instructions Discharge Diet: No restrictions Weight Bearing Status: Weight bearing as tolerated Call your doctor if you observe: Fever of 101 or Higher, Numbness or Tingling, Shortness of breath, Dizziness, Chest pain, Increased palpitations (irregular heartbeat) and Calf discomfort Please Follow Up With: Primary care provider When: Within the next two weeks. Meaningful Use Info Meaningful Use Diagnoses (Choose all that apply): None applicable Discharge Plan Admission Admit Date/Time: 03/17/21 14:13 Primary Reason for Your Visit: GI bleed Attending Provider: Donald Ramirez Primary Care Provider: Carroll Lange Discharge Orders/Prescriptions Prescriptions: New ciprofloxacin HCl 500 mg tablet 500 mg PO BID Qty: 12 RF: 0 metronidazole 500 mg tablet 500 mg PO BID Qty: 12 RF: 0 Continued alendronate 70 mg tablet 70 mg PO MCPHERSON RF: 0 Adult Probiotic 3 billion cell capsule 3,000 mmu cells PO DAILY RF: 0 multivitamin 1 TABLET tablet 1 tab PO DAILY RF: 0 cyanocobalamin (vitamin B-12) 500 MCG tablet, sublingual 500 mcg SL DAILY RF: 0 calcium carbonate 600 MG tablet 600 mg PO DAILY RF: 0 budesonide 3 mg capsule,delayed,extend.release 9 mg PO DAILY RF: 0 melatonin 5 mg Tablet 5 mg PO QHS RF: 0 potassium chloride 20 mEq tablet,ER particles/crystals 40 meq PO DAILY RF: 0 mirtazapine 30 mg tablet 30 mg PO QHS RF: 0 Referrals / Follow Up: Carroll Lange MD [Primary Care Provider] - Within 2 Weeks Carlos Pascual DO [STAFF PHYSICIAN] - Within 2 Weeks Disposition Disposition (needs filled in before D/C Order can be placed): Home, Self Care Documented by User: Dr. Donald Ramirez DO 03/19/21 13:15 Providers Date of Admission: 03/17/21 Reason For Visit: COLITIS Medications at Discharge Home Medications cyanocobalamin (vitamin B-12) 500 mcg SL DAILY 12/10/14 multivitamin 1 tab PO DAILY 12/10/14 calcium carbonate 600 mg PO DAILY 12/04/17 alendronate 70 mg tablet 70 mg PO MCPHERSON tab 01/11/20 lactobacillus combination no.8 3 billion cell capsule 3,000 mmu cells PO DAILY 01/11/20 budesonide 9 mg PO DAILY 11/14/20 melatonin 5 mg PO QHS 11/14/20 mirtazapine 30 mg PO QHS 03/17/21 potassium chloride 40 meq PO DAILY 03/17/21 ciprofloxacin HCl 500 mg PO BID #12 tab 03/18/21 metronidazole 500 mg PO BID #12 tab 03/18/21 ABG / Lab / Microbiology Data Result Diagrams: 03/18/21 04:26 03/18/21 04:26 Discharge Plan Admission Admit Date/Time: 03/17/21 14:13 Primary Reason for Your Visit: GI bleed Attending Provider: Donald Ramirez Primary Care Provider: Carroll Lange Discharge Orders/Prescriptions Prescriptions: New ciprofloxacin HCl 500 mg tablet 500 mg PO BID Qty: 12 RF: 0 metronidazole 500 mg tablet 500 mg PO BID Qty: 12 RF: 0 Continued alendronate 70 mg tablet 70 mg PO MCPHERSON RF: 0 Adult Probiotic 3 billion cell capsule 3,000 mmu cells PO DAILY RF: 0 multivitamin 1 TABLET tablet 1 tab PO DAILY RF: 0 cyanocobalamin (vitamin B-12) 500 MCG tablet, sublingual 500 mcg SL DAILY RF: 0 calcium carbonate 600 MG tablet 600 mg PO DAILY RF: 0 budesonide 3 mg capsule,delayed,extend.release 9 mg PO DAILY RF: 0 melatonin 5 mg Tablet 5 mg PO QHS RF: 0 potassium chloride 20 mEq tablet,ER particles/crystals 40 meq PO DAILY RF: 0 mirtazapine 30 mg tablet 30 mg PO QHS RF: 0 Referrals / Follow Up: Carroll Lange MD [Primary Care Provider] - Within 2 Weeks FriendCarlos DO [STAFF PHYSICIAN] - Within 2 Weeks Disposition Disposition (needs filled in before D/C Order can be placed): Home, Self Care Charges/Coding Addendum Addendum: Patient was seen and examined today independently of Carroll Mejia on 03/18/2021, endoscopy today revealed evidence of inflammation felt to be secondary to ischemic colitis. She is having less abdominal pain and is able to eat. She would like to go home if possible. On examination she appeared in good health and spirits, she does not appear to be in any distress. Vital signs as documented. Skin warm and dry and without overt rashes. Neck without JVD, thyroid appears normal, trachea is midline, neck is supple. Lungs clear, normal air movement was noted. Heart exam notable for regular rhythm, normal sounds and absence of murmurs, rubs or gallops. Abdomen-mild tenderness to palpation was noted, no rebound abdominal tenderness was noted and without evidence of organomegaly, masses, or abdominal aortic enlargement, bowel sounds are present in all 4 quadrants, no abdominal tenderness was noted. Extremities nonedematous, no cyanosis was noted, no clubbing was noted. Neuro: Cranial nerves II through XII are grossly intact, no focal motor deficits were noted, sensation to light touch and pinprick is intact, motor exam 5/5 throughout. Psych: Patient is alert and oriented x3, she does not appear anxious or depressed, she does not appear agitated. Impression #1 ischemic colitis-patient will be discharged home with antibiotics to follow-up with GI #2 diarrhea secondary to #1 #3 leukocytosis secondary to ischemic colitis #4 hypokalemia #5 chronic depression #6 osteoporosis #7 possible enteritis distal ileum #8 acute protein caloric malnutrition-patient had Ensure clear ordered 3 times daily with meals for increased nutrition, a liberal regular diet was recommended I have reviewed Carroll Mejia's discharge summary including his medical assessment and plan of care and with the above additions, endorse it. Total clinical time spent by myself including addressing the patient's medical issues, reviewing all of her data, and collaboration with the patient's care team: 22 minutes Visit Charges Inpatient E&M: [id number] Disch Hosp
[2021-03-19 09:14] LABS: MG Sendout 1.8 mg/dL (1.6-2.3)
[2021-03-20 15:04] LABS: Pathologist Review Reviewed
== END 2021-03-18 12:52 | disposition home or self-care (01) | DRG 393 ==
LOC: ED 11:54 → MS3 17:04
PROVIDERS: Anesthesiology; Internal Medicine Gastroenterology; Admitting Provider Internal Medicine; Emergency Provider Student in an Organized Health Care Education/Training Program; PCP Family Medicine; Visit Provider Internal Medicine
PROC: 0DJD8ZZ Inspection of Lower Intestinal Tract, Via Natural or Artificial Opening Endoscopic (ICD-10-PCS; CPT 45378; principal; 2021-03-18 08:00)
DX: K55.9 Vascular disorder of intestine, unspecified (principal); E43 Unspecified severe protein-calorie malnutrition; Z68.1 Body mass index [BMI] 19.9 or less, adult; D72.829 Elevated white blood cell count, unspecified; E78.5 Hyperlipidemia, unspecified; E87.6 Hypokalemia; K57.30 Diverticulosis of large intestine without perforation or abscess without bleeding; F17.210 Nicotine dependence, cigarettes, uncomplicated; F41.9 Anxiety disorder, unspecified; K21.9 Gastro-esophageal reflux disease without esophagitis; M81.0 Age-related osteoporosis without current pathological fracture; Z79.899 Other long term (current) drug therapy; F32.A Depression, unspecified; Z86.718 Personal history of other venous thrombosis and embolism; Z85.038 Personal history of other malignant neoplasm of large intestine; Z90.49 Acquired absence of other specified parts of digestive tract; R10.819 Abdominal tenderness, unspecified site
CPT/HCPCS: 45380; 36415; 74177; 80048; 80053; 81001; 82705; 83605; 83630; 83690; 83735; 84145; 85025; 85610; 85652; 85730; 86140; 87040; 87070; 87075; 87177; 87186; 87205; 87209; 87426; 87493; 87506; 88305; 93005; 96361; 96365; 96366; 96367; 96368; 97802; 99218; 99285; 99406; J7030; J7040; Q9967; A4216; G0378; J0744

== ENCOUNTER 2021-04-21 17:44 | Emergency (ER) | payer MEDICARE, SELFPAY ==
[2021-04-21 17:44] VITALS: BP 104/71; PULSE 95; RESP 16; RESP 18; TEMP 36; O2SAT 97; O2SAT 98; BMI 13.6
--- NOTE | 2021-04-21 18:41 | EKG12_ITS ---
Test Reason : FALL Blood Pressure : / mmHG Vent. Rate : 078 BPM Atrial Rate : 078 BPM P-R Int : 164 ms QRS Dur : 068 ms QT Int : 438 ms P-R-T Axes : 084 -55 073 degrees QTc Int : 499 ms Normal sinus rhythm Low voltage QRS Left anterior fascicular block Abnormal ECG Confirmed by YORDY CHAN, VITALIY ([id number]), web content editor TERELL GASTELUM ([id number]) on 04/24/2021 11:03:03 AM Referred By: BRITTNEY Confirmed By:VITALIY SCALES MD
--- NOTE | 2021-04-21 18:42 | RAD_ITS ---
INDICATION: left hip pain EXAMINATION/TECHNIQUE: X-RAY - LEFT XR Hip Unilateral with Pelvis when performed; 2-3 Views 3 VIEWS COMPARISON: None. FINDINGS: SOFT TISSUES: No soft tissue swelling or gas. No radiopaque foreign body. No abnormally distended air-filled bowel loops. Atherosclerotic vascular calcifications iliac vessels and distal abdominal aorta. BONES/JOINTS: Bilateral total hip arthroplasties without evidence of complication. Moderately advanced degenerative endplate changes at L5-S1 . Remote left superior and inferior pubic rami fractures. No sclerotic or destructive changes observed. RAD/HIP, UNI W/ Pelvis 2-3 Views IMPRESSION: Uncomplicated appearance left total hip arthroplasty. Electronically Signed: Juventino Alfaro DO at 21:14 EST ,
--- NOTE | 2021-04-21 18:49 | ED.VIS.FALL ---
HPI <OBDULIO Pelayo - Last Filed: 04/21/21 22:02> HPI - Fall History of Present Illness Chief Complaint: Fall Narrative Narrative: 81-year-old female presents with 5-day history of fatigue and generalized weakness. She states she is just been lying on the couch and sleeping all day. She has no specific symptoms other than some intermittent diarrhea. She states she had very heavy diarrhea a month ago and took antibiotics but now is having it occasionally. Denies fever, chills, nausea, vomiting, chest pain, shortness breath, cough, abdominal pain, or urinary symptoms. No blood in her stool. No sick contacts. She states she has been eating and drinking but less than usual. She ambulates with a walker and lives alone. Her boat adopted grandson lives in the apartment next to her and checks on her frequently. His mother is her medical and legal POA. They were worried that she was generally declining and had set up a hospice consult which is scheduled next week. She also wants evaluated for pain on the left side of her chest and hip due to mechanical fall a week ago. She states she got up to use the restroom overnight and did not turn the lights on and tripped over her cat and landed on her left side. Denies head injury or LOC. She does not take aspirin or blood thinners. [facility] <OBDULIO Pelayo - Last Filed: 04/21/21 22:02> [facility] Medical History Abdominal aortic aneurysm Acute cystitis BERONICA (acute kidney injury) Anxiety Depression E. coli UTI Fatigue GERD (gastroesophageal reflux disease) History of DVT (deep vein thrombosis) Hyperlipidemia Hypokalemia Microscopic colitis Osteoarthritis Osteoporosis Postoperative anemia Small bowel obstruction Smoker Tobacco abuse Tremor Home Medications cyanocobalamin (vitamin B-12) 500 mcg SL DAILY 12/10/14 [History Last Taken 03/16/21] multivitamin 1 tab PO DAILY 12/10/14 [History Last Taken 03/16/21] calcium carbonate 600 mg PO DAILY 12/04/17 [History Last Taken 03/16/21] alendronate 70 mg tablet 70 mg PO MCPHERSON tab 01/11/20 [History Last Taken 03/05/21] lactobacillus combination no.8 3 billion cell capsule 3,000 mmu cells PO DAILY 01/11/20 [History Last Taken 03/16/21] budesonide 9 mg PO DAILY 11/14/20 [History Last Taken 03/16/21] melatonin 5 mg PO QHS 11/14/20 [History Last Taken 03/16/21] mirtazapine 30 mg PO QHS 03/17/21 [History Last Taken 03/16/21] potassium chloride 40 meq PO DAILY 03/17/21 [History Last Taken 03/16/21] ciprofloxacin HCl 500 mg PO BID #12 tab 03/18/21 [Rx Last Taken Unknown] metronidazole 500 mg PO BID #12 tab 03/18/21 [Rx Last Taken Unknown] Allergy/AdvReac Type Severity Reaction Status Date / Time ibuprofen [From Motrin] Allergy Mild Angioedema, Verified 03/17/21 11:05 rash Family History Father No problems noted. Surgical History History of bilateral hip replacements History of bladder suspension procedure History of colectomy History of colonoscopy History of hysterectomy History of tubal ligation Social History (Updated 03/17/21 @ 16:47 by Carroll MAK) Smoking Status: Current every day smoker tobacco type: cigarettes ROS <OBDULIO Pelayo - Last Filed: 04/21/21 22:02> ROS ED ROS Narrative Constitutional: Positive for malaise. Negative for fever, chills. Eyes: Negative for visual change. ENT: Negative for sore throat, ear pain, rhinorrhea. CVS: Negative for palpitations, chest pain, syncope. Respiratory: Negative for shortness of breath, cough, orthopnea. GI: Positive for diarrhea. Negative for abdominal pain, nausea, vomiting, constipation, melena, hematochezia. : Negative for dysuria, hematuria or frequency. Neuro: Negative for headache, motor/sensory dysfunction. Skin: Negative for rash, abscess, or wound. Musc: Positive for left hip pain, trauma. Heme: Negative for easy bruising, bleeding, lymphadenopathy. EXAM <OBDULIO Pelayo - Last Filed: 04/21/21 22:02> Physical Exam Narrative Exam Narrative: CONST: Cachectic patient keenly alert sitting in bed in no acute distress. EYES: Normal inspection. PERRLA, EOMI. ENT: Normal inspection, dry mucous membranes. NECK: Normal inspection. RESP: No respiratory distress, CTAB. Chest wall nontender. CVS: Regular rate and rhythm, no murmur, no gallop. ABD: Soft and nontender, no guarding or rebound, nondistended. Back: Normal inspection, no midline spinal tenderness, no step off or crepitus. SKIN: Color normal, no rash, warm, dry, intact. EXTREMITIES: Normal appearance, no pedal edema. 5/5 upper and lower extremity strength, normal sensation, 2+ radial and DP pulses. Slight tenderness over the left hip. No shortening or external rotation of the extremities. The pelvic girdle is intact. NEURO: Oriented x4. Face symmetric. No upper or lower extremity drift. Normal [id number] and [id number]. PSYCH: Normal affect. Const Vital Signs: 04/21/21 17:44 04/21/21 20:03 04/21/21 20:53 Temperature 96.8 F L Temperature Source Temporal Pulse Rate 95 78 Respiratory Rate 18 18 Respiratory Effort Normal Respiratory Pattern Normal Blood Pressure 104/71 159/98 H Blood Pressure Mean 82 118 Pulse Ox 97 98 Oxygen Delivery Method Room Air Room Air <Dr. Herman Perez DO - Last Filed: 04/21/21 22:16> Physical Exam Const Vital Signs: 04/21/21 17:44 04/21/21 20:03 04/21/21 20:53 Temperature 96.8 F L Temperature Source Temporal Pulse Rate 95 78 Respiratory Rate 18 18 Respiratory Effort Normal Respiratory Pattern Normal Blood Pressure 104/71 159/98 H Blood Pressure Mean 82 118 Pulse Ox 97 98 Oxygen Delivery Method Room Air Room Air [facility] <OBDULIO Pelayo - Last Filed: 04/21/21 22:02> [facility] Narrative Medical decision making narrative: Patient presents with generalized weakness. She appears cachectic and debilitated but nontoxic. Vital signs within normal limits. She is keenly alert and oriented. She has dry mucous membranes. Heart is regular rate and rhythm. Lungs clear to auscultation. Abdomen soft and nontender. She has 5/5 upper and lower extremity strength, sensation, symmetric and equal pulses. Nonfocal neurological exam. She had reported a fall 1 week ago but has no chest wall tenderness. Pelvic girdle is stable. Basic labs were obtained and show nonspecific leukocytosis of 13.9. Electrolytes are unremarkable. Her renal function is normal. UA is negative for infection but does have a small amount of ketones consistent with dehydration. Chest x-ray and pelvic x-rays both negative for acute findings. COVID-19 test is negative. At this time the etiology of her generalized weakness is unknown. She was given IV fluids and is taking in p.o. fluids and was advised to continue this at home. She was able to stand and ambulate and uses a walker at home. I recommended that she keep her hospice evaluation next week for her chronic failure to thrive. She was counseled to return for new or worsening symptoms and was discharged in stable condition. Diagnoses 1. Generalized weakness 2. Dehydration 3. Mechanical fall Lab Data Labs: Laboratory Results - last 24 hr 04/21/21 04/21/21 04/21/21 20:48 20:48 20:59 WBC 13.9 H RBC 4.57 Hgb 14.6 Hct 43.6 MCV 95.4 MCH 31.9 MCHC 33.5 RDW Std Deviation 49.3 H RDW Coeff of [place] 14.2 Plt Count 307 MPV 10.4 Immature Gran % (Auto) 0.400 Neut % (Auto) 85.4 H Lymph % (Auto) 9.7 L Morris % (Auto) 3.9 Eos % (Auto) 0.1 Baso % (Auto) 0.5 Absolute Neuts (auto) 11.9 H Absolute Lymphs (auto) 1.35 Nucleated RBC % 0 Sodium 140 Potassium 3.6 Chloride 110 H Carbon Dioxide 22.0 Anion Gap 8 BUN 28 H Creatinine 0.84 Estim Creat Clear Calc 28.53 Est GFR (MDRD) Af Amer 83 Est GFR (MDRD) Non-Af 69 BUN/Creatinine Ratio 33.3 H Glucose 114 H Calcium 8.5 Troponin I High Sens 11 Urine Color Yellow Urine Clarity Clear Urine pH 5.0 Ur Specific [place] 1.025 Urine Protein 30 H Urine Glucose (UA) Normal Urine Ketones 50 H Urine Occult Blood 10 H Urine Nitrite Negative Urine Bilirubin 3 H Urine Urobilinogen 1 H Ur Leukocyte Esterase 25 H Urine RBC 0 SEEN Urine WBC 0 SEEN Ur Squamous Epith Cells 0 SEEN Urine Bacteria 0 SEEN Urine Mucus 0 SEEN Radiography Diagnostic Testing: Clinical Impression(s) from Imaging Studies Hip/Pelvis X-Ray 04/21/21 18:42 IMPRESSION: Uncomplicated appearance left total hip arthroplasty. Electronically Signed: Juventino Alfaro DO at 21:14 EST , Chest X-Ray 04/21/21 20:20 IMPRESSION: 1. Moderately advanced emphysema. 2. No evidence of acute cardiopulmonary disease. 3. Aortic arch atherosclerosis and tortuous descending thoracic aorta. Electronically Signed: Juventino Alfaro at 21:11 EST , EKG Initial EKG: Attestation: I personally reviewed and interpreted this EKG as follows: Interpretation: Sinus Rhythm and No Acute Injury Pattern Comments: Normal sinus rhythm, low voltage QRS, left anterior fascicular block, normal intervals, no acute ischemic changes Prior EKG tracings: available for review Prior: Unchanged <Dr. Herman Perez, DO - Last Filed: 04/21/21 22:16> [facility] MDM Narrative Medical decision making narrative: Patient was seen with the physician collections assistant. She is presenting with generalized weakness and history of a fall. She is a hospice consult for next week. Patient cachectic but nontoxic appearing. Did obtain blood work and her CBC shows slight leukocytosis of 13.9 however this is trending downward from previous. Hemoglobin and hematocrit are stable. Platelets are within normal limits. BMP shows dehydration but normal renal function. She was given 500 cc of IV fluids. High-sensitivity troponin is 11. Urinalysis negative for infection. Chest x-ray on my interpretation shows no acute cardiopulmonary process the radiologist does agree. Left hip x-ray also negative for acute fracture on my interpretation. Radiology patient as well. Given patient's ultimately normal work-up I feel she is stable for discharge home. Patient given return precautions. Lab Data Attestation: I reviewed the patient's lab results. Labs: Laboratory Results - last 24 hr 04/21/21 04/21/21 04/21/21 20:48 20:48 20:59 WBC 13.9 H RBC 4.57 Hgb 14.6 Hct 43.6 MCV 95.4 MCH 31.9 MCHC 33.5 RDW Std Deviation 49.3 H RDW Coeff of [place] 14.2 Plt Count 307 MPV 10.4 Immature Gran % (Auto) 0.400 Neut % (Auto) 85.4 H Lymph % (Auto) 9.7 L Morris % (Auto) 3.9 Eos % (Auto) 0.1 Baso % (Auto) 0.5 Absolute Neuts (auto) 11.9 H Absolute Lymphs (auto) 1.35 Nucleated RBC % 0 Sodium 140 Potassium 3.6 Chloride 110 H Carbon Dioxide 22.0 Anion Gap 8 BUN 28 H Creatinine 0.84 Estim Creat Clear Calc 28.53 Est GFR (MDRD) Af Amer 83 Est GFR (MDRD) Non-Af 69 BUN/Creatinine Ratio 33.3 H Glucose 114 H Calcium 8.5 Troponin I High Sens 11 Urine Color Yellow Urine Clarity Clear Urine pH 5.0 Ur Specific [place] 1.025 Urine Protein 30 H Urine Glucose (UA) Normal Urine Ketones 50 H Urine Occult Blood 10 H Urine Nitrite Negative Urine Bilirubin 3 H Urine Urobilinogen 1 H Ur Leukocyte Esterase 25 H Urine RBC 0 SEEN Urine WBC 0 SEEN Ur Squamous Epith Cells 0 SEEN Urine Bacteria 0 SEEN Urine Mucus 0 SEEN Radiography Diagnostic Testing: Clinical Impression(s) from Imaging Studies Hip/Pelvis X-Ray 04/21/21 18:42 IMPRESSION: Uncomplicated appearance left total hip arthroplasty. Electronically Signed: Juventino Alfaro DO at 21:14 EST , Chest X-Ray 04/21/21 20:20 IMPRESSION: 1. Moderately advanced emphysema. 2. No evidence of acute cardiopulmonary disease. 3. Aortic arch atherosclerosis and tortuous descending thoracic aorta. Electronically Signed: Juventino Alfaro DO at 21:11 EST , Discharge Plan Triage Chief Complaint: Fall ED Provider: Florinda Hammonds Dx/Rx/DC Orders Clinical Impression: Generalized weakness, Dehydration Instructions: Dehydration, ED Weakness (Uncertain Cause) Prescriptions: No Action alendronate 70 mg tablet 70 mg PO MCPHERSON RF: 0 Adult Probiotic 3 billion cell capsule 3,000 mmu cells PO DAILY RF: 0 multivitamin 1 TABLET tablet 1 tab PO DAILY RF: 0 cyanocobalamin (vitamin B-12) 500 MCG tablet, sublingual 500 mcg SL DAILY RF: 0 calcium carbonate 600 MG tablet 600 mg PO DAILY RF: 0 budesonide 3 mg capsule,delayed,extend.release 9 mg PO DAILY RF: 0 melatonin 5 mg Tablet 5 mg PO QHS RF: 0 potassium chloride 20 mEq tablet,ER particles/crystals 40 meq PO DAILY RF: 0 mirtazapine 30 mg tablet 30 mg PO QHS RF: 0 ciprofloxacin HCl 500 mg tablet 500 mg PO BID Qty: 12 RF: 0 metronidazole 500 mg tablet 500 mg PO BID Qty: 12 RF: 0 Primary Care Provider: Carroll Lange Referrals: Carroll Lange MD [Primary Care Provider] - Activity Restrictions/Additional Instructions: You appear to be dehydrated need to drink more fluids. Today there were no signs of infection. The chest x-ray looked normal. Urine had no infection. COVID-19 test is negative. The cause of your weakness is unknown. Please return to the ER if you develop new or worsening symptoms or have any recurrent falls. Otherwise keep your hospice evaluation next week. Disposition Disposition: Home, Self Care
--- NOTE | 2021-04-21 20:20 | RAD_ITS ---
INDICATION: falls EXAMINATION/TECHNIQUE: X-RAY - XR Chest 2 Views COMPARISON: 11/14/2020 chest x-ray. Also compared with 12/23/2019. FINDINGS: LINES/DEVICES: None. LUNGS: Hyperinflated lungs with some upper lobe hyperlucency consistent with emphysema. Left apical pulmonary nodule unchanged dating back to 12/23/2019. No airspace opacity or abnormal interstitial pattern. No pleural effusion or pneumothorax. MEDIASTINUM AND CARDIOVASCULAR STRUCTURES: Normal size and contour of the cardiomediastinal silhouette. No evidence of pulmonary vascular congestion. Highly tortuous descending thoracic aorta and atherosclerosis aortic arch. BONES AND SOFT TISSUES: S-shaped lateral curvature thoracolumbar spine. No fracture. RAD/Chest PA and Lateral IMPRESSION: 1. Moderately advanced emphysema. 2. No evidence of acute cardiopulmonary disease. 3. Aortic arch atherosclerosis and tortuous descending thoracic aorta. Electronically Signed: Juventino Alfaro DO at 21:11 EST ,
[2021-04-21 20:53] VITALS: BP 159/98; PULSE 78; RESP 18; O2SAT 98
[2021-04-21 20:59] LABS: Absolute Lymphocyte Count 1.35 X10^3/uL (0.83-4.51); Absolute Neutrophil Count 11.9 X10^3/uL (2.0-7.7); Basophil# 0.07 X10^3/uL; Basophil% 0.5 % (0-1); Eosinophil# 0.01 X10^3/uL; Eosinophils% 0.1 % (0-5); Hematocrit 43.6 % (37-47); Hemoglobin 14.6 g/dL (12.0-15.0); Lymphocyte # 1.35 X10^3/ul (0.83-4.51); Lymphocyte % 9.7 % (19-41); Mean Corp Hgb Conc 33.5 g/dL (32-36); Mean Corpuscular Hgb 31.9 pg (27.0-32.0); Mean Corpuscular Volume 95.4 fL (81-99); Mean Platelet Vol. 10.4 fl (6.2-12.0); Monocyte# 0.54 X10^3/uL; Monocyte% 3.9 % (0-10); NRBC Flagged by Analyzer 0 % (0-5); Neutrophil % 85.4 % (47-70); Platelet Count 307 K/mm3 (150-450); RBC Distribution Width CV 14.2 % (11.6-14.6); RBC Distribution Width SD 49.3 fl (35.1-43.9); Red Blood Count 4.57 M/mm3 (4.2-5.4); White Blood Count 13.9 K/mm3 (4.4-11.0)
[2021-04-21 21:08] LABS: Bacteria 0 SEEN /hpf (None Seen); Mucous, Urine 0 SEEN /hpf (<or=2+); Red Blood Cells-Urine 0 SEEN /hpf (0-5); Squamous Epithelial Cells - UA 0 SEEN /hpf (5-10); White Blood Cells 0 SEEN /hpf (0-5)
[2021-04-21 21:25] LABS: Color, Urine Yellow (Yellow); Glucose, Dipstick Normal (Normal); Ketone-Dipstick 50 mg/dl (Negative); Leukocyte Esterase-Dipstick 25 /ul (Negative); Nitrite-Dipstick Negative (Negative); Occult Blood-Urine 10 /ul (Negative); Protein-Dipstick 30 mg/dl (Negative); Specific Gravity, Urine 1.025 (1.002-1.030); Urine Clarity Clear (Clear); Urine Urobilinogen 1 mg/dl (Normal)
[2021-04-21 21:28] LABS: Urine Bilirubin Dipstick 3 mg/dL (Negative)
[2021-04-21 21:49] LABS: Anion Gap 8 (5-15); BUN 28 mg/dL (7-18); BUN/Creat Ratio 33.3 RATIO (10-20); Calcium,Total 8.5 mg/dL (8.5-10.1); Chloride 110 mmol/L (98-107); Creatinine, Serum 0.84 mg/dL (0.55-1.02); EST Glomerular Filtration Rate 69 mL/min (>60); Est Glom Filt Rate - Afr Amer 83 mL/min (>60); Estimated Creatinine Clearance 28.53 ml/min; Glucose 114 mg/dL (74-106); Potassium 3.6 mmol/L (3.5-5.1); Sodium Level 140 mmol/L (136-145); Troponin-I HS 11 pg/mL (3.0-54.0)
[2021-04-21 22:19] VITALS: RESP 16
== END 2021-04-21 22:20 | disposition home or self-care (01) ==
PROVIDERS: Emergency Provider Physician Assistant; PCP Family Medicine; Visit Provider Physician Assistant
DX: R53.1 Weakness (principal); E86.0 Dehydration; F17.210 Nicotine dependence, cigarettes, uncomplicated; Z86.718 Personal history of other venous thrombosis and embolism
CPT/HCPCS: 71046; 73502; 80048; 81001; 84484; 85025; 87811; 93005; 99285; J7040; A4216